=== PATIENT | female | born 1950 | race Caucasian/White ===

== ENCOUNTER 2019-07-13 01:35 | Day surgery (SDC) | payer MEDICARE, SELFPAY ==
[2019-07-09 15:36] VITALS: BMI 27.3
--- NOTE | ~2019-07-13 | XR_ITS ---
EXAMINATION: XR retrograde pyelo w/stent LT DATE: 07/13/2019 12:57 INDICATION: Renal stone TECHNIQUE: Fluoroscopic images from a left ureteral stent placement are submitted for review. 40 seco nds of fluoroscopy time. 4 fluoroscopic images. FINDINGS: There is a left double-J internal ureteral stent projecting in expected position, with proximal Marcy loop at the level of the renal pelvis and distal loop in the pelvis within the bladder lumen. IMPRESSION: 1. Left centimeter internal ureteral stent placement. Please refer to real-time procedural findings for details. Reviewed, dictated and finalized at location A. 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 Left centimeter internal ureteral stent placement. Please refer to real-ti me procedural findings for details.
[2019-07-13 10:10] VITALS: BP 155/99; PULSE 96; RESP 18; TEMP 36.6; O2SAT 99
[2019-07-13] MEDS: LACTATED RINGERS 1,000 ML 30 ML IV CONT (10:45)
[2019-07-13 11:07] LABS: Partial Thromboplastin Time 25.8 SECONDS (22.3-36.8)
--- NOTE | 2019-07-13 11:16 | WPDANESEPPF ---
Anes - Initial Pre Proc Eval Procedure: Operation Date: 07/13/19 12:00 Proposed Procedures p Cystoscopy, Left Ureteroscopy, Left Retrograde Pyelogram, Left Stone Extraction, Possible Left Stent Exchange - David Boone MD s Possible Holmium Laser Procedure - David Boone MD Date/Time: 07/13/19 11:16 Surgeon: David Boone MD Pre Op Diagnosis: Left Renal Stone Patient Data Age: 68 Gender: F Height: 5 ft 10 in Weight: 85.8 kg Last Vital Signs Temp 97.9 F 07/13/19 10:10 Pulse 96 07/13/19 10:10 Resp 18 07/13/19 10:10 BP 155/99 H 07/13/19 10:10 Pulse Ox 99 07/13/19 10:10 Allergies Allergy/AdvReac Type Severity Reaction Status Date / Time adhesive tape Allergy Intermediate Blister Verified 07/13/19 11:08 Home Medications Medication Instructions Recorded Confirmed Type warfarin 2.5 mg tablet See Rx Instructions .ROUTE .COMPLEX 06/14/19 07/09/19 History cholecalciferol (vitamin D3) 400 400 unit PO DAILY 06/15/19 07/09/19 History unit chewable tablet exemestane 25 mg tablet 25 mg PO DAILY 06/15/19 07/13/19 History gemfibrozil 600 mg tablet 600 mg PO BID 06/15/19 07/13/19 History irbesartan 150 mg tablet 150 mg PO DAILY 06/15/19 07/13/19 History metoprolol succinate 25 mg 50 mg PO HS 06/15/19 07/13/19 History tablet,extended release 24 hr atorvastatin 20 mg PO DAILY 06/26/19 07/13/19 History acetaminophen [Tylenol Extra 500 mg PO Q6H PRN 07/09/19 07/09/19 History Strength] famotidine 20 mg PO DAILY 07/09/19 07/13/19 History Laboratory Tests 07/13/19 10:41 PT 13.0 Seconds Seconds (11.1-14.7) INR 1.0 APTT 25.8 SECONDS SECONDS (22.3-36.8) Patient hx anesthesia problems: none Family hx anesthesia problems: none PMFSH Past Medical History Medical History (Updated 07/08/19 @ 07:48 by Lindy Mccarthy PA-C) Arthritis Breast cancer ER/[place] positive ductal carcinoma status post left partial mastectomy and radiation. She is on anti hormonal therapy. Chronic back pain Current use of care home anticoagulation Depression GERD (gastroesophageal reflux disease) Hay fever Herniated disc Hyperlipidemia Hypertension Paroxysmal atrial fibrillation On long-term warfarin. Social History Social History Social History: The patient lives in [place] with her boyfriend. She designates her boyfriend, Christian Mirza, as her surrogate decision maker and she wishes to be a full code. She denies alcohol, tobacco, drug use. Gender identity (if verbalized by the patient): Female Anes - Eval Final PreProcedure Day of Procedure 07/13/19 11:16 Patient weight: overweight Heart: irregular rhythm Lungs: clear to auscultation Airway: Mallampati scale class II Neurological: alert and oriented Last oral intake: >/= 8 hours ASA classification: IV Emergent: no Anesthetic plan: proceed Anesthesia type and monitoring: general LMA and standard monitoring Informed Consent: The patient's anesthetic plan and its attendant risks and benefits were discussed with the patient/family/POA. Questions were solicited and answers provided to the satisfaction of the patient/family/POA.
--- NOTE | 2019-07-13 11:29 | WPDHPUPDATE1 ---
History and Physical Update Update Date/Time: 07/13/19 11:29 History and Physical has been reviewed, including an updated exam of the patient. There are NO changes in the patient's condition. Risks, benefits, and alternatives have been discussed and questions answered. Patient agrees to proceed with procedure. Have added retrograde pyelogram to the consent form.
[2019-07-13] MEDS: ceFAZolin 2 GM/D5W 50 ML 2 GM/50 ML BAG IVPB (12:11)
[2019-07-13] MEDS: LIDOCAINE HCL 2% GEL UROJET 10 ML PKG MUCOUS MEM (12:37)
--- NOTE | 2019-07-13 12:48 | PM.PROC ---
Procedure Note - Detailed Date of procedure: 07/13/19 Pre-op diagnosis: Left Renal Stone Post-op diagnosis: same Procedure performed: Cystoscopy, left retrograde pyelogram, left ureteroscopy with stone extraction x2, each 4 mm, left ureteral stent exchange 4.8 Jordanian contour Description of procedure: Patient was taken to the operative suite and correctly identified. Once general anesthesia was obtained she was placed in the dorsal lithotomy position prepped and draped in usual sterile fashion. Twenty Jordanian scope inserted into the bladder. The left ureteral stent was grasped and brought out the meatus. A guidewire was inserted through the stent. A mini flexible ureteroscope was then placed all way up to the renal pelvis. We noted 2 stones present. One was in the lower pole and 1 was in the middle pole calyx. Each measured approximately 4 mm. We went ahead and used an escape basket retrieve both stones in 1 piece. There were no other stones noted. We then did a pyelogram to confirm placement of the stent. A 4.8 Jordanian contour stent was then placed with the proximal end coiled in the renal pelvis and the distal bladder. Bladder is drained. 2% viscous lidocaine was inserted into the urethra and she was taken to recovery room in stable condition. She will follow up in a week's time for stent room Anesthesia: GLMA Surgeon: David Boone MD Drains: Yes Packing: No Pathology: yes Complications: No immediate complications Condition: stable Disposition: PACU
[2019-07-13 12:53] VITALS: BP 111/73; PULSE 115; RESP 16; TEMP 37.4; O2SAT 98
[2019-07-13 13:10] VITALS: BP 115/91; PULSE 108; RESP 12; O2SAT 100
[2019-07-13 13:25] VITALS: BP 111/80; PULSE 105; RESP 12; O2SAT 99
[2019-07-13 13:35] VITALS: BP 124/61; PULSE 96; RESP 16
[2019-07-13 14:05] VITALS: BP 130/47; PULSE 73; RESP 16
== END 2019-07-13 14:10 | disposition home or self-care (01) ==
PROVIDERS: Anesthesiology; PCP Family Medicine; Visit Provider Urology
PROC: (CPT 52352; principal; 2019-07-13 12:00)
DX: N20.0 Calculus of kidney (principal); I10 Essential (primary) hypertension; I48.0 Paroxysmal atrial fibrillation; E78.5 Hyperlipidemia, unspecified; K21.9 Gastro-esophageal reflux disease without esophagitis; F32.9 Major depressive disorder, single episode, unspecified; Z79.01 Long term (current) use of anticoagulants; Z85.3 Personal history of malignant neoplasm of breast; Z79.811 Long term (current) use of aromatase inhibitors; Z92.3 Personal history of irradiation
CPT/HCPCS: 52332; 52352; 36415; 74420; 82365; 85610; 85730; 88300; A9270; C1769; C1887; C2617; J0690; J1100; J2250; J2405; J2704; J3010; J7120; Q9966

== ENCOUNTER 2020-02-29 00:13 | Outpatient (CLI) | payer MEDICARE, SELFPAY ==
[2020-02-29 17:26] LABS: SARS-CoV-2 RNA PCR Negative
== END 2020-02-29 00:14 | disposition home or self-care (01) ==
LOC: ANHCOVIDDT 00:14
PROVIDERS: PCP Family Medicine; Visit Provider Internal Medicine Gastroenterology
DX: Z01.812 Encounter for preprocedural laboratory examination (principal); Z20.828 Contact with and (suspected) exposure to other viral communicable diseases
CPT/HCPCS: 87635; C9803; U0003

== ENCOUNTER 2020-03-02 02:14 | Day surgery (SDC) | payer MEDICARE, SELFPAY ==
[2020-02-24 15:30] VITALS: BMI 27.3
--- NOTE | 2020-03-01 13:11 | WPDANESEPPF ---
Anes - Initial Pre Proc Eval Procedure: Operation Date: 03/02/20 09:00 Proposed Procedures p Screening Colonoscopy - Fish Sanchez MD Date/Time: 03/01/20 13:11 Surgeon: Fish Sanchez MD Pre Op Diagnosis: hx of colon polyps Patient Data Age: 69 Gender: F Height: 1.78 m Weight: 86.36 kg Allergies Allergy/AdvReac Type Severity Reaction Status Date / Time adhesive tape Allergy Intermediate Blister Verified 03/02/20 08:16 Home Medications Medication Instructions Recorded Confirmed Type warfarin 2.5 mg tablet See Rx Instructions .ROUTE .COMPLEX 06/14/19 03/02/20 History cholecalciferol (vitamin D3) 10 400 unit PO BID 06/15/19 02/24/20 History mcg (400 unit) chewable tablet exemestane 25 mg tablet 25 mg PO DAILY 06/15/19 02/24/20 History metoprolol succinate 25 mg 50 mg PO HS 06/15/19 03/02/20 History tablet,extended release 24 hr atorvastatin 20 mg PO DAILY 06/26/19 02/24/20 History acetaminophen [Tylenol Extra 500 mg PO Q6H PRN 07/09/19 02/24/20 History Strength] famotidine 10 mg PO DAILY 07/09/19 02/24/20 History gemfibrozil 600 mg tablet 600 mg PO BID #180 tablet 10/04/19 02/24/20 Rx es-ht-SB-vit [id number] 1 cap PO DAILY 12/10/19 02/24/20 History [Daily Multivitamin] irbesartan 150 mg tablet 150 mg PO DAILY #90 tablet 01/28/20 02/24/20 Rx zoledronic acid 4 mg/5 mL 1 mg IVPB [id number] ml 02/14/20 02/24/20 History intravenous solution Patient hx anesthesia problems: none Family hx anesthesia problems: none PMFSH Past Medical History Medical History (Updated 02/14/20 @ 13:07 by Ramiro Fraag PA-C) Arthritis BMI 27.0-27.9,adult Breast cancer ER/[place] positive ductal carcinoma status post left partial mastectomy and radiation. She is on anti hormonal therapy. 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 Primary hypertension Surgical History Surgical History History of dilation and curettage History of partial mastectomy of left breast History of right nephrectomy With benign histology. Status post left rotator cuff repair Status post lumbar discectomy Status post partial hysterectomy Status post tonsillectomy Social History Social History Social History: The patient lives in [place] with her boyfriend. She designates her boyfriend, Christian Mirza, as her surrogate decision maker and she wishes to be a full code. She denies alcohol, tobacco, drug use. Smoking status: Never smoker Alcohol intake: never Substance use: never Substance use type: does not use Living arrangements: with friend(s) Gender identity (if verbalized by the patient): Female Spiritual care concerns: No Anes - Eval Final PreProcedure Day of Procedure 03/01/20 13:11 Patient weight: overweight Heart: regular rate and rhythm Lungs: clear to auscultation and normal air movement Airway: Mallampati scale class II Neurological: alert and oriented Last oral intake: >/= 8 hours ASA classification: III Emergent: no Anesthetic plan: proceed Anesthesia type and monitoring: general GIVS and standard monitoring Informed Consent: The patient's anesthetic plan and its attendant risks and benefits were discussed with the patient/family/POA. Questions were solicited and answers provided to the satisfaction of the patient/family/POA.
[2020-03-02 08:17] VITALS: BP 141/92; PULSE 99; RESP 18; TEMP 37.3; O2SAT 99; BMI 27.1
[2020-03-02] MEDS: LACTATED RINGERS 1,000 ML 150 ML IV CONT (08:53)
[2020-03-02 09:07] LABS: INR 1.1; Prothrombin Time 14.1 Seconds (11.1-14.7)
[2020-03-02 09:46] VITALS: BP 95/41; PULSE 89; RESP 21; O2SAT 98
--- NOTE | 2020-03-02 09:50 | WPDGICN ---
Assessment and Plan Assessment and plan (1) History of colon polyps: Code(s): Z86.010 - Personal history of colonic polyps Status: Acute Assessment and Plan: Because of prior history of colon polyps colonoscopy will be performed now advised to 5 year intervals in the future. Coumadin will be held during this interval. (2) Rectal spasm: Code(s): K59.4 - Anal spasm Status: Acute Assessment and Plan: Because of rectal spasms will give patient a trial of Levsin 0.125 mg p.o. t.i.d. p.r.n.. (3) Paroxysmal atrial fibrillation: Code(s): I48.0 - Paroxysmal atrial fibrillation Status: Acute Assessment and Plan: Warfarin will be held briefly for colonoscopy. GI Consult Note Consult date/time: 03/02/20 09:50 HPI: Mayte Hawley is a 69 year old female Seen in evaluation at the request of Dr. Shabana Saleem. Patient presents for screening colonoscopy. Patient has a history of colon polyps in the past. She presents today for follow-up examination. Her current weight appetite bowel movements are normal. She denies any bleeding. Should her bowel habits have remained normal. She does notice intermittent rectal spasms. These typically will wake her up at night last for 1hour. No specific aggravating or relieving factors are noted. Patient does to is followed by n is been treated for the Coumadin. Because of atrial fibrillation. This will be held for endoscopy. Review of Systems Review of Systems: All systems reviewed & are unremarkable except as noted in HPI and below PMFSH Past Medical History Medical History (Updated 03/02/20 @ 09:53 by Fish Sanchez MD) Arthritis BMI 27.0-27.9,adult Breast cancer ER/[place] positive ductal carcinoma status post left partial mastectomy and radiation. She is on anti hormonal therapy. Chronic back pain Chronic back pain greater than 3 months duration Colon cancer screening Current use of counselor aid anticoagulation Depression GERD (gastroesophageal reflux disease) Hard of hearing Hay fever Herniated disc History of breast cancer History of kidney stones Hyperlipidemia Hypertension Mixed hyperlipidemia ELISHA on CPAP Osteoporosis screening Paroxysmal atrial fibrillation On long-term warfarin. Primary hypertension Surgical History Surgical History History of dilation and curettage History of partial mastectomy of left breast History of right nephrectomy With benign histology. Status post left rotator cuff repair Status post lumbar discectomy Status post partial hysterectomy Status post tonsillectomy Social History Social History Social History: The patient lives in [place] with her boyfriend. She designates her boyfriend, Christian Mirza, as her surrogate decision maker and she wishes to be a full code. She denies alcohol, tobacco, drug use. Smoking status: Never smoker Alcohol intake: never Substance use: never Substance use type: does not use Living arrangements: with friend(s) Gender identity (if verbalized by the patient): Female Spiritual care concerns: No Meds Home Medications and Allergies Home Medications Medication Instructions Recorded Confirmed Type warfarin 2.5 mg tablet See Rx Instructions .ROUTE .COMPLEX 06/14/19 03/02/20 History cholecalciferol (vitamin D3) 10 400 unit PO BID 06/15/19 02/24/20 History mcg (400 unit) chewable tablet exemestane 25 mg tablet 25 mg PO DAILY 06/15/19 02/24/20 History metoprolol succinate 25 mg 50 mg PO HS 06/15/19 03/02/20 History tablet,extended release 24 hr atorvastatin 20 mg PO DAILY 06/26/19 02/24/20 History acetaminophen [Tylenol Extra 500 mg PO Q6H PRN 07/09/19 02/24/20 History Strength] famotidine 10 mg PO DAILY 07/09/19 02/24/20 History gemfibrozil 600 mg tablet 600 mg PO BID #180 tablet 10/04/19 02/24/20 Rx
[2020-03-02 09:56] VITALS: BP 109/60; PULSE 90; RESP 19; O2SAT 99
[2020-03-02 10:06] VITALS: BP 114/60; PULSE 94; RESP 26; O2SAT 99
== END 2020-03-02 10:35 | disposition home or self-care (01) ==
PROVIDERS: PCP Family Medicine; Visit Provider Internal Medicine Gastroenterology
PROC: 0DJD8ZZ Inspection of Lower Intestinal Tract, Via Natural or Artificial Opening Endoscopic (ICD-10-PCS; CPT 45378; principal; 2020-03-02 09:00)
DX: Z12.11 Encounter for screening for malignant neoplasm of colon (principal); D12.2 Benign neoplasm of ascending colon; D12.5 Benign neoplasm of sigmoid colon; K57.30 Diverticulosis of large intestine without perforation or abscess without bleeding; K64.8 Other hemorrhoids; K59.4 Anal spasm; I48.0 Paroxysmal atrial fibrillation; Z79.01 Long term (current) use of anticoagulants; K21.9 Gastro-esophageal reflux disease without esophagitis; I10 Essential (primary) hypertension; E78.2 Mixed hyperlipidemia; G47.33 Obstructive sleep apnea (adult) (pediatric); F32.9 Major depressive disorder, single episode, unspecified; G89.29 Other chronic pain; M54.9 Dorsalgia, unspecified; M19.90 Unspecified osteoarthritis, unspecified site; Z85.3 Personal history of malignant neoplasm of breast; Z87.442 Personal history of urinary calculi
CPT/HCPCS: 45385; 45382; 36415; 85610; 88305; J2704; J7120

== ENCOUNTER 2020-03-07 13:51 | Outpatient (CLI) | payer MEDICARE, SELFPAY ==
--- NOTE | ~2020-03-07 | DEXA_ITS ---
Bone Density Report Name: Mayte Hawley Age: 69 Sex: Female Ethnicity: White Date of : 1950 Indication: postmenopausal; height loss; cancer; hysterectomy; Referring Provider: Ramiro Fraga Study: Bone densitometry was performed. Exam Date: March 07, 2020 Accession number: [id number] Bone Density: Region BMD T-score Z-score Classification AP Spine (L1-L4) 1.134 0.8 2.9 Normal Femoral Neck (Left) 0.759 -0.8 1.0 Normal Total Hip (Left) 0.869 -0.6 0.9 Normal Total Hip Bilateral Avg 0.869 -0.6 0.9 Normal Femoral Neck (Right) 0.735 -1.0 0.7 Normal Total Hip (Right) 0.867 -0.6 0.9 Normal World Health Organization criteria for BMD impression classify patients as: Normal (T-score at or above -1.0), Osteopenia (T-score between -1.0 and -2.5), or Osteoporosis (T-score at or below -2.5). 10-year Fracture Risk: FRAX not reported because: All T-scores for Spine Total, Hip Total, Femoral Neck at or above -1.0 Previous Exams: Region Exam Age BMD T-score BMD Change BMD Change Date g/cm2 vs Baseline vs Previous AP Spine(L1-L4) 03/07/2020 69 1.134 0.8 0.153(15.6%)# 0.034(3.1%)* 01/02/2018 67 1.101 0.5 0.119(12.1%)# 0.051(4.9%)* 08/22/2015 64 1.049 0.0 0.068(6.9%)# 0.046(4.6%)# 06/06/2010 59 1.003 -0.4 0.021(2.2%) 0.008(0.8%) 05/20/2008 57 0.995 -0.5 0.014(1.4%) 0.014(1.4%) 01/07/2005 54 0.982 -0.6 Total Hip(Left) 03/07/2020 69 0.869 -0.6 0.007(0.9%)# 0.017(2.0%) 01/02/2018 67 0.852 -0.7 -0.010(-1.2%)# -0.001(-0.2%) 08/22/2015 64 0.853 -0.7 -0.009(-1.0%)# -0.025(-2.8%)# 06/06/2010 59 0.878 -0.5 0.016(1.9%) -0.013(-1.5%) 05/20/2008 57 0.891 -0.4 0.029(3.4%)* 0.029(3.4%)* 01/07/2005 54 0.862 -0.7 Total Hip(Right) 03/07/2020 69 0.867 -0.6 -0.005(-0.6%)# 0.011(1.3%) 01/02/2018 67 0.856 -0.7 -0.016(-1.8%)# -0.017(-1.9%) 08/22/2015 64 0.873 -0.6 0.001(0.1%)# 0.000(0.0%)# 06/06/2010 59 0.873 -0.6 0.001(0.1%) -0.008(-0.9%) 05/20/2008 57 0.881 -0.5 0.009(1.0%) 0.009(1.0%) 01/07/2005 54 0.872 -0.6 *Denotes significance at 95% confidence level, LSC for AP Spine = 0.022 g/cm2, LSC for Total Hip = 0.027 g/cm2 Clinical Information Provided by Patient: Has used the following medications: Reclast (i.e. zoledronate), Vitamin D Has the following medical conditions: Cancer, Hysterectomy Patient maximum height was 72 Menopause Age: 45 No regular weight bearing
== END 2020-03-07 13:52 | disposition home or self-care (01) ==
PROVIDERS: PCP Family Medicine; Visit Provider Physician Assistant
DX: M81.0 Age-related osteoporosis without current pathological fracture (principal); Z85.3 Personal history of malignant neoplasm of breast
CPT/HCPCS: 77080

== ENCOUNTER 2021-02-15 06:47 | Outpatient (CLI) | payer MEDICARE, SELFPAY ==
--- NOTE | ~2021-02-15 | XR_ITS ---
EXAMINATION: XR abdomen/kub 1V INDICATION: Calculus of the kidney, history of stones TECHNIQUE: Supine views of the abdomen were obtained on 2 radiographs. COMPARISON: 07/01/2019 FINDINGS: There are changes of right nephrectomy. No urolithiasis is identified. There are multiple p hleboliths of the pelvis. A surgical anastomosis is noted in the rectum. There is moderate hip osteoa rthritis. The visualized lung bases are clear. A moderate volume of colonic stool is present. IMPRESSION: 1. No urolithiasis identified. Reviewed, dictated and finalized at location A.
== END 2021-02-15 06:48 | disposition home or self-care (01) ==
LOC: ANHIMG 06:52
PROVIDERS: PCP Family Medicine; Visit Provider Urology
DX: N20.0 Calculus of kidney (principal)
CPT/HCPCS: 74018

== ENCOUNTER 2021-04-09 08:45 | Outpatient (CLI) | payer MEDICARE, SELFPAY ==
--- NOTE | ~2021-04-09 | MR_ITS ---
EXAMINATION: MR lumbar spine wo con EXAM DATE: 04/09/2021 09:51 INDICATION: Low back pain. TECHNIQUE: Multi-sequential, multiplanar MR images of the lumbar spine were obtained without contrast . Sagittal T1, T2, T2 fat saturation images. Axial T2 weighted images. There is no prior study for comparison. FINDINGS: There is mild thoracolumbar dextroscoliosis. Mild to moderate disc disease from T12 through L4 and L5-S1. There our 2 nonspecific low T1 and T2 signal intensities measuring about 1.3 cm, one i n L3 vertebral body and one in L5 vertebral body. There is no correlate to these on the CT scan abdom en pelvis dated 06/26/2019. Differential diagnosis includes atypical hemangioma, metastatic disease or multiple myeloma. There are several signal abnormalities consistent with typical hemangiomas. There is 2 mm anterolisthesis L3 on L4, 3 mm retrolisthesis L5 on S1. The conus medullaris terminates at the L1/2 level and has normal signal intensity and morphology. Paraspinal soft tissue is unremar kable. Level by level evaluation: T12-L1: There is a mild to moderate diffuse disc bulge. Facet arthropathy: Mild. Neural foraminal stenosis: Mild right. Central canal stenosis: Mild. L1-L2: There is a mild diffuse disc bulge. Facet arthropathy: Mild to moderate. Neural foraminal stenosis: Mild to moderate left. Central canal stenosis: Mild. L2-L3: There is a mild to moderate diffuse disc bulge. Facet arthropathy: Moderate . Ligamentum flavum enlargement. Neural foraminal stenosis: Mild to moderate left. Central canal stenosis: Mild. L3-L4: There is a mild diffuse disc bulge. Facet arthropathy: Moderate . Ligamentum flavum enlargement. Neural foraminal stenosis: No stenosis. Central canal stenosis: Mild to moderate. L4-L5: There is a mild diffuse disc bulge. Facet arthropathy: Mild to moderate. Neural foraminal stenosis: Mild right. Central canal stenosis: Mild. L5-S1: There is a mild diffuse disc bulge. Facet arthropathy: Mild. Neural foraminal stenosis: Moderate right, mild to moderate left. Central canal stenosis: Mild. IMPRESSION: 1. L5-S1 moderate right neural foraminal stenosis. 2. Mild thoracolumbar dextroscoliosis. 3. Hemangiomata. L3 and L5 focal signal abnormalities, differential diagnosis including atypical hem angiomas, metastatic disease or multiple myeloma. Clinical correlation. Consider bone scan, or noncon trast lumbar CT to assess for development of osteoblastic disease compared to prior study. 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 IMPRESSION: 1. L5-S1 moderate right neural foraminal stenosis. 2. Mild thoracolumbar dextroscoliosis. 3. Hemangiomata. L3 and L5 focal signal abnormalities, differential diagnosis including atypical hemangiomas, metastatic disease or multiple myeloma. Clinica l correlation. Consider bone scan, or noncontrast lumbar CT to assess for devel opment of osteoblastic disease compared to prior study.
== END 2021-04-09 08:46 | disposition home or self-care (01) ==
PROVIDERS: PCP Family Medicine; Visit Provider Nurse Practitioner Family
DX: M54.50 Low back pain, unspecified (principal)
CPT/HCPCS: 72148

== ENCOUNTER 2021-04-24 11:10 | Outpatient (CLI) | payer MEDICARE, SELFPAY ==
--- NOTE | ~2021-04-24 | NM_ITS ---
EXAMINATION: NM bone scan whole body EXAM DATE: 04/24/2021 14:10 INDICATION: Abnormal MRI. TECHNIQUE: Bone scan was performed after injection of 26.4 mCi technetium 99 HDP and planar whole bod y images were obtained. COMPARISON: Compared to prior bone scan 01/30/2016, correlation to abnormal MRI 04/09/2021, correlati on to CT abdomen pelvis 06/26/2019. FINDINGS: There is mild to moderate upper lumbar dextroscoliosis. Scattered polyarticular mild osteo arthritis. There are no focal suspicious regions of increased or decreased osseous activity. Physiolo gic excretion from the left kidney, absent right renal activity. 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 Consider follow-up noncontrast CT or MRI lumbar spine examination in 3 months to compared to prior examinations. IMPRESSION: No correlate for the MRI abnormality; consider 3 month follow-up CT or MR lumbar spine w ithout contrast. Reviewed, dictated and finalized at location A. EL CLIPPER IMPRESSION: No correlate for the MRI abnormality; consider 3 month follow-up C T or MR lumbar spine without contrast.
== END 2021-04-24 11:11 | disposition home or self-care (01) ==
LOC: ANHIMG 11:14
PROVIDERS: PCP Family Medicine; Visit Provider Nurse Practitioner Family
DX: R93.7 Abnormal findings on diagnostic imaging of other parts of musculoskeletal system (principal)
CPT/HCPCS: 78306; A9561

== ENCOUNTER → 2021-11-08 08:11 | Outpatient (CLI) | payer MEDICARE, SELFPAY ==
--- NOTE | ~2021-11-08 | US_ITS ---
EXAMINATION: US aorta [facility] DATE: 11/08/2021 08:31 INDICATION: Abdominal aortic aneurysm screening. TECHNIQUE: Grayscale, color Doppler, and pulsed Doppler images of the aorta and common iliac arteries were obtained. COMPARISON: Lumbar spine MRI 04/09/2021 FINDINGS: The aorta is normal in caliber. The right common iliac artery is normal in caliber. The left common i liac artery is normal in caliber. IMPRESSION: 1. No abdominal aortic aneurysm. Reviewed, dictated and finalized at location A.
== END ==
PROVIDERS: PCP Family Medicine; Visit Provider Nurse Practitioner Family
DX: Z13.6 Encounter for screening for cardiovascular disorders (principal); Z82.49 Family history of ischemic heart disease and other diseases of the circulatory system
CPT/HCPCS: 76706

== ENCOUNTER → 2022-01-30 10:33 | Outpatient (CLI) | payer MEDICARE, SELFPAY ==
--- NOTE | ~2022-01-30 | XR_ITS ---
EXAMINATION: XR abdomen/kub 1V INDICATION: Calculus of the kidney TECHNIQUE: Supine views of the abdomen were obtained on 2 radiographs. COMPARISON: 02/15/2021 FINDINGS: There are changes of right nephrectomy. No urolithiasis is identified. There is moderate os teoarthritis of the hips. Phleboliths are noted in the pelvis. A surgical anastomosis is noted in the rectum. The bowel gas pattern is normal. There is lumbar levoscoliosis. The visualized lung bases ar e clear. IMPRESSION: 1. No urolithiasis identified. Reviewed, dictated and finalized at location A.
== END ==
PROVIDERS: PCP Family Medicine; Visit Provider Urology
DX: N20.0 Calculus of kidney (principal); M41.9 Scoliosis, unspecified; M16.0 Bilateral primary osteoarthritis of hip; Z98.0 Intestinal bypass and anastomosis status
CPT/HCPCS: 74018

== ENCOUNTER → 2022-04-29 09:46 | Outpatient (CLI) | payer MEDICARE, SELFPAY ==
--- NOTE | ~2022-04-29 | XR_ITS ---
XR thoracic spine 3V DATE: 04/29/2022 10:39 INDICATION: Chronic back pain. No known injury. TECHNIQUE: AP, lateral, swimmer views COMPARISON: None FINDINGS: Moderately severe degenerative disc disease at C6-7. There is osteopenia. There is mild to moderate degenerative spurring of the thoracic spine, primarily in the lower thoracic region. The thoracic pedicles are intact. No fracture or bone destruction or paraspinal soft tissue thickenin g is noted. IMPRESSION: Osteopenia Mild to moderate degenerative spurring of the thoracic spine Severe degenerative disc disease at C6-7 Reviewed, dictated and finalized at location A. IPAN MOLDER
== END ==
PROVIDERS: PCP Nurse Practitioner Family; Visit Provider Nurse Practitioner Family
DX: M47.814 Spondylosis without myelopathy or radiculopathy, thoracic region (principal); M85.88 Other specified disorders of bone density and structure, other site; M50.323 Other cervical disc degeneration at C6-C7 level
CPT/HCPCS: 72072

== ENCOUNTER 2022-05-07 15:10 | Outpatient (CLI) | payer MEDICARE, SELFPAY ==
--- NOTE | ~2022-05-07 | DEXA_ITS ---
Bone Density Report Name: LEATHA AKINS Age: 71 Sex: Female Ethnicity: White Date of : 1950 Indication: postmenopausal; screening for osteoporosis; height loss; cancer; hysterectomy; Referring Provider: UNKNOWN, UNKNOWN Study: Bone densitometry was performed. Exam Date: May 07, 2022 Accession number: [id number] Bone Density: Region BMD T-score Z-score Classification AP Spine(L1-L4) 1.096 0.4 2.6 Normal Femoral Neck (Left) 0.706 -1.3 0.6 Osteopenia Total Hip (Left) 0.874 -0.6 1.0 Normal Femoral Neck (Right) 0.761 -0.8 1.1 Normal Total Hip (Right) 0.898 -0.4 1.2 Normal Total Hip Mean 0.886 -0.5 1.1 Normal World Health Organization criteria for BMD impression classify patients as: Normal (T-score at or above -1.0), Osteopenia (T-score between -1.0 and -2.5), or Osteoporosis (T-score at or below -2.5). 10-year Fracture Risk(1): Major Osteoporotic Fracture 9.8% Hip Fracture 1.4% Reported Risk Factors: [place] (), Neck BMD=0.706, BMI=27.4 (1) FRAX(R) Version 3.08. Fracture probability calculated for an untreated patient. Fracture probability may be lower if the patient has received treatment. Clinical Information Provided by Patient: Has the following medical conditions: Cancer, Hysterectomy Patient maximum height was 72 Menopause Age: 45 Does not regularly consume dairy products Onset of menses at age 13 Number of children 2 Impression: The patient has low bone mass, based on the Left Femoral Neck T-score. The patient has an estimated ten-year risk of hip fracture of 1.4% and an estimated ten-year risk of major fracture of 9.8%, based on the WHO FRAX algorithm. Discussion: BONE DENSITY IS LOW AT ONE OR MORE SKELETAL SITES. This patient's lowest T-score is low at one or more skeletal sites. It meets the World Health Organization's (WHO) criteria for ?low bone mass? (T-score between -1.0 and -2.5). The patient's 10-year risk of fracture as calculated by FRAX is less than the threshold where pharmacological therapy is recommended by the National Osteoporosis Foundation (NOF). However, all treatment decisions require clinical judgment and consideration of individual patient factors, including patient preferences, comorbidities, previous drug use, risk factors not captured in the FRAX model (e.g., frailty, falls, vitamin D deficiency, increased bone turnover, interval significant decline in bone density) and possible under or overestimation of fracture risk by FRAX. The patient should follow a healthful lifestyle (good nutrition with adequate calcium and vitamin D, and appropriate weight-bearing exercise). Follow-Up: Consider repeating this study in 2 to 3 years to reassess this patient's status, or sooner if there is some new clinical indication. Repor
== END 2022-05-07 15:11 | disposition home or self-care (01) ==
LOC: ANHIMG 15:12
PROVIDERS: PCP Family Medicine
DX: M85.852 Other specified disorders of bone density and structure, left thigh (principal); Z79.811 Long term (current) use of aromatase inhibitors; Z78.0 Asymptomatic menopausal state
CPT/HCPCS: 77080

== ENCOUNTER 2023-01-27 08:34 | Outpatient (CLI) | payer MEDICARE, SELFPAY ==
[2023-01-27 13:10] LABS: Basophils Percent Auto 0.8 % (0.2-1.2); Eosinophils Absolute Auto 0.3 K/mm3 (0-0.3); Hematocrit 45.1 % (37.0-47.0); Hemoglobin 14.8 g/dL (12.0-15.0); Immature Granulocyte Absolute 0.01 K/mm3 (0.00-0.031); Immature Granulocyte Percent A 0.2 % (0-0.5); Lymphocytes Absolute Auto 0.86 K/mm3 (0.9-3.2); Lymphocytes Percent Auto 17.8 % (18.3-44.2); Mean Corpuscular HGB Conc 32.8 g/dl (32-36); Mean Corpuscular Hemoglobin 30.3 pg (26-34); Mean Corpuscular Volume 92.2 fl (80-100); Mean Platelet Volume 8.8 fl (7.4-10.4); Monocytes Absolute Auto 0.4 K/mm3 (0.1-0.6); Monocytes Percent Auto 7.7 % (2.6-8.5); Neutrophils Absolute Auto 3.3 K/mm3 (1.3-6.7); Neutrophils Percent Auto 67.5 % (45.5-73.1); Platelet Count Result 206 k/mm3 (150-375); Red Blood Count 4.89 M/mm3 (4.2-5.4); Red Cell Distribution Width 13.7 % (11.5-14.5); White Blood Count 4.8 K/mm3 (4.5-10.0)
[2023-01-27 13:12] LABS: Alanine Aminotransferase 26 U/L (6-35); Alkaline Phosphatase 87 U/L (38-126); Anion Gap 5 mmol/L (8-16); Aspartate Amino Transferase 32 U/L (14-36); Bilirubin,Total 0.6 mg/dL (0.2-1.3); Blood Urea Nitrogen 22 mg/dL (7-17); Calcium 9.2 mg/dL (8.4-10.2); Carbon Dioxide 25 mmol/L (22-30); Chloride 106 mmol/L (98-107); Cholesterol 149 mg/dL (0-200); Estimated Glomerular Filt Rate > 60; Glucose 93 mg/dL (65-110); HDL Direct 31 mg/dL; Potassium 4.6 mmol/L (3.4-5.0); Sodium 136 mmol/L (137-145); Triglycerides 163 mg/dL (<150)
[2023-01-27 13:22] LABS: LDL Cholesterol Direct 86 mg/dL
== END 2023-01-27 08:35 | disposition home or self-care (01) ==
PROVIDERS: PCP Family Medicine; Visit Provider Nurse Practitioner Family
DX: E78.5 Hyperlipidemia, unspecified (principal); I10 Essential (primary) hypertension
CPT/HCPCS: 36415; 80053; 80061; 85025

== ENCOUNTER 2023-05-20 13:01 | Outpatient (CLI) | payer MEDICARE, SELFPAY ==
--- NOTE | 2023-05-20 14:45 | NEURO_ITS ---
Impression: # Complains of numbness in feet. History of back surgery. 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 # Needle/EMG not requested. # Clinical correlation recommended. Nerve Conduction Studies Anti Sensory Summary Table Stim Site NR Peak (ms) P-T Amp (?V) Site1 Site2 Delta-P (ms) Dist (cm) Micheal (m/s) Left Saphenous Anti Sensory (Ant Med Mall) NO RESPONSE 14cm NR 14cm Ant Med Mall 0.0 Right Saphenous Anti Sensory (Ant Med Mall) NO RESPONSE 14cm NR 14cm Ant Med Mall 0.0 Left Sup Fibular Anti Sensory (Ant Lat Mall) NO RESPONSE 14 cm NR 14 cm Ant Lat Mall 16.0 Right Sup Fibular Anti Sensory (Ant Lat Mall) NO RESPONSE 14 cm NR 14 cm Ant Lat Mall 16.0 Left Sural Anti Sensory (Lat Mall) NO RESPONSE Calf NR Calf Lat Mall 16.0 Right Sural Anti Sensory (Lat Mall) NO RESPONSE Calf NR Calf Lat Mall 16.0 Motor Summary Table Stim Site NR Onset (ms) O-P Amp (mV) Site1 Site2 Delta-0 (ms) Dist (cm) Micheal (m/s) Left Peroneal Motor (Vastus Med) Ankle 4.9 0.8 Popit Ankle 9.6 43.0 45 Popit 14.5 0.9 Right Peroneal Motor (Vastus Med) Ankle 4.7 1.4 Popit Ankle 9.3 43.0 46 Popit 14.0 0.8 Left Tibial Motor (Abd Wilson Brev) Ankle 4.8 0.6 Knee Ankle 11.7 44.0 38 Knee 16.5 0.2 Right Tibial Motor (Abd Wilson Brev) Ankle 4.5 1.4 Knee Ankle 12.1 43.0 36 Knee 16.6 0.8 F Wave Studies NR F-Lat (ms) L-R F-Lat (ms) Left Peroneal (Mrkrs) (EDB) 65.63 5.97 Right Peroneal (Mrkrs) (EDB) 59.66 5.97 Left Tibial (Mrkrs) (Abd Hallucis) 60.82 2.34 Right Tibial (Mrkrs) (Abd Hallucis) 58.48 2.34 MTDD
== END 2023-05-20 13:02 | disposition home or self-care (01) ==
PROVIDERS: PCP Family Medicine
DX: G60.3 Idiopathic progressive neuropathy (principal)
CPT/HCPCS: 95911

== ENCOUNTER 2023-07-04 10:43 | Outpatient (CLI) | payer MEDICARE, SELFPAY ==
[2023-07-04 12:10] LABS: Basophils Percent Auto 0.8 % (0.2-1.2); Eosinophils Absolute Auto 0.2 K/mm3 (0-0.3); Eosinophils Percent Auto 3.6 % (0-4.4); Hematocrit 46.4 % (37.0-47.0); Hemoglobin 15.6 g/dL (12.0-15.0); Immature Granulocyte Absolute 0.01 K/mm3 (0.00-0.031); Immature Granulocyte Percent A 0.2 % (0-0.5); Lymphocytes Absolute Auto 0.96 K/mm3 (0.9-3.2); Lymphocytes Percent Auto 18.2 % (18.3-44.2); Mean Corpuscular HGB Conc 33.6 g/dl (32-36); Mean Corpuscular Hemoglobin 30.4 pg (26-34); Mean Corpuscular Volume 90.3 fl (80-100); Monocytes Absolute Auto 0.4 K/mm3 (0.1-0.6); Neutrophils Absolute Auto 3.7 K/mm3 (1.3-6.7); Neutrophils Percent Auto 69.2 % (45.5-73.1); Platelet Count Result 199 k/mm3 (150-375); Red Blood Count 5.14 M/mm3 (4.2-5.4); Red Cell Distribution Width 12.9 % (11.5-14.5); White Blood Count 5.3 K/mm3 (4.5-10.0)
[2023-07-04 12:26] LABS: Alanine Aminotransferase 21 U/L (6-35); Albumin Level 4.1 g/dL (3.5-5.1); Alkaline Phosphatase 90 U/L (38-126); Anion Gap 7 mmol/L (8-16); Aspartate Amino Transferase 37 U/L (14-36); Bilirubin,Total 0.8 mg/dL (0.2-1.3); Blood Urea Nitrogen 22 mg/dL (7-17); Calcium 9.5 mg/dL (8.4-10.2); Carbon Dioxide 26 mmol/L (22-30); Chloride 109 mmol/L (98-107); Estimated Glomerular Filt Rate > 60; Glucose 77 mg/dL (65-110); Potassium 4.4 mmol/L (3.4-5.0); Sodium 142 mmol/L (137-145)
[2023-07-04 12:41] LABS: Hemoglobin A1C 5.5 % (<5.7)
[2023-07-04 12:43] LABS: Vitamin D 25 Hydroxy 52.7 ng/mL
== END 2023-07-04 10:44 | disposition home or self-care (01) ==
LOC: ANHGOSHLAB 10:45
PROVIDERS: PCP Family Medicine; Visit Provider Family Medicine
DX: Z01.818 Encounter for other preprocedural examination (principal); I10 Essential (primary) hypertension; I48.0 Paroxysmal atrial fibrillation; E55.9 Vitamin D deficiency, unspecified; E11.9 Type 2 diabetes mellitus without complications
CPT/HCPCS: 36415; 80053; 82306; 83036; 84443; 85025

== ENCOUNTER → 2023-09-15 14:18 | Outpatient (REF) | payer MEDICARE, SELFPAY | LOC: ANHLAB 14:18 | PROVIDERS: PCP Family Medicine; Visit Provider Physician Assistant Surgical | DX: L72.11 Pilar cyst (principal) | CPT/HCPCS: 88305 ==

== ENCOUNTER 2023-09-23 14:24 | Outpatient (CLI) | payer MEDICARE, SELFPAY ==
--- NOTE | ~2023-09-23 | CT_ITS ---
EXAMINATION: CT LE LT wo con DATE: 09/23/2023 15:17 INDICATION: Left knee unilateral primary osteoarthritis. TECHNIQUE: Computed tomography (CT) of the left lower limb was performed without intravenous contrast . Automated exposure control and iterative reconstruction technique were employed. The dose-length pr oduct was 2163.15 mGy-cm. COMPARISON: Left knee radiographs 09/10/2023 FINDINGS: Bone alignment is normal. No fracture. There is moderate left hip osteoarthritis. Left knee demonstrates moderate osteoarthritis of the medial compartment and mild osteoarthritis of the latera l and patellofemoral compartments. There is an ossicle in the posterior horn of medial meniscus. Ther e is a small knee joint effusion. 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 IMPRESSION: 1. Moderate left knee osteoarthritis. 2. Small left knee joint effusion. 3. Moderate left hip osteoarthritis. Reviewed, dictated and finalized at location A.
--- NOTE | 2023-09-23 15:24 | ECG_ITS ---
Measurements Intervals [place] Rate: 103 P: * MT: * QRS: 22 QRSD: 99 T: 29 QT: 349 QTc: 409 Interpretive Statements ATRIAL FIBRILLATION WITH RAPID VENTRICULAR RESPONSE MINIMAL ST DEPRESSION [0.025+ mV ST DEPRESSION] ABNORMAL RHYTHM ECG SEE SCANNED COPY FOR SIGNATURE MTDD
[2023-09-23 15:46] LABS: Hemoglobin 15.6 g/dL (12.0-15.0)
[2023-09-23 15:56] LABS: Albumin Level 4.4 g/dL (3.5-5.1); Estimated Glomerular Filt Rate > 60; Glucose 126 mg/dL (65-110)
== END 2023-09-23 14:25 | disposition home or self-care (01) ==
PROVIDERS: PCP Family Medicine; Visit Provider Orthopaedic Surgery
DX: M17.12 Unilateral primary osteoarthritis, left knee (principal); E78.2 Mixed hyperlipidemia; I10 Essential (primary) hypertension; M25.462 Effusion, left knee; M16.12 Unilateral primary osteoarthritis, left hip
CPT/HCPCS: 36415; 73700; 82040; 82565; 82947; 85014; 85018; 93005

== ENCOUNTER 2024-05-04 08:39 | Inpatient (IN) | payer MEDICARE, SELFPAY ==
[2024-05-04] VITALS (10 sets, daily range): BP systolic 116–159; BP diastolic 72–113; PULSE 87–136; RESP 11–22; TEMP 36–36.6; O2SAT 98–100; BMI 26.7
--- NOTE | ~2024-05-04 | MR_ITS ---
EXAMINATION: MR brain/brain stem wo/w con DATE: 05/05/2024 10:31 INDICATION: Unrelenting dizziness TECHNIQUE: Magnetic resonance imaging (MRI) of the brain and brainstem was performed without and with 20 mL Multihance intravenous contrast. Sequences included sagittal and axial T1-weighted SE, axial d iffusion-weighted FS SE, axial 3D SWAN, axial T2-weighted FLAIR, and axial T2-weighted FSE. Postcontr ast axial and coronal T1-weighted SE was obtained. Apparent diffusion coefficient (ADC) maps were cre ated. COMPARISON: Head CT dated 05/04/2024 FINDINGS: There are no areas of restricted diffusion to suggest acute infarction. No intracranial hemorrhage or abnormal intracranial mass lesion. Single nonspecific focus of increased T2-weighted signal intensit y in the periventricular right frontoparietal white matter which is well within normal limits for age and likely sequela of chronic small vessel ischemic disease. There are no intraparenchymal signal ab normalities seen on the other pulse sequences. The ventricles are symmetric and normal in size. There are no abnormal extra-axial fluid collections. Flow voids are seen in the cerebral arteries on the T 2-weighted sequences consistent with their expected patency. Changes of bilateral intraocular lens re placement. Mild mucoperiosteal thickening the bilateral ethmoid sinuses. Visualized orbits and soft t issues are unremarkable. There are no areas of abnormal enhancement on the post contrast images. IMPRESSION: 1. Normal for age brain. No acute intracranial process or abnormally enhancing brain lesions. 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 DR[employer]
--- NOTE | ~2024-05-04 | MR_ITS ---
EXAMINATION: MRA brain wo con DATE: 05/05/2024 10:36 INDICATION: Unrelenting dizziness TECHNIQUE: Magnetic resonance angiography (MRA) of the brain was performed without intravenous contrast by the 3 D [id number] technique. COMPARISON: None. FINDINGS: There is normal flow related signal seen within the vertebral, basilar and internal carotid arteries. There is no proximal stenosis. There are no aneurysms identified. Both A1 and P1 segments are pat ent. Tiny patent right posterior communicating artery. Flow in the cerebral arteries is symmetric. IMPRESSION: 1. Normal brain MR angiogram. 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 CUTTER
--- NOTE | ~2024-05-04 | MR_ITS ---
EXAMINATION: MRA neck wo con DATE: 05/05/2024 10:37 INDICATION: Unrelenting dizziness TECHNIQUE: Magnetic resonance angiography (MRA) of the neck was performed without intravenous contras t. Sequences included axial 3D-time of flight T1-weighted FSPGR and Inhance 3D velocity. COMPARISON: None. FINDINGS: There is significant decreased flow related signal at the bilateral carotid bulbs. This results in 60 % stenosis of the right carotid bulb relative to normal distal artery lumen diameter (NASCET criteria ). There is 30% stenosis of the left carotid bulb relative to normal distal artery lumen diameter. B ilateral vertebral arteries are codominant without evident hemodynamically significant stenosis. Mode rate lower cervical and upper thoracic spondylosis. IMPRESSION: 1. 60% stenosis of the right carotid bulb relative to normal distal artery lumen diameter (NASCET cri teria). 2. 30% stenosis of the left carotid bulb relative to normal distal artery lumen diameter. 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 60% stenosis of the right carotid bulb relative to normal distal artery lume n diameter (NASCET criteria). 2. 30% stenosis of the left carotid bulb relative to normal distal artery lumen diameter.
--- NOTE | ~2024-05-04 | CT_ITS ---
EXAMINATION: CT brain wo con DATE: 05/04/2024 09:18 INDICATION: Dizziness TECHNIQUE: Computed tomography (CT) of the head was performed without intravenous contrast. Sagittal and coronal reconstructions were performed. The mA was adjusted according to patient size. Iterative reconstruction technique was employed. The dose-length product was 681.00 mGy-cm. COMPARISON: None FINDINGS: Small old lacunar infarct at the left insula. No acute intracranial hemorrhage, acute infarction or a bnormal extra axial fluid collection. Symmetric prominence of the sulci and subarachnoid spaces overl nikolai the convexities consistent with mild age-appropriate diffuse cerebral volume loss. Ventricles a re normal and symmetric. No mass/mass effect. Mild mucosal thickening in the right maxillary and bila teral ethmoid sinuses with small mucous retention cyst in the right maxillary sinus. Changes of bilat eral intraocular lens replacement. The orbits and mastoid air cells are normal. IMPRESSION: 1. Small old lacunar infarct at the left insula. No acute intracranial process. 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 [employer]
[2024-05-04] MEDS: ONDANSETRON INJ 4 MG/2 ML VIAL IV PUSH (08:55)
[2024-05-04] MEDS: MECLIZINE HCL 25 MG TABLET PO (08:57)
[2024-05-04] MEDS: diazePAM INJ (*CRX) 10 MG/2 ML SYRINGE 5 MG IV PUSH (08:57)
[2024-05-04 09:04] LABS: Basophils Percent Auto 0.5 % (0.2-1.2); Eosinophils Absolute Auto 0.2 K/mm3 (0-0.3); Eosinophils Percent Auto 2.8 % (0-4.4); Hematocrit 48.1 % (37.0-47.0); Hemoglobin 16.9 g/dL (12.0-15.0); Immature Granulocyte Absolute 0.03 K/mm3 (0.00-0.031); Immature Granulocyte Percent A 0.4 % (0-0.5); Lymphocytes Absolute Auto 1.69 K/mm3 (0.9-3.2); Lymphocytes Percent Auto 21.2 % (18.3-44.2); Mean Corpuscular HGB Conc 35.1 g/dl (32-36); Mean Corpuscular Volume 88.3 fl (80-100); Mean Platelet Volume 8.8 fl (7.4-10.4); Monocytes Absolute Auto 0.5 K/mm3 (0.1-0.6); Monocytes Percent Auto 6.1 % (2.6-8.5); Neutrophils Absolute Auto 5.5 K/mm3 (1.3-6.7); Platelet Count Result 229 k/mm3 (150-375); Red Blood Count 5.45 M/mm3 (4.2-5.4); Red Cell Distribution Width 13.2 % (11.5-14.5)
--- NOTE | 2024-05-04 09:15 | ECG_ITS ---
Test Date: 2024-05-04 09:46:05 Measurements Intervals [place] Rate: 92 P: 0 DE: 0 QRS: 10 QRSD: 101 T: 29 QT: 380 QTc: 470 Interpretive Statements ATRIAL FIBRILLATION INCOMPLETE RIGHT BUNDLE BRANCH BLOCK ABNORMAL ECG No previous ECG available for comparison Electronically Signed On 05-04-2024 10:04:54 WEB APPLICATIONS PROGRAMMER by Anant Stanley D.O.
[2024-05-04 09:19] LABS: Alanine Aminotransferase 22 U/L (6-35); Albumin Level 4.7 g/dL (3.5-5.1); Alkaline Phosphatase 100 U/L (38-126); Anion Gap 14 mmol/L (4-12); Aspartate Amino Transferase 27 U/L (14-36); Blood Urea Nitrogen 24 mg/dL (7-17); Calcium 9.9 mg/dL (8.4-10.2); Carbon Dioxide 17 mmol/L (22-30); Chloride 107 mmol/L (98-107); Estimated Glomerular Filt Rate > 60; Glucose 153 mg/dL (65-110); INR 2.3; Potassium 4.1 mmol/L (3.4-5.0); Prothrombin Time 26.1 Seconds (11.1-14.7); Sodium 138 mmol/L (137-145)
[2024-05-04 09:20] LABS: Partial Thromboplastin Time 36.2 Seconds (22.3-36.8)
--- NOTE | 2024-05-04 09:30 | ED.GENADULT ---
HPI - General Adult General Chief complaint: Dizziness Stated complaint: nausea, dizziness Time Seen by Provider: 05/04/24 08:46 History of Present Illness HPI narrative: 73-year-old female presents to the emergency department for evaluation of acute onset of nausea and vomiting with dizziness. Patient states that she has no prior history of vertigo. Patient denies any recent coughs colds or fevers. Patient states that last night when she went to bed at approximately min p.m. she had no onset of vertigo, patient did not get up to use the restroom during the night. Patient states that she got up at 6:00 a.m. this morning she had dizziness that provide her from walking stable a. Patient denies any associated numbness weakness. Patient denies any recent falls or injuries. Upon arrival emergency department patient did have significant emesis. Related Data Home Medications Medication Instructions Recorded Confirmed cholecalciferol (vitamin D3) 10 400 unit PO BID 06/15/19 05/04/24 mcg (400 unit) chewable tablet acetaminophen 500 mg tablet 500 mg PO Q6H PRN Pain 07/09/19 05/04/24 (Tylenol Extra Strength) [id number] 200 mcg-vit K 100 1 cap PO DAILY 12/10/19 05/04/24 mcg-lycop 500 [id number] capsule (Daily Multivitamin) warfarin 2.5 mg tablet 2.5 mg PO DAILY 10/22/21 05/04/24 metoprolol succinate 50 mg 50 mg PO DAILY 12/30/22 05/04/24 tablet,extended release 24 hr pyridoxine (vitamin B6) 100 mg 50 mg PO DAILY 04/30/23 05/04/24 tablet atorvastatin 20 mg tablet 20 mg PO QHS 06/25/23 05/04/24 gabapentin 300 mg capsule 300 mg PO TID 09/10/23 05/04/24 metoprolol succinate 100 mg 100 mg PO DAILY 05/04/24 05/04/24 tablet,extended release 24 hr solifenacin 5 mg tablet 10 mg PO DAILY 05/04/24 05/04/24 Allergies Allergy/AdvReac Type Severity Reaction Status Date / Time adhesive tape Allergy Intermediate Blister Verified 05/04/24 08:56 Review of Systems Review of Systems: All systems reviewed & are unremarkable except as noted in HPI and below PMFSH Past Medical History Medical History Amputation of toe Arthritis BMI 27.0-27.9,adult Chronic back pain COVID 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 on exemestane for 5 years Hx of renal calculi (~2019) Mixed hyperlipidemia OAB (overactive bladder) Follows with Dr Boone Paroxysmal atrial fibrillation On long-term warfarin. Primary hypertension Surgical History Surgical History History of amputation of lesser toe of right foot (~2018) Rt 2nd toe History of dilation and curettage History of partial mastectomy of left breast (~2017) History of right nephrectomy With benign histology. --renal stone obstruction. Hx of cataract extraction (~2020) Status post left rotator cuff repair Status post lumbar discectomy Status post partial hysterectomy Status post tonsillectomy Family History Family History Father Family history of cardiovascular disease Hypertension Grandparent Family history of cardiovascular disease Cerebrovascular accident Family history of lung cancer Family history of malignant neoplasm of uterus Sibling Family history of malignant neoplasm Mother Family history of lung cancer Depression Other Family history of malignant neoplasm of breast in first degree relative Social History Social History Social History: The patient lives in [place] with her boyfriend. She designates her boyfriend, Christian Mirza, as her surrogate decision maker and she wishes to be a full code. She denies alcohol, tobacco, drug use. Smoking status: Never smoker Second hand tobacco smoke exposure: Yes Alcohol intake: never Substance use: never Substance use type: does not use Do You Feel Safe in your Home?: Yes Lack of Transportation: No Lack of Food: Never True Current Housing: I Have Housing Concerned About Future Housing: No Difficulty Paying Gas/Electric Bills: No Difficulty Paying for Meds: No Currently Unemployed: No Education: Associate Degree Difficulty w/ Childcare or Family Care: No Living arrangements: with friend(s) Occupation/Education: retired Gender identity (if verbalized by the patient): Female Spiritual care concerns: No Agree to blood products: Yes Exam Narrative: APPEARANCE: Uncomfortable appearing secondary to nausea and vomiting HEAD: normocephalic, atraumatic. EYES: PERRLA/EOMI, conjunctivae clear. NOSE: Normal no drainage EARS:TMS clear with good light reflex. THROAT: Pharynx clear, no exudate. NECK: Supple. No adenopathy, no masses. RESPIRATORY: Airway patent, respirations nonlabored. Clear to auscultation bilaterally, no rales, rhonchi, wheezing. CARDIOVASCULAR: Regular rate and rhythm without murmurs rubs or gallops. ABDOMINAL: Soft, nontender, nondistended, normal bowel sounds MUSCULOSKELETAL: Moves all extremities. Strength/ROM intact, No edema, No calf tenderness. NEURO: Alert and appropriate with no focal numbness or weakness with normal neuro exam SKIN: Warm, dry. Normal Color Course Vital Signs Vital signs: Vital Signs Temperature 97.8 F 05/04/24 08:45 Pulse Rate 113 H 05/04/24 08:45 Respiratory Rate 20 05/04/24 08:45 Blood Pressure 159/113 H 05/04/24 08:45 Pulse Oximetry 99 05/04/24 08:45 Oxygen Delivery Room Air 05/04/24 08:45 Temperature 96.8 F L 05/04/24 14:25 Pulse Rate 103 H 05/04/24 16:00 Respiratory Rate 14 05/04/24 14:25 Blood Pressure 128/82 05/04/24 14:25 Pulse Oximetry 98 05/04/24 14:25 Oxygen Delivery Room Air 05/04/24 08:45 Medical Decision Making [facility] Narrative Medical decision making narrative: 73-year-old female presented to the emergency department for evaluation for vertigo symptoms. Patient was treated with Zofran, meclizine Valium and patient was still very symptomatic. Patient did feel that her symptoms were improved with treatment but patient states that she is still having persistent dizziness and nausea and does not feel she is able to be discharged to home. CT was ordered and showed no acute intracranial abnormality. Patient has a normal neuro exam with no focal numbness or weakness. Patient is afebrile with no leukocytosis and hemoglobin of 16.9, no significant abnormalities on the CMP. UA was concerning for UTI and with patient's symptoms she was started on antibiotics. Case was discussed with hospitalist patient was accepted for admission. All questions concerns were addressed with the patient and she was comfortable the plan for admission. Differential Diagnosis Differential Diagnosis: CVA, TIA, vertigo, central vertigo, UTI, dehydration Vital Signs Vital Signs: Vital Signs Temperature 97.8 F 05/04/24 08:45 Pulse Rate 113 H 05/04/24 08:45 Respiratory Rate 20 05/04/24 08:45 Blood Pressure 159/113 H 05/04/24 08:45 Pulse Oximetry 99 05/04/24 08:45 Oxygen Delivery Room Air 05/04/24 08:45 Temperature 96.8 F L 05/04/24 14:25 Pulse Rate 103 H 05/04/24 16:00 Respiratory Rate 14 05/04/24 14:25 Blood Pressure 128/82 05/04/24 14:25 Pulse Oximetry 98 05/04/24 14:25 Oxygen Delivery Room Air 05/04/24 08:45 Lab Data Lab results reviewed: Yes I reviewed the patient's lab results. 05/04/24 08:54 05/04/24 08:54 Labs: Lab Results 05/04/24 05/04/24 Range/Units 08:54 10:43 WBC 8.0 (4.5-10.0) K/mm3 RBC 5.45 H (4.2-5.4) M/mm3 Hgb 16.9 H (12.0-15.0) g/dL Hct 48.1 H (37.0-47.0) % MCV 88.3 (80-100) fl MCH 31.0 (26-34) pg MCHC 35.1 (32-36) g/dl RDW 13.2 (11.5-14.5) % Plt Count 229 (150-375) k/mm3 MPV 8.8 (7.4-10.4) fl Immature Gran % (Auto) 0.4 (0-0.5) % Neut % (Auto) 69.0 (45.5-73.1) % Lymph % (Auto) 21.2 (18.3-44.2) % [place] % (Auto) 6.1 (2.6-8.5) % Eos % (Auto) 2.8 (0-4.4) % Baso % (Auto) 0.5 (0.2-1.2) % Lymph # (Auto) 1.69 (0.9-3.2) K/mm3 [place] # (Auto) 0.5 (0.1-0.6) K/mm3 Eos # (Auto) 0.2 (0-0.3) K/mm3 Baso # (Auto) 0.0 (0.0-0.1) K/mm3 Abs Immat Gran (auto) 0.03 (0.00-0.031) K/mm3 Absolute Neuts (auto) 5.5 (1.3-6.7) K/mm3 Absolute Nucleated RBC 0.000 (0.0-0.012) K/mm3 Nucleated RBC % 0.0 (0.0-0.2) % PT 26.1 H (11.1-14.7) Seconds INR 2.3 APTT 36.2 (22.3-36.8) Seconds Sodium 138 (137-145) mmol/L Potassium 4.1 (3.4-5.0) mmol/L Chloride 107 (98-107) mmol/L Carbon Dioxide 17 L (22-30) mmol/L Anion Gap 14 H (4-12) mmol/L BUN 24 H (7-17) mg/dL Creatinine 0.90 (0.7-1.0) mg/dL Estim Creat Clear Calc Not Reportable Estimated GFR > 60 (59 - ) Glucose 153 H (65-110) mg/dL Calcium 9.9 (8.4-10.2) mg/dL Total Bilirubin 1.0 (0.2-1.3) mg/dL AST 27 (14-36) U/L ALT 22 (6-35) U/L Alkaline Phosphatase 100 (38-126) U/L Troponin I < 0.012 (0.000-0.034) ng/mL Total Protein 8.0 (6.3-8.2) g/dL Albumin 4.7 (3.5-5.1) g/dL Urine Color Yellow (Yellow) Urine Appearance Turbid H (Clear) Urine pH 7.5 (5.0-9.0) Ur Specific [place] 1.019 (1.001-1.035) Urine Protein Trace (Negative) mg/dL Urine Glucose (UA) Negative (Negative) mg/dL Urine Ketones Negative (Negative) mg/dL Ur Blood (Man) Negative (Negative) Urine Nitrate Positive H (Negative) Urine Bilirubin Negative (Negative) Urine Urobilinogen 0.2 (<2.0) mg/dL Add Ur Microanalysis Reviewed Leukocyte Esterase Rfl 1+ H (Negative) WENDIE/UL Urine RBC 0-2 (0-2) /hpf Urine WBC 11-20 H (0-3) /hpf Ur Squamous Epith Cells None seen (Few) /hpf Amorphous Sediment Few H (None) Urine Bacteria 4+ H /hpf Urine Casts 0-2 Imaging Data Radiologist's impression: Impressions Head CT 05/04/24 09:19 IMPRESSION: 1. Small old lacunar infarct at the left insula. No acute intracranial process. Discharge Plan Discharge Clinical Impression: Dizziness Patient Disposition: Still a Patient Condition: Serious
[2024-05-04 09:39] LABS: Troponin I < 0.012 ng/mL (0.000-0.034)
[2024-05-04 11:01] LABS: Add Urine Microscopic? YES; Appearance Urine Turbid (Clear); Bacteria Urine 4+ /hpf; Bilirubin Urine Negative (Negative); Blood Urine Negative (Negative); Color Urine Yellow (Yellow); Glucose Urine UA Negative (Negative); Ketones Urine Negative (Negative); Leukocyte Esterase Ur 1+ LEU/UL (Negative); Need Manual Microscopic Reviewed; Nitrate Urine Positive (Negative); Non Pathogenic Casts 0-2; Protein Urine Trace mg/dL (Negative); RBC Urine 0-2 /hpf (0-2); Specific Grav Ur 1.019 (1.001-1.035); Squamous Epithelial Cell Urine None Seen /hpf (Few); Urobilinogen Urine 0.2 mg/dL (<2.0); pH Urine 7.5 (5.0-9.0)
[2024-05-04 11:07] LABS: Amorphous Sediment Urine Few
[2024-05-04] MEDS: METOCLOPRAMIDE HCL INJ 10 MG/2 ML VIAL IV PUSH (11:41)
--- NOTE | 2024-05-04 12:48 | PM.IMHP ---
H&P: HPI History of Present Illness Date/Time: 05/04/24 12:48 Chief Complaint: Dizziness, N/V Narrative: This is a 73-year-old female patient with a past medical history of atrial fibrillation, elevated cholesterol, hypertension, GERD, breast cancer and osteoarthritis who is admitted to the hospital due to persistent dizziness, nausea and vomiting. Patient reports that she was feeling well yesterday but when she woke up at 6:00 a.m. this morning she had significant dizziness especially with turning her head towards the left. She denied any weakness or other neuro deficits. Patient denies history of vertigo. She reports that she had significant nausea and several episodes of emesis. She received meclizine Valium and Zofran in the emergency department but her symptoms still persisted. Urinalysis was found to be suggestive of UTI with positive nitrates, leukocyte esterase, white blood cells and urine bacteria present with no squamous cells. Initial CBC normal white blood cell count but apparent hemoconcentration with elevated hemoglobin and hematocrit. Initial chemistry panel showed decreased carbon dioxide and elevated anion gap. Carbon dioxide was 17 and anion gap of 14. Patient was started on IV Rocephin in the emergency department which will be continued pending urine culture. To whom lactic acid normal at 1.4. Blood cultures in process. Procalcitonin 0.1. patient was in AFib RVR on bedside telemetry monitoring on examination. Patient denied chest pain or shortness of breath. Suspect that RVR status is likely a combination of urine infection presents and dehydration. Patient received 2 L of IV fluids which did bring the heart rate down around 100. Patient states that she takes metoprolol for rate control and is on warfarin for her AFib. INR is within expected range so we will continue home dosing of warfarin. 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 on exemestane for 5 years Hx of renal calculi (~2019) Mixed hyperlipidemia OAB (overactive bladder) Follows with Dr Boone Paroxysmal atrial fibrillation On long-term warfarin. Primary hypertension Surgical History Surgical History History of amputation of lesser toe of right foot (~2018) Rt 2nd toe History of dilation and curettage History of partial mastectomy of left breast (~2017) History of right nephrectomy With benign histology. --renal stone obstruction. Hx of cataract extraction (~2020) Status post left rotator cuff repair Status post lumbar discectomy Status post partial hysterectomy Status post tonsillectomy Family History Family History Father Family history of cardiovascular disease Hypertension Grandparent Family history of cardiovascular disease Cerebrovascular accident Family history of lung cancer Family history of malignant neoplasm of uterus Sibling Family history of malignant neoplasm Mother Family history of lung cancer Depression Other Family history of malignant neoplasm of breast in first degree relative Social History Social History Social History: The patient lives in [place] with her boyfriend. She designates her boyfriend, Christian Mirza, as her surrogate decision maker and she wishes to be a full code. She denies alcohol, tobacco, drug use. Smoking status: Never smoker Second hand tobacco smoke exposure: Yes Alcohol intake: never Substance use: never Substance use type: does not use Do You Feel Safe in your Home?: Yes Lack of Transportation: No Lack of Food: Never True Current Housing: I Have Housing Concerned About Future Housing: No Difficulty Paying Gas/Electric Bills: No Difficulty Paying for Meds: No Currently Unemployed: No Education: Associate Degree Difficulty w/ Childcare or Family Care: No Living arrangements: with friend(s) Occupation/Education: retired Gender identity (if verbalized by the patient): Female Spiritual care concerns: No Agree to blood products: Yes Meds Home Medications and Allergies Home Medications Medication Instructions Recorded Confirmed Type cholecalciferol (vitamin D3) 10 400 unit PO BID 06/15/19 05/04/24 History mcg (400 unit) chewable tablet acetaminophen 500 mg tablet 500 mg PO Q6H PRN Pain 07/09/19 05/04/24 History (Tylenol Extra Strength) [id number] 200 mcg-vit K 100 1 cap PO DAILY 12/10/19 05/04/24 History mcg-lycop 500 [id number] capsule (Daily Multivitamin) warfarin 2.5 mg tablet 2.5 mg PO DAILY 10/22/21 05/04/24 History metoprolol succinate 50 mg 50 mg PO DAILY 12/30/22 05/04/24 History tablet,extended release 24 hr pyridoxine (vitamin B6) 100 mg 50 mg PO DAILY 04/30/23 05/04/24 History tablet atorvastatin 20 mg tablet 20 mg PO QHS 06/25/23 05/04/24 History gabapentin 300 mg capsule 300 mg PO TID 09/10/23 05/04/24 History irbesartan 150 mg tablet 150 mg PO DAILY #90 tabs 01/08/24 05/04/24 Rx omeprazole 40 mg capsule,delayed 40 mg PO DAILY #90 caps 01/14/24 05/04/24 Rx release gemfibrozil 600 mg tablet 600 mg PO BID #180 tabs 01/29/24 05/04/24 Rx metoprolol succinate 100 mg 100 mg PO DAILY 05/04/24 05/04/24 History tablet,extended release 24 hr solifenacin 5 mg tablet 10 mg PO DAILY 05/04/24 05/04/24 History Allergies Allergy/AdvReac Type Severity Reaction Status Date / Time adhesive tape Allergy Intermediate Blister Verified 05/04/24 08:56 Vital Signs Vital Signs - 24 hr 05/04/24 08:45 05/04/24 08:52 05/04/24 09:02 Temperature 36.6 C Pulse Rate 113 H 108 H 108 H Respiratory Rate 20 22 H Blood Pressure 159/113 H 128/82 Pulse Oximetry 99 98 Oxygen Delivery Room Air 05/04/24 10:29 05/04/24 11:41 05/04/24 11:01 Temperature Pulse Rate 90 100 87 Respiratory Rate 11 L 13 14 Blood Pressure 120/72 125/77 116/93 H Pulse Oximetry 100 100 100 Oxygen Delivery Exam Narrative: APPEARANCE: Uncomfortable appearing but no acute distress HEAD: normocephalic, atraumatic. EYES: PERRLA/EOMI, conjunctivae clear. NECK: Supple. No adenopathy, no masses. RESPIRATORY: Airway patent, respirations nonlabored. Clear to auscultation bilaterally, no rales, rhonchi, wheezing. CARDIOVASCULAR: tachycardic rate with irregularly irregular rhythm without murmurs rubs or gallops. atrial fibrillation rate of 110s to 130s on telemetry monitoring per my independent interpretation ABDOMINAL: Soft, nontender, nondistended, normal bowel sounds MUSCULOSKELETAL: Moves all extremities. Strength/ROM intact, No edema, No calf tenderness. NEURO: Awake alert oriented, dizziness when turning her head to the left, no focal weakness or other abnormalities noted SKIN: Warm, dry. Normal Color H&P: Results Labs Labs: Short CBC 05/04/24 Range/Units 08:54 WBC 8.0 (4.5-10.0) K/mm3 Hgb 16.9 H (12.0-15.0) g/dL Hct 48.1 H (37.0-47.0) % Plt Count 229 (150-375) k/mm3 BMP 05/04/24 08:54 Sodium 138 Potassium 4.1 Chloride 107 Carbon Dioxide 17 L BUN 24 H Creatinine 0.90 Glucose 153 H Calcium 9.9 Cardiac Enzymes 05/04/24 Range/Units 08:54 Troponin I < 0.012 (0.000-0.034) ng/mL Liver Function 05/04/24 Range/Units 08:54 Total Bilirubin 1.0 (0.2-1.3) mg/dL AST 27 (14-36) U/L ALT 22 (6-35) U/L Alkaline Phosphatase 100 (38-126) U/L Albumin 4.7 (3.5-5.1) g/dL Urine 05/04/24 Range/Units 10:43 Urine Color Yellow (Yellow) Urine Appearance Turbid H (Clear) Urine pH 7.5 (5.0-9.0) Ur Specific [place] 1.019 (1.001-1.035) Urine Protein Trace (Negative) mg/dL Urine Glucose (UA) Negative (Negative) mg/dL Pulse Oximetry SpO2 results: 98-100% on room air Attestation: I personally reviewed and interpreted this pulse oximetry as follows: Interpretation: no need for supplemental oxygenation at this time ECG Attestation: I personally reviewed and interpreted this ECG as follows: ECG completion date: 05/04/24 ECG completion time: 09:46 Prior ECG tracings: not available for review Interpretation: atrial fibrillation rate of 92 QRS duration 101 QTC 470 QRS axis 10? no STEMI or acute ischemic changes Imaging CT scan - head: Radiologist's impression: EXAMINATION: CT brain wo con DATE: 05/04/2024 09:18 INDICATION: Dizziness TECHNIQUE: Computed tomography (CT) of the head was performed without intravenous contrast. Sagittal and coronal reconstructions were performed. The mA was adjusted according to patient size. Iterative reconstruction technique was employed. The dose-length product was 681.00 mGy-cm. COMPARISON: None FINDINGS: Small old lacunar infarct at the left insula. No acute intracranial hemorrhage, acute infarction or abnormal extra axial fluid collection. Symmetric prominence of the sulci and subarachnoid spaces overlying the convexities consistent with mild age-appropriate diffuse cerebral volume loss. Ventricles are normal and symmetric. No mass/mass effect. Mild mucosal thickening in the right maxillary and bilateral ethmoid sinuses with small mucous retention cyst in the right maxillary sinus. Changes of bilateral intraocular lens replacement. The orbits and mastoid air cells are normal. IMPRESSION: 1. Small old lacunar infarct at the left insula. No acute intracranial process. 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 ICAL SCHEDULER Assessment and Plan Assessment and plan (1) Dizziness: Code(s): R42 - Dizziness and giddiness Status: Acute Assessment and Plan: -Persistent dizziness despite meclizine and IV Valium -CT head shows old lacunar infarct -MRI ordered by ER to rule out acute stroke -Dizziness worse with movement of head to left which increases likelihood of BPPV as cause of symptoms -N/V improved after medications given in ER -Patient found to be in afib RVR which may account for dizziness -PT consulted for vestibular maneuvers for suspected BPPV (2) Paroxysmal atrial fibrillation with RVR: Code(s): I48.0 - Paroxysmal atrial fibrillation Status: Acute Assessment and Plan: -Known afib, no palpitations/chest pain/shortness of breath -Warfarin with therapeutic INR, continue home dose and daily INR -On metoprolol for rate control -Treat UTI and dehydration before rate control escalation (3) UTI (urinary tract infection): Code(s): N39.0 - Urinary tract infection, site not specified Status: Acute Assessment and Plan: -UA with positive nitrates, 1+ leukocyte esterase, 4+ urine bacteria, 11-20 WBCs and no squamous cells -IV Rocephin pending cultures -Prior urine culture bright-sensitive E. 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 Status: Acute Assessment and Plan: -Continue warfarin home dose and daily INR (6) Primary hypertension: Code(s): I10 - Essential (primary) hypertension Status: Acute Assessment and Plan: -Blood pressures reviewed on 05/04 and stable, continue home medications Quality VTE Prophylaxis VTE prophylaxis: pharmacologic ordered (chronic warfarin) Hospitalist MIPS Advance Care Plan I have confirmed that the patient's Advanced Care Plan is present, code status is documented, or surrogate decision maker is listed in patient medical record.: Yes Medication Reconciliation I have utilized all available resources to obtain, update and review the patients current medications (includes all prescriptions, OTC, herbals, cannabis, and nutritional supplements).: Yes
--- NOTE | 2024-05-04 14:32 | PC.NURSE ---
This patient, Mayte Hawley, was admitted to Medical Room 349-01. Patient/family oriented to hospital policies and general routines including ID bracelet, bed and alarms, visiting hours, pain management, procedures, bathroom and other care routines, personal items, smoking policy, room service/diet, and visiting hours. Information on how to activate the Rapid Response Team has been discussed. Patient/Family are encouraged to report perceived risks to care and to ask questions if they do not understand what they are told or what they should do.
[2024-05-04 17:16] LABS: Lactic Acid Reflex 1.4 mmol/L (0.7-2.0)
[2024-05-04] MEDS: gemfibroziL 600 MG TABLET PO (17:34)
[2024-05-04] MEDS: WARFARIN (*PBKC) 2.5 MG TABLET PO (17:34)
[2024-05-04] MEDS: LACTATED RINGERS 1,000 ML 999 ML IV CONT (17:34)
[2024-05-04] MEDS: CHOLECALCIFEROL 400 UNITS TABLET (VIT D) PO (17:34)
[2024-05-04] MEDS: GABAPENTIN 300 MG CAPSULE PO (17:38)
[2024-05-04 17:40] LABS: Procalcitonin 0.1 ng/mL
[2024-05-04] MEDS: SODIUM CHLORIDE 0.9% IV 1,000 ML 999 ML IV CONT (18:36)
[2024-05-04] MEDS: ATORVASTATIN 20 MG TABLET PO (20:12)
[2024-05-05] VITALS (16 sets, daily range): BP systolic 120–138; BP diastolic 52–86; PULSE 71–108; RESP 16–20; TEMP 36.8–37.3; O2SAT 96–99
[2024-05-05 05:42] LABS: Basophils Percent Auto 0.3 % (0.2-1.2); Eosinophils Absolute Auto 0.2 K/mm3 (0-0.3); Eosinophils Percent Auto 2.5 % (0-4.4); Hematocrit 43.4 % (37.0-47.0); Hemoglobin 14.9 g/dL (12.0-15.0); Immature Granulocyte Absolute 0.01 K/mm3 (0.00-0.031); Immature Granulocyte Percent A 0.2 % (0-0.5); Lymphocytes Absolute Auto 1.04 K/mm3 (0.9-3.2); Lymphocytes Percent Auto 16.1 % (18.3-44.2); Mean Corpuscular HGB Conc 34.3 g/dl (32-36); Mean Corpuscular Hemoglobin 30.9 pg (26-34); Mean Platelet Volume 8.6 fl (7.4-10.4); Monocytes Absolute Auto 0.5 K/mm3 (0.1-0.6); Monocytes Percent Auto 7.3 % (2.6-8.5); Neutrophils Absolute Auto 4.7 K/mm3 (1.3-6.7); Neutrophils Percent Auto 73.6 % (45.5-73.1); Platelet Count Result 151 k/mm3 (150-375); Red Blood Count 4.82 M/mm3 (4.2-5.4); Red Cell Distribution Width 13.2 % (11.5-14.5); White Blood Count 6.4 K/mm3 (4.5-10.0)
[2024-05-05 05:57] LABS: Alanine Aminotransferase 18 U/L (6-35); Albumin Level 3.7 g/dL (3.5-5.1); Alkaline Phosphatase 74 U/L (38-126); Anion Gap 5 mmol/L (4-12); Aspartate Amino Transferase 20 U/L (14-36); Bilirubin,Total 0.8 mg/dL (0.2-1.3); Blood Urea Nitrogen 19 mg/dL (7-17); Calcium 8.9 mg/dL (8.4-10.2); Carbon Dioxide 23 mmol/L (22-30); Chloride 111 mmol/L (98-107); Estimated CRCL calculation 59 ml/min; Estimated Glomerular Filt Rate > 60; Glucose 96 mg/dL (65-110); INR 2.3; Magnesium 2.1 mg/dL (1.6-2.3); Potassium 4.3 mmol/L (3.4-5.0); Prothrombin Time 25.6 Seconds (11.1-14.7); Sodium 139 mmol/L (137-145)
[2024-05-05] MEDS: SOLIFENACIN 5 MG TABLET 10 MG PO (08:48)
[2024-05-05] MEDS: PANTOPRAZOLE 40 MG TABLET PO (08:48)
[2024-05-05] MEDS: gemfibroziL 600 MG TABLET PO ×2 (08:48→17:26)
[2024-05-05] MEDS: THERAPEUTIC MULTIVITAMINS/MINERALS TAB (*BKC) 1 TABLET PO (08:48)
[2024-05-05] MEDS: CHOLECALCIFEROL 400 UNITS TABLET (VIT D) PO ×2 (08:48→17:26)
[2024-05-05] MEDS: PYRIDOXINE HCL 50 MG TABLET PO (08:48)
[2024-05-05] MEDS: GABAPENTIN 300 MG CAPSULE PO ×3 (08:48→17:26)
[2024-05-05] MEDS: IRBESARTAN 150 MG TABLET PO (08:48)
[2024-05-05] MEDS: METOPROLOL SUCCINATE EXT REL 50 MG TABCR PO (08:49)
[2024-05-05] MEDS: METOPROLOL SUCCINATE EXT REL 100 MG TABCR PO (08:49)
[2024-05-05] MEDS: ACETAMINOPHEN 500 MG TABLET PO ×2 (08:51→21:23)
--- NOTE | 2024-05-05 11:42 | P.PNIM_ITS ---
Progress Note: A&P Assessment and Plan (1) Dizziness: Code(s): R42 - Dizziness and giddiness Status: Acute Assessment and Plan: -Persistent dizziness despite meclizine and IV Valium -CT head shows old lacunar infarct -MRI ordered by ER to rule out acute stroke. Showed Normal for age brain. No acute intracranial process or abnormally enhancing brain lesions. - MRA brain showed normal brain MR angiogram. - Neck MRA sshowed: IMPRESSION: 1. 60% stenosis of the right carotid bulb relative to normal distal artery lumen diameter (NASCET criteria). 2. 30% stenosis of the left carotid bulb relative to normal distal artery lumen diameter. -Dizziness worse with movement of head to left which increases likelihood of BPPV as cause of symptoms -N/V improved after medications given in ER -Patient found to be in afib RVR which may account for dizziness -PT consulted for vestibular maneuvers for suspected BPPV -check orthostatics. (2) Paroxysmal atrial fibrillation with RVR: Code(s): I48.0 - Paroxysmal atrial fibrillation Status: Acute Assessment and Plan: -Known afib, no palpitations/chest pain/shortness of breath -Warfarin with therapeutic INR, continue home dose and daily INR -On metoprolol for rate control -Treat UTI and dehydration before rate control escalation (3) UTI (urinary tract infection): Code(s): N39.0 - Urinary tract infection, site not specified Status: Acute Assessment and Plan: -UA with positive nitrates, 1+ leukocyte esterase, 4+ urine bacteria, 11-20 WBCs and no squamous cells -IV Rocephin pending cultures -Urine culture pending. 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 Patient reports dizziness at times and also when getting up. Review of Systems Review of Systems: All systems reviewed & are unremarkable except as noted in HPI and below Exam Const: General: comfortable and no acute distress Resp: Effort & Inspection: normal respiratory effort Auscultation: clear to auscultation bilaterally Cardio: Rhythm: abnormal rhythm (Telemetry - Afib 92 ) irregularly irregular GI: GI Palp: Yes Soft to palpation Auscultation: normal bowel sounds Skin: General skin exam: no rashes or lesions noted Neuro: Speech: normal speech Psych: Mental Status: mental status grossly normal Affect: normal affect Objective Data Vital Signs Vital Signs: Vital Signs - 24 hr 05/04/24 14:25 05/04/24 16:00 05/04/24 20:00 Temperature 96.8 F L Pulse Rate 136 H 103 H Respiratory Rate 14 Blood Pressure 128/82 Pulse Oximetry 98 Oxygen Delivery Room Air Fraction of Inspired Oxygen 05/04/24 20:00 05/04/24 20:45 05/05/24 00:00 Temperature 97.5 F L Pulse Rate 98 104 H 96 Respiratory Rate 20 Blood Pressure 133/75 Pulse Oximetry 98 Oxygen Delivery Fraction of Inspired Oxygen 05/05/24 04:00 05/05/24 06:00 05/05/24 07:06 Temperature 98.8 F Pulse Rate 87 92 Respiratory Rate 20 Blood Pressure 132/79 Pulse Oximetry 98 98 Oxygen Delivery Autopap Fraction of Inspired Oxygen 21 05/05/24 08:49 05/05/24 08:49 05/05/24 08:00 Temperature Pulse Rate 99 99 99 Respiratory Rate 18 Blood Pressure Pulse Oximetry 98 Oxygen Delivery Room Air Fraction of Inspired Oxygen Intake/Output Intake/Output: Intake & Output 05/02/24 05/03/24 05/04/24 05/05/24 23:59 23:59 23:59 23:59 Intake Total 700 520 Output Total 50 Balance 650 520 Meds/Results Medications: Active Medications Generic Name Dose Route Start Last Admin Trade Name Freq PRN Reason Stop Dose Admin Acetaminophen 500 mg 05/04/24 15:43 05/05/24 08:51 Acetaminophen 500 Mg Tablet PO 500 mg Q6H PRN Administration PAIN RATED 1-3 Atorvastatin Calcium 20 mg 05/04/24 21:00 05/04/24 20:12 Atorvastatin 20 Mg Tablet PO 20 mg QHS [place] Administration Gabapentin 300 mg 05/04/24 17:00 05/05/24 08:48 Gabapentin 300 Mg Capsule PO 300 mg TID [place] Administration Gemfibrozil 600 mg 05/04/24 17:00 05/05/24 08:48 Gemfibrozil 600 Mg Tablet PO 600 mg BID [place] Administration Ceftriaxone Sodium 1 gm in 50 mls @ 100 mls/hr 05/05/24 09:00 05/05/24 08:48 Rocephin 1 Gm/Ns 50 Ml IVPB 100 mls/hr Q24H [place] Administration Irbesartan 150 mg 05/05/24 09:00 05/05/24 08:48 Irbesartan 150 Mg Tablet PO 150 mg DAILY [facility] Administration Meclizine HCl 25 mg 05/04/24 15:45 Meclizine Hcl 25 Mg Tablet PO QID PRN vertigo Metoprolol Succinate 50 mg 05/05/24 09:00 05/05/24 08:49 Metoprolol Succinate Ext Rel 50 Mg Tabcr PO 50 mg DAILY [facility] Administration Metoprolol Succinate 100 mg 05/05/24 09:00 05/05/24 08:49 Metoprolol Succinate Ext Rel 100 Mg Tabcr PO 100 mg DAILY [facility] Administration Multivitamins/Calcium 1 tablet 05/05/24 09:00 05/05/24 08:48 Therapeutic Multivitamins/Minerals Tab (*Bkc) PO 1 tablet DAILY [facility] Administration Ondansetron HCl 4 mg 05/04/24 12:21 Ondansetron Inj 4 Mg/2 Ml Vial IV PUSH Q4H PRN Nausea Pantoprazole Sodium 40 mg 05/05/24 09:00 05/05/24 08:48 Pantoprazole 40 Mg Tablet PO 40 mg QAM [facility] Administration Pyridoxine HCl 50 mg 05/05/24 09:00 05/05/24 08:48 Pyridoxine Hcl 50 Mg Tablet PO 50 mg DAILY [facility] Administration Solifenacin 10 mg 05/05/24 09:00 05/05/24 08:48 Solifenacin 5 Mg Tablet PO 10 mg DAILY [facility] Administration Vitamin D 400 units 05/04/24 17:00 05/05/24 08:48 Cholecalciferol 400 Units Tablet (Vit D) PO 400 units BID [facility] Administration Warfarin Sodium 2.5 mg 05/04/24 17:00 05/04/24 17:34 Warfarin (*Pbkc) 2.5 Mg Tablet PO 2.5 mg DAILY@1700 [place] Administration Radiology Results: ITS Impressions Head CT 05/04/24 09:19 IMPRESSION: 1. Small old lacunar infarct at the left insula. No acute intracranial process. Brain MRI 05/05/24 11:00 IMPRESSION: 1. Normal for age brain. No acute intracranial process or abnormally enhancing brain lesions. Brain MRA 05/05/24 11:05 IMPRESSION: 1. Normal brain MR angiogram. Neck MRA 05/05/24 11:09 IMPRESSION: 1. 60% stenosis of the right carotid bulb relative to normal distal artery lumen diameter (NASCET criteria). 2. 30% stenosis of the left carotid bulb relative to normal distal artery lumen diameter. Labs Labs: Laboratory Results - last 24 hr 05/04/24 05/05/24 16:30 05:35 WBC 6.4 RBC 4.82 Hgb 14.9 Hct 43.4 MCV 90.0 MCH 30.9 MCHC 34.3 RDW 13.2 Plt Count 151 MPV 8.6 Immature Gran % (Auto) 0.2 Neut % (Auto) 73.6 H Lymph % (Auto) 16.1 L [place] % (Auto) 7.3 Eos % (Auto) 2.5 Baso % (Auto) 0.3 Lymph # (Auto) 1.04 [place] # (Auto) 0.5 Eos # (Auto) 0.2 Baso # (Auto) 0.0 Abs Immat Gran (auto) 0.01 Absolute Neuts (auto) 4.7 Absolute Nucleated RBC 0.000 Nucleated RBC % 0.0 PT 25.6 H INR 2.3 Sodium 139 Potassium 4.3 Chloride 111 H Carbon Dioxide 23 Anion Gap 5 BUN 19 H Creatinine 0.80 Estim Creat Clear Calc 59 Estimated GFR > 60 Glucose 96 Lactic Acid 1.4 Calcium 8.9 Magnesium 2.1 Total Bilirubin 0.8 AST 20 ALT 18 Alkaline Phosphatase 74 Total Protein 6.0 L Albumin 3.7 Procalcitonin 0.1 Quality VTE Prophylaxis VTE prophylaxis: pharmacologic ordered (chronic warfarin)
[2024-05-05] MEDS: WARFARIN (*PBKC) 2.5 MG TABLET PO (17:26)
[2024-05-05] MEDS: ATORVASTATIN 20 MG TABLET PO (21:23)
[2024-05-06] VITALS (10 sets, daily range): BP systolic 119–149; BP diastolic 71–86; PULSE 69–95; RESP 16–18; TEMP 36.3–37; O2SAT 97
[2024-05-06] MEDS: ACETAMINOPHEN 500 MG TABLET PO ×2 (06:32→22:20)
[2024-05-06 06:58] LABS: Basophils Absolute Auto 0.1 K/mm3 (0.0-0.1); Basophils Percent Auto 0.8 % (0.2-1.2); Eosinophils Absolute Auto 0.3 K/mm3 (0-0.3); Eosinophils Percent Auto 4.3 % (0-4.4); Hematocrit 43.8 % (37.0-47.0); Hemoglobin 15.2 g/dL (12.0-15.0); Immature Granulocyte Absolute 0.02 K/mm3 (0.00-0.031); Immature Granulocyte Percent A 0.3 % (0-0.5); Lymphocytes Absolute Auto 1.05 K/mm3 (0.9-3.2); Lymphocytes Percent Auto 16.7 % (18.3-44.2); Mean Corpuscular HGB Conc 34.7 g/dl (32-36); Mean Corpuscular Hemoglobin 31.2 pg (26-34); Mean Corpuscular Volume 89.9 fl (80-100); Mean Platelet Volume 8.7 fl (7.4-10.4); Monocytes Absolute Auto 0.5 K/mm3 (0.1-0.6); Monocytes Percent Auto 7.5 % (2.6-8.5); Neutrophils Absolute Auto 4.4 K/mm3 (1.3-6.7); Neutrophils Percent Auto 70.4 % (45.5-73.1); Platelet Count Result 151 k/mm3 (150-375); Red Blood Count 4.87 M/mm3 (4.2-5.4); Red Cell Distribution Width 13.2 % (11.5-14.5); White Blood Count 6.3 K/mm3 (4.5-10.0)
[2024-05-06 07:10] LABS: Alanine Aminotransferase 18 U/L (6-35); Albumin Level 3.8 g/dL (3.5-5.1); Alkaline Phosphatase 83 U/L (38-126); Anion Gap 5 mmol/L (4-12); Aspartate Amino Transferase 26 U/L (14-36); Bilirubin,Total 0.7 mg/dL (0.2-1.3); Blood Urea Nitrogen 20 mg/dL (7-17); Calcium 9.1 mg/dL (8.4-10.2); Carbon Dioxide 23 mmol/L (22-30); Chloride 111 mmol/L (98-107); Estimated CRCL calculation 53 ml/min; Estimated Glomerular Filt Rate > 60; Glucose 94 mg/dL (65-110); Magnesium 2.1 mg/dL (1.6-2.3); Potassium 4.4 mmol/L (3.4-5.0); Sodium 139 mmol/L (137-145)
[2024-05-06 07:21] LABS: INR 2.3; Prothrombin Time 26.1 Seconds (11.1-14.7)
[2024-05-06] MEDS: gemfibroziL 600 MG TABLET PO ×2 (08:23→17:38)
[2024-05-06] MEDS: PYRIDOXINE HCL 50 MG TABLET PO (08:23)
[2024-05-06] MEDS: CHOLECALCIFEROL 400 UNITS TABLET (VIT D) PO ×2 (08:23→17:38)
[2024-05-06] MEDS: THERAPEUTIC MULTIVITAMINS/MINERALS TAB (*BKC) 1 TABLET PO (08:23)
[2024-05-06] MEDS: GABAPENTIN 300 MG CAPSULE PO ×3 (08:23→17:38)
[2024-05-06] MEDS: SOLIFENACIN 5 MG TABLET 10 MG PO (08:23)
[2024-05-06] MEDS: IRBESARTAN 150 MG TABLET PO (08:23)
[2024-05-06] MEDS: PANTOPRAZOLE 40 MG TABLET PO (08:23)
[2024-05-06] MEDS: METOPROLOL SUCCINATE EXT REL 50 MG TABCR PO (08:24)
[2024-05-06] MEDS: METOPROLOL SUCCINATE EXT REL 100 MG TABCR PO (08:24)
[2024-05-06] MEDS: ONDANSETRON INJ 4 MG/2 ML VIAL IV PUSH (09:56)
[2024-05-06] MEDS: MECLIZINE HCL 25 MG TABLET PO (09:56)
--- NOTE | 2024-05-06 11:34 | PM.IMPN ---
Progress Note: A&P Assessment and Plan (1) Dizziness: Code(s): R42 - Dizziness and giddiness Status: Acute Assessment and Plan: -Persistent dizziness despite meclizine and IV Valium -CT head shows old lacunar infarct -MRI ordered by ER to rule out acute stroke. Showed Normal for age brain. No acute intracranial process or abnormally enhancing brain lesions. - MRA brain showed normal brain MR angiogram. - Neck MRA sshowed: IMPRESSION: 1. 60% stenosis of the right carotid bulb relative to normal distal artery lumen diameter (NASCET criteria). 2. 30% stenosis of the left carotid bulb relative to normal distal artery lumen diameter. -Dizziness worse with movement of head to left which increases likelihood of BPPV as cause of symptoms -N/V improved after medications given in ER -Patient found to be in afib RVR which may account for dizziness -PT consulted for vestibular maneuvers for suspected BPPV -Orthostatics normal -NS @ 100 ml/hr x 500 ml. (2) Paroxysmal atrial fibrillation with RVR: Code(s): I48.0 - Paroxysmal atrial fibrillation Status: Acute Assessment and Plan: -Known afib, no palpitations/chest pain/shortness of breath -Warfarin with therapeutic INR, continue home dose and daily INR -On metoprolol for rate control -Treat UTI and dehydration before rate control escalation (3) UTI (urinary tract infection): Code(s): N39.0 - Urinary tract infection, site not specified Status: Acute Assessment and Plan: -UA with positive nitrates, 1+ leukocyte esterase, 4+ urine bacteria, 11-20 WBCs and no squamous cells -IV Rocephin pending cultures -Urine culture positive for E coli, sensitivities are not back. 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 Patient reports 1 large diarrhea and 1 small diarrhea. Patient denies chest pain, palpitations, headache, or vomiting. Review of Systems Review of Systems: All systems reviewed & are unremarkable except as noted in HPI and below Exam Const: General: no acute distress Resp: Effort & Inspection: normal respiratory effort Auscultation: clear to auscultation bilaterally Cardio: Rhythm: abnormal rhythm (Afib 105) irregularly irregular GI: GI Palp: Yes Soft to palpation Auscultation: normal bowel sounds Skin: General skin exam: no rashes or lesions noted Neuro: Speech: normal speech Extrem: General: normal to inspection Psych: Mental Status: mental status grossly normal Affect: normal affect Objective Data Vital Signs Vital Signs: Vital Signs - 24 hr 05/05/24 14:00 05/05/24 15:27 05/05/24 11:42 Temperature 98.3 F 98.4 F Pulse Rate 71 101 H Respiratory Rate 19 16 Blood Pressure 138/80 125/83 Pulse Oximetry 99 96 Oxygen Delivery Room Air 05/05/24 17:27 05/05/24 17:27 05/05/24 12:00 Temperature 98.4 F 98.4 F Pulse Rate 87 93 100 Respiratory Rate 16 16 Blood Pressure 121/86 120/76 Pulse Oximetry 98 97 Oxygen Delivery 05/05/24 16:00 05/05/24 21:28 05/05/24 21:28 Temperature Pulse Rate 95 78 Respiratory Rate Blood Pressure Pulse Oximetry Oxygen Delivery Room Air 05/05/24 22:15 05/05/24 22:16 05/05/24 22:17 Temperature 99.0 F 99.1 F 99.0 F Pulse Rate 102 H 105 H 100 Respiratory Rate 18 18 18 Blood Pressure 121/52 L 127/85 128/78 Pulse Oximetry 96 96 96 Oxygen Delivery 05/05/24 22:18 05/06/24 00:00 05/06/24 04:00 Temperature 99.0 F Pulse Rate 106 H 82 81 Respiratory Rate 18 Blood Pressure 121/52 L Pulse Oximetry 96 Oxygen Delivery 05/06/24 06:00 05/06/24 08:24 05/06/24 08:24 Temperature 97.4 F L Pulse Rate 77 95 95 Respiratory Rate 18 Blood Pressure 149/86 H Pulse Oximetry 97 Oxygen Delivery 05/06/24 08:00 Temperature Pulse Rate Respiratory Rate Blood Pressure Pulse Oximetry Oxygen Delivery Room Air Intake/Output Intake/Output: Intake & Output 05/03/24 05/04/24 05/05/24 05/06/24 23:59 23:59 23:59 23:59 Intake Total 700 1696 640 Output Total 50 Balance 650 1696 640 Meds/Results Medications: Active Medications Generic Name Dose Route Start Last Admin Trade Name Freq PRN Reason Stop Dose Admin Acetaminophen 500 mg 05/04/24 15:43 05/06/24 06:32 Acetaminophen 500 Mg Tablet PO 500 mg Q6H PRN Administration PAIN RATED 1-3 Atorvastatin Calcium 20 mg 05/04/24 21:00 05/05/24 21:23 Atorvastatin 20 Mg Tablet PO 20 mg QHS [place] Administration Gabapentin 300 mg 05/04/24 17:00 05/06/24 08:23 Gabapentin 300 Mg Capsule PO 300 mg TID [place] Administration Gemfibrozil 600 mg 05/04/24 17:00 05/06/24 08:23 Gemfibrozil 600 Mg Tablet PO 600 mg BID [place] Administration Ceftriaxone Sodium 1 gm in 50 mls @ 100 mls/hr 05/05/24 09:00 05/06/24 08:22 Rocephin 1 Gm/Ns 50 Ml IVPB 100 mls/hr Q24H [place] Administration Sodium Chloride 500 mls @ 100 mls/hr 05/06/24 11:09 Normal Saline Iv IV CONT 05/06/24 16:08 .Q5H ONE Irbesartan 150 mg 05/05/24 09:00 05/06/24 08:23 Irbesartan 150 Mg Tablet PO 150 mg DAILY [place] Administration Meclizine HCl 25 mg 05/04/24 15:45 05/06/24 09:56 Meclizine Hcl 25 Mg Tablet PO 25 mg QID PRN Administration vertigo Metoprolol Succinate 50 mg 05/05/24 09:00 05/06/24 08:24 Metoprolol Succinate Ext Rel 50 Mg Tabcr PO 50 mg DAILY [place] Administration Metoprolol Succinate 100 mg 05/05/24 09:00 11/21/24 08:24 Metoprolol Succinate Ext Rel 100 Mg Tabcr PO 100 mg DAILY [place] Administration Multivitamins/Calcium 1 tablet 05/05/24 09:00 05/06/24 08:23 Therapeutic Multivitamins/Minerals Tab (*Bkc) PO 1 tablet DAILY [place] Administration Ondansetron HCl 4 mg 05/04/24 12:21 05/06/24 09:56 Ondansetron Inj 4 Mg/2 Ml Vial IV PUSH 4 mg Q4H PRN Administration Nausea Pantoprazole Sodium 40 mg 05/05/24 09:00 05/06/24 08:23 Pantoprazole 40 Mg Tablet PO 40 mg QAM [place] Administration Pyridoxine HCl 50 mg 05/05/24 09:00 05/06/24 08:23 Pyridoxine Hcl 50 Mg Tablet PO 50 mg DAILY [place] Administration Saccharomyces Boulardii 250 mg 05/06/24 17:00 Saccharomyces Boulardii 250 Mg Capsule PO BID [place] Solifenacin 10 mg 05/05/24 09:00 05/06/24 08:23 Solifenacin 5 Mg Tablet PO 10 mg DAILY [place] Administration Vitamin D 400 units 05/04/24 17:00 05/06/24 08:23 Cholecalciferol 400 Units Tablet (Vit D) PO 400 units BID [place] Administration Warfarin Sodium 2.5 mg 05/04/24 17:00 05/05/24 17:26 Warfarin (*Pbkc) 2.5 Mg Tablet PO 2.5 mg DAILY@1700 [place] Administration Radiology Results: ITS Impressions Head CT 05/04/24 09:19 IMPRESSION: 1. Small old lacunar infarct at the left insula. No acute intracranial process. Brain MRI 05/05/24 11:00 IMPRESSION: 1. Normal for age brain. No acute intracranial process or abnormally enhancing brain lesions. Brain MRA 05/05/24 11:05 IMPRESSION: 1. Normal brain MR angiogram. Neck MRA 05/05/24 11:09 IMPRESSION: 1. 60% stenosis of the right carotid bulb relative to normal distal artery lumen diameter (NASCET criteria). 2. 30% stenosis of the left carotid bulb relative to normal distal artery lumen diameter. Labs Labs: Laboratory Results - last 24 hr 05/06/24 06:43 WBC 6.3 RBC 4.87 Hgb 15.2 H Hct 43.8 MCV 89.9 MCH 31.2 MCHC 34.7 RDW 13.2 Plt Count 151 MPV 8.7 Immature Gran % (Auto) 0.3 Neut % (Auto) 70.4 Lymph % (Auto) 16.7 L [place] % (Auto) 7.5 Eos % (Auto) 4.3 Baso % (Auto) 0.8 Lymph # (Auto) 1.05 [place] # (Auto) 0.5 Eos # (Auto) 0.3 Baso # (Auto) 0.1 Abs Immat Gran (auto) 0.02 Absolute Neuts (auto) 4.4 Absolute Nucleated RBC 0.000 Nucleated RBC % 0.0 PT 26.1 H INR 2.3 Sodium 139 Potassium 4.4 Chloride 111 H Carbon Dioxide 23 Anion Gap 5 BUN 20 H Creatinine 0.90 Estim Creat Clear Calc 53 Estimated GFR > 60 Glucose 94 Calcium 9.1 Magnesium 2.1 Total Bilirubin 0.7 AST 26 ALT 18 Alkaline Phosphatase 83 Total Protein 7.0 Albumin 3.8 Quality VTE Prophylaxis VTE prophylaxis: pharmacologic ordered (chronic warfarin)
[2024-05-06] MEDS: SODIUM CHLORIDE 0.9% IV 500 ML 100 ML IV CONT (12:24)
[2024-05-06] MEDS: WARFARIN (*PBKC) 2.5 MG TABLET PO (17:38)
[2024-05-06] MEDS: SACCHAROMYCES BOULARDII 250 MG CAPSULE PO (17:38)
[2024-05-06] MEDS: ATORVASTATIN 20 MG TABLET PO (22:21)
[2024-05-07] VITALS: PULSE 87
[2024-05-07 04:00] VITALS: PULSE 73
[2024-05-07 06:00] VITALS: BP 114/73; PULSE 71; RESP 18; TEMP 36.4; O2SAT 96
[2024-05-07 06:07] LABS: Basophils Percent Auto 0.7 % (0.2-1.2); Eosinophils Absolute Auto 0.3 K/mm3 (0-0.3); Eosinophils Percent Auto 5.7 % (0-4.4); Hematocrit 42.6 % (37.0-47.0); Hemoglobin 14.8 g/dL (12.0-15.0); Immature Granulocyte Absolute 0.01 K/mm3 (0.00-0.031); Immature Granulocyte Percent A 0.2 % (0-0.5); Lymphocytes Absolute Auto 1.15 K/mm3 (0.9-3.2); Lymphocytes Percent Auto 21.2 % (18.3-44.2); Mean Corpuscular HGB Conc 34.7 g/dl (32-36); Mean Corpuscular Volume 89.3 fl (80-100); Mean Platelet Volume 8.6 fl (7.4-10.4); Monocytes Absolute Auto 0.3 K/mm3 (0.1-0.6); Monocytes Percent Auto 6.3 % (2.6-8.5); Neutrophils Absolute Auto 3.6 K/mm3 (1.3-6.7); Neutrophils Percent Auto 65.9 % (45.5-73.1); Platelet Count Result 152 k/mm3 (150-375); Red Blood Count 4.77 M/mm3 (4.2-5.4); White Blood Count 5.4 K/mm3 (4.5-10.0)
[2024-05-07 06:18] LABS: INR 2.3; Prothrombin Time 25.6 Seconds (11.1-14.7)
[2024-05-07 06:21] LABS: Alanine Aminotransferase 17 U/L (6-35); Albumin Level 3.7 g/dL (3.5-5.1); Alkaline Phosphatase 82 U/L (38-126); Anion Gap 3 mmol/L (4-12); Aspartate Amino Transferase 22 U/L (14-36); Bilirubin,Total 0.7 mg/dL (0.2-1.3); Blood Urea Nitrogen 18 mg/dL (7-17); Calcium 9.1 mg/dL (8.4-10.2); Carbon Dioxide 25 mmol/L (22-30); Chloride 109 mmol/L (98-107); Estimated CRCL calculation 59 ml/min; Estimated Glomerular Filt Rate > 60; Glucose 94 mg/dL (65-110); Magnesium 2.1 mg/dL (1.6-2.3); Potassium 4.3 mmol/L (3.4-5.0); Sodium 137 mmol/L (137-145)
[2024-05-07 08:00] VITALS: PULSE 81
[2024-05-07] MEDS: CHOLECALCIFEROL 400 UNITS TABLET (VIT D) PO (08:35)
[2024-05-07] MEDS: PYRIDOXINE HCL 50 MG TABLET PO (08:35)
[2024-05-07] MEDS: IRBESARTAN 150 MG TABLET PO (08:35)
[2024-05-07] MEDS: THERAPEUTIC MULTIVITAMINS/MINERALS TAB (*BKC) 1 TABLET PO (08:35)
[2024-05-07] MEDS: PANTOPRAZOLE 40 MG TABLET PO (08:35)
[2024-05-07] MEDS: gemfibroziL 600 MG TABLET PO (08:35)
[2024-05-07] MEDS: SACCHAROMYCES BOULARDII 250 MG CAPSULE PO (08:35)
[2024-05-07] MEDS: GABAPENTIN 300 MG CAPSULE PO ×2 (08:35→13:08)
[2024-05-07] MEDS: SOLIFENACIN 5 MG TABLET 10 MG PO (08:35)
[2024-05-07 08:36] VITALS: PULSE 94
[2024-05-07] MEDS: METOPROLOL SUCCINATE EXT REL 50 MG TABCR PO (08:36)
[2024-05-07] MEDS: METOPROLOL SUCCINATE EXT REL 100 MG TABCR PO (08:36)
--- NOTE | 2024-05-07 10:33 | PM.DS ---
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 No acute intracranial process. -MRI ordered by ER to rule out acute stroke. Showed Normal for age brain. No acute intracranial process or abnormally enhancing brain lesions. - MRA brain showed normal brain MR angiogram. - Neck MRA sshowed: IMPRESSION: 1. 60% stenosis of the right carotid bulb relative to normal distal artery lumen diameter (NASCET criteria). 2. 30% stenosis of the left carotid bulb relative to normal distal artery lumen diameter. Dizziness improved with fluids and UTI treatment. PT seen patient. Urine culture positive for E.coli, patient treated with antibiotics and received fluid. Patient improved. Patient will be discharge on oral antibiotics. Status at Discharge Functional status at discharge: independent ambulation Overall status at discharge: patient is progressing back to baseline Time Spent with Patient Time attestation: Total time spent providing and/or coordinating discharge services: Time spent: Greater than 30 minutes Exam Const: General: comfortable and no acute distress Resp: Effort & Inspection: normal respiratory effort Auscultation: clear to auscultation bilaterally Cardio: Rhythm: abnormal rhythm (Afib 72. ) irregularly irregular GI: GI Palp: Yes Soft to palpation Auscultation: normal bowel sounds Skin: General skin exam: no rashes or lesions noted Extrem: General: normal to inspection Psych: Mental Status: mental status grossly normal Affect: normal affect DS: Data Data Completed and Pending Labs on day of discharge: Labs from last 24 hours 05/07/24 05:56 WBC 5.4 RBC 4.77 Hgb 14.8 Hct 42.6 MCV 89.3 MCH 31.0 MCHC 34.7 RDW 13.0 Plt Count 152 MPV 8.6 Immature Gran % (Auto) 0.2 Neut % (Auto) 65.9 Lymph % (Auto) 21.2 [place] % (Auto) 6.3 Eos % (Auto) 5.7 H Baso % (Auto) 0.7 Lymph # (Auto) 1.15 [place] # (Auto) 0.3 Eos # (Auto) 0.3 Baso # (Auto) 0.0 Abs Immat Gran (auto) 0.01 Absolute Neuts (auto) 3.6 Absolute Nucleated RBC 0.000 Nucleated RBC % 0.0 PT 25.6 H INR 2.3 Sodium 137 Potassium 4.3 Chloride 109 H Carbon Dioxide 25 Anion Gap 3 L BUN 18 H Creatinine 0.80 Estim Creat Clear Calc 59 Estimated GFR > 60 Glucose 94 Calcium 9.1 Magnesium 2.1 Total Bilirubin 0.7 AST 22 ALT 17 Alkaline Phosphatase 82 Total Protein 7.0 Albumin 3.7 Preliminary micro results at discharge 05/04/24 16:30 Blood Culture - Preliminary Blood 05/04/24 16:39 Blood Culture - Preliminary Blood Discharge Plan Discharge Attending physician on discharge: Leeanna Cervantes Discharging Clinician: Dariana Winkler Anticipated Discharge Date/Time: 05/07/24 13:00 Patient Disposition: Home, Self-Care Activity: october shower Diet: heart healthy Discharge Instructions: change positions slowly drink water for hydration. Follow up with primary regarding 60% stenosis right carotid Patient Instructions: Antibiotic Form, Heart Healthy Diet (DC), Dizziness (GEN), Urinary Tract Infection in Older Adults (DC) Stand Alone Forms: General Discharge Information Follow-up/Referrals: Antonia Hickey MD [Primary Care Provider] - 1 Week Discharge Medications: New meclizine 25 mg Tablet 25 mg PO QID PRN (Reason: vertigo) Qty: 20 0RF Saccharomyces boulardii [Florastor] 250 mg Capsule 250 mg PO BID Qty: 14 0RF cephalexin 500 mg Capsule 500 mg PO Q12HR Qty: 6 0RF Continued Daily Multivitamin 200-100-500 mcg Capsule 1 cap PO DAILY metoprolol succinate 50 mg tablet extended release 24 hr 50 mg PO DAILY gabapentin 300 mg capsule 300 mg PO TID pyridoxine (vitamin B6) 100 mg tablet 50 mg PO DAILY atorvastatin 20 mg tablet 20 mg PO QHS acetaminophen [Tylenol Extra Strength] 500 mg Tablet 500 mg PO Q6H PRN (Reason: Pain) metoprolol succinate 100 mg tablet extended release 24 hr 100 mg PO DAILY solifenacin 5 mg tablet 10 mg PO DAILY cholecalciferol (vitamin D3) 400 unit tablet,chewable 400 unit PO BID warfarin 2.5 mg tablet 2.5 mg PO DAILY Rx Instructions: TAKE 2.5 MG DAILY irbesartan 150 mg tablet 150 mg PO DAILY Qty: 90 1RF omeprazole 40 mg capsule,delayed release(DR/EC) 40 mg PO DAILY Qty: 90 1RF gemfibrozil 600 mg tablet 600 mg PO BID Qty: 180 1RF Date of admission: 05/05/24 10:45 Primary Care Provider: Antonia Hickey Admitting Provider: Leeanna Cervantes Attending physician on admission: Leeanna Cervantes Condition: Stable Hospitalist MIPS Heart Failure (Exclusion) Patient has history of Heart Transplant or Left Ventricular Assistive Device?: No IF YES, STOP HERE Heart Failure (Qualifier) Patient has current or prior documentation of LVEF less than or equal to 40%, or mod/servere depressed LVSF?: No IF NO, STOP HERE
[2024-05-07 12:00] VITALS: PULSE 67
== END 2024-05-07 14:44 | disposition home or self-care (01) | DRG 690 ==
LOC: ANHED 09:28 → ANH3MED 13:57
PROVIDERS: Nurse Practitioner; Admitting Provider Family Medicine; Emergency Provider Emergency Medicine; PCP Family Medicine; Visit Provider Nurse Practitioner Family
DX: N39.0 Urinary tract infection, site not specified (principal); E87.20 Acidosis, unspecified; B96.20 Unspecified Escherichia coli [E. coli] as the cause of diseases classified elsewhere; E78.2 Mixed hyperlipidemia; E86.0 Dehydration; G89.29 Other chronic pain; H91.90 Unspecified hearing loss, unspecified ear; I10 Essential (primary) hypertension; I48.0 Paroxysmal atrial fibrillation; K21.9 Gastro-esophageal reflux disease without esophagitis; M54.9 Dorsalgia, unspecified; M19.90 Unspecified osteoarthritis, unspecified site; R19.7 Diarrhea, unspecified; Z79.01 Long term (current) use of anticoagulants; Z89.421 Acquired absence of other right toe(s); Z90.12 Acquired absence of left breast and nipple; Z90.5 Acquired absence of kidney; Z86.16 Personal history of COVID-19; Z85.3 Personal history of malignant neoplasm of breast; Z28.21 Immunization not carried out because of patient refusal; Z86.73 Personal history of transient ischemic attack (TIA), and cerebral infarction without residual deficits
CPT/HCPCS: 36415; 70450; 70544; 70547; 70553; 80053; 81001; 83605; 83735; 84145; 84484; 85025; 85610; 85730; 87040; 87086; 87186; 93005; 96365; 96375; 96376; 97116; 97161; 97530; 99285; A9270; A9577; G0378; J0696; J2405; J2765; J3360; J7030; J7040; J7120

== ENCOUNTER 2024-05-21 09:12 | Outpatient (CLI) | payer MEDICARE, SELFPAY ==
[2024-05-21 14:46] LABS: Cholesterol 168 mg/dL (0-200); HDL Direct 36 mg/dL; Triglycerides 247 mg/dL (<150)
[2024-05-21 14:59] LABS: LDL Cholesterol Direct 82 mg/dL
[2024-05-21 15:12] LABS: Vitamin D 25 Hydroxy 38.2 ng/mL
[2024-05-21 16:03] LABS: Hemoglobin A1C 5.4 % (<5.7)
== END 2024-05-21 09:13 | disposition home or self-care (01) ==
LOC: ANHGOSHLAB 09:13
PROVIDERS: PCP Family Medicine; Visit Provider Family Medicine
DX: R73.9 Hyperglycemia, unspecified (principal); E53.8 Deficiency of other specified B group vitamins; E78.2 Mixed hyperlipidemia; G25.0 Essential tremor; I10 Essential (primary) hypertension; K59.01 Slow transit constipation; E55.9 Vitamin D deficiency, unspecified
CPT/HCPCS: 36415; 80061; 82306; 82607; 83036; 84443

== ENCOUNTER 2024-11-29 10:04 | Outpatient (CLI) | payer MEDICARE, SELFPAY ==
--- OUTSIDE RECORDS SUMMARY | 2024-11-29 10:51 | XMS_ITS | Continuity of Care Document ---
Author Organization [facility] Address [address] [place] [address] Phone Care Team Providers Care Aviation Consultant Name Role Phone Hendricks OD, Fish Unavailable Unavailable Advance Directives Directive Yes / No Effective Date File Name No Information Encounters Encounter Description Practice Location Reason(s) For Visit Diagnoses Date Provider Providers Copied on Encounter [facility], [address], [place], [place], [id number], [place] tel:[phone] [facility] No Information 6-200 1 Hendricks OD Fish. [address] , [address], [place], [address], [place]. tel:[phone] Family History Family Member Type Diagnosis Age At Onset No Information Payers Payer name Insurance type Covered alliance party ID Authoriza tion(s) No Information Social History Type Description Quantity Date Captured Comments Sex Female Smoking Status No Information Chief Complaint And Reason For Visit No Information Reason For Referral Reason For Referral No Information History Of Present Illness Encounter Date Complaint History Of Prese nt Illness No Information Functional Status Date Functional Assessmen t No Information Instructions Date Instruction Additional Infor mation No Information Assessments Type Assessment Date No Information Patient Care Teams Name Effective Dates (start - stop) Status Members No Information
--- OUTSIDE RECORDS SUMMARY | 2024-11-29 10:51 | XMS_ITS | Encounter Summary ---
Author Organization [facility] Address [address] [place] [address] Phone Care Team Providers Care Dance Costume Designer Name Role Phone Hitesh Kwan MD Primary Care Provider [phone] Reason for Visit * Reason Comments Medication Refill Encounter Details Date Type Department Care Team (Late st Contact Info) Description 11/26/2020 Refill [facility] - Neurology [facility] [address] [place] [id number] Brian Valles MD [address] [place] [phone] Medication Refill Social History Tobacco Use Types Packs/Day Years Used Date Smoking Tobacco: Never Smokeless Tobacco: Never Alcohol Use Standard Drinks/Week Comments Never 0 (1 standard drink = 0.6 oz pur e alcohol) AUDIT-C Answer Date Recorded Q1: How often do you have a drink containing alc ohol? Never 05/17/2020 Average Number of Drinks Not on file 020 Frequency of Binge Drinking Not on file 07/2019 Comments Unknown Sex and Gender Information Value Date Recorded Sex Assigned at Not on file Legal Sex Female 11:05 PM CDT Gender Identity Not on file Sexual Orientation Not on file documented as of this encounter Plan of Treatment Not on file documented as of this encounter Visit Diagnoses Diagnosis Essential tremor Essential and other specified forms of tremor documented in this encounter Care Teams Dance Costume Designer Relationship Specialty Start Date End Date Hitesh Kwan MD [address] [place] [address] PCP - General Ophthalmology 05/23/20 documented as of this encounter
--- OUTSIDE RECORDS SUMMARY | 2024-11-29 10:51 | XMS_ITS | Encounter Summary ---
Author Organization [facility] Address [facility] [place] [address] Care Team Providers Care Automatic Blocker Name Role Phone Maureen Saleem MD Primary Care Provider [phone] Cathie Hickey MD Primary Care Provider Encounter Details Date Type Department Care Team (Late st Contact Info) Description 07/29/2016 Abstract [facility] CONVERSION [address] [place] [address] , Generic ConversionMD Social History Tobacco Use Types Packs/Day Years Used Date Smoking Tobacco: Never Assessed Comments Unknown Sex and Gender Information Value Date Recorded Sex Assigned at Female 07/09/2018 3:10 PM CARDIOPULMONARY TECHNOLOGIST Legal Sex Female 7:36 PM CDT Gender Identity Female 07/09/2018 3:10 PM CARDIOPULMONARY TECHNOLOGIST Sexual Orientation Straight 08/24/2018 8: 56 AM CDT documented as of this encounter Plan of Treatment Not on file documented as of this encounter Visit Diagnoses Not on filedocumented in this encounter Care Teams Automatic Blocker Relationship Specialty Start Date End Date Maureen Saleem MD PCP - General FAMILY PRACTICE 07/01/18 04/30/22 Cathie Hickey MD [address] [facility] [address] [place] [address] PCP - General FAMILY PRACTICE 05/01/22 documented as of this encounter
--- OUTSIDE RECORDS SUMMARY | 2024-11-29 10:51 | XMS_ITS | Clinical Summary ---
Author Organization [facility] [place] [address] Address [address] [place] [address] Care Team Providers Care Director Biomedical Engineering Name Role Phone Aden Rae MD Unavailable [phone] Yunior León MD Unavailable [phone] Dariana Marlow MD Unavailable [phone] Rubina Daugherty MD Unavailable [phone] Hector Lao MD Unavailable [phone] David Boone MD Unavailable [phone] Cathie Hickey MD Primary Care Provider Stacie Lopez NP Unavailable [phone] Allergies Active Allergy Reactions Criticality Noted Date Comments Adhesive Tape-Silicones Blisters High 12/09/2017 Medications irbesartan (AVAPRO) 150 mg tablet take 1 tablet by oral route every day 0 0 01/29/20 14 Active CHOLECALCIFEROL, VITAMIN D3, (VITAMIN D3 ORAL)Indications:s upplement Take 400 Units by mouth 2 (two) times a day. Active acetaminophen (TYLENOL) 500 mg tablet Take 1 tablet (500 mg total) by mouth every 6 (six) hours as needed for pain Active phdsnzpi-uxdoiwo-t patricio-lutein tablet Take by mouth Active solifenacin (VESIcare) 5 mg tablet Take 1 tablet (5 mg total) by mouth daily 04/16/20 20 Active omeprazole (PriLOSEC) 40 mg capsule 04/23/20 21 Active meclizine (ANTIVERT) 25 mg tablet TAKE 1 TABLET BY MOUTH 4 TIMES A DAY NEEDED FOR VERTIGO 05/20/20 24 Active fenofibrate (TRIGLIDE) 160 mg tablet 06/16/19 25 Active loratadine (CLARITIN) 10 mg tablet Take 1 tablet (10 mg total) by mouth daily Active gabapentin (NEURONTIN) 300 mg capsuleIndications :Neuropathic Pain Take 1 capsule (300 mg total) by mouth 3 (three) times a day 270 capsule 3 06/29/19 25 026 Active pyridoxine (VITAMIN B-6) 100 mg tablet daily Active metoprolol XL (TOPROL-XL) 100 mg 24 hr tabletIndications: Atypical atrial flutter (HCC),Paroxysmal atrial fibrillation (HCC),Essential hypertension TAKE 1 TABLET BY MOUTH EVERY DAY 90 tablet 3 07/21/19 25 Active metoprolol XL (TOPROL-XL) 50 mg extended release tablet Take 1 tablet (50 mg total) by mouth daily 90 tablet 3 08/25/19 25 026 Active warfarin (COUMADIN) 2.5 mg 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 90 tablet 10/19/19 25 Active atorvastatin (LIPITOR) 20 mg tabletIndications: Mixed hyperlipidemia TAKE 1 TABLET BY MOUTH EVERY DAY 90 tablet 3 11/23/19 25 Active atorvastatin (LIPITOR) 20 mg tabletIndications: Mixed hyperlipidemia Take 1 tablet (20 mg total) by mouth daily 90 tablet 1 03/01/20 24 025 Discontinued Active Problems Problem Noted Date Diagnosed Date Breast asymmetry in female 09/07/2024 Heterogeneously dense tissue of both breasts on mammography 09/03/2023 Screening mammogram for breast cancer 08/28/2022 Vitamin D deficiency 03/13/2022 Osteopenia 08/29/2021 Bone disorder 10/23/2018 History of breast cancer 06/26/2018 Tachy-paola syndrome 06/23/2018 Post-menopausal 01/02/2018 Malignant neoplasm of lower- inner quadrant of left breast in female, estrogen receptor positive 12/30/2017 Cancer Staging:Pathologic stage from 11/24/2017:Stage IA(pT1c, pN0, cM0, G1, ER+, MN+, HER2-, Oncotype DX score: 7) - Signed by Aden Rae MD on 10/19/2018 Clinical: cT1c, cN0, cM0 - Unsigned ELISHA (obstructive sleep apnea) 11/27/2017 Atypical atrial flutter 11/27/2016 Absence of kidney 11/20/2015 Overview (08/04/2019): H/O unilateral nephrectomy Overview: Overview: H/O unilateral nephrectomy Chronic anticoagulation 11/20/2015 Overview (09/19/2016): Chronic anticoagulation Essential hypertension 11/20/2015 Overview (08/04/2019): Essential hypertension Overview: Overview: Essential hypertension Osteoarthritis of ankle or foot 06/06/2015 Hypertriglyceridemia 10/04/2014 Overview (09/19/2016): Hypertriglyceridemia Paroxysmal atrial fibrillation 03/08/2014 Overview (09/19/2016): PAF (paroxysmal atrial fibrillation) Hypercholesterolemia 02/07/2010 Resolved Problems Problem Noted Date Diagnosed Date Resolved Date Preoperative cardiovascular examination 07/14/2023 09/07/2024 Encounter for monitoring michael matase inhibitor therapy 08/29/2021 09/03/2023 Gross hematuria 07/06/2019 09/07/2024 Malignant neoplasm of left 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, estrogen receptor positive 10/20/2018 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 10/20/2018 09/03/2023 Menopausal symptom 01/02/2018 8 Positive CHANDRA (antinuclear antibody) 12/26/2017 09/07/2024 TILLMAN (dyspnea on exertion) 11/25/2017 Malignant neoplasm of left 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, estrogen receptor positive 11/24/2017 12/30/2017 Bradycardia 11/20/2015 09/07/2024 Overview (09/19/2016): Bradycardia Lumbago 02/14/2010 09/07/2024 Essential hypertension 02/07/201006/23 Encounters Date Type Department Care Team Description 11/22/2024 Anticoagulation Visit [facility] Cardiology [address] [place] [address] [place] [address] [phone] Racquel Eason RN Chronic anticoagulation (Primary Dx); Atypical atrial flutter (HCC) 11/22/2024 Telephone [facility] Cardiology [address] [place] [address] [place] [address] [phone] Eddie Brumfield MD 11/02/2024 Anticoagulation Visit [place] [address] [place] [phone] Barrera Esposito RN Chronic anticoagulation (Primary Dx); Atypical atrial flutter (HCC) 10/19/2024 Anticoagulation Visit [place] [address] [place] [phone] Sandee Jiménez RN Chronic anticoagulation (Primary Dx); Atypical atrial flutter (HCC) 10/19/2024 Telephone [place] [address] [place] [phone] Eddie Brumfield MD 10/13/2024 Telephone [place] [address] [place] [phone] Eddie Brumfield MD 10/12/2024 Anticoagulation Visit [place] [address] [place] [address] [phone] Sandee Jiménez RN Chronic anticoagulation (Primary Dx); Atypical atrial flutter (HCC) 09/28/2024 Anticoagulation Visit [facility] Cardiology [address] [place] [address] [place] [address] [phone] Montserrat Snyder RN Chronic anticoagulation (Primary Dx); Atypical atrial flutter (HCC) 09/15/2024 Anticoagulation Visit [place] [address] [place] [phone] Montserrat Snyder RN Chronic anticoagulation (Primary Dx); Atypical atrial flutter (HCC) 09/08/2024 Results Follow-Up [facility] [address] [facility] [address] [place] [phone] Abbi Patel MD Screening Mammogram Bilateral [facility] [place] 09/07/2024 11:30 AM CDT Office Visit [facility] [address] [place] [phone] Stacie Lopez NP Bone disorder (Primary Dx); History of breast cancer; Heterogeneously dense tissue of both breasts on mammography; Malignant neoplasm of lower-inner quadrant of left breast in female, estrogen receptor positive (HCC); Osteopenia, unspecified location; Vitamin D deficiency; Breast asymmetry in female; Screening mammogram for breast cancer 09/07/2024 10:45 AM CDT - 09/07/2024 11:59 PM CDT Hospital Encounter [facility] Medical Office Bldg 1 [facility] [address] [place] [address] Encounter for screening mammogram for breast cancer; Breast cancer screening by mammogram Discharge Disposition: Discharge to home or self care 2024 Anticoagulation Visit [facility] [address] [facility] [address] [place] [phone] Racquel Eason RN Chronic anticoagulation (Primary Dx); Atypical atrial flutter (HCC) from Last 3 Months Immunizations Immunization Administration Dates Next Due Influenza, Trivalent, High D ose, Split, Preservative Free, Intramuscular 03/16/2021 Pfizer SARS-CoV-2 Monovalent Vaccination (12+ Yrs) PURPLE 03/16/2021,09/06/2020,08/09/2020 Pneumococcal Conjugate PCV 13 01/12/2019 Pneumococcal Polysaccharide PPV23 08/28/2016 Tdap 11/26/2018 Surgical History Surgery Date Site/Laterality Comments LUMBAR DISCECTOMY SHOULDER SURGERY HYSTERECTOMY BREAST SURGERY 11/24/2017 CATARACT EXTRACTION 06/16/2019 - 06/15/2020 LASIK over 10 years SPINE SURGERY over 10 years NEPHRECTOMY Right for complicated stone URETERAL STENT PLACEMENT 06/16/2010 - 06/15/2011 Left Kidney Stone Treatment LITHOTRIPSY 06/16/2011 - 06/15/2012 Left x2 BREAST LUMPECTOMY Medical History Medical History Date Comments Breast cancer (HCC) GERD (gastroesophageal reflux disease) Hypertension History of radiation therapy Bradycardia 11/20/2015 Bradycardia TILLMAN (dyspnea on exertion) 11/25/2017 Gross hematuria 07/06/2019 Lumbago 02/14/2010 Positive CHANDRA (antinuclear antibody) 12/26/2017 Preoperative cardiovascular examination 07/14/19 24 Family History Medical History Relation Name Comments Hearing loss Brother 1 Dene Leukemia Brother 1 Dene Multiple myeloma Brother 2 Bryan guillain-barre Daughter 1 Inna Johansen's palsy Daughter 2 Pipo Coronary artery disease Father Kian Heart disease Father Kian Breast cancer Father's Sister Depression Mother Tamika Lung cancer Mother Tamika smoker Autoimmune disease Sister Relation Name Status Comments Brother 1 Dene Brother 2 Bryan Daughter 1 Inna Alive Daughter 2 Pipo Alive Father Kian (Age 74) Father's Sister Mother Tamika (Age 72) Sister Alive Social History Tobacco Use Types Packs/Day Years Used Date Smoking Tobacco: Never Smokeless Tobacco: Never Alcohol Use Standard Drinks/Week Comments No 0 (1 standard drink = 0.6 oz pur e alcohol) AUDIT-C Answer Date Recorded Q1: How often do you have a drink containing alcohol? Never 09/07/2024 Q2: How many drinks containi ng alcohol do you have on a typical day when you are drinking? Patient does not drink Q3: How often do you have si x or more drinks on one occasion? 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 Gender Identity Not on file Sexual Orientation Not on file Obstetrics History Para Term AB IAB SAB Ectopic Multiple Livin g Live Births 4 2 2 Date Outcome GA Total Labor Labor/2nd/3rd Weight Sex Type Anes PTL Felipa A1 A5 Name Clin Term Term Last Filed Vital Signs Vital Sign Reading Time Taken Comments Blood Pressure 141/85 09/07/2024 11:27 AM CDT Pulse 70 09/07/2024 11:27 AM CDT Temperature 36.7 C (98 F) 09/07/2024 11:27 AM CDT Respiratory Rate 16 09/07/2024 11:27 AM CDT Oxygen Saturation 98% 09/07/2024 11:27 AM CDT Inhaled Oxygen Concentration - - Weight 89.8 kg (198 lb) 09/07/2024 11:27 AM CDT Height 172.7 cm (5' 8) 09/07/2024 11:27 AM CDT Body Mass Index 30.11 09/07/2024 11:27 AM CDT Plan of Treatment Health Maintenance Due Date Last Done Comments Colon Cancer Screening-Colonoscopy 1950 Depression Screening 1950 Fall Risk Assessment 1950 Hepatitis C Screening 1950 Osteoporosis Screening-Bone Density Scan 1950 Hepatitis B Screening 1968 Well Visit 65+ 09/01/2015 Covid-19 Vaccine (4 - 2023-2 5 season) 2024 03/16/2021, 09/06/2020, 08/09/2020 Zoster Vaccine (2 of 2) 04/06/2024 02/10/2024 Breast Cancer Screening-Mammogram 09/07/2025 09/07/2024, 09/03/2023, 08/28/2022, Additional history exists DTaP/Tdap/Td Vaccine (2 - Td or Tdap) 11/26/2028 11/26/2018 Pneumococcal vaccine 65+ Completed 01/12/2019, 08/14 Influenza Vaccine Completed 02/10/2024, 03/16/2021 Procedures Procedure Name Priority Date/Time Associated Diagnosis Comments PROTIME-INR Routine 11/22/2024 PROTIME-INR Routine 11/02/2024 PROTIME-INR Routine 10/19/2024 PROTIME-INR Routine 10/12/2024 PROTIME-INR Routine 09/28/2024 PROTIME-INR Routine 09/14/2024 SCREENING MAMMOGRAM BILATERAL W [place] Schedule Routine, Read Routine (OP Routine) 09/07/2024 10:57 AM CDT Encounter for screening mammogram for breast cancer Breast cancer screening by mammogram PROTIME-INR Routine 2024 from Last 3 Months Results * (ABNORMAL) Protime-INR (11/22/2024) INR 4.30(A) 0.90 - 1.10 EXTERNAL LAB Blood Result [facility] Provider MD LAB BLOOD ORDERABLES Nhung l Result EXTERNAL LAB * (ABNORMAL) Protime-INR (11/02/2024) INR 2.40(A) 0.90 - 1.10 EXTERNAL LAB Blood 11/02/2024 Result [facility] Provider MD LAB BLOOD ORDERABLES Nhung l Result EXTERNAL LAB * (ABNORMAL) Protime-INR (10/19/2024) INR 1.70(A) 0.90 - 1.10 EXTERNAL LAB Blood Result [facility] Provider MD LAB BLOOD ORDERABLES Nhung l Result EXTERNAL LAB * (ABNORMAL) Protime-INR (10/12/2024) INR 1.50(A) 0.90 - 1.10 EXTERNAL LAB Blood Result [facility] Provider MD LAB BLOOD ORDERABLES Nhung l Result EXTERNAL LAB * (ABNORMAL) Protime-INR (09/28/2024) INR 2.20(A) 0.90 - 1.10 EXTERNAL LAB Blood Historical Provider MD LAB BLOOD ORDERABLES Nhung l Result EXTERNAL LAB * (ABNORMAL) Protime-INR (09/14/2024) INR 2.80(A) 0.90 - 1.10 EXTERNAL LAB Blood Historical Provider MD LAB BLOOD ORDERABLES Nhung l Result EXTERNAL LAB * Screening Mammogram Bilateral W Hosea (09/07/2024 10:57 AM CDT) Anatomical Region Laterality Modality Breast Bilateral Mammography Impressions 09/07/2024 11:11 AM CDT BI-RADS ATLAS category (overall): 2 - Benign There is no mammographic evidence of malignancy. A 1 year screening mammogram is recommended. The patient has been or will be contacted. We recommend annual screening mammography for women at average risk of breast cancer beginning at age 40, based on guidelines of the [employer] (ACR Practice Parameter for the Performance of Screening and Diagnostic Mammography) and [employer]. For women with and elevated risk of breast cancer, please refer to the ACR Practice Parameter for specific screening recommendations. The patient will be entered into a reminder system with a target due date of 1 year for her next screening exam. Narrative 09/07/2024 11:11 AM CDT Screening Mammogram Bilateral W Hosea: 09/07/24 The study was acquired using full field digital technology and interpreted from soft copy. 2D digital mammographic views, as well as 3D digital tomosynthesis were performed in the CC and MLO projections. CLINICAL: Encounter for screening mammogram for breast cancer Breast cancer screening by mammogram. Medical history includes breast cancer and radiation therapy. History of breast cancer in Father's Sister. COMPARISONS: 09/03/2023 Screening Mammogram Bilateral W Hosea 08/28/2022 Screening Mammogram Bilateral W H[place]a 08/22/2021 Screening Mammogram Bilateral W H[place]a 08/15/2020 Diagnostic Mammogram Bilateral W H[place]a 08/04/2019 Diagnostic Mammogram Bilateral W [place] BREAST TISSUE: The breasts are heterogeneously dense, which may obscure small masses. FINDINGS: There are changes of breast conservation therapy in the left breast. There is also an unchanged biopsy clip in the left breast. There is no new suspicious finding in either breast on mammogram. Abbi Patel MD IMG MAMMO PROCEDURES Final Result * (ABNORMAL) Protime-INR (2024) INR 2.60(A) 0.90 - 1.10 EXTERNAL LAB Blood Historical Provider LAB BLOOD ORDERABLES Nhung blevins Result EXTERNAL LAB from Last 3 Months Insurance MEDICARE [facility] MEDICARE SUPPLEMENT MEDICARE [facility] MEDICARE SUPPLEMENT Care Teams Director Biomedical Engineering Relationship Specialty Start Date End Date Cathie Hickey MD [facility] [address] [place] [address] PCP - General Family Practice 08/29/22 Aden Rae MD [address] [place] [address] Medical Oncologist/Tile Mechanic Medical Oncology 12/26/17 Yunior León MD [address] [id number] Referring Physician Radiation Oncology 12/26/17 Dariana Marlow MD [address] [place] [address] Surgeon Surgical Oncology 12/26/17 Rubina Daugherty MD [address] [place] [address] Consulting Physician Cardiology 12/26/17 Hector Lao MD [address] [place] [id number] Referring Physician Family Medicine 12/26/17 David Boone MD [address] [facility] [address] [place] [phone] Consulting Physician Urology 12/26/17 Stacie Lopez NP [address] [place], [place] [id number] Nurse Practitioner Medical Oncology 09/07/24 ZITA MONROE [address] [place] [phone] Referring Physician Family Practice 10/23/18
--- OUTSIDE RECORDS SUMMARY | 2024-11-29 10:51 | XMS_ITS ---
Author Organization [facility] [place] [address] Address [address] [place] [address] Care Team Providers Care Precinct Commanding Officer Name Role Phone Aden Rae MD Unavailable [phone] Yunior León MD Unavailable [phone] Dariana Marlow MD Unavailable [phone] Rubina Daugherty MD Unavailable [phone] Hector Lao MD Unavailable [phone] David Boone MD Unavailable [phone] Cathie Hickey MD Primary Care Provider Stacie Lopez NP Unavailable [phone] Active Problems Problem Noted Date Diagnosed Date [...] (09/19/2016): PAF (paroxysmal atrial fibrillation) Hypercholesterolemia 02/07/2010 Current Treatment and Therapy Plans No current plan information found. Past Treatment and Therapy Plans Line Care Plan Name Start Date Discontinue Date Treatment Medications Discontinue Reason Plan Provider IV MAINTENANCE THERAPY PLAN 01/12/2019 02/15/2021 No medications scheduled. Therapy Complete Aden Rae MD Specialty Infusion Treatment Plan Name Start Date Discontinue Date Treatment Medications Discontinue Reason Plan Provider 15 MONTHS - POST-SCT VACCINATIONS 01/12/2019 01/26/2020 No medications scheduled. 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
--- OUTSIDE RECORDS SUMMARY | 2024-11-29 10:51 | XMS_ITS | Clinical Summary ---
Author Organization [facility] Address [address] [place] [address] Care Team Providers Care Blacksmith Helper Name Role Phone Cathie Hickey MD Primary Care Provider Allergies Active Allergy Reactions Criticality Noted Date Comments Tape Contact Dermatitis High 12/09/2017 Medications gemfibrozil 600 MG tablet 07/19/2013 Active irbesartan 150 MG tablet 07/27/2013 Active traMADol 50 MG tablet 02/27/2015 Active acetaminophen 500 MG tablet Take 500 mg by mouth. Active ranitidine 150 MG tablet Take 150 mg by mouth. Active VESICARE 5 MG tablet 07/08/2018 Active warfarin 2.5 MG tablet Take 2.5 mg by mouth. 03/10/2017 Active TOVIAZ 4 MG 24 hr tablet Take 4 mg by mouth daily. 2 07/17/2018 Active metoprolol succinate 25 MG 24 hr tablet Take 3 tablets (75mg) by oral route every day. 07/20/2018 Active exemestane 25 MG tablet Take 25 mg by mouth daily. Active calcium carbonate-vitam in D 600-400 MG-UNIT Tab Take 1 tablet by mouth daily. 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, estrogen receptor positive ([facility]) 12/30/2017 Positive CHANDRA (antinuclear antibody) 12/26/2017 ELISHA (obstructive sleep apnea) 11/27/2017 TILLMAN (dyspnea on exertion) 11/25/2017 Atypical atrial flutter ([facility]) 2016 Absence of kidney 11/20/2015 Overview (07/09/2018): Overview: H/O unilateral nephrectomy Bradycardia 11/20/2015 Overview (07/09/2018): Overview: Bradycardia Essential hypertension 11/20/2015 Overview (07/09/2018): Overview: Essential hypertension 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 0 11/20/2015 Overview (07/09/2018): Overview: Chronic anticoagulation Neuritis 08/23/2015 Capsulitis of right foot 08/15/2015 Osteoarthritis of right ankle or foot 06/06/2015 Complication of internal fixation device 015 Soft tissue mass 01/03/2015 Hypertriglyceridemia 10/04/2014 Overview (07/09/2018): Overview: Hypertriglyceridemia Ingrowing nail 09/12/2014 Paroxysmal atrial fibrillation ([facility]) 03/08/2014 Overview (07/09/2018): Overview: PAF (paroxysmal atrial fibrillation) 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 Plantar fasciitis 01/25/2014 Pes equinus, acquired 01/25/2014 Foot pain 01/18/2014 Capsulitis 10/26/2013 Localized, primary osteoarthritis of ankle or fo ot 10/26/2013 Hammer toe 10/25/2013 Disorder of soft tissue 01/28/2012 Hypertrophy of bone 01/28/2012 Lumbago 02/14/2010 Hypercholesterolemia 02/07/2010 Resolved Problems Problem Noted Date Diagnosed Date Resolved Date Postoperative examination 07/06/2014 Encounter for preventive health examination 01/28/2012 02/25/2020 Encounters Date Type Department Care Team Description 09/02/2024 Patient Self-Triage [facility] Provider from Last 3 Months Social History Tobacco Use Types Packs/Day Years Used Date Smoking Tobacco: Never Smokeless Tobacco: Never Alcohol Use Standard Drinks/Week Comments No 0 (1 standard drink = 0.6 oz pur e alcohol) AUDIT-C Answer Date Recorded Frequency of Alcohol Consumption Never 07/09/2018 Average Number of Drinks Not on file 019 Frequency of Binge Drinking Not on file 06/17 Comments Unknown Sex and Gender Information Value Date Recorded Sex Assigned at Female 07/09/2018 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 Legal Sex Female 7:36 PM CDT Gender Identity Female 07/09/2018 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 TECH Sexual Orientation Straight 08/24/2018 8: 56 AM CDT Last Filed Vital Signs Vital Sign Reading Time Taken Comments Blood Pressure 128/88 02/04/2019 7:02 PM CDT Pulse 87 02/04/2019 7:02 PM CDT Temperature 37.7 C (99.8 F) 02/04/2019 7:02 PM CDT Respiratory Rate 16 02/04/2019 7:02 PM CDT Oxygen Saturation 96% 02/04/2019 7:02 PM CDT Inhaled Oxygen Concentration - - Weight 87.1 kg (192 lb) 10/28/2018 2:16 PM CDT Height 177.8 cm (5' 10) 10/28/2018 2:16 PM CDT Body Mass Index 27.55 10/28/2018 2:16 PM CDT Plan of Treatment Health Maintenance Due Date Last Done Comments Colorectal Cancer Screening Colonoscopy (10 Years) 1950 Hepatitis C 1968 RSV Immunization or 60+ Years (1 - Risk 60-74 years 1-dose series) 2010 Zoster Vaccines (2 of 3) 06/07/2014 04/12/2014 Annual Medicare Wellness Visit 09/01/2015 Dexa Scan (General) 09/01/2015 COVID-19 Vaccine ( season) 2024 03/16/2021, 09/06/2020, 08/09/2020 Mammogram Screening 09/07/2026 09/07/2024, 09/03/2023, 08/28/2022, Additional history exists DTaP, Tdap and Td Vaccines (2 - Td or Tdap) 11/26/2028 11/26/2018, 10/26/2008 Pneumococcal Vaccine: 50+ Years Completed 01/12/2019, 08/28/2016, 08/27/2016, Additional history exists Meningococcal B Vaccine Aged Out No l onger eligible based on patient's age to complete this topic Meningococcal Vaccine Aged Out No alphonso fely eligible based on patient's age to complete this topic RSV Immunizations Under 20 Months Aged Out No longer eligible based on patient's age to complete this topic Procedures Procedure Name Priority Date/Time Associated Diagnosis Comments HEALTH FAIR WITH LIPID Routine 10/12/2024 12:01 AM CDT from Last 3 Months Results * (ABNORMAL) HEALTH FAIR WITH LIPID (10/12/2024 12:01 AM CDT) WBC 5.32 4.4 - 11.0 x10'3/uL 10/12/2024 7:57 AM CDT [facility] RBC 5.12(H) 4.50 - 5.10 x10'6/uL 10/12/2024 7:57 AM CDT [facility] HGB 15.4(H) 12.3 - 15.3 G/DL 10/12/2024 7:57 AM CDT [facility] HCT 44.9(H) 35.9 - 44.6 % 10/12/2024 7:57 AM CDT [facility] MCV 87.7 80.0 - 96.0 FL 10/12/2024 7:57 AM CDT [facility] MCH 30.1 25.3 - 30.9 PG 10/12/2024 7:57 AM CDT [facility] MCHC 34.3(H) 31.0 - 34.1 G/DL 10/12/2024 7:57 AM CDT [facility] RDW 13.2 12.4 - 15.1 % 10/12/2024 7:57 AM CDT [facility] PLT 169 151 - 353 x10'3/uL 10/12/2024 7:57 AM CDT [facility] MPV 8.6(L) 9.6 - 12.0 FL 10/12/2024 7:57 AM CDT [facility] RBC MORPHOLOGY NORMAL 10/12/2024 7:57 AM CDT [facility] PLT MORPH. NORMAL 10/12/2024 7:57 AM T [facility] WBC MORPHOLOGY NORMAL 10/12/2024 7:57 AM T [facility] LYMPHOCYTES % 19.5 15.8 - 45.0 % 10/12/2024 7:57 AM CDT [facility] NEUTROPHILS % 68.7 42.1 - 71.9 % 10/12/2024 7:57 AM CDT [facility] MONOCYTES % 7.0 5.7 - 12.5 % 10/12/2024 7:57 AM CDT [facility] EOSINOPHILS 3.8 0.0 - 5.6 % 10/12/2024 7:57 AM T [facility] BASOPHILS 0.6 0.0 - 1.3 % 10/12/2024 7:57 AM T [facility] ABS. NEUTROPHILS 3.66 1.40 - 6.00 x10'3/uL 10/12/2024 7:57 AM T [facility] IMMATURE GRANS % 0.4 0.0 - 0.5 % 10/12/2024 7:57 AM T [facility] ABS. LYMPHOCYTES 1.04 0.80 - 4.70 x10'3/uL 10/12/2024 7:57 AM T [facility] GLUCOSE 94 70 - 99 MG/DL 10/12/2024 3:09 PM T [facility] BUN 22(H) 7 - 18 MG/DL 10/12/2024 3:09 PM T [facility] CREATININE S/P/B 1.02 0.55 - 1.02 MG/DL 10/12/2024 3:09 PM [facility] SODIUM S/P/B 142 136 - 145 MMOL/L 10/12/2024 3:09 PM [facility] POTASSIUM S/P/B 4.6 3.5 - 5.1 MMOL/L 10/12/2024 3:09 PM [facility] CHLORIDE S/P/B 107 100 - 108 MMOL/L 10/12/2024 3:09 PM [facility] CO2 30.1 21 - 32 MMOL/L 10/12/2024 3:09 PM [facility] CALCIUM S/P/B 9.5 8.5 - 10.1 MG/DL 10/12/2024 3:09 PM [facility] BILIRUBIN TOTAL S/P/B 0.7 0.2 - 1.2 MG/DL 10/12/2024 3:09 PM [facility] TOTAL PROTEIN S/P/B 6.3(L) 6.4 - 8.2 G/DL 10/12/2024 3:09 PM [facility] ALBUMIN S/P/B 4.0 3.4 - 5.0 G/DL 10/12/2024 3:09 PM [facility] AST 15 15 - 37 U/L 10/12/2024 3:09 PM [facility] ALT 26 14 - 55 U/L 10/12/2024 3:09 PM [facility] ALKALINE PHOSPHATASE S/P/B 58 50 - 136 U/L 10/12/2024 3:09 PM [facility] ANION GAP 4.9(L) 5 - 15 MMOL/L 10/12/2024 3:09 PM [facility] BUN CREATININE RATIO 21.6 6 - 26 10/12/2024 3:09 PM [facility] A/G RATIO 1.7 1.0 - 2.0 RATIO 10/12/2024 3:09 PM [facility] GFR ESTIMATE 58(L) >90 ML/MIN/1. 73 M2 10/12/2024 3:09 PM [facility] Comment: NOTE: eGFR is not calculated for patients <18 years of age. This is an estimated GFR calculation using the new CKD EPI creatinine equation without race and so does not require a correction factor for race. This estimated GFR should not be used for calculating drug doses. TSH 2.632 0.358 - 3.74 uIU/ML 10/12/2024 3:09 PM [facility] Comment: HIGH DOSES OF BIOTIN MAY INTERFERE WITH THIS TEST RESULT. CORRELATION TO CLINICAL HISTORY AND PRESENTATION RECOMMENDED. CHOLESTEROL 156 <200.0 MG/DL 10/12/2024 3:09 PM [facility] TRIGLYCERIDES 149 <150 MG/DL 10/12/2024 3:09 PM [facility] HDL 42 >40.0 MG/DL 10/12/2024 3:09 PM [facility] LDL (CALCULATED) 84 <100 MG/DL 10/12/2024 3:09 PM [facility] NON HDL CHOLESTEROL 114 <130 MG/DL 10/12/2024 3:09 PM [facility] CHOL/HDL RATIO 3.7 0.0 - 4.5 10/12/2024 3:09 PM [facility] VLDL CALCULATION 30 5 - 55 MG/DL 10/12/2024 3:09 PM [facility] LIPID INTERPRETATION 10/12/2024 3:09 PM [facility] Comment: [facility] REPORT RECOMMENDATIONS: ADULT CHILD LOW RISK: CHOLESTEROL <200 <170 TRIGLYCERIDE <150 --- HDL >=60 --- LDL <100 <110 BORDERLINE: CHOLESTEROL 200-239 170-199 TRIGLYCERIDE 150-199 --- HDL 40-59 --- LDL 100-159 110-129 HIGH RISK: CHOLESTEROL >=240 >=200 TRIGLYCERIDE >=200 --- HDL <40 --- LDL >=160 >=130 10/12/2024 12:0 1 AM CDT Misael Belcher MD LABORATORY Final Result [facility] [address] [place] [address], [place] [phone] from Last 3 Months Insurance MEDICARE AET Care Teams Blacksmith Helper Relationship Specialty Start Date End Date Cathie Hickey MD [address] [place], [place] [id number] PCP - General FAMILY PRACTICE 11/16/22
--- OUTSIDE RECORDS SUMMARY | 2024-11-29 10:51 | XMS_ITS | Clinical Summary ---
Author Organization [facility] Address [address] [facility] [place] [address] Phone Care Team Providers Care Patient Support Tech Name Role Phone Hitesh Kwan MD Primary Care Provider [phone] Allergies Active Allergy Reactions Criticality Noted Date Comments Wound Dressing Adhesive Rash 05/17/2020 blisters Medications WARFARIN SODIUM PO Take by mouth. Active VITAMIN D PO Take by mouth. Active exemestane (AROMASIN) 25 MG Tablet Take 25 mg by mouth daily Active metoprolol tartrate (LOPRESSOR) 25 MG Tablet Take 25 mg by mouth 2 times daily. Active atorvastatin (LIPITOR) 20 MG Tablet Take 20 mg by mouth daily. Active famotidine (PEPCID) 10 MG Tablet Take 10 mg by mouth 2 times daily. Active Coenzyme Q10 (CO Q 10 PO) Take by mouth. Active irbesartan (AVAPRO) 150 MG Tablet Take 150 mg by mouth nightly. Active gemfibrozil (LOPID) 600 MG Tablet Take 600 mg by mouth 2 times daily. Active solifenacin (VESICARE) 5 MG Tablet Take 5 mg by mouth daily. Active Multiple Vitamin (MULTIVITAMINS PO) Take by mouth. Active Immunizations Immunization Administration Dates Next Due Influenza, High-dose, Quadrivalent 03/16/2021 Family History Medical History Relation Name Comments Leukemia/Lymphoma Brother Heart Disease Father Hypertension Father Lung Cancer Mother Parkinsonism Mother Relation Name Status Comments Brother Father Mother Social History Tobacco Use Types Packs/Day Years [...] on file Sexual Orientation Not on file Last Filed Vital Signs Vital Sign Reading Time Taken Comments Blood Pressure 110/70 01/12/2021 9:01 AM CDT Pulse 101 01/12/2021 9:01 AM CDT Temperature 36.5 C (97.7 F) 01/12/2021 9:01 AM CDT Respiratory Rate 17 01/12/2021 9:01 AM CDT Oxygen Saturation 97% 01/12/2021 9:01 AM CDT Inhaled Oxygen Concentration - - Weight 87 kg (191 lb 12.8 oz) 01/12/2021 9:01 AM CDT Height 177.8 cm (5' 10) 01/12/2021 9:01 AM CDT Body Mass Index 27.52 01/12/2021 9:01 AM CDT Plan of Treatment Health Maintenance Due Date Last Done Comments Hepatitis C Virus (HCV) Screening 1950 Cologuard 09/01/1995 Colonoscopy 09/01/1995 Colorectal Cancer Screening 09/01/1995 Immunochemical Fecal Occult Blood 09/01/1995 Respiratory Syncytial Virus (RSV) Immunization (Adult) (1 - Risk 60-74 years 1-dose series) 2010 Zoster Immunization (1 of 2) 06/07/2014 04/12/2014 Pneumococcal Immunization (5 0+ years) (3 of 3 - PCV20 or PCV21) 08/27/2021 08/27/2016, 08/21/2015 SARS-COV-2 Immunization (4 - season) 2024 03/16/2021, 09/06/2020, 08/09/2020 Influenza Immunization (Seas on Ended) 2025 03/16/2021, 03/05/2020, 03/16/2017 Pneumococcal Immunization Combined Discontinued 08/27/2016, 08/21/2015 DTaP/Tdap/Td Immunization Discontinued 2018, 10/26/2008 TdaP Immunization Completed 11/26/2018 Hepatitis B Immunization Aged Out No longer eligible based on patient's age to complete this topic Human Papillomavirus (HPV) Immunization Aged Out No longer eligible based on patient's age to complete this topic Meningococcal Immunization (ACWY) Aged Out No longer eligible based on patient's age to complete this topic Rotavirus Immunization Aged Out No lo nger eligible based on patient's age to complete this topic Insurance MEDICARE [facility] Care Teams Patient Support Tech Relationship Specialty Start Date End Date Hitesh Kwan MD [address] [place] [address] PCP - General Ophthalmology 05/23/20
--- OUTSIDE RECORDS SUMMARY | 2024-11-29 10:51 | XMS_ITS | Clinical Summary ---
Author Organization [facility] Address [address] [place] [address] Care Team Providers Care Lace Tearing Supervisor Name Role Phone Hector Lao MD Primary Care Provider Source Comments [facility],non-owned Affiliates and Associated Physician Practices is amultiple site organization consisting of ambulatory clinics and hospital sitesin [place], [place], [place] and [place]. This disclosure is being madepursuant to the Care Everywhere program and may not contain all information available regarding this patient. 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 Gender Identity Not on file Sexual Orientation Not on file Plan of Treatment Health Maintenance Due Date Last Done Comments BONE DENSITY TESTING 1950 COLOGUARD (AGES 45-75) - COL ON CA SCREENING 1950 COLON MONITORING 1950 COLONOSCOPY - COLON CA SCREENING 1950 CT COLONOGRAPHY - COLON CA SCREENING 1950 Colorectal Cancer Screening 1950 FIT - COLON CA SCREENING 1950 FLEX SIG - COLON CA SCREENING 1950 LIPID TESTING 1950 MAMMOGRAM 1950 MEDICARE AWV 12 MONTHS 1950 HEPATITIS C SCREENING 08/26/1968 DTAP/TDAP/TD VACCINES (1 - Tdap) 1969 PNEUMOCOCCAL VACCINE 50+ (1 of 1 - PCV) 2000 ZOSTER VACCINE (1 of 2) 2000 COVID-19 VACCINE ( - 2023-2 5 season) 2024 DEPRESSION SCREENING 06/16/2024 INFLUENZA VACCINE (Season Ended) 2025 Respiratory Syncytial Virus (RSV) Vaccine Pt: or over 60 yrs (1 - 1-dose 75+ series) 2025 HEPATITIS B VACCINE Aged Out No longe r eligible based on patient's age to complete this topic HIB VACCINE Aged Out No longer eligi ble based on patient's age to complete this topic HPV VACCINE Aged Out No longer eligi ble based on patient's age to complete this topic MENINGOCOCCAL (Group B) VACC INE SHARED DECISION-MAKING Aged Out No longer eligibl e based on patient's age to complete this topic MENINGOCOCCAL GROUPS A/C/Y/W VACCINE Aged Out No longer eligible b ased on patient's age to complete this topic Insurance MEDICARE AET MEDICARE ANTHEM MEDICARE ANTHEM MEDICARE ANTHEM Care Teams Lace Tearing Supervisor Relationship Specialty Start Date End Date Hector Lao MD [address] [place] [address] PCP - General 09/25/17
--- OUTSIDE RECORDS SUMMARY | 2024-11-29 10:51 | XMS_ITS | Referral Summary ---
Author Organization [address] Address [address] [place] [address] Care Team Providers Care Computer Forwarding System Markup Clerk Name Role Phone Aden Rae MD Unavailable [phone] Yunior León MD Unavailable [phone] Dariana Marlow MD Unavailable [phone] Rubina Daugherty MD Unavailable [phone] Hector Lao MD Unavailable [phone] David Boone MD Unavailable [phone] Cathie Hickey MD Primary Care Provider Stacie Lopez NP Unavailable [phone] Encounters Date Type Department Care Team Description 11/22/2024 Anticoagulation Visit [facility] Medical [facility] Cardiology [address] [facility] [address] [place] [address] Racquel Eason RN Chronic anticoagulation (Primary Dx); Atypical atrial flutter (HCC) 11/22/2024 Telephone [facility] Cardiology [address] [place] [address] Eddie Brumfield MD 11/02/2024 Anticoagulation Visit [facility] Cardiology [address] [place] [address] [address] [place] [address] Barrera Esposito RN Chronic anticoagulation (Primary Dx); Atypical atrial flutter (HCC) 10/19/2024 Anticoagulation Visit [facility] Cardiology [address] [place] [address] [address] [place] [phone] Sandee Jiménez RN Chronic anticoagulation (Primary Dx); Atypical atrial flutter (HCC) 10/19/2024 Telephone [facility] Cardiology [address] [place] [address] [address] [place] [phone] Eddie Brumfield MD 10/13/2024 Telephone [place] [address] [place] [phone] Eddie Brumfiedl MD 10/12/2024 Anticoagulation Visit [place] [address] [place] [phone] Sandee Jiménez RN Chronic anticoagulation (Primary Dx); Atypical atrial flutter (HCC) 09/28/2024 Anticoagulation Visit [place] [address] [place] [phone] Montserrat Snyder RN Chronic anticoagulation (Primary Dx); Atypical atrial flutter (HCC) 09/15/2024 Anticoagulation Visit [address] [place] [phone] Montserrat Snyder RN Chronic anticoagulation (Primary Dx); Atypical atrial flutter (HCC) 09/08/2024 Results Follow-Up [facility] Oncology [address] [facility] [address] [place] [address] Abbi Patel MD Screening Mammogram Bilateral [place] 09/07/2024 10:45 AM CDT - 09/07/2024 11:59 PM CDT Hospital Encounter [facility] Medical Office [address] 1 [facility] [address] [place] [address] Encounter for screening mammogram for breast cancer; Breast cancer screening by mammogram Discharge Disposition: Discharge to home or self care 09/07/2024 11:30 AM CDT Office Visit [facility] Physicians [facility] Oncology [address] [facility] [address] [place] [address] Stacie Lopez NP Bone disorder (Primary Dx); History of breast cancer; Heterogeneously dense tissue of both breasts on mammography; Malignant neoplasm of lower-inner quadrant of left breast in female, estrogen receptor positive (HCC); Osteopenia, unspecified location; Vitamin D deficiency; Breast asymmetry in female; Screening mammogram for breast cancer 2024 Anticoagulation Visit [facility] Group Cardiology [address] [facility] [address] [place] [address] Racquel Eason RN Chronic anticoagulation (Primary Dx); Atypical atrial flutter (HCC) from Last 3 Months Allergies Active Allergy Reactions Criticality Noted Date [...] (six) hours as needed for pain Active glscitbh-omigdhr-b patricio-lutein tablet Take by mouth Active solifenacin [...] 026 Active warfarin (COUMADIN) 2.5 mg tabletIndications: terminal block assembler current use of anticoagulant therapy TAKE 1 [...] from 11/24/2017:Stage IA(pT1c, pN0, cM0, G1, ER+, AL+, HER2-, Oncotype DX score: 7) - Signed [...] in female, estrogen receptor positive 10/20/2018 01/26/2020 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) use of a romatase inhibitors 10/20/2018 09/03/2023 Menopausal symptom 01/02/2018 8 Positive CHANDRA (antinuclear antibody) 12/26/2017 09/07/2024 TILLMAN (dyspnea on exertion) 11/25/2017 Malignant neoplasm of left 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, estrogen receptor positive 11/24/2017 12/30/2017 Bradycardia 11/20/2015 09/07/2024 Overview (09/19/2016): Bradycardia Lumbago 02/14/2010 09/07/2024 Essential hypertension 02/07/201006/23 Immunizations Immunization Administration Dates Next Due Influenza, Trivalent, High D ose, Split, Preservative Free, Intramuscular 03/16/2021 Pfizer SARS-CoV-2 Monovalent Vaccination (12+ Yrs) PURPLE 03/16/2021,09/06/2020,08/09/2020 Pneumococcal Conjugate PCV 13 01/12/2019 Pneumococcal Polysaccharide PPV23 08/28/2016 Tdap 11/26/2018 Social History Tobacco Use Types Packs/Day Years [...] on file 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 Gender Identity Not on file Sexual Orientation [...] 09/07/2024 11:27 AM CDT Plan of Treatment Not on file Procedures Procedure Name Priority Date/Time Associated Diagnosis [...] 0.90 - 1.10 EXTERNAL LAB Blood Result [facility] Provider MD LAB BLOOD ORDERABLES Nhung l Result EXTERNAL LAB * (ABNORMAL) Protime-INR (11/02/2024) INR 2.40(A) 0.90 - 1.10 EXTERNAL LAB Blood 11/02/2024 Result [facility] Provider MD LAB BLOOD ORDERABLES Nhung l Result Performing Organization Address [facility]/ZIP Co de Phone Number EXTERNAL LAB * (ABNORMAL) Protime-INR (10/19/2024) INR 1.70(A) 0.90 - 1.10 EXTERNAL LAB Blood Result [facility] Provider MD LAB BLOOD ORDERABLES Nhung l Result Performing Organization Address [facility]/ZIP Co de Phone Number EXTERNAL LAB * (ABNORMAL) Protime-INR (10/12/2024) INR 1.50(A) 0.90 - 1.10 EXTERNAL LAB Blood Result [facility] Provider MD LAB BLOOD ORDERABLES Nhung l Result EXTERNAL LAB * (ABNORMAL) Protime-INR (09/28/2024) INR 2.20(A) 0.90 - 1.10 EXTERNAL LAB Blood Result [facility] Provider MD LAB BLOOD ORDERABLES Nhung l Result EXTERNAL LAB * (ABNORMAL) Protime-INR (09/14/2024) INR 2.80(A) 0.90 - 1.10 EXTERNAL LAB Blood us Historical Provider MD LAB BLOOD ORDERABLES Nhung blevins Result EXTERNAL LAB * Screening Mammogram Bilateral [...] age 40, based on guidelines of the [employer] (ACR Practice Parameter for the Performance of Screening and Diagnostic Mammography) and [employer]. For women [...] Blood Historical Provider LAB BLOOD ORDERABLES Nhung l Result EXTERNAL LAB from Last 3 Months Insurance MEDICARE [facility] MEDICARE SUPPLEMENT MEDICARE [facility] MEDICARE SUPPLEMENT Care Teams Computer Forwarding System Markup Clerk Relationship Specialty Start Date End Date Cathie Hickey MD [employer] [facility] 2 [place] [address] PCP - General Family Practice 08/29/22 Aden Rae MD [address] [place] [address] Medical Oncologist/Quantitative Associate Medical Oncology 12/26/17 Yunior León MD [address] [place] [id number] Referring Physician Radiation Oncology 12/26/17 Dariana Marlow MD [facility] [address] [place] [address] Surgeon Surgical Oncology 12/26/17 Rubina Daugherty MD [address] [place] [address] Consulting Physician Cardiology 12/26/17 Hector Lao MD [address] [place] [address] Referring Physician Family Medicine 12/26/17 David Boone MD [address] [address] Consulting Physician Urology 12/26/17 Stacie Lopez NP [address] [place] [address] Nurse Practitioner Medical Oncology 09/07/24 ZITA MONROE [address] [address] Referring Physician Family Practice 10/23/18
--- OUTSIDE RECORDS SUMMARY | 2024-11-29 10:51 | XMS_ITS | Encounter Summary ---
Author Organization [facility] Healthcare Address [address] [place] [address] Care Team Providers Care Pipe Smoker Machine Operator Name Role Phone Aden Rae MD Unavailable [phone] Yunior León MD Unavailable [phone] Dariana Marlow MD Unavailable [phone] Rubina Daugherty MD Unavailable [phone] Hector Lao MD Unavailable [phone] David Boone MD Unavailable [phone] Cathie Hickey MD Primary Care Provider Stacie Lopez NP Unavailable [phone] Encounter Details Date Type Department Care Team (Late st Contact Info) Description 11/22/2024 Telephone [facility] Medical Group Cardiology [address] [place] [address] Eddie Brumfield MD [address] [address] Social History Tobacco Use Types Packs/Day Years [...] on file 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 * Telephone Encounter - Glory Correa - 11/22/2024 8:24 AM CDT Pt called to report her INR is 4.3. states she did just get back from vacation. Contact: documented in this encounter Plan of Treatment Not on file documented as of this encounter Visit Diagnoses Not on filedocumented in this encounter Care Teams Pipe Smoker Machine Operator Relationship Specialty Start Date End Date Cathie Hickey MD [address] [facility] [address] [place], [place] [id number] PCP - General Family Practice 08/29/22 Aden Rae MD [address] [place] [address] Medical Oncologist/Offal Separator Medical Oncology 12/26/17 Yunior León MD [address] [place] [address] Referring Physician Radiation Oncology 12/26/17 Dariana Marlow MD [address] [place] [address] Surgeon Surgical Oncology 12/26/17 Rubina Daugherty MD [address] [place] [address] Consulting Physician Cardiology 12/26/17 Hector Lao MD [address] [place] [address] Referring Physician Family Medicine 12/26/17 David Boone MD [address] [place] [address] Consulting Physician Urology 12/26/17 Stacie Lopez NP [address] [place] [address] Nurse Practitioner Medical Oncology 09/07/24 ZITA MONROE [address] [place] [address] Referring Physician Family Practice 10/23/18 documented as of this encounter
--- OUTSIDE RECORDS SUMMARY | 2024-11-29 10:51 | XMS_ITS | Encounter Summary ---
Author Organization [facility] Address [address] [facility] [address] [place] [address] Phone Care Team Providers Care Hand Pattern Marker Name Role Phone Hector Lao MD Primary Care Provider + [phone] Zita Myles MD Primary Care Provider + [phone] Aden Rae MD Unavailable [phone] Yunior León MD Unavailable [phone] Dariana Marlow MD Unavailable [phone] Rubina Daugherty MD Unavailable [phone] Hector Lao MD Unavailable + [phone] David Boone MD Unavailable [phone] Hector Lao MD Primary Care Provider [phone] Zita Myles MD Primary Care Provider [phone] Cathie Hickey MD Primary Care Provider Cathie Hickey MD Primary Care Provider Stacie Lopez NP Unavailable [phone] Encounter Details Date Type Department Care Team (Latest Contact Info) Description 10/06/2017 Orders Only [facility] Scanning, Provider Social History Tobacco Use Types Packs/Day Years Used Date Smoking Tobacco: Never Smokeless Tobacco: Never Alcohol Use Standard Drinks/Week Comments No 0 (1 standard drink = 0.6 oz pur e alcohol) Comments Unknown Sex and Gender Information Value Date Recorded Sex Assigned at Not on file 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 Gender Identity Not on file Sexual Orientation Not on file documented as of this encounter Plan of Treatment Not on file documented as of this encounter Procedures Procedure Name Priority Date/Time Associated Diagnosis Comments PROCEDURE - RESULT 10/06/2017 documented in this encounter Results * PROCEDURE - RESULT (10/06/2017) us Provider Scanning Final Result documented in this encounter Visit Diagnoses Not on filedocumented in this encounter Care Teams Hand Pattern Marker Relationship Specialty Start Date End Date Hector Lao MD [address] [place] [address] PCP - General 09/13/16 12/18/17 Zita Myles MD [address] [place] [address] PCP - General Family Practice 12/19/17 12/30/17 Hector Lao MD [address] [place] [address] PCP - General 12/31/17 01/14/18 Zita Myles MD [address] [place] [address] PCP - General Family Practice 01/15/18 02/14/21 Cathie Hickey MD [address] [place] [address] PCP - General Family Practice 02/15/21 08/28/22 Cathie Hickey MD [address] [facility] [address] [place] [address] PCP - General Family Practice 08/29/22 Aden Rae MD [address] [place], [place] [address] Medical Oncologist/Dry Talc Racker Medical Oncology 12/26/17 Yunior León MD [address] [place] [address] Referring Physician Radiation Oncology 12/26/17 Dariana Marlow MD [address] [place] [address] Surgeon Surgical Oncology 12/26/17 Rubina Daugherty MD [address] [place] [address] Consulting Physician Cardiology 12/26/17 Hector Lao MD [address] [place] [address] Referring Physician Family Medicine 12/26/17 David Boone MD [address] [place] [address] Consulting Physician Urology 12/26/17 Stacie Lopez NP [address] [facility] [place] [address] Nurse Practitioner Medical Oncology 09/07/24 ZITA MONROE [address] [place] [address] Referring Physician Family Practice 10/23/18 documented as of this encounter
[2024-11-29 22:07] LABS: Alanine Aminotransferase 21 U/L (6-35); Albumin Level 4.2 g/dL (3.5-5.1); Alkaline Phosphatase 43 U/L (38-126); Anion Gap 6 mmol/L (4-12); Aspartate Amino Transferase 36 U/L (14-36); Bilirubin,Total 0.5 mg/dL (0.2-1.3); Blood Urea Nitrogen 20 mg/dL (7-17); Calcium 9.6 mg/dL (8.4-10.2); Carbon Dioxide 27 mmol/L (22-30); Chloride 106 mmol/L (98-107); Estimated Glomerular Filt Rate 59; Glucose 79 mg/dL (65-110); Potassium 4.9 mmol/L (3.4-5.0); Sodium 139 mmol/L (137-145); Total Protein 6.7 g/dL (6.3-8.2)
== END 2024-11-29 10:05 | disposition home or self-care (01) ==
LOC: ANHGOSHLAB 10:05
PROVIDERS: PCP Family Medicine; Visit Provider Family Medicine
DX: I10 Essential (primary) hypertension (principal); Z79.899 Other long term (current) drug therapy
CPT/HCPCS: 36415; 80053

== ENCOUNTER 2025-01-18 08:42 | Outpatient (NON) | payer MEDICARE, SELFPAY ==
--- OUTSIDE RECORDS SUMMARY | 2025-01-18 08:45 | XMS_ITS | Clinical Summary ---
Author Organization [facility] Address [address] [facility] [place] [address] Phone Care Team Providers Care Dust Brush Assembler Name Role Phone Hitesh Kwan MD Primary Care Provider [phone] Allergies Active Allergy Reactions Criticality Noted Date [...] season) 2024 03/16/2021, 09/06/2020, 08/09/2020 Influenza Immunization (#1) 02/14/202506/2020, 03/05/2020, 03/16/2017 Pneumococcal Immunization Combined Discontinued 08/27/2016, [...] age to complete this topic Insurance MEDICARE [facility] Care Teams Dust Brush Assembler Relationship Specialty Start Date End Date Hitesh Kwan MD [address] [place] [address] PCP - General Ophthalmology 05/23/20
--- OUTSIDE RECORDS SUMMARY | 2025-01-18 08:45 | XMS_ITS | Encounter Summary ---
Author Organization [facility] Healthcare Address [address] [place] [address] Care Team Providers Care Sidewalk Inspector Name Role Phone Aden Rae MD Unavailable [phone] Yunior León MD Unavailable [phone] Dariana Marlow MD Unavailable [phone] Rubina Daugherty MD Unavailable [phone] Hector Lao MD Unavailable [phone] David Boone MD Unavailable [phone] Cathie Hickey MD Primary Care Provider tSacie Lopez NP Unavailable [phone] Encounter Details Date Type Department Care Team (Late st Contact Info) Description 03/23/2024 Orders Only [facility] Health Information Management [address] [place] [address] Scanning, Provider Social History Tobacco Use Types Packs/Day Years Used Date Smoking Tobacco: Never Cigarettes Smokeless Tobacco: Never Alcohol Use Standard Drinks/Week Comments No 0 (1 standard drink = 0.6 oz pur e alcohol) AUDIT-C Answer Date Recorded Frequency of Alcohol Consumption Not on file 09/03/2023 Q2: How many drinks containi ng alcohol do you have on a typical day when you are drinking? 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 Gender Identity Not on file Sexual Orientation Not on file documented as of this encounter Plan of Treatment Not on file documented as of this encounter Procedures Procedure Name Priority Date/Time Associated Diagnosis Comments SCAN - LABS 03/23/2024 documented in this encounter Results * SCAN - LABS (03/23/2024) us Provider Scanning Final Result documented in this encounter Visit Diagnoses Not on filedocumented in this encounter Care Teams Sidewalk Inspector Relationship Specialty Start Date End Date Cathie Hickey MD [address] [facility] [address] [place], [place] [id number] PCP - General Family Practice 08/29/22 Aden Rae MD [address] [place] [address] Medical Oncologist/Salesforce Business Analyst Medical Oncology 12/26/17 Yunior León MD [address] [place] [address] Referring Physician Radiation Oncology 12/26/17 Dariana Marlow MD [address] [place] [address] Surgeon Surgical Oncology 12/26/17 Rubina Daugherty MD [address] [place] [address] Consulting Physician Cardiology 12/26/17 Hector Lao MD [address] [place] [address] Referring Physician Family Medicine 12/26/17 David Boone MD [address] [place] [address] Consulting Physician Urology 12/26/17 Stcaie Lopez NP [address] [place] [address] Nurse Practitioner Medical Oncology 09/07/24 ZITA MONROE [address] [place] [address] Referring Physician Family Practice 10/23/18 documented as of this encounter
--- OUTSIDE RECORDS SUMMARY | 2025-01-18 08:45 | XMS_ITS | Encounter Summary ---
Author Organization [facility] Healthcare Address [address] [place] [address] Care Team Providers Care Water Purifier Name Role Phone Aden Rae MD Unavailable [phone] Yunior León MD Unavailable [phone] Dariana Marlow MD Unavailable [phone] Rubina Daugherty MD Unavailable [phone] Hector Lao MD Unavailable [phone] David Boone MD Unavailable [phone] Cathie Hickey MD Primary Care Provider Stacie Lopez NP Unavailable [phone] Encounter Details Date Type Department Care Team (Late st Contact Info) Description 09/28/2024 Orders Only [facility] Health Information Management [address] [place] [address] Scanning, Provider Social History Tobacco Use [...] on file 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 Gender Identity Not on file Sexual Orientation Not on file documented as of this encounter Plan of Treatment Not on file documented as of this encounter Procedures Procedure Name Priority Date/Time Associated Diagnosis Comments SCAN - LABS 09/28/2024 documented in this encounter Results * SCAN - LABS (09/28/2024) us Provider Scanning Final Result documented in this encounter Visit Diagnoses Not on filedocumented in this encounter Care Teams Water Purifier Relationship Specialty Start Date End Date Cathie Hickey MD [address] [facility] [address] [place] [address] PCP - General Family Practice 08/29/22 Aden Rae MD [address] [place] [address] Medical Oncologist/Dairy Husbandry Worker Medical Oncology 12/26/17 Yunior León MD [address] [place] [address] Referring Physician Radiation Oncology 12/26/17 Dariana Marlow MD [address] [place] [address] Surgeon Surgical Oncology 12/26/17 Rubina Daugherty MD [address] [place] [address] Consulting Physician Cardiology 12/26/17 Hector Lao MD [address] [place] [address] Referring Physician Family Medicine 12/26/17 David Boone MD [address] [place] [address] Consulting Physician Urology 12/26/17 Stacie Lopez NP [address] [place] [address] Nurse Practitioner Medical Oncology 09/07/24 ZITA MONROE [address] [place] [address] Referring Physician Family Practice 10/23/18 documented as of this encounter
--- OUTSIDE RECORDS SUMMARY | 2025-01-18 08:45 | XMS_ITS | Encounter Summary ---
Author Organization [facility] Healthcare Address [address] [place] [address] Care Team Providers Care Line Rider Name Role Phone Aden Rae MD Unavailable [phone] Yunior León MD Unavailable [phone] Dariana Marlow MD Unavailable [phone] Rubina Daugherty MD Unavailable [phone] Hector Lao MD Unavailable [phone] David Boone MD Unavailable [phone] Cathie Hickey MD Primary Care Provider Stacie Lopez NP Unavailable [phone] Encounter Details Date Type Department Care Team (Late st Contact Info) Description 02/24/2024 Orders Only [facility] Health Information Management [address] [place] [address] Scanning, Provider Social History Tobacco Use [...] on file 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 Gender Identity Not on file Sexual Orientation Not on file documented as of this encounter Plan of Treatment Not on file documented as of this encounter Procedures Procedure Name Priority Date/Time Associated Diagnosis Comments SCAN - LABS 02/24/2024 documented in this encounter Results * SCAN - LABS (02/24/2024) us Provider Scanning Final Result documented in this encounter Visit Diagnoses Not on filedocumented in this encounter Care Teams Line Rider Relationship Specialty Start Date End Date Cathie Hickey MD [address] [facility] [address] [place], [place] [phone] PCP - General Family Practice 08/29/22 Aden Rae MD [address] [place] [address] Medical Oncologist/Tile Classifier Medical Oncology 12/26/17 Yunior León MD [address] [place] [address] Referring Physician Radiation Oncology 12/26/17 Dariana Marlow MD [address] [place] [address] Surgeon Surgical Oncology 12/26/17 Rubina Daugherty MD [address] [place] [address] Consulting Physician Cardiology 12/26/17 Hector Lao MD [address] [place] [address] Referring Physician Family Medicine 12/26/17 David Boone MD [address] [place] [address] Consulting Physician Urology 12/26/17 Stacie Lopez NP [address] [place] [address] Nurse Practitioner Medical Oncology 09/07/24 [address] [place] [address] Referring Physician Family Practice 10/23/18 documented as of this encounter
--- OUTSIDE RECORDS SUMMARY | 2025-01-18 08:45 | XMS_ITS | Encounter Summary ---
Author Organization [facility] Healthcare Address [address] [place] [address] Care Team Providers Care Church Secretary Name Role Phone Aden Rae MD Unavailable +[phone] Yunior Lóen MD Unavailable +[phone] Dariana Marlow MD Unavailable +[phone] Rubina Daugherty MD Unavailable +[phone] Hector Lao MD Unavailable +[phone] David Boone MD Unavailable +[phone] Cathie Hickey MD Primary Care Provider Stacie Lopez NP Unavailable +[phone] Encounter Details Date Type Department Care Team (Late st Contact Info) Description 02/10/2024 Orders Only [facility] Health Information Management [address] [place] [address] Scanning, Provider Social History Tobacco Use [...] on file 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 Gender Identity Not on file Sexual Orientation Not on file documented as of this encounter Plan of Treatment Not on file documented as of this encounter Procedures Procedure Name Priority Date/Time Associated Diagnosis Comments SCAN - LABS 02/10/2024 documented in this encounter Results * SCAN - LABS (02/10/2024) us Provider Scanning Final Result documented in this encounter Visit Diagnoses Not on filedocumented in this encounter Care Teams Church Secretary Relationship Specialty Start Date End Date Cathie Hickey MD [address] [facility] [address] [place], [place] [id number] PCP - General Family Practice 08/29/22 Aden Rae MD [address] [place] [address] Medical Oncologist/Vice President Of Consulting Services Medical Oncology 12/26/17 Yunior León MD [address] [place] [address] Referring Physician Radiation Oncology 12/26/17 Dariana Marlow MD [address] [place] [address] Surgeon Surgical Oncology 12/26/17 Rubina Daugherty MD [address] [place] [address] Consulting Physician Cardiology 12/26/17 Hector Lao [place] [address] Referring Physician Family Medicine 12/26/17 David Boone MD [address] [place] [address] Consulting Physician Urology 12/26/17 Stacie Lopez NP [address] [place] [address] Nurse Practitioner Medical Oncology 09/07/24 ZITA MONROE [address] [place] [address] Referring Physician Family Practice 10/23/18 documented as of this encounter
--- OUTSIDE RECORDS SUMMARY | 2025-01-18 08:45 | XMS_ITS | Encounter Summary ---
Author Organization [facility] Address [address] [place] [address] Phone Care Team Providers Care Deputy Manager Name Role Phone Hitesh Kwan MD Primary Care Provider [phone] Reason for Visit * Reason Comments Medication Refill Encounter Details Date Type Department Care Team (Late st Contact Info) Description 11/26/2020 Refill [facility] - Neurology [facility] [address] [place] [id number] Brian Valles MD [address] [place] [phone] Medication Refill Social History Tobacco Use Types [...] tremor documented in this encounter Care Teams Deputy Manager Relationship Specialty Start Date End Date Hitesh Kwan MD [address] [place] [address] PCP - General Ophthalmology 05/23/20 documented as of this encounter
--- OUTSIDE RECORDS SUMMARY | 2025-01-18 08:45 | XMS_ITS | Encounter Summary ---
Author Organization [facility] Healthcare Address [address] [place] [address] Care Team Providers Care Selvage Machine Operator Name Role Phone Aden Rae MD Unavailable +[phone] Yunior León MD Unavailable +[phone] Dariana Marlow MD Unavailable +[phone] Rubina Daugherty MD Unavailable +[phone] Hector Lao MD Unavailable +[phone] David Boone MD Unavailable +[phone] Cathie Hickey MD Primary Care Provider Stacie Lopez NP Unavailable +[phone] Encounter Details Date Type Department Care Team (Late st Contact Info) Description 10/12/2024 Orders Only [facility] Health Information Management [address] [place] [address] Scanning, Provider Social History Tobacco Use [...] on file 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 Gender Identity Not on file Sexual Orientation Not on file documented as of this encounter Plan of Treatment Not on file documented as of this encounter Procedures Procedure Name Priority Date/Time Associated Diagnosis Comments SCAN - LABS 10/12/2024 documented in this encounter Results * SCAN - LABS (10/12/2024) us Provider Scanning Final Result documented in this encounter Visit Diagnoses Not on filedocumented in this encounter Care Teams Selvage Machine Operator Relationship Specialty Start Date End Date Cathie Hickey MD [address] [facility] 2 [place] [address] PCP - General Family Practice 08/29/22 Aden Rae MD [address] [place] [address] Medical Oncologist/Phytopathologist Medical Oncology 12/26/17 Yunior León MD [address] [place] [address] Referring Physician Radiation Oncology 12/26/17 Dariana Marlow MD [address] [place] [address] Surgeon Surgical Oncology 12/26/17 Rubina Daugherty MD [address] [place] [address] Consulting Physician Cardiology 12/26/17 Hectro Lao MD [address] [place] [address] Referring Physician Family Medicine 12/26/17 David Boone MD [address] [place] [address] Consulting Physician Urology 12/26/17 Stacie Lopez NP [address] [place] [address] Nurse Practitioner Medical Oncology 09/07/24 ZITA MONROE [address] [place] [address] Referring Physician Family Practice 10/23/18 documented as of this encounter
--- OUTSIDE RECORDS SUMMARY | 2025-01-18 08:45 | XMS_ITS | Clinical Summary ---
Author Organization [facility] [employer] Address [address] [facility] [place] [address] Care Team Providers Care Architectural Renderer Name Role Phone Hector Lao MD Primary Care Provider [phone] Source Comments [facility] [employer],non-owned Affiliates and Associated Physician Practices is amultiple site organization consisting of ambulatory clinics and hospital sitesin [place], [place], [place] and [place]. This disclosure is being madepursuant to the Care Everywhere program and may not contain all information available regarding this patient. 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
--- OUTSIDE RECORDS SUMMARY | 2025-01-18 08:45 | XMS_ITS | Encounter Summary ---
Author Organization [facility] Address [facility] [place] [address] Care Team Providers Care Machine I Trimmer Name Role Phone Maureen Saleem MD Primary Care Provider [phone] Cathie Hickey MD Primary Care Provider Encounter Details Date Type Department Care Team (Late st Contact Info) Description 07/29/2016 Abstract 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
--- OUTSIDE RECORDS SUMMARY | 2025-01-18 08:46 | XMS_ITS | Encounter Summary ---
Author Organization [facility] Healthcare Address [address] [place] [address] Care Team Providers Care Assembler Clip On Sunglasses Name Role Phone Aden Rae MD Unavailable +[phone] Yunior León MD Unavailable [phone] Dariana Marlow MD Unavailable +[phone] Rubina Daugherty MD Unavailable [phone] Hector Lao MD Unavailable [phone] David Boone MD Unavailable +[phone] Cathie Hickey MD Primary Care Provider Stacie Lopez NP Unavailable [phone] Encounter Details Date Type Department Care Team (Late st Contact Info) Description 06/07/2024 Orders Only [facility] Health Information Management [address] [place] [address] Scanning, Provider Social History Tobacco Use [...] on file 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 Gender Identity Not on file Sexual Orientation Not on file documented as of this encounter Plan of Treatment Not on file documented as of this encounter Procedures Procedure Name Priority Date/Time Associated Diagnosis Comments SCAN - LABS 06/07/2024 documented in this encounter Results * SCAN - LABS (06/07/2024) us Provider Scanning Final Result documented in this encounter Visit Diagnoses Not on filedocumented in this encounter Care Teams Assembler Clip On Sunglasses Relationship Specialty Start Date End Date Cathie Hickey MD [address] [facility] [place] [address] [place], [place] [id number] PCP - General Family Practice 08/29/22 Aden Rae MD [address] [place] [address] Medical Oncologist/Station Usher Medical Oncology 12/26/17 Yunior León MD [address] [place] [address] Referring Physician Radiation Oncology 12/26/17 Dariana Marlow MD [address] [place] [address] Surgeon Surgical Oncology 12/26/17 Rubina Daugherty MD [address] [place] [address] Consulting Physician Cardiology 12/26/17 Hector Lao [place] [address] Referring Physician Family Medicine 12/26/17 David Boone MD [address] [place] [address] Consulting Physician Urology 12/26/17 Stacie Lopez NP [address] [place] [address] Nurse Practitioner Medical Oncology 09/07/24 ZITA MONROE [address] [place] [address] Referring Physician Family Practice 10/23/18 documented as of this encounter
--- OUTSIDE RECORDS SUMMARY | 2025-01-18 08:46 | XMS_ITS | Encounter Summary ---
Author Organization [facility] Address [address] [facility] [address] [place] [address] Phone Care Team Providers Care Group Work Program Aide Name Role Phone Hector Lao MD Primary Care Provider + [phone] Zita Myles MD Primary Care Provider + [phone] Aden Rae MD Unavailable [phone] Yunior León MD Unavailable + [phone] Dariana Marlow MD Unavailable [phone] Rubina Daugherty MD Unavailable [phone] Hector Lao MD Unavailable + [phone] David Boone MD Unavailable [phone] Hector Lao MD Primary Care Provider [phone] Zita Myles MD Primary Care Provider [phone] Cathie Hickey MD Primary Care Provider Cathie Hickey MD Primary Care Provider Stacie Lopez NP Unavailable [phone] Encounter Details Date Type Department Care Team [...] on file 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 Gender Identity Not on file Sexual Orientation [...] on filedocumented in this encounter Care Teams Group Work Program Aide Relationship Specialty Start Date End Date Hector Lao MD [address] [place] [address] PCP - General 09/13/16 12/18/17 Zita Myles MD [address] [place] [address] PCP - General Family Practice 12/19/17 12/30/17 Hector Lao MD [address] [place] [address] PCP - General 12/31/17 01/14/18 Zita Myles MD [address] [place] [address] PCP - General Family Practice 01/15/18 02/14/21 Cathie Hickey MD [address] [place] [address] PCP - General Family Practice 02/15/21 08/28/22 Cathie Hickey MD [address] [facility] [address] [place] [address] PCP - General Family Practice 08/29/22 Aden Rae MD [address] [place], [place] [address] Medical Oncologist/Sales Supervisor Medical Oncology 12/26/17 Yunior León MD [address] [place] [address] Referring Physician Radiation Oncology 12/26/17 Dariana Marlow MD [address] [place] [address] Surgeon Surgical Oncology 12/26/17 Rubina Daugherty MD [address] [place] [address] Consulting Physician Cardiology 12/26/17 Hector Lao MD [address] [place] [address] Referring Physician Family Medicine 12/26/17 David Boone MD [address] [place] [address] Consulting Physician Urology 12/26/17 Stacie Lopez NP [address] [facility] [place] [address] Nurse Practitioner Medical Oncology 09/07/24 ZITA MONROE [address] [place] [address] Referring Physician Family Practice 10/23/18 documented as of this encounter
--- OUTSIDE RECORDS SUMMARY | 2025-01-18 08:46 | XMS_ITS | Encounter Summary ---
Author Organization [facility] Healthcare Address [address] [place] [address] Care Team Providers Care Surgical Assist Name Role Phone Aden Rae MD Unavailable +[phone] Yunior León MD Unavailable [phone] Dariana Marlow MD Unavailable +[phone] Rubina Daugherty MD Unavailable +[phone] Hector Lao MD Unavailable +[phone] David Boone MD Unavailable [phone] Cathie Hickey MD Primary Care Provider Stacie Lopez NP Unavailable [phone] Encounter Details Date Type Department Care Team (Late st Contact Info) Description 10/19/2024 Orders Only [facility] Health Information Management [address] [place] [address] Scanning, Provider Social History Tobacco Use [...] on file 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 Gender Identity Not on file Sexual Orientation Not on file documented as of this encounter Plan of Treatment Not on file documented as of this encounter Procedures Procedure Name Priority Date/Time Associated Diagnosis Comments SCAN - LABS 10/19/2024 documented in this encounter Results * SCAN - LABS (10/19/2024) us Provider Scanning Final Result documented in this encounter Visit Diagnoses Not on filedocumented in this encounter Care Teams Surgical Assist Relationship Specialty Start Date End Date Cathie Hickey MD [address] [facility] 2 [place] [address] PCP - General Family Practice 08/29/22 dAen Rae MD [address] [place] [address] Medical Oncologist/Record Clerk Salesperson Medical Oncology 12/26/17 Yunior León MD [address] [place] [address] Referring Physician Radiation Oncology 12/26/17 Dariana Marlow MD [address] [place] [address] Surgeon Surgical Oncology 12/26/17 Rubina Daugherty MD [address] [place] [address] Consulting Physician Cardiology 12/26/17 Hector Lao MD [address] [place] [address] Referring Physician Family Medicine 12/26/17 David Boone MD [address] [place] [address] Consulting Physician Urology 12/26/17 Stacie Lopez NP [address] [place] [address] Nurse Practitioner Medical Oncology 09/07/24 ZITA MONROE [address] [place] [address] Referring Physician Family Practice 10/23/18 documented as of this encounter
--- OUTSIDE RECORDS SUMMARY | 2025-01-18 08:46 | XMS_ITS | Encounter Summary ---
Author Organization [facility] Healthcare Address [address] [place] [address] Care Team Providers Care Fulling Machine Operator Name Role Phone Aden Rae MD Unavailable [phone] Yunior León MD Unavailable [phone] Dariana Marlow MD Unavailable +[phone] Rubina Daugherty MD Unavailable [phone] Hector Lao MD Unavailable [phone] David Boone MD Unavailable [phone] Cathie Hickey MD Primary Care Provider Stacie Lopez NP Unavailable [phone] Encounter Details Date Type Department Care Team (Late st Contact Info) Description 11/22/2024 Orders Only [facility] Health Information Management [address] [place] [address] Scanning, Provider Social History Tobacco Use [...] on file 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 Gender Identity Not on file Sexual Orientation Not on file documented as of this encounter Plan of Treatment Not on file documented as of this encounter Procedures Procedure Name Priority Date/Time Associated Diagnosis Comments SCAN - LABS 11/22/2024 documented in this encounter Results * SCAN - LABS (11/22/2024) us Provider Scanning Final Result documented in this encounter Visit Diagnoses Not on filedocumented in this encounter Care Teams Fulling Machine Operator Relationship Specialty Start Date End Date Cathie Hickey MD [address] [facility] 2 [place] [address] PCP - General Family Practice 08/29/22 Aden Rae MD [address] [place] [address] Medical Oncologist/Structural Test Engineer Medical Oncology 12/26/17 Yunior León MD [address] [place] [address] Referring Physician Radiation Oncology 12/26/17 Dariana Marlow MD [address] [place] [address] Surgeon Surgical Oncology 12/26/17 Rubina Daugherty MD [address] [place] [address] Consulting Physician Cardiology 12/26/17 Hector Lao MD [address] [place] [address] Referring Physician Family Medicine 12/26/17 David Boone MD [address] [place] [address] Consulting Physician Urology 12/26/17 Stacie Lopez NP [address] [place] [address] Nurse Practitioner Medical Oncology 09/07/24 ZITA MONROE [address] [place] [address] Referring Physician Family Practice 10/23/18 documented as of this encounter
--- OUTSIDE RECORDS SUMMARY | 2025-01-18 08:46 | XMS_ITS | Clinical Summary ---
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[facility]) 9 Post-menopausal 01/02/2018 Malignant neoplasm of lower- inner quadrant of left breast in female, estrogen receptor positive ([facility]) 12/30/2017 Positive CHANDRA (antinuclear antibody) 12/26/2017 ELISHA (obstructive sleep apnea) 11/27/2017 TILLMAN (dyspnea on exertion) 11/25/2017 Atypical atrial flutter ([facility]) 2016 Absence of kidney 11/20/2015 Overview (07/09/2018): Overview: H/O unilateral nephrectomy Bradycardia 11/20/2015 Overview (07/09/2018): Overview: Bradycardia Essential hypertension 11/20/2015 Overview (07/09/2018): Overview: 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 0 11/20/2015 Overview (07/09/2018): Overview: Chronic anticoagulation Neuritis 08/23/2015 Capsulitis of right foot 08/15/2015 Osteoarthritis of right ankle or foot 06/06/2015 Complication of internal fixation device 015 Soft tissue mass 01/03/2015 Hypertriglyceridemia 10/04/2014 Overview (07/09/2018): Overview: Hypertriglyceridemia Ingrowing nail 09/12/2014 Paroxysmal atrial fibrillation ([facility]) 03/08/2014 Overview (07/09/2018): Overview: PAF (paroxysmal atrial [...] Encounter for preventive health examination 01/28/2012 02/25/2020 Social History Tobacco Use Types Packs/Day Years [...] Sex Assigned at Female 07/09/2018 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
--- OUTSIDE RECORDS SUMMARY | 2025-01-18 08:46 | XMS_ITS | Encounter Summary ---
Author Organization [facility] Healthcare Address [address] [place] [address] Care Team Providers Care Director Of Retention Name Role Phone Aden Rae MD Unavailable [phone] Yunior León MD Unavailable [phone] Dariana Marlow MD Unavailable [phone] Rubina Daugherty MD Unavailable [phone] Hector Lao MD Unavailable +[phone] David Boone MD Unavailable [phone] Cathie Hickey MD Primary Care Provider Stacie Lopez NP Unavailable [phone] Encounter Details Date Type Department Care Team (Late st Contact Info) Description 04/07/2023 Orders Only [facility] Health Information Management [address] [place] [address] Scanning, Provider Social History Tobacco Use Types Packs/Day Years Used Date Smoking Tobacco: Never Smokeless Tobacco: Never Alcohol Use Standard Drinks/Week Comments No 0 (1 standard drink = 0.6 oz pur e alcohol) Comments No Sex and Gender Information Value Date Recorded Sex Assigned at Not on file 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 Gender Identity Not on file Sexual Orientation Not on file documented as of this encounter Plan of Treatment Not on file documented as of this encounter Procedures Procedure Name Priority Date/Time Associated Diagnosis Comments SCAN - LABS 04/07/2023 documented in this encounter Results * SCAN - LABS (04/07/2023) us Provider Scanning Final Result documented in this encounter Visit Diagnoses Not on filedocumented in this encounter Care Teams Director Of Retention Relationship Specialty Start Date End Date Cathie Hickey MD [address] [facility] 2 [place] [address] PCP - General Family Practice 08/29/22 Aden Rae MD [address] [place] [address] Medical Oncologist/Cook Tortilla Medical Oncology 12/26/17 Yunior León MD [address] [place] [address] Referring Physician Radiation Oncology 12/26/17 Dariana Marlow MD [address] [place] [address] Surgeon Surgical Oncology 12/26/17 Rubina Daugherty MD [address] [place] [address] Consulting Physician Cardiology 12/26/17 Hector Lao [place] [address] Referring Physician Family Medicine 12/26/17 David Boone MD [address] [address] Consulting Physician Urology 12/26/17 Stacie Lopez NP [address] [place] [address] Nurse Practitioner Medical Oncology 09/07/24 [address]ITA [address]ROE [address] [place] [address] Referring Physician Family Practice 10/23/18 documented as of this encounter
--- OUTSIDE RECORDS SUMMARY | 2025-01-18 08:46 | XMS_ITS | Encounter Summary ---
Author Organization [facility] Healthcare Address [address] [place] [address] Care Team Providers Care Application Programmer Analyst Name Role Phone Aden Rae MD Unavailable [phone] Yunior León MD Unavailable [phone] Dariana Marlow MD Unavailable [phone] Rubina Daugherty MD Unavailable [phone] Hector Lao MD Unavailable [phone] David Boone MD Unavailable [phone] Cathie Hickey MD Primary Care Provider Stacie Lopez NP Unavailable [phone] Encounter Details Date Type Department Care Team (Late st Contact Info) Description 05/11/2024 Orders Only [facility] [place] Information Management [address] [place] [address] Scanning, Provider Social History Tobacco Use [...] on file 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 Gender Identity Not on file Sexual Orientation Not on file documented as of this encounter Plan of Treatment Not on file documented as of this encounter Procedures Procedure Name Priority Date/Time Associated Diagnosis Comments SCAN - LABS 05/11/2024 documented in this encounter Results * SCAN - LABS (05/11/2024) us Provider Scanning Final Result documented in this encounter Visit Diagnoses Not on filedocumented in this encounter Care Teams Application Programmer Analyst Relationship Specialty Start Date End Date Cathie Hickey MD [address] [facility] [address] [place], [place] [id number] PCP - General Family Practice 08/29/22 Aden Rae MD [address] [place] [address] Medical Oncologist/Picking Belt Operator Medical Oncology 12/26/17 Yunior León MD [address] [place] [address] Referring Physician Radiation Oncology 12/26/17 Dariana Marlow MD [address] [place] [address] Surgeon Surgical Oncology 12/26/17 Rubina Daugherty MD [address] [place] [address] Consulting Physician Cardiology 12/26/17 [place] [address] Referring Physician Family Medicine 12/26/17 David Boone MD [address] [place] [address] Consulting Physician Urology 12/26/17 Stacie Lopez NP [address] [place] [address] Nurse Practitioner Medical Oncology 09/07/24 ZITA MONROE [address] [place] [address] Referring Physician Family Practice 10/23/18 documented as of this encounter
--- OUTSIDE RECORDS SUMMARY | 2025-01-18 08:46 | XMS_ITS | Encounter Summary ---
Author Organization [facility] Healthcare Address [address] [place] [address] Care Team Providers Care Tank Truck Loader Name Role Phone Aden Rae MD Unavailable [phone] Yunior León MD Unavailable [phone] Dariana Marlow MD Unavailable [phone] Rubina Daugherty MD Unavailable [phone] Hector Lao MD Unavailable [phone] David Boone MD Unavailable [phone] Cathie Hickey MD Primary Care Provider Stacie Lopez NP Unavailable [phone] Encounter Details Date Type Department Care Team (Late st Contact Info) Description 04/06/2024 Orders Only [facility] Health Information Management [address] [place] [address] Scanning, Provider Social History Tobacco Use [...] on file 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 Gender Identity Not on file Sexual Orientation Not on file documented as of this encounter Plan of Treatment Not on file documented as of this encounter Procedures Procedure Name Priority Date/Time Associated Diagnosis Comments SCAN - LABS 04/06/2024 documented in this encounter Results * SCAN - LABS (04/06/2024) us Provider Scanning Final Result documented in this encounter Visit Diagnoses Not on filedocumented in this encounter Care Teams Tank Truck Loader Relationship Specialty Start Date End Date Cathie Hickey MD [address] [facility] [address] [place], [place] [id number] PCP - General Family Practice 08/29/22 Aden Rae MD [address] [place] [address] Medical Oncologist/Copywriter Medical Oncology 12/26/17 Yunior León MD [address] [place] [address] Referring Physician Radiation Oncology 12/26/17 Dariana Marlow MD [address] [place] [address] Surgeon Surgical Oncology 12/26/17 Rubina Daugherty MD [address] [place] [address] Consulting Physician Cardiology 12/26/17 Hector Lao MD [address] [place] [address] Referring Physician Family Medicine 12/26/17 David Boone MD [address] [place] [address] Consulting Physician Urology 12/26/17 Stacie Lopez NP [address] [place] [address] Nurse Practitioner Medical Oncology 09/07/24 ZITA MONROE [address] [place] [address] Referring Physician Family Practice 10/23/18 documented as of this encounter
--- OUTSIDE RECORDS SUMMARY | 2025-01-18 08:46 | XMS_ITS | Referral Summary ---
Author Organization [address] Address [address] [place] [address] Care Team Providers Care Radiology Asst Name Role Phone Aden Rae MD Unavailable [phone] Yunior León MD Unavailable [phone] Dariana Marlow MD Unavailable [phone] Rubina Daugherty MD Unavailable [phone] Hector Lao MD Unavailable [phone] David Boone MD Unavailable [phone] Cathie Hickey MD Primary Care Provider Stacie Lopez NP Unavailable [phone] Encounters Date Type Department Care Team Description 01/10/2025 Orders Only [facility] Health Information Management [address] [place] [address] Scanning, Provider 01/10/[address] [facility] Medical [facility] Cardiology [address] [facility] [address] [place] [address] Sandee Jiménez, manager department anticoagulation (Primary Dx); Atypical atrial flutter (HCC) 12/27/2024 Anticoagulation Visit [facility] Cardiology [address] [place] [phone] Sandee Jiménez RN Chronic anticoagulation (Primary Dx); Atypical atrial flutter (HCC) 12/13/2024 Anticoagulation Visit [facility] Cardiology [address] [place] [address] [place] [phone] Sandee Jiménez RN Chronic anticoagulation (Primary Dx); Atypical atrial flutter (HCC) 11/30/2024 Anticoagulation Visit [facility] Cardiology [address] [place] [address] [place] [phone] Sandee Jiménez RN Chronic anticoagulation (Primary Dx); Atypical atrial flutter (HCC) 11/22/2024 Orders Only [facility] Health Information Management [address] [place] [address] Scanning, Provider 11/22/2024 Anticoagulation Visit [place] [address] [place] [phone] Racquel Eason RN Chronic anticoagulation (Primary Dx); Atypical atrial flutter (HCC) 11/22/[address] [phone] Eddie Brumfield MD 11/02/2024 Orders Only [facility] Health Information Management [address] [place] [address] Scanning, Provider 11/02/2024 Anticoagulation Visit [facility] Cardiology [address] [place] [phone] Barrera Esposito RN Chronic anticoagulation (Primary Dx); Atypical atrial flutter (HCC) 10/19/2024 Orders Only [facility] Health Information Management [address] [place] [address] Scanning, Provider 10/19/2024 Anticoagulation Visit [facility] Cardiology [address] [place] [address] [place] [phone] Sandee Jiménez RN Chronic anticoagulation (Primary Dx); Atypical atrial flutter (HCC) 10/19/[address] [facility] Cardiology [address] [place] [address] Eddie Brumfield MD from Last 3 Months Allergies Active Allergy Reactions Criticality Noted Date Comments Adhesive Tape-Silicones Blisters High 12/09/2017 Medications irbesartan (AVAPRO) 150 mg tablet take 1 tablet by oral route every day 0 0 4 Active CHOLECALCIFEROL, VITAMIN D3, (VITAMIN D3 ORAL)Indications:ramires pplement Take 400 Units by mouth 2 (two) times a day. Active acetaminophen (TYLENOL) 500 mg tablet Take 1 tablet (500 mg total) by mouth every 6 (six) hours as needed for pain Active gpkegwwn-umqbzaw-hl on-lutein tablet Take by mouth Active solifenacin (VESIcare) 5 mg tablet Take 1 tablet (5 mg total) by mouth daily 0 Active omeprazole (PriLOSEC) 40 mg capsule 1 Active meclizine (ANTIVERT) 25 mg tablet TAKE 1 TABLET BY MOUTH 4 TIMES A DAY NEEDED FOR VERTIGO 4 Active fenofibrate (TRIGLIDE) 160 mg tablet 5 Active loratadine (CLARITIN) 10 mg tablet Take 1 tablet (10 mg total) by mouth daily Active gabapentin (NEURONTIN) 300 mg capsuleIndications: Neuropathic Pain Take 1 capsule (300 mg total) by mouth 3 (three) times a day 270 capsule 3 5 06/29/19 26 Active pyridoxine (VITAMIN B-6) 100 mg tablet daily A ctive metoprolol XL (TOPROL-XL) 100 mg 24 hr tabletIndications:A typical atrial flutter (HCC),Paroxysmal atrial fibrillation (HCC),Essential hypertension TAKE 1 TABLET BY MOUTH EVERY DAY 90 tablet 3 5 Active metoprolol XL (TOPROL-XL) 50 mg extended release tablet Take 1 tablet (50 mg total) by mouth daily 90 tablet 3 5 08/25/19 26 Active warfarin (COUMADIN) 2.5 mg tabletIndications:L anne term current use of anticoagulant therapy TAKE 1 TABLET BY MOUTH DAILY OR DIRECTED BY PHYSICIAN. 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 Gender Identity Not on file Sexual Orientation [...] Date/Time Associated Diagnosis Comments SCAN - LABS 01/10/2025 PROTIME-INR Routine 01/10/2025 PROTIME-INR Routine 12/27/2024 PROTIME-INR Routine 12/13/2024 PROTIME-INR Routine 12/02/2024 9:28 PM CDT SCAN - LABS 11/22/2024 PROTIME-INR Routine 11/22/2024 SCAN - LABS 11/02/2024 PROTIME-INR Routine 11/02/2024 SCAN - LABS 10/19/2024 PROTIME-INR Routine 10/19/2024 SCREENING MAMMOGRAM BILATERAL W [place] Schedule Routine, Read Routine (OP Routine) 09/07/2024 10:57 AM CDT Encounter for screening mammogram for breast cancer Breast cancer screening by mammogram from Last 3 Months or Most Recently Relevant to Health Maintenance Results * SCAN - LABS (01/10/2025) us Provider Scanning Final Result * (ABNORMAL) Protime-INR (01/10/2025) INR 2.20(A) 0.90 - 1.10 EXTERNAL LAB Blood Historical Provider LAB BLOOD ORDERABLES Nhung l Result EXTERNAL LAB * (ABNORMAL) Protime-INR (12/27/2024) INR 2.90(A) 0.90 - 1.10 EXTERNAL LAB Blood Result [facility] Provider MD LAB BLOOD ORDERABLES Edit ed Result - Final Performing Organization Address [facility] de Phone Number EXTERNAL LAB * (ABNORMAL) Protime-INR (12/13/2024) INR 2.90(A) 0.90 - 1.10 EXTERNAL LAB Blood Result [facility] Provider MD LAB BLOOD ORDERABLES Edit ed Result - Final Performing Organization Address [facility] de Phone Number EXTERNAL LAB * (ABNORMAL) Protime-INR (12/02/2024 9:28 PM CDT) INR 2.90(A) 0.90 - 1.10 EXTERNAL LAB Blood Result [facility] Provider MD LAB BLOOD ORDERABLES Edit ed Result - Final Performing Organization Address [facility] de Phone Number EXTERNAL LAB * SCAN - LABS (11/22/2024) Result [facility] Provider Scanning Final Result * (ABNORMAL) Protime-INR (11/22/2024) INR 4.30(A) 0.90 - 1.10 EXTERNAL LAB Blood Result [facility] Provider MD LAB BLOOD ORDERABLES Nhung l Result Performing Organization Address [facility] de Phone Number EXTERNAL LAB * SCAN - LABS (11/02/2024) Provider Scanning Final Result * (ABNORMAL) Protime-INR (11/02/2024) INR 2.40(A) 0.90 - 1.10 EXTERNAL LAB Blood 11/02/2024 [facility] Provider MD LAB BLOOD ORDERABLES Nhung l Result Performing Organization Address City/[facility]/ZIP Co de Phone Number EXTERNAL LAB * SCAN - LABS (10/19/2024) Provider Scanning Final Result * (ABNORMAL) Protime-INR (10/19/2024) INR 1.70(A) 0.90 - 1.10 EXTERNAL LAB Blood Result [facility] Provider MD LAB BLOOD ORDERABLES Nhung l Result Performing Organization Address [facility] Co de Phone Number EXTERNAL LAB * Screening Mammogram Bilateral W [...] age 40, based on guidelines of the [employer] (ACR Practice Parameter for the Performance of Screening and Diagnostic Mammography) and [employer]. For women [...] Patel MD IMG MAMMO PROCEDURES Final Result from Last 3 Months or Most Recently Relevant to Health Maintenance Insurance [facility]ARE [facility] MEDICARE SUPPLEMENT [facility]ICARE [facility] MEDICARE SUPPLEMENT Care Teams Radiology Asst Relationship Specialty Start Date End Date Cathie Hickey MD [address] [facility] [address] [place] [address] PCP - General Family Practice 08/29/22 Aden Rae MD [address] [place] [address] Medical Oncologist/Veneer Puller Medical Oncology 12/26/17 Yunior León MD [address] [place] [id number] Referring Physician Radiation Oncology 12/26/17 Dariana Marlow MD [address] [place] [address] Surgeon Surgical Oncology 12/26/17 Rubina Daugherty MD [address] [place] [address] Consulting Physician Cardiology 12/26/17 Hector Lao MD [address] [place] [address] Referring Physician Family Medicine 12/26/17 David Boone MD [address] [place] [address] Consulting Physician Urology 12/26/17 Stacie Lopez NP [address] [place] [address] Nurse Practitioner Medical Oncology 09/07/24 ZITA MONROE [address] [place] [address] Referring Physician Family Practice 10/23/18
--- OUTSIDE RECORDS SUMMARY | 2025-01-18 08:46 | XMS_ITS ---
Author Organization [facility] [address] Address [address] [place] [address] Care Team Providers Care Belling Machine Operator Name Role Phone Aden Rae MD Unavailable [phone] Yunior León MD Unavailable [phone] Dariana Marlow MD Unavailable [phone] Rubina Daugherty MD Unavailable [phone] Hector Lao MD Unavailable [phone] David Boone MD Unavailable [phone] Cathie Hickey MD Primary Care Provider Stacei Lopez NP Unavailable [phone] Active Problems Problem Noted Date Diagnosed Date [...] from 11/24/2017:Stage IA(pT1c, pN0, cM0, G1, ER+, HI+, HER2-, Oncotype DX score: 7) - Signed by Aedn Rae MD on 10/19/2018 Clinical: cT1c, cN0, [...] in female, estrogen receptor positive 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
--- OUTSIDE RECORDS SUMMARY | 2025-01-18 08:46 | XMS_ITS | Clinical Summary ---
Author Organization [facility] [address] Address [address] [place] [address] Care Team Providers Care Flight Attendant/Inflight Supervisor Name Role Phone Aden Rae MD Unavailable [phone] Yunior León MD Unavailable [phone] Dariana Marlow MD Unavailable [phone] Rubina Daugherty MD Unavailable [phone] Hector Lao MD Unavailable [phone] David Boone MD Unavailable [phone] Cathie Hickey MD Primary Care Provider Stacie Lopez NP Unavailable [phone] Allergies Active Allergy Reactions Criticality Noted Date [...] (six) hours as needed for pain Active qwznezgs-jcfunsi-ta on-lutein tablet Take by mouth Active solifenacin [...] from 11/24/2017:Stage IA(pT1c, pN0, cM0, G1, ER+, CA+, HER2-, Oncotype DX score: 7) - Signed [...] in female, estrogen receptor positive 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 10/20/2018 09/03/2023 Menopausal symptom 01/02/2018 8 Positive CHANDRA (antinuclear antibody) 12/26/2017 09/07/2024 TILLMNA (dyspnea on exertion) 11/25/2017 Malignant neoplasm of left 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, estrogen receptor positive 11/24/2017 12/30/2017 Bradycardia 11/20/2015 09/07/2024 Overview (09/19/2016): Bradycardia Lumbago 02/14/2010 09/07/2024 Essential hypertension 02/07/201006/23 Encounters Date Type Department Care Team Description 01/10/2025 Orders Only [facility] Health Information Management [address] [place] [address] Scanning, Provider 01/10/2025 Anticoagulation Visit [facility] Cardiology [address] [place] [address] [address] [place] [phone] Sandee Jiménez RN Chronic anticoagulation (Primary Dx); Atypical atrial flutter (HCC) 12/27/2024 Anticoagulation Visit [facility] Cardiology [address] [place] [address] [address] [place] [phone] Snadee Jiménez RN Chronic anticoagulation (Primary Dx); Atypical atrial flutter (HCC) 12/13/2024 Anticoagulation Visit [place] [address] [place] [phone] Sandee Jiménez RN Chronic anticoagulation (Primary Dx); Atypical atrial flutter (HCC) 11/30/2024 Anticoagulation Visit [place] [address] [place] [phone] Sandee Jiménez RN Chronic anticoagulation (Primary Dx); Atypical atrial flutter (HCC) 11/22/2024 Orders Only [facility] Health Information Management [address] [place] [address] Scanning, Provider 11/22/2024 Anticoagulation Visit [place] [address] [place] [address] [phone] Racquel Eason RN Chronic anticoagulation (Primary Dx); Atypical atrial flutter (HCC) 11/22/2024 Telephone [place] [address] [place] [phone] Eddie Brumfield MD 11/02/2024 Orders Only [facility] Health Information Management [address] [place] [address] Scanning, Provider 11/02/2024 Anticoagulation Visit [address] [place] [phone] Barrera Esposito RN Chronic anticoagulation (Primary Dx); Atypical atrial flutter (HCC) 10/19/2024 Orders Only [facility] Health Information Management [address] [place] [address] Scanning, Provider 10/19/2024 Anticoagulation Visit [facility] Cardiology [address] [place] [address] Sandee Jiménez RN Chronic anticoagulation (Primary Dx); Atypical atrial flutter (HCC) 10/19/2024 Telephone [facility] Cardiology [address] [place] [address] Eddie Brumfield MD from Last 3 Months Immunizations Immunization Administration [...] on file 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 Gender Identity Not on file Sexual Orientation [...] Visit 65+ 09/01/2015 Covid-19 Vaccine (4 - 2024-2 5 season) 2024 03/16/2021, 09/06/2020, 08/09/2020 Zoster Vaccine (2 of 2) 04/06/2024 02/10/2024 Influenza Vaccine (#1) 2025 02/10/2024, 2020 Breast Cancer Screening-Mammogram 09/07/2025 09/07/2024, 09/03/2023, 08/28/2022, Additional history exists DTaP/Tdap/Td Vaccine (2 - Td or Tdap) 11/26/2028 11/26/2018 Pneumococcal vaccine 65+ Completed 01/12/2019, 08/14 Procedures Procedure Name Priority Date/Time Associated Diagnosis [...] 0.90 - 1.10 EXTERNAL LAB Blood Result [facility] Provider MD LAB BLOOD ORDERABLES Nhung l Result Performing Organization Address [facility] Co de Phone Number EXTERNAL LAB * (ABNORMAL) Protime-INR (12/27/2024) INR 2.90(A) 0.90 - 1.10 EXTERNAL LAB Blood Result [facility] Provider MD LAB BLOOD ORDERABLES Edit ed Result - Final Performing Organization Address [facility] de Phone Number EXTERNAL LAB * (ABNORMAL) Protime-INR (12/13/2024) INR 2.90(A) 0.90 - 1.10 EXTERNAL LAB Blood Result [facility] Provider MD LAB BLOOD ORDERABLES Edit ed Result - Final Performing Organization Address [facility] Co de Phone Number EXTERNAL LAB * (ABNORMAL) Protime-INR (12/02/2024 9:28 PM CDT) INR 2.90(A) 0.90 - 1.10 EXTERNAL LAB Blood Result [facility] Provider MD LAB BLOOD ORDERABLES Edit ed Result - Final Performing Organization Address [facility] Co de Phone Number EXTERNAL LAB * SCAN - LABS (11/22/2024) Result [facility] Provider Scanning Final Result * (ABNORMAL) Protime-INR (11/22/2024) INR 4.30(A) 0.90 - 1.10 EXTERNAL LAB Blood us Historical Provider MD LAB BLOOD ORDERABLES Nhung l Result Performing Organization Address City/[facility]/ZIP Co de Phone Number EXTERNAL LAB * SCAN - LABS (11/02/2024) us Provider Scanning Final Result * (ABNORMAL) Protime-INR (11/02/2024) INR 2.40(A) 0.90 - 1.10 EXTERNAL LAB Blood 11/02/2024 [facility] Provider MD LAB BLOOD ORDERABLES Nhung l Result Performing Organization Address [facility] Co de Phone Number EXTERNAL LAB * SCAN - LABS (10/19/2024) us Provider Scanning Final Result * (ABNORMAL) Protime-INR (10/19/2024) INR 1.70(A) 0.90 - 1.10 EXTERNAL LAB Blood Result [facility] Provider MD LAB BLOOD ORDERABLES Nhung l Result Performing Organization Address [facility] Co de Phone Number EXTERNAL LAB [...] age 40, based on guidelines of the [employer] (ACR Practice Parameter for the Performance of Screening and Diagnostic Mammography) and [employer]. For women [...] Recently Relevant to Health Maintenance Insurance MEDICARE [facility] MEDICARE SUPPLEMENT MEDICARE [facility] MEDICARE SUPPLEMENT Care Teams Flight Attendant/Inflight Supervisor Relationship Specialty Start Date End Date Cathie Hickey MD [facility] [address] [place], [place] [phone] PCP - General Family Practice 08/29/22 Aden Rae MD [address] [place] [address] Medical Oncologist/Paperhanger Assistant Medical Oncology 12/26/17 Yunior León MD [address] [place] [address] Referring Physician Radiation Oncology 12/26/17 Dariana Marlow MD [address] [place] [address] Surgeon Surgical Oncology 12/26/17 Rubina Daugherty MD [address] [place] [address] Consulting Physician Cardiology 12/26/17 Hector Lao MD [address] [place] [address] Referring Physician Family Medicine 12/26/17 David Boone MD [address] [place] [address] Consulting Physician Urology 12/26/17 Stacie Lopez NP [address] [place] [address] Nurse Practitioner Medical Oncology 09/07/24 ZITA MONROE [address] [address] Referring Physician Family Practice 10/23/18
--- OUTSIDE RECORDS SUMMARY | 2025-01-18 08:46 | XMS_ITS | Encounter Summary ---
Author Organization [facility] Healthcare Address [address] [place] [address] Care Team Providers Care Customer Supply Coordinator Name Role Phone Aden Rae MD Unavailable +[phone] Yunior León MD Unavailable +[phone] Dariana Marlow MD Unavailable +[phone] Rubina Daugherty MD Unavailable +[phone] Hector Lao MD Unavailable +[phone] David Boone MD Unavailable +[phone] Cathie Hickey MD Primary Care Provider Stacie Lopez NP Unavailable +[phone] Encounter Details Date Type Department Care Team (Late st Contact Info) Description 11/02/2024 Orders Only [facility] Health Information Management [address] [place] [address] Scanning, Provider Social History Tobacco Use [...] on file 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 Gender Identity Not on file Sexual Orientation Not on file documented as of this encounter Plan of Treatment Not on file documented as of this encounter Procedures Procedure Name Priority Date/Time Associated Diagnosis Comments SCAN - LABS 11/02/2024 documented in this encounter Results * SCAN - LABS (11/02/2024) us Provider Scanning Final Result documented in this encounter Visit Diagnoses Not on filedocumented in this encounter Care Teams Customer Supply Coordinator Relationship Specialty Start Date End Date Cathie Hickey MD [address] [facility] 2 [place] [address] PCP - General Family Practice 08/29/22 Aden Rae MD [address] [place] [address] Medical Oncologist/Try Out Person Medical Oncology 12/26/17 Yunior León MD [address] [place] [address] Referring Physician Radiation Oncology 12/26/17 Dariana Marlow MD [address] [place] [address] Surgeon Surgical Oncology 12/26/17 Rubina Daugherty MD [address] [place] [address] Consulting Physician Cardiology 12/26/17 Hector Lao MD [address] [place] [address] Referring Physician Family Medicine 12/26/17 David Boone MD [address] [place] [address] Consulting Physician Urology 12/26/17 Stacie Lopez NP [address] [place] [address] Nurse Practitioner Medical Oncology 09/07/24 Z[address] [place] [address] Referring Physician Family Practice 10/23/18 documented as of this encounter
--- OUTSIDE RECORDS SUMMARY | 2025-01-18 08:46 | XMS_ITS | Encounter Summary ---
Author Organization [facility] Healthcare Address [address] [place] [address] Care Team Providers Care Hog Grader Name Role Phone Aden Rae MD Unavailable +[phone] Yunior León MD Unavailable +[phone] Dariana Marlow MD Unavailable +[phone] Rubina Daugherty MD Unavailable +[phone] Hector Lao MD Unavailable +[phone] David Boone MD Unavailable +[phone] Cathie Hickey MD Primary Care Provider Stacie Lopez NP Unavailable [phone] Encounter Details Date Type Department Care Team (Late st Contact Info) Description 04/27/2024 Orders Only [facility] Health Information Management [address] [place] [address] Scanning, Provider Social History Tobacco Use [...] on file 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 Gender Identity Not on file Sexual Orientation Not on file documented as of this encounter Plan of Treatment Not on file documented as of this encounter Procedures Procedure Name Priority Date/Time Associated Diagnosis Comments SCAN - LABS 04/27/2024 documented in this encounter Results * SCAN - LABS (04/27/2024) us Provider Scanning Final Result documented in this encounter Visit Diagnoses Not on filedocumented in this encounter Care Teams Hog Grader Relationship Specialty Start Date End Date Cathie Hickey MD [address] [facility] [place] 2 [place], [place] [id number] PCP - General Family Practice 08/29/22 Aden Rae MD [address] [place] [address] Medical Oncologist/Hourly Shift Manager Medical Oncology 12/26/17 Yunior León MD [address] [place] [address] Referring Physician Radiation Oncology 12/26/17 Dariana Marlow MD [address] [place] [address] Surgeon Surgical Oncology 12/26/17 Rubina Daugherty MD [address] [place] [address] Consulting Physician Cardiology 12/26/17 Hector Lao MD [place] [address] Referring Physician Family Medicine 12/26/17 David Boone MD [address] [place] [address] Consulting Physician Urology 12/26/17 Stacie Lopez NP [address] [place] [address] Nurse Practitioner Medical Oncology 09/07/24 [address] [place] [address] Referring Physician Family Practice 10/23/18 documented as of this encounter
--- OUTSIDE RECORDS SUMMARY | 2025-01-18 08:46 | XMS_ITS | Encounter Summary ---
Author Organization [facility] Healthcare Address [address] [place] [address] Care Team Providers Care Customer Advisor Name Role Phone Aden Rae MD Unavailable +[phone] Yunior León MD Unavailable [phone] Dariana Marlow MD Unavailable +[phone] Rubina Daugherty MD Unavailable +[phone] Hector Lao MD Unavailable +[phone] David Boone MD Unavailable [phone] Cathie Hickey MD Primary Care Provider Satcie Lopez NP Unavailable [phone] Encounter Details Date Type Department Care Team (Late st Contact Info) Description 04/13/2024 Orders Only [facility] Health Information Management [address] [place] [address] Scanning, Provider Social History Tobacco Use [...] on file Legal Sex Female 2:30 AM DOULA Gender Identity Not on file Sexual Orientation Not on file documented as of this encounter Plan of Treatment Not on file documented as of this encounter Procedures Procedure Name Priority Date/Time Associated Diagnosis Comments SCAN - LABS 04/13/2024 documented in this encounter Results * SCAN - LABS (04/13/2024) us Provider Scanning Final Result documented in this encounter Visit Diagnoses Not on filedocumented in this encounter Care Teams Customer Advisor Relationship Specialty Start Date End Date Cathie Hickey MD [address] [facility] [place] 2 [place], [place] [id number] PCP - General Family Practice 08/29/22 Aden Rae MD [address] [place] [address] Medical Oncologist/Relay Operator Medical Oncology 12/26/17 Yunior León MD [address] [place] [address] Referring Physician Radiation Oncology 12/26/17 Dariana Marlow MD [address] [place] [address] Surgeon Surgical Oncology 12/26/17 Rubina Daugherty MD [address] [place] [address] Consulting Physician Cardiology 12/26/17 Hector Lao MD [address] [place] [address] Referring Physician Family Medicine 12/26/17 David Boone MD [address] [place] [address] Consulting Physician Urology 12/26/17 Stacie Lopez NP [address] [place] [address] Nurse Practitioner Medical Oncology 09/07/24 [address] [place] [address] Referring Physician Family Practice 10/23/18 documented as of this encounter
[2025-01-18 20:14] LABS: Add Urine Microscopic? YES; Appearance Urine Cloudy (Clear); Glucose Urine UA Negative (Negative); Leukocyte Esterase Ur 3+ LEU/UL (Negative); Need Manual Microscopic Reviewed; Nitrate Urine Positive (Negative); Specific Grav Ur 1.015 (1.001-1.035)
== END 2025-01-18 08:43 | disposition home or self-care (01) ==
PROVIDERS: PCP Family Medicine; Visit Provider Nurse Practitioner Family
DX: R30.0 Dysuria (principal); R39.15 Urgency of urination
CPT/HCPCS: 81001

== ENCOUNTER 2025-03-30 00:28 | Day surgery (SDC) | payer MEDICARE, SELFPAY ==
[2025-03-22 14:47] VITALS: BMI 27.3
--- NOTE | 2025-03-22 15:21 | PC.NURSE ---
Spoke with patient regarding medication Warfarin. Patient verbalizes understanding that the last dose is to be taken on 03/25/2025 and the Endoscopist will instruct them when to restart after the procedure.
--- OUTSIDE RECORDS SUMMARY | 2025-03-30 00:37 | XMS_ITS | Encounter Summary ---
Author Organization [facility] Address [address] [place] [address] Phone Care Team Providers Care Family Living Educator Name Role Phone Hitesh Kwan MD Primary Care Provider [phone] Reason for Visit * Reason Comments Medication Refill Encounter Details Date Type Department Care Team (Late st Contact Info) Description 11/26/2020 Refill [facility] - Neurology [facility] [address] [place] [phone] Brian Valles MD [address] [place] [phone] Medication Refill Social History Tobacco Use Types [...] tremor documented in this encounter Care Teams Family Living Educator Relationship Specialty Start Date End Date Hitesh Kwan MD [address] [place] [address] PCP - General Ophthalmology 05/23/20 documented as of this encounter
--- OUTSIDE RECORDS SUMMARY | 2025-03-30 00:37 | XMS_ITS | Encounter Summary ---
Author Organization [facility] Healthcare Address [address] [place] [address] Care Team Providers Care Ldr Nurse Name Role Phone Aden Rae MD Unavailable [phone] Yunior León MD Unavailable [phone] Dariana Marlow MD Unavailable [phone] Rubina Daugherty MD Unavailable +[phone] Hector Lao MD Unavailable +[phone] David Boone MD Unavailable [phone] Cathie Hickey MD Primary Care Provider Stacie Lopez NP Unavailable [phone] Encounter Details Date Type Department Care Team (Late st Contact Info) Description 06/22/2024 Orders Only [facility] Health Information Management [address] [place] [address] Scanning, Provider Social History Tobacco Use [...] on file 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 Gender Identity Not on file Sexual Orientation Not on file documented as of this encounter Plan of Treatment Not on file documented as of this encounter Procedures Procedure Name Priority Date/Time Associated Diagnosis Comments SCAN - LABS 06/22/2024 documented in this encounter Results * SCAN - LABS (06/22/2024) us Provider Scanning Final Result documented in this encounter Visit Diagnoses Not on filedocumented in this encounter Care Teams Ldr Nurse Relationship Specialty Start Date End Date Cathie Hickey MD [address] [facility] [place] 2 [place], [place] [phone] PCP - General Family Practice 08/29/22 Aden Rae MD [address] [place] [address] Medical Oncologist/Dairy Consultant Medical Oncology 12/26/17 Yunior León MD [address] [place] [address] Referring Physician Radiation Oncology 12/26/17 Dariana Marlow MD [address] [place] [address] Surgeon Surgical Oncology 12/26/17 Rubina Daugherty MD [address] [place] [address] Consulting Physician Cardiology 12/26/17 Hector Lao [place] [address] Referring Physician Family Medicine 12/26/17 David Boone MD [address] [place] [address] Consulting Physician Urology 12/26/17 Stacie Lopez NP [address] [place] [address] Nurse Practitioner Medical Oncology 09/07/24 ZITA MONROE [address] [place] [address] Referring Physician Family Practice 10/23/18 documented as of this encounter
--- OUTSIDE RECORDS SUMMARY | 2025-03-30 00:37 | XMS_ITS | Encounter Summary ---
Author Organization [facility] Healthcare Address [address] [place] [address] Care Team Providers Care Linux Systems Analyst Name Role Phone Aden Rae MD Unavailable [phone] Yunior León MD Unavailable [phone] Dariana Marlow MD Unavailable [phone] Rubina Daugherty MD Unavailable [phone] Hector Lao MD Unavailable [phone] David Boone MD Unavailable [phone] Cathie Hickey MD Primary Care Provider Stacie Lopez NP Unavailable [phone] Encounter Details Date Type Department Care Team (Late st Contact Info) Description 08/03/2024 Orders Only [facility] Health Information Management [address] [place] [address] Scanning, Provider Social History Tobacco Use [...] on file 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 [address] 2 [place] [address] PCP - General Family Practice 08/29/22 Aden Rae MD [address] [place] [address] Medical Oncologist/Auto Body Repairer Medical Oncology 12/26/17 Yunior León MD [address] [place] [address] Referring Physician Radiation Oncology 12/26/17 Dariana Marlow MD [address] [place] [address] Surgeon Surgical Oncology 12/26/17 Rubina Daugherty MD [address] [place] [address] Consulting Physician Cardiology 12/26/17 Hector Lao [place] [address] Referring Physician Family Medicine 12/26/17 David Boone MD [address] [place] [address] Consulting Physician Urology 12/26/17 Stacie Lopez NP [address] [place] [address] Nurse Practitioner Medical Oncology 09/07/24 [address] [place] [address] Referring Physician Family Practice 10/23/18 documented as of this encounter
--- OUTSIDE RECORDS SUMMARY | 2025-03-30 00:37 | XMS_ITS | Encounter Summary ---
Author Organization [facility] Healthcare Address [address] [place] [address] Care Team Providers Care Accounts Receivable Administrator Name Role Phone Aden Rae MD Unavailable [phone] Yunior León MD Unavailable +[phone] Dariana Marlow MD Unavailable [phone] Rubina Daugherty MD Unavailable [phone] Hector Lao MD Unavailable [phone] David Boone MD Unavailable [phone] Cathie Hickey MD Primary Care Provider Stacie Lopez NP Unavailable [phone] Encounter Details Date Type Department Care Team (Late st Contact Info) Description 2024 Orders Only [facility] Health Information Management [address] [place] [address] Scanning, Provider Social History Tobacco Use [...] on file 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 Gender Identity Not on file Sexual Orientation Not on file documented as of this encounter Plan of Treatment Not on file documented as of this encounter Procedures Procedure Name Priority Date/Time Associated Diagnosis Comments SCAN - LABS 2024 documented in this encounter Results * SCAN - LABS (2024) us Provider Scanning Final Result documented in this encounter Visit Diagnoses Not on filedocumented in this encounter Care Teams Accounts Receivable Administrator Relationship Specialty Start Date End Date Cathie Hickey MD 34[address] [facility] [place] 2 [place] [address] PCP - General Family Practice 08/29/22 Aden Rae MD [address] [place] [address] Medical Oncologist/Customer Engagement Manager Medical Oncology 12/26/17 Yunior León MD [address] [place] [address] Referring Physician Radiation Oncology 12/26/17 Dariana Marlow MD [address] [place] [address] Surgeon Surgical Oncology 12/26/17 Rubina Daugherty MD [address] [place] [address] Consulting Physician Cardiology 12/26/17 Hector Lao [place] [address] Referring Physician Family Medicine 12/26/17 David Boone MD [address] [place] [address] Consulting Physician Urology 12/26/17 Stacie Lopez NP [address] [place] [address] Nurse Practitioner Medical Oncology 09/07/24 [address] [place] [address] Referring Physician Family Practice 10/23/18 documented as of this encounter
--- OUTSIDE RECORDS SUMMARY | 2025-03-30 00:37 | XMS_ITS | Encounter Summary ---
Author Organization [facility] Healthcare Address [address] [place] [address] Care Team Providers Care Assembler Erector Name Role Phone Aden Rae MD Unavailable [phone] Yunior León MD Unavailable [phone] Dariana Marlow MD Unavailable [phone] Rubina Daugherty MD Unavailable +[phone] Hector Lao MD Unavailable [phone] David Boone MD Unavailable [phone] Cathie Hickey MD Primary Care Provider Stacie Lopez NP Unavailable [phone] Encounter Details Date Type Department Care Team (Late st Contact Info) Description 07/06/2024 Orders Only [facility] Health Information Management [address] [place] [address] Scanning, Provider Social History Tobacco Use [...] on file 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 Gender Identity Not on file Sexual Orientation Not on file documented as of this encounter Plan of Treatment Not on file documented as of this encounter Procedures Procedure Name Priority Date/Time Associated Diagnosis Comments SCAN - LABS 07/06/2024 documented in this encounter Results * SCAN - LABS (07/06/2024) us Provider Scanning Final Result documented in this encounter Visit Diagnoses Not on filedocumented in this encounter Care Teams Assembler Erector Relationship Specialty Start Date End Date Cathie Hickey MD [address] [facility] [place] 2 [place], [place] [id number] PCP - General Family Practice 08/29/22 Aden Rae MD [address] [place] [address] Medical Oncologist/Foundry Helper Medical Oncology 12/26/17 Yunior León MD [address] [place] [address] Referring Physician Radiation Oncology 12/26/17 Dariana Marlow MD [address] [place] [address] Surgeon Surgical Oncology 12/26/17 Rubina Daugherty MD [address] [place] [address] Consulting Physician Cardiology 12/26/17 Hector [place] [address] Referring Physician Family Medicine 12/26/17 David Boone MD [address] [place] [address] Consulting Physician Urology 12/26/17 Stacie Lopez NP [address] [place] [address] Nurse Practitioner Medical Oncology 09/07/24 [address] [place] [address] Referring Physician Family Practice 10/23/18 documented as of this encounter
--- OUTSIDE RECORDS SUMMARY | 2025-03-30 00:37 | XMS_ITS | Encounter Summary ---
Author Organization [facility] Healthcare Address [address] [place] [address] Care Team Providers Care Blast Furnace Keeper Helper Name Role Phone Aden Rae MD Unavailable [phone] Yunior León MD Unavailable +[phone] Dariana Marlow MD Unavailable +[phone] Rubina Daugherty MD Unavailable +[phone] Hector Lao MD Unavailable [phone] David Boone MD Unavailable [phone] Cathie Hickey MD Primary Care Provider Stacie Lopez NP Unavailable [phone] Encounter Details Date Type Department Care Team (Late st Contact Info) Description 08/24/2024 Orders Only [facility] Health Information Management [address] [place] [address] Scanning, Provider Social History Tobacco Use [...] on file 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 Gender Identity Not on file Sexual Orientation Not on file documented as of this encounter Plan of Treatment Not on file documented as of this encounter Procedures Procedure Name Priority Date/Time Associated Diagnosis Comments SCAN - LABS 08/24/2024 documented in this encounter Results * SCAN - LABS (08/24/2024) us Provider Scanning Final Result documented in this encounter Visit Diagnoses Not on filedocumented in this encounter Care Teams Blast Furnace Keeper Helper Relationship Specialty Start Date End Date Cathie Hickey MD [address] [facility] [place] 2 [place] [address] PCP - General Family Practice 08/29/22 Aden Rae MD [address] [place] [address] Medical Oncologist/Manager Search Medical Oncology 12/26/17 Yunior León MD [address] [place] [address] Referring Physician Radiation Oncology 12/26/17 Dariana Marlow MD [address] [place] [address] Surgeon Surgical Oncology 12/26/17 Rubina Daugherty MD [address] [place] [address] Consulting Physician Cardiology 12/26/17 Hector Lao [place] [address] Referring Physician Family Medicine 12/26/17 David Boone MD [address] [place] [address] Consulting Physician Urology 12/26/17 Stacie Lopez NP [address] [place] [address] Nurse Practitioner Medical Oncology 09/07/24 [address] [place] [address] Referring Physician Family Practice 10/23/18 documented as of this encounter
--- OUTSIDE RECORDS SUMMARY | 2025-03-30 00:37 | XMS_ITS | Encounter Summary ---
Author Organization [facility] Healthcare Address [address] [place] [address] Care Team Providers Care Processing Rep Name Role Phone Aden Rae MD Unavailable +[phone] Yunior León MD Unavailable [phone] Dariana Marlow MD Unavailable [phone] Rubina Daugherty MD Unavailable +[phone] Hector Lao MD Unavailable [phone] David Boone MD Unavailable [phone] Cathie Hickey MD Primary Care Provider Stacie Lopez NP Unavailable [phone] Encounter Details Date Type Department Care Team (Late st Contact Info) Description 08/17/2024 Orders Only [facility] [place] Health Information Management [address] [place] [address] Scanning, Provider Social History Tobacco Use [...] on file 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 [place] 2 [place] [address] PCP - General Family Practice 08/29/22 Aden Rae MD [address] [place] [address] Medical Oncologist/Storage Administrator Medical Oncology 12/26/17 Yunior León MD [address] [place] [address] Referring Physician Radiation Oncology 12/26/17 Dariana Marlow MD [address] [place] [address] Surgeon Surgical Oncology 12/26/17 Rubina Daugherty MD [address] [place] [address] Consulting Physician Cardiology 12/26/17 Hector [place]Lo [place] [address] Referring Physician Family Medicine 12/26/17 David Boone MD [address] [place] [address] Consulting Physician Urology 12/26/17 Stacie Lopez NP [address] [place] [address] Nurse Practitioner Medical Oncology 09/07/24 [address] [place] [address] Referring Physician Family Practice 10/23/18 documented as of this encounter
--- OUTSIDE RECORDS SUMMARY | 2025-03-30 00:37 | XMS_ITS | Clinical Summary ---
Author Organization [facility] Address [address] [facility] [place] [address] Phone Care Team Providers Care Bus Steward Name Role Phone Hitesh Kwan MD Primary Care Provider [phone] Allergies Active Allergy Reactions Criticality Noted Date [...] Zoster Immunization (1 of 2) 06/07/2014 04/12/2014 Medicare Initial AWV G0438 08/14/2016 Pneumococcal Immunization (5 0+ years) (3 of 3 - PCV20 or PCV21) 08/27/2021 08/27/2016, 08/21/2015 Influenza Immunization (#1) 2025 10/0 06/2020, 03/05/2020, 03/16/2017 SARS-COV-2 Immunization (4 - season) 2025 03/16/2021, 09/06/2020, 08/09/2020 Pneumococcal Immunization Combined Discontinued 08/27/2016, 08/21/2015 DTaP/Tdap/Td [...] age to complete this topic Insurance MEDIC[facility] Care Teams Bus Steward Relationship Specialty Start Date End Date Hitesh Kwan MD [address] [place] [address] PCP - General Ophthalmology 05/23/20
--- OUTSIDE RECORDS SUMMARY | 2025-03-30 00:37 | XMS_ITS | Encounter Summary ---
Author Organization [facility] Healthcare Address [address] [place] [address] Care Team Providers Care Welt Maker Name Role Phone Aden Rae MD Unavailable [phone] Yunior León MD Unavailable [phone] Dariana Marlow MD Unavailable [phone] Rubina Daugherty MD Unavailable [phone] Hector Lao MD Unavailable [phone] David Boone MD Unavailable [phone] Cathie Hickey MD Primary Care Provider Stacie Lopez NP Unavailable [phone] Encounter Details Date Type Department Care Team (Late st Contact Info) Description 09/14/2024 Orders Only [facility] Health Information Management [address] [place] [address] Scanning, Provider Social History Tobacco Use [...] on file 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 2 [place] [address] PCP - General Family Practice 08/29/22 Aden Rae MD [address] [place] [address] Medical Oncologist/Boat Operator Medical Oncology 12/26/17 Yunior León MD [address] [place] [address] Referring Physician Radiation Oncology 12/26/17 Dariana Marlow MD [address] [place] [address] Surgeon Surgical Oncology 12/26/17 Rubina Daugherty MD [address] [place] [address] Consulting Physician Cardiology 12/26/17 Hector Lao MD [address] [place] [address] Referring Physician Family Medicine 12/26/17 David Boone MD [address] [place] [address] Consulting Physician Urology 12/26/17 Stacie Lopez NP [address] [place] [address] Nurse Practitioner Medical Oncology 09/07/24 ZITA MONROE [address] [place] [address] Referring Physician Family Practice 10/23/18 documented as of this encounter
--- OUTSIDE RECORDS SUMMARY | 2025-03-30 00:38 | XMS_ITS | Clinical Summary ---
Author Organization [facility] Address [address] [facility] [place] [address] Care Team Providers Care Journalism Instructor Name Role Phone Hector Lao MD Primary Care Provider [phone] Source Comments [facility],non-owned Affiliates and Associated Physician Practices is amultiple site organization consisting of ambulatory clinics and hospital sitesin [place], [place], [place] and [place]. This disclosure is being madepursuant to the Care Everywhere program and may not contain all information available regarding this patient. Last updated 18.[facility] Social History Tobacco Use Types Packs/Day Years Used Date Smoking Tobacco: Never Assessed Comments Unknown Sex and Gender Information Value Date Recorded Sex Assigned at Not on file Legal Sex Female 6:18 AM TRAY PACKER Gender Identity Not on file Sexual Orientation [...] 2000 ZOSTER VACCINE (1 of 2) 2000 DEPRESSION SCREENING 06/16/2024 COVID-19 VACCINE ( - 2023-2 5 season) 2025 INFLUENZA VACCINE (#1) 2025 Respiratory Syncytial Virus [...] age to complete this topic [place] [address] AET MEDICARE ANTHEM MEDICARE ANTHEM MEDICARE ANTHEM Care Teams Journalism Instructor Relationship Specialty Start Date End Date Hector Lao MD [address] [place] [address] PCP - General 09/25/17
--- OUTSIDE RECORDS SUMMARY | 2025-03-30 00:38 | XMS_ITS | Encounter Summary ---
Author Organization [facility] Healthcare Address [address] [place] [address] Care Team Providers Care Double End Production Grinder Name Role Phone Aden Rae MD Unavailable [phone] Yunior León MD Unavailable [phone] Dariana Marlow MD Unavailable [phone] Rubina Daugherty MD Unavailable [phone] Hector Lao MD Unavailable [phone] David Boone MD Unavailable [phone] Cathie Hickey MD Primary Care Provider Stacie Lopez NP Unavailable [phone] Encounter Details Date Type Department Care Team (Late st Contact Info) Description 05/25/[address] 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 [place] [address] [address] [place], [place] [address] PCP - General Family Practice 08/29/22 Aden Rae MD [address] [place] [address] Medical Oncologist/Track Grinder Operator Medical Oncology 12/26/17 Yunior León MD [address] [place] [address] Referring Physician Radiation Oncology 12/26/17 Dariana Marlow MD [address] [place] [address] Surgeon Surgical Oncology 12/26/17 Rubina Daugherty MD [address] [place] [address] Consulting Physician Cardiology 12/26/17 Hector Lao MD [address] [place] [address] Referring Physician Family Medicine 12/26/17 David Boone MD [address] [place] [address] Consulting Physician Urology 12/26/17 Stacie Lopez NP [address] [place] [address] Nurse Practitioner Medical Oncology 09/07/24 ZITA MONROE [address] [place] [address] Referring Physician Family Practice 10/23/18 documented as of this encounter
--- OUTSIDE RECORDS SUMMARY | 2025-03-30 00:38 | XMS_ITS | Patient Health Record ---
Author Organization 1 OF [facility] Address [address] [facility] [address] [place] [address] Care Team Providers Care Granular Operator Name Role Phone MillymercedezCathie Primary Care Provider Un available Jaclyn Alcantara Unavailable [phone] ElizabethTrevor butcher Unavailable [phone] Allergies Allergen (clinical drug ingredient) Drug/Non Drug Allergy documented on EMR Reaction Allergy Type Onset Date Status Anti-Inflammatory Enzyme Unknown Drug Allergy Active Adhesive Unknown Allergy Active Reason For Referral No Information Medications Medication SIG (Take, Route, Frequency, Duration) Notes Start Date End Date Status oxyBUTYnin Chloride ER Active Metoprolol Succinate Active Atorvastatin Calcium 20 MG Tablet 1 tablet Orally Once a day Active Gemfibrozil Active Gabapentin 100 MG Capsule 1 capsule Orally BID Active Vitamin B6 100 MG Tablet 1 tablet Orally Once a day Active Centrum Silver 50+Women - Tablet as directed Orally Active Warfarin Sodium 2.5 MG Tablet 1 tablet Orally Once a day Active Irbesartan 150 MG Tablet 1 tablet Orally Once a day Active Vitamin D3 10 MCG (400 UNIT) Capsule 2 capsules Orally Once a day Active Omeprazole 40 MG Capsule Delayed Release 1 capsule 30 minutes before morning meal Orally Once a day Active Social History Tobacco Use: Social History Observation Description Date Details (start date - stop date) Never Smoker NA - NA Social History Tobacco Use: Social Info Question Answer Notes Tobacco Control (Standard) Tobacco use: Nonsmoker Additional Details Category Social Info Options Details Miscellaneous: Exercise: Sedentary Occupation: Works part-time, Retired Living with: Partner Drugs/Alcohol: Do you smoke marijuana? 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 (G60.9) Active confirmed Vital Signs Height 70 in 03/23/2025 Weight 190 lbs 03/23/2025 BMI 27.26 kg/m2 03/23/2025 Encounters Encounter Location Date Provider Diagnosis 1 OF [facility] [place] [address] [place] [address] 04/21/2024 Trevor Elizabeth Callus of foot L84 ; Idiopathic progressive neuropathy G60.3 ; Onychogryphosis L60.2 ; Nail dystrophy L60.3 and Tinea pedis of both feet B35.3 1 OF Na[facility] [place] [address] [place] [address] 06/30/2024 Trevor Elizabeth Callus of foot L84 ; Idiopathic progressive neuropathy G60.3 ; Onychogryphosis L60.2 ; Nail dystrophy L60.3 and Tinea pedis of both feet B35.3 1 OF Na[place] [address] [place] [address] 09/01/2024 Trevor Elizabeth Callus of foot L84 ; Idiopathic progressive neuropathy G60.3 ; Onychogryphosis L60.2 ; Nail dystrophy L60.3 and Tinea pedis of both feet B35.3 [address] [place] [address] [place] [address] 11/03/2024 Trevor Elizabeth Callus of foot L84 ; Idiopathic progressive neuropathy G60.3 ; Onychogryphosis L60.2 ; Nail dystrophy L60.3 and Tinea pedis of both feet B35.3 [address] [place] [address] [place] [address] 01/12/2025 Jaclyn Alcantara Callus of foot L84 ; Idiopathic progressive neuropathy G60.3 ; Onychogryphosis L60.2 ; Nail dystrophy L60.3 and Nerve pain M79.2 1 OF [place] [address] [place] [address] 03/23/2025 Jaclyn Alcantara Callus of foot L84 ; Idiopathic progressive neuropathy G60.3 ; Onychogryphosis L60.2 ; Nail dystrophy L60.3 and Nerve pain M79.2 1 OF Naresh Nino DPM [facility] [address] [facility] [address] [address] 09/01/2024 Trevor Johnson Assessments Encounter Date Diagnosis (ICD Code) Assessment Notes Treatment Notes Treatment Clinical Notes Section Notes 04/21/2024 Callus of foot (ICD-10 - L84) 06/30/2024 Callus of foot (ICD-10 - L84) 09/01/2024 Callus of foot (ICD-10 - L84) 11/03/2024 Callus of foot (ICD-10 - L84) 01/12/2025 Callus of foot (ICD-10 - L84) 03/23/2025 Callus of foot (ICD-10 - L84) 03/23/2025 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 01/12/2025 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 01/12/2025 Onychogryphosis (ICD-10 - L60.2) 11/03/2024 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 09/01/2024 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 06/30/2024 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 04/21/2024 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 04/21/2024 Onychogryphosis (ICD-10 - L60.2) 06/30/2024 Onychogryphosis (ICD-10 - L60.2) 09/01/2024 Onychogryphosis (ICD-10 - L60.2) 11/03/2024 Onychogryphosis (ICD-10 - L60.2) 01/12/2025 Nail dystrophy (ICD-10 - L60.3) 03/23/2025 Onychogryphosis (ICD-10 - L60.2) 03/23/2025 Nail dystrophy (ICD-10 - L60.3) 01/12/2025 Nerve pain (ICD-10 - M79.2) Evaluation today included a review of medical history, review of systems, discussion of exam findings, and review of diagnoses and treatment options. Discussed signs and symptoms of peripheral neuropathy. She is already on gabapentin. I discussed the option of trying a topical pain cream. She was agreeable to trying this. This will be ordered from care direct. 11/03/2024 Nail dystrophy (ICD-10 - L60.3) 09/01/2024 Nail dystrophy (ICD-10 - L60.3) 06/30/2024 Nail dystrophy (ICD-10 - L60.3) 04/21/2024 Nail dystrophy (ICD-10 - L60.3) 04/21/2024 Tinea pedis of both feet (ICD-10 - B35.3) 06/30/2024 Tinea pedis of both feet (ICD-10 - B35.3) 09/01/2024 Tinea pedis of both feet (ICD-10 - B35.3) 11/03/2024 Tinea pedis of both feet (ICD-10 - B35.3) 03/23/2025 Nerve pain (ICD-10 - M79.2) Evaluation today included a review of medical history, review of systems, discussion of exam findings, and review of diagnoses and treatment options. She was advised that she can try purchasing [id number] lidocaine ointment for her nerve pain. Plan Of Treatment Next Appt Details Provider Name:Jaclyn Jollya, 06/01/2025 11:40:00 AM, [address] [place], [address], Insurance Providers Payer Name Payer Address Payer Phone Subscriber Number Group Number Insured Name Patient Relationship to Insured Coverage Start Date Coverage End Date Medicare [address] [place] [id number] Mayte Hawley Self - patient is the insured [facility] and [facility] [address] [place] [address] [id number] Mayte Hawley Self - patient is the insured Medical (General) History Medical History History ICD Code Unspecified atrial fibrillation I48.91 Breast Cancer High Cholesterol High Blood Pressure kidney stones GERD/Reflux Peripheral neuropathy Surgical History Surgery Date(Month/Year) pin implant for hammer toe subsequent toe amputation 2018
--- OUTSIDE RECORDS SUMMARY | 2025-03-30 00:38 | XMS_ITS | Encounter Summary ---
Author Organization [facility] Healthcare Address [address] [place] [address] Care Team Providers Care Account Development Executive Name Role Phone Aden Rae MD Unavailable [phone] Yunior León MD Unavailable [phone] Dariana Marlow MD Unavailable [phone] Rubina Daugherty MD Unavailable [phone] Hector Lao MD Unavailable [phone] David Boone MD Unavailable [phone] Cathie Hickey MD Primary Care Provider Stacie Lopez NP Unavailable [phone] Encounter Details Date Type Department Care Team (Late st Contact Info) Description 07/20/2024 Orders Only [facility] [place] Health Information Management [address] [place] [address] Scanning, Provider Social History Tobacco Use [...] on file 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 Gender Identity Not on file Sexual Orientation Not on file documented as of this encounter Plan of Treatment Not on file documented as of this encounter Procedures Procedure Name Priority Date/Time Associated Diagnosis Comments SCAN - LABS 07/20/2024 documented in this encounter Results * SCAN - LABS (07/20/2024) us Provider Scanning Final Result documented in this encounter Visit Diagnoses Not on filedocumented in this encounter Care Teams Account Development Executive Relationship Specialty Start Date End Date Cathie Hickey MD [address] [facility] [address] [place] [address] PCP - General Family Practice 08/29/22 Aden Rae MD [address] [place] [address] Medical Oncologist/Queen Producer Medical Oncology 12/26/17 Yunior León MD [address] [place] [address] Referring Physician Radiation Oncology 12/26/17 Dariana Marlow MD [address] [place] [address] Surgeon Surgical Oncology 12/26/17 Rubina Daugherty MD [address] [place] [address] Consulting Physician Cardiology 12/26/17 Hector Lao [place] [address] Referring Physician Family Medicine 12/26/17 David Boone MD [address] [place] [address] Consulting Physician Urology 12/26/17 Stacie Lopez NP [address] [place] [address] Nurse Practitioner Medical Oncology 09/07/24 ZITA MONROE [address] [place] [address] Referring Physician Family Practice 10/23/18 documented as of this encounter
--- OUTSIDE RECORDS SUMMARY | 2025-03-30 00:38 | XMS_ITS | Encounter Summary ---
Author Organization [facility] Healthcare Address [address] [place] [address] Care Team Providers Care Line Patroller Name Role Phone Aden Rae MD Unavailable [phone] Yunior León MD Unavailable [phone] Dariana Marlow MD Unavailable [phone] Rubina Daugherty MD Unavailable [phone] Hector Lao MD Unavailable [phone] David Boone MD Unavailable [phone] Cathie Hickey MD Primary Care Provider Stacie Lopez NP Unavailable [phone] Encounter Details Date Type Department Care Team (Late st Contact Info) Description 03/23/2025 Telephone [facility] Medical Group Cardiology [address] [place] [address] Amanda Perkins NP [address] [place] [address] Social History Tobacco Use Types Packs/Day Years [...] on file 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 Pt verbalizes understanding. * Telephone Encounter - Diana Galindo - 03/23/2025 8:36 AM CDT Patient called in and states that she has a colonoscopy scheduled for 03/30. She is supposed to stop taking Warfarin on 03/25. She states that she is supposed to skip taking it for 5 days, so she is needing to know when to retest her INR. She states that she is going to be in and out all day, so ifyou call back and she doesn't answer, to just leave her a voicemail with the date of when to retest. Please advise. Thank you. Contact : [phone] documented in this encounter Plan of Treatment Not on file documented as of this encounter Visit Diagnoses Not on filedocumented in this encounter Care Teams Line Patroller Relationship Specialty Start Date End Date Cathie Hickey MD [address] [facility] [address] [place] [address] PCP - General Family Practice 08/29/22 Aden Rae MD [address] [place] [address] Medical Oncologist/Worship Pastor Medical Oncology 12/26/17 Yunior León MD [address] [place] [address] Referring Physician Radiation Oncology 12/26/17 Dariana Marlow MD [address] [place] [address] Surgeon Surgical Oncology 12/26/17 Rubina Daugherty MD [address] [place] [address] Consulting Physician Cardiology 12/26/17 Hector Lao MD [address] [place] [address] Referring Physician Family Medicine 12/26/17 David Boone MD [address] [place] [address] Consulting Physician Urology 12/26/17 Stacie Lopez NP [address] [place] [address] Nurse Practitioner Medical Oncology 09/07/24 ZITA MONROE [address] [address] Referring Physician Family Practice 10/23/18 documented as of this encounter
--- OUTSIDE RECORDS SUMMARY | 2025-03-30 00:38 | XMS_ITS | Encounter Summary ---
Author Organization [facility] Healthcare Address [address] [place] [address] Care Team Providers Care Custom Decorating Consultant Name Role Phone Aden Rae MD Unavailable [phone] Yunior León MD Unavailable [phone] Dariana Marlow MD Unavailable [phone] Rubina Daugherty MD Unavailable [phone] Hector Lao MD Unavailable [phone] David Boone MD Unavailable [phone] Zita Myles MD Primary Care Provider [phone] Cathie Hickey MD Primary Care Provider Cathie Hickey MD Primary Care Provider Stacie Lopez NP Unavailable [phone] Encounter Details Date Type Department Care Team (Late st Contact Info) Description 04/30/2018 Orders Only [facility] Health Information Management [address] [place] [address] Scanning, Provider Social History Tobacco Use Types Packs/Day Years Used Date Smoking Tobacco: Never Smokeless Tobacco: Never Alcohol Use Standard Drinks/Week Comments No 0 (1 standard drink = 0.6 oz pur e alcohol) Comments No Sex and Gender Information Value Date Recorded Sex Assigned at Not on file 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 Gender Identity Not on file Sexual Orientation Not on file documented as of this encounter Plan of Treatment Not on file documented as of this encounter Procedures Procedure Name Priority Date/Time Associated Diagnosis Comments SCAN - LABS 04/30/2018 documented in this encounter Results * SCAN - LABS (04/30/2018) us Provider Scanning Final Result documented in this encounter Visit Diagnoses Not on filedocumented in this encounter Care Teams Custom Decorating Consultant Relationship Specialty Start Date End Date Zita Myles MD [address] [address] PCP - General Family Practice 01/15/18 02/14/21 Cathie Hickey MD [address] [address] PCP - General Family Practice 02/15/21 08/28/22 Cathie Hickey MD [address] [facility] 2 [place] [address] PCP - General Family Practice 08/29/22 Aden Rae MD [address] [place] [address] Medical Oncologist/Blintze Roller Medical Oncology 12/26/17 Yunior León MD [address] [place] [address] Referring Physician Radiation Oncology 12/26/17 Dariana Marlow MD [address] [place] [address] Surgeon Surgical Oncology 12/26/17 Rubina Daugherty MD [address] [place] [address] Consulting Physician Cardiology 12/26/17 [place] [address] Referring Physician Family Medicine 12/26/17 David Boone MD [address] [place] [address] Consulting Physician Urology 12/26/17 Stacie Lopez NP [address] [place] [address] Nurse Practitioner Medical Oncology 09/07/24 ZITA MONROE [address] [id number] Referring Physician Family Practice 10/23/18 documented as of this encounter
--- OUTSIDE RECORDS SUMMARY | 2025-03-30 00:39 | XMS_ITS | Encounter Summary ---
Author Organization [facility] Healthcare Address [address] [place] [address] Care Team Providers Care Health Insurance Sales Agent Name Role Phone Aden Rae MD Unavailable +[phone] Yunior León MD Unavailable +[phone] Dariana Marlow MD Unavailable +[phone] Rubina Daugherty MD Unavailable +[phone] Hector Lao MD Unavailable +[phone] David Boone MD Unavailable +[phone] Cathie Hickey MD Primary Care Provider Stacie Lopez NP Unavailable +[phone] Encounter Details Date Type Department Care Team (Late st Contact Info) Description 04/27/2024 [place] [facility] [place] Management [address] [place] [address] Scanning, Provider Social History Tobacco Use [...] on file 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 Gender Identity Not on file Sexual Orientation [...] on filedocumented in this encounter Care Teams Health Insurance Sales Agent Relationship Specialty Start Date End Date Cathie Hickey MD [address] [facility] 2 [place], [place] [id number] PCP - General Family Practice 08/29/22 Aden Rae MD [address] [place] [address] Medical Oncologist/Scrap Metal Burner Medical Oncology 12/26/17 Yunior León MD [address] [place] [address] Referring Physician Radiation Oncology 12/26/17 Dariana Marlow MD [address] [place] [address] Surgeon Surgical Oncology 12/26/17 Rubina Daugherty MD [address] [place] [address] Consulting Physician Cardiology 12/26/17 Hector Lao [place] [address] Referring Physician Family Medicine 12/26/17 David Boone MD [address] [place] [address] Consulting Physician Urology 12/26/17 Stacie Lopez NP [address] [place] [address] Nurse Practitioner Medical Oncology 09/07/24 ZITA MONROE [address] [place] [address] Referring Physician Family Practice 10/23/18 documented as of this encounter
--- OUTSIDE RECORDS SUMMARY | 2025-03-30 00:39 | XMS_ITS | Encounter Summary ---
Author Organization [facility] Healthcare Address [address] [place] [address] Care Team Providers Care Creative Consultant Name Role Phone Aden Rae MD Unavailable +[phone] Yunior León MD Unavailable +[phone] Dariana Marlow MD Unavailable +[phone] Rubina Daugherty MD Unavailable +[phone] Hector Lao MD Unavailable +[phone] David Boone MD Unavailable +[phone] Cathie Hickey MD Primary Care Provider Stacie Lopez NP Unavailable +[phone] Encounter Details Date Type Department Care Team (Late st Contact Info) Description 10/19/2024 [place] Only [facility] [place] Health Information Management [address] [place] [address] Scanning, Provider Social History Tobacco Use [...] on file 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 Gender Identity Not on file Sexual [...] on filedocumented in this encounter Care Teams Creative Consultant Relationship Specialty Start Date End Date Cathie Hickey MD [address] [facility] 2 [place] [address] PCP - General Family Practice 08/29/22 Aden Rae MD [address] [place] [address] Medical Oncologist/Turkey Boner Medical Oncology 12/26/17 Yunior León MD [address] [place] [address] Referring Physician Radiation Oncology 12/26/17 Dariana Marlow MD [address] [place] [address] Surgeon Surgical Oncology 12/26/17 Rubina Daugherty MD [address] [place] [address] Consulting Physician Cardiology 12/26/17 Hector Lao MD [address] [place] [address] Referring Physician Family Medicine 12/26/17 David Boone MD [address] [place] [address] Consulting Physician Urology 12/26/17 Stacie Lopez NP [address] [place] [address] Nurse Practitioner Medical Oncology 09/07/24 ZITA MONROE [address] [place] [address] Referring Physician Family Practice 10/23/18 documented as of this encounter
--- OUTSIDE RECORDS SUMMARY | 2025-03-30 00:39 | XMS_ITS | Encounter Summary ---
Author Organization [facility] Healthcare Address [address] [place] [address] Care Team Providers Care Benzene Operator Name Role Phone Aden Rae MD Unavailable +[phone] Yunior León MD Unavailable +[phone] Dariana Marlow MD Unavailable +[phone] Rubina Daugherty MD Unavailable +[phone] Hector Lao MD Unavailable +[phone] David Boone MD Unavailable +[phone] Cathie Hickey MD Primary Care Provider Stacie Lopez NP Unavailable +[phone] Encounter Details Date Type Department Care Team (Late st Contact Info) Description 05/11/2024 Orders Only [facility] [place] Health Information Management [address] [place] [address] Scanning, Provider Social History Tobacco Use [...] on file 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 2 [place], [place] [address] PCP - General Family Practice 08/29/22 Aden aRe MD [address] [place] [address] Medical Oncologist/Application Packaging Consultant Medical Oncology 12/26/17 Yunior León MD [address] [place] [address] Referring Physician Radiation Oncology 12/26/17 Dariana Marlow MD [address] [place] [address] Surgeon Surgical Oncology 12/26/17 Rubina Daugherty MD [address] [place] [address] Consulting Physician Cardiology 12/26/17 H[place] [address] Referring Physician Family Medicine 12/26/17 David Boone MD [address] [place] [address] Consulting Physician Urology 12/26/17 Stacie Lopez NP [address] [place] [address] Nurse Practitioner Medical Oncology 09/07/24 ZITA MONROE [address] [place] [address] Referring Physician Family Practice 10/23/18 documented as of this encounter
--- OUTSIDE RECORDS SUMMARY | 2025-03-30 00:39 | XMS_ITS | Encounter Summary ---
Author Organization [facility] Healthcare Address [address] [place] [address] Care Team Providers Care Physician Practice Market Manager Name Role Phone Aden Rae MD Unavailable +[phone] Yunior León MD Unavailable +[phone] Dariana Marlow MD Unavailable +[phone] Rubina Daugherty MD Unavailable +[phone] Hector Lao MD Unavailable +[phone] David Boone MD Unavailable +[phone] Cathie Hickey MD Primary Care Provider Stacie Lopez NP Unavailable +[phone] Encounter Details Date Type Department Care Team (Late st Contact Info) Description 03/23/2024 Orders Only [facility] [place] Management [address] [place] [address] Scanning, Provider Social History Tobacco Use [...] on file 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 Gender Identity Not on file Sexual Orientation [...] on filedocumented in this encounter Care Teams Physician Practice Market Manager Relationship Specialty Start Date End Date Cathie Hickey MD [address] [facility] 2 [place], [place] [id number] PCP - General Family Practice 08/29/22 Aden Rae MD [address] [place] [address] Medical Oncologist/Clinical Nursing Professor Medical Oncology 12/26/17 Yunior León MD [address] [place] [address] Referring Physician Radiation Oncology 12/26/17 Dariana Marlow MD [address] [place] [address] Surgeon Surgical Oncology 12/26/17 Rubina Daugherty MD [address] [place] [address] Consulting Physician Cardiology 12/26/17 Hector Lao MD [address] [place] [address] Referring Physician Family Medicine 12/26/17 David Boone MD [address] [place] [address] Consulting Physician Urology 12/26/17 Stacie Lopez NP [address] [place] [address] Nurse Practitioner Medical Oncology 09/07/24 ZITA MONROE [address] [place] [address] Referring Physician Family Practice 10/23/18 documented as of this encounter
--- OUTSIDE RECORDS SUMMARY | 2025-03-30 00:39 | XMS_ITS | Encounter Summary ---
Author Organization [facility] Healthcare Address [address] [place] [address] Care Team Providers Care Microbiology Lab Technician Name Role Phone Aden Rae MD Unavailable +[phone] Yunior León MD Unavailable +[phone] Dariana Marlow MD Unavailable +[phone] Rubina Daugherty MD Unavailable +[phone] Hector Lao MD Unavailable +[phone] David Boone MD Unavailable +[phone] Cathie Hickey MD Primary Care Provider Stacie Lopez NP Unavailable [phone] Encounter Details Date Type Department Care Team (Late st Contact Info) Description 09/28/2024 Orders Only [facility] [place] Health Information Management [address] [place] [address] Scanning, Provider Social History Tobacco Use [...] on file 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 2 [place] [address] PCP - General Family Practice 08/29/22 Aden Rae MD [address] [place] [address] Medical Oncologist/Adjunct Instructor Medical Oncology 12/26/17 Yunior León MD [address] [place] [address] Referring Physician Radiation Oncology 12/26/17 Dariana Marlow MD [address] [place] [address] Surgeon Surgical Oncology 12/26/17 Rubina Daugherty MD [address] [place] [address] Consulting Physician Cardiology 12/26/17 Hector Lao MD [address] [place] [address] Referring Physician Family Medicine 12/26/17 David Boone MD [address] [place] [address] Consulting Physician Urology 12/26/17 Stacie Lopez NP [address] [place] [address] Nurse Practitioner Medical Oncology 09/07/24 ZITA MONROE [address] [place] [address] Referring Physician Family Practice 10/23/18 documented as of this encounter
--- OUTSIDE RECORDS SUMMARY | 2025-03-30 00:39 | XMS_ITS | Encounter Summary ---
Author Organization [facility] Healthcare Address [address] [place] [address] Care Team Providers Care Combined Rail Operator Name Role Phone Aden Rae MD Unavailable +[phone] Yunior León MD Unavailable +[phone] Dariana Marlow MD Unavailable +[phone] Rubina Daugherty MD Unavailable +[phone] Hector Lao MD Unavailable +[phone] David Boone MD Unavailable +[phone] Cathie Hickey MD Primary Care Provider Stacie Lopez NP Unavailable [phone] Encounter Details Date Type Department Care Team (Late st Contact Info) Description 04/13/2024 Orders Only [facility] [place] Management [address] [place] [address] Scanning, Provider Social History Tobacco Use [...] on file 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 Gender Identity Not on file Sexual Orientation [...] on filedocumented in this encounter Care Teams Combined Rail Operator Relationship Specialty Start Date End Date Cathie Hickey MD [address] [facility] 2 [place], [place] [id number] PCP - General Family Practice 08/29/22 Aden Rae MD [address] [place] [address] Medical Oncologist/Studio Receptionist Medical Oncology 12/26/17 Yunior León MD [address] [place] [address] Referring Physician Radiation Oncology 12/26/17 Dariana Marlow MD [address] [place] [address] Surgeon Surgical Oncology 12/26/17 Rubina Daugherty MD [address] [place] [address] Consulting Physician Cardiology 12/26/17 Hector Lao MD [address] [place] [address] Referring Physician Family Medicine 12/26/17 David Boone MD [address] [place] [address] Consulting Physician Urology 12/26/17 Stacie Lopez NP [address] [place] [address] Nurse Practitioner Medical Oncology 09/07/24 ZITA MONROE [address] [place] [address] Referring Physician Family Practice 10/23/18 documented as of this encounter
--- OUTSIDE RECORDS SUMMARY | 2025-03-30 00:39 | XMS_ITS | Encounter Summary ---
Author Organization [facility] Healthcare Address [address] [place] [address] Care Team Providers Care Manufacturing Operator Name Role Phone Aden Rae MD Unavailable +[phone] Yunior León MD Unavailable +[phone] Dariana Marlow MD Unavailable +[phone] Rubina Daugherty MD Unavailable +[phone] Hector Lao MD Unavailable +[phone] David Boone MD Unavailable +[phone] Cathie Hickey MD Primary Care Provider Stacie Lopez NP Unavailable [phone] Encounter Details Date Type Department Care Team (Late st Contact Info) Description 04/06/2024 Orders Only [facility] [place] Health Information Management [address] [place] [address] Scanning, Provider Social History Tobacco Use [...] on file 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 Gender Identity Not on file Sexual Orientation [...] on filedocumented in this encounter Care Teams Manufacturing Operator Relationship Specialty Start Date End Date Cathie Hickey MD 34[address] [facility] 2 [place], [place] [address] PCP - General Family Practice 08/29/22 Aden Rae MD [address] [place] [address] Medical Oncologist/Roundsman Medical Oncology 12/26/17 Yunior León MD [address] [place] [address] Referring Physician Radiation Oncology 12/26/17 Dariana Marlow MD [address] [place] [address] Surgeon Surgical Oncology 12/26/17 Rubina Daugherty MD [address] [place] [address] Consulting Physician Cardiology 12/26/17 Hector Lao MD [address] [place] [address] Referring Physician Family Medicine 12/26/17 David Boone MD [address] [place] [address] Consulting Physician Urology 12/26/17 Stacie Lopez NP [address] [place] [address] Nurse Practitioner Medical Oncology 09/07/24 [address]ITA [address]E [address] [place] [address] Referring Physician Family Practice 10/23/18 documented as of this encounter
--- OUTSIDE RECORDS SUMMARY | 2025-03-30 00:39 | XMS_ITS | Encounter Summary ---
Author Organization [facility] Healthcare Address [address] [place] [address] Care Team Providers Care Incubator Machine Operator Name Role Phone Aden Rae MD Unavailable +[phone] Yunior León MD Unavailable +[phone] Dariana Marlow MD Unavailable +[phone] Rubina Daugherty MD Unavailable +[phone] Hector Lao MD Unavailable +[phone] David Boone MD Unavailable +[phone] Cathie Hickey MD Primary Care Provider Stacie Lopez NP Unavailable [phone] Encounter Details Date Type Department Care Team (Late st Contact Info) Description 06/07/2024 Orders Only [facility] [place] Health Information Management [address] [place] [address] Scanning, Provider Social History Tobacco Use [...] on file 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 2 [place], [place] [phone] PCP - General Family Practice 08/29/22 Aden Rae MD [address] [place] [address] Medical Oncologist/Director Of Cardiology Medical Oncology 12/26/17 Yunior León MD [address] [place] [address] Referring Physician Radiation Oncology 12/26/17 Dariana Marlow MD [address] [place] [address] Surgeon Surgical Oncology 12/26/17 Rubina Daugherty MD [address] [place] [address] Consulting Physician Cardiology 12/26/17 Hector [place] [address] Referring Physician Family Medicine 12/26/17 David Boone MD [address] [place] [address] Consulting Physician Urology 12/26/17 Stacie Lopez NP [address] [place] [address] Nurse Practitioner Medical Oncology 09/07/24 ZITA [address]E [address] [place] [address] Referring Physician Family Practice 10/23/18 documented as of this encounter
--- OUTSIDE RECORDS SUMMARY | 2025-03-30 00:39 | XMS_ITS | Encounter Summary ---
Author Organization [facility] Healthcare Address [address] [place] [address] Care Team Providers Care Salvage Engineer Name Role Phone Aden Rae MD Unavailable +[phone] Yunior León MD Unavailable +[phone] Dariana Marlow MD Unavailable +[phone] Rubina Daugherty MD Unavailable +[phone] Hector Lao MD Unavailable +[phone] David Boone MD Unavailable +[phone] Cathie Hickey MD Primary Care Provider Stacie Lopez NP Unavailable [phone] Encounter Details Date Type Department Care Team (Late st Contact Info) Description 11/22/2024 Orders Only [facility] [place] Health Information Management [address] [place] [address] Scanning, Provider Social History Tobacco Use [...] on file 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 Gender Identity Not on file Sexual [...] on filedocumented in this encounter Care Teams Salvage Engineer Relationship Specialty Start Date End Date Cathie Hickey MD 3417 [facility] 2 [place] [address] PCP - General Family Practice 08/29/22 Aden Rae MD [address] [place] [address] Medical Oncologist/Fly Maker Medical Oncology 12/26/17 Yunior León MD [address] [place] [address] Referring Physician Radiation Oncology 12/26/17 Dariana Marlow MD [address] [place] [address] Surgeon Surgical Oncology 12/26/17 Rubina Daugherty MD [address] [place] [address] Consulting Physician Cardiology 12/26/17 Hector Lao MD [address] [place] [address] Referring Physician Family Medicine 12/26/17 David Boone MD [address] [place] [address] Consulting Physician Urology 12/26/17 Stacie Lopez NP [address] [place] [address] Nurse Practitioner Medical Oncology 09/07/24 [address]ITA [address]E [address] [place] [address] Referring Physician Family Practice 10/23/18 documented as of this encounter
--- OUTSIDE RECORDS SUMMARY | 2025-03-30 00:39 | XMS_ITS | Encounter Summary ---
Author Organization [facility] Healthcare Address [address] [place] [address] Care Team Providers Care Clothes Drier Repairer Name Role Phone Aden Rae MD Unavailable +[phone] Yunior León MD Unavailable +[phone] Dariana Marlow MD Unavailable +[phone] Rubina Daugherty MD Unavailable +[phone] Hector Lao MD Unavailable +[phone] David Boone MD Unavailable [phone] Cathie Hickey MD Primary Care Provider Stacie Lopez NP Unavailable [phone] Encounter Details Date Type Department Care Team (Late st Contact Info) Description 10/12/2024 Orders Only [facility] [place] Health Information Management [address] [place] [address] Scanning, Provider Social History Tobacco Use [...] on file 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 Gender Identity Not on file Sexual Orientation [...] on filedocumented in this encounter Care Teams Clothes Drier Repairer Relationship Specialty Start Date End Date Cathie Hickey MD [address]17 [facility] 2 [place] [address] PCP - General Family Practice 08/29/22 Aden Rae MD [address] [place] [address] Medical Oncologist/Enterprise Systems Manager Medical Oncology 12/26/17 Yunior León MD [address] [place] [address] Referring Physician Radiation Oncology 12/26/17 Dariana Marlow MD [address] [place] [address] Surgeon Surgical Oncology 12/26/17 Rubina Daugherty MD [address] [place] [address] Consulting Physician Cardiology 12/26/17 Hector Lao MD [address] [place] [address] Referring Physician Family Medicine 12/26/17 David Boone MD [address] [place] [address] Consulting Physician Urology 12/26/17 Stacie Lopez NP [address] [place] [address] Nurse Practitioner Medical Oncology 09/07/24 [address] [place] [address] Referring Physician Family Practice 10/23/18 documented as of this encounter
--- OUTSIDE RECORDS SUMMARY | 2025-03-30 00:39 | XMS_ITS | Encounter Summary ---
Author Organization [facility] Healthcare Address [address] [place] [address] Care Team Providers Care Switch Tender Name Role Phone Aden Rae MD Unavailable +[phone] Yunior León MD Unavailable +[phone] Dariana Marlow MD Unavailable +[phone] Rubina Daugherty MD Unavailable +[phone] Hector Lao MD Unavailable +[phone] David Boone MD Unavailable +[phone] Cathie Hickey MD Primary Care Provider Stacie Lopez NP Unavailable [phone] Encounter Details Date Type Department Care Team (Late st Contact Info) Description 11/02/2024 Orders Only [facility] [place] Health Information Management [address] [place] [address] Scanning, Provider Social History Tobacco Use [...] on file 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 Gender Identity Not on file Sexual Orientation [...] on filedocumented in this encounter Care Teams Switch Tender Relationship Specialty Start Date End Date Cathie Hickey MD 3417 [facility] 2 [place] [address] PCP - General Family Practice 08/29/22 Aden Rae MD [address] [place] [address] Medical Oncologist/Fish Boning Machine Feeder Medical Oncology 12/26/17 Yunior León MD [address] [place] [address] Referring Physician Radiation Oncology 12/26/17 Dariana Marlow MD [address] [place] [address] Surgeon Surgical Oncology 12/26/17 Rubina Daugherty MD [address] [place] [address] Consulting Physician Cardiology 12/26/17 Hector Lao MD [address] [place] [address] Referring Physician Family Medicine 12/26/17 David Boone MD [address] [place] [address] Consulting Physician Urology 12/26/17 Stacie Lopez NP [address] [place] [address] Nurse Practitioner Medical Oncology 09/07/24 [address] [place] [address] Referring Physician Family Practice 10/23/18 documented as of this encounter
--- OUTSIDE RECORDS SUMMARY | 2025-03-30 00:41 | XMS_ITS | Encounter Summary ---
Author Organization [facility] Address [address] [facility] [address] [place] [address] Phone Care Team Providers Care Operator Ground Based [employer] Name Role Phone Hector Lao MD Primary Care Provider + [phone] Zita Myles MD Primary Care Provider + [phone] Aden Rae MD Unavailable [phone] Yunior León MD Unavailable [phone] Dariana Marlow MD Unavailable [phone] Rubina Daugherty MD Unavailable [phone] Hector Lao MD Unavailable [phone] David Boone MD Unavailable [phone] Hector Lao MD Primary Care Provider [phone] Zita Myles MD Primary Care Provider [phone] Cathie Hickey MD Primary Care Provider Cathie Hickey MD Primary Care Provider Stacie Lopez NP Unavailable [phone] Encounter Details Date Type Department Care Team [...] on file 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 Gender Identity Not on file Sexual Orientation [...] on filedocumented in this encounter Care Teams Operator Ground Based [employer] Relationship Specialty Start Date End Date Hectro Lao MD [address] [place] [address] PCP - General 09/13/16 12/18/17 Zita Myles MD [address] [place] [address] PCP - General Family Practice 12/19/17 12/30/17 Hector Lao MD [address] [place] [address] PCP - General 12/31/17 01/14/18 Zita Myles MD [address] [place] [address] PCP - General Family Practice 01/15/18 02/14/21 Cathie Hickey MD [address] [place] [address] PCP - General Family Practice 02/15/21 08/28/22 Cathie Hickey MD [address] [facility] [address] [place] [address] PCP - General Family Practice 08/29/22 Aden Rae MD [address] [place], [place] [id number] Medical Oncologist/Substance Abuse Counselor Medical Oncology 12/26/17 Yunior León MD [address] [place] [address] Referring Physician Radiation Oncology 12/26/17 Dariana Marlow MD [address] [place] [address] Surgeon Surgical Oncology 12/26/17 Rubina Daugherty MD [address] [place] [address] Consulting Physician Cardiology 12/26/17 Hector Lao MD [address] [place] [address] Referring Physician Family Medicine 12/26/17 David Boone MD [address] [place] [address] Consulting Physician Urology 12/26/17 Stacie Lopez NP [address] [facility] [place] [address] Nurse Practitioner Medical Oncology 09/07/24 ZITA MONROE [address] [place] [address] Referring Physician Family Practice 10/23/18 documented as of this encounter
--- OUTSIDE RECORDS SUMMARY | 2025-03-30 00:41 | XMS_ITS | Clinical Summary ---
Author Organization [facility] [address] Address [address] [place] [address] Care Team Providers Care Host And Hostess Name Role Phone Aden Rae MD Unavailable [phone] Yunior León MD Unavailable [phone] Dariana Marlow MD Unavailable [phone] Rubina Daugherty MD Unavailable [phone] Hector Lao MD Unavailable [phone] David Boone MD Unavailable [phone] Cathie Hickey MD Primary Care Provider Stacie Lopez NP Unavailable [phone] Allergies Active Allergy Reactions Criticality Noted Date [...] (six) hours as needed for pain Active decvhjrg-zjdwiep-yo on-lutein tablet Take by mouth Active solifenacin [...] 90 tablet 3 5 08/25/19 26 Active atorvastatin (LIPITOR) 20 mg tabletIndications:M ixed hyperlipidemia TAKE 1 TABLET BY MOUTH EVERY DAY 90 tablet 3 5 Active warfarin (COUMADIN) 2.5 mg tabletIndications:L anne term current use of anticoagulant therapy TAKE 1 TABLET BY MOUTH DAILY OR DIRECTED BY PHYSICIAN. 90 tablet 5 Active Active Problems Problem Noted Date [...] from 11/24/2017:Stage IA(pT1c, pN0, cM0, G1, ER+, DC+, HER2-, Oncotype DX score: 7) - Signed [...] in female, estrogen receptor positive 10/20/2018 01/26/2020 [facility] (current) use of a romatase inhibitors 10/20/2018 09/03/2023 Menopausal symptom 01/02/2018 8 Positive CHANDRA (antinuclear antibody) 12/26/2017 09/07/2024 TILLMAN (dyspnea on exertion) 11/25/2017 Malignant neoplasm of left 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, estrogen receptor positive 11/24/2017 12/30/2017 Bradycardia 11/20/2015 09/07/2024 Overview (09/19/2016): Bradycardia Lumbago 02/14/2010 09/07/2024 Essential hypertension 02/07/201006/23 Encounters Date Type Department Care Team Description 03/23/2025 Telephone [facility] [address] [place] [address] [place] [phone] Amanda Perkins NP 03/22/2025 Anticoagulation Visit [place] [address] [place] [phone] Racquel Eason RN Chronic anticoagulation (Primary Dx); Atypical atrial flutter (HCC) 03/07/2025 Anticoagulation Visit [facility] [address] [place] [address] [place] [phone] Racquel Eason RN Chronic anticoagulation (Primary Dx); Atypical atrial flutter (HCC) 02/21/2025 Orders Only [facility] Health Information Management [address] [place] [address] Scanning, Provider 02/21/2025 Anticoagulation Visit [place] [address] [place] [phone] Racquel Eason RN Chronic anticoagulation (Primary Dx); Atypical atrial flutter (HCC) 02/08/2025 Anticoagulation Visit [place] [address] [place] [phone] Sandee Jiménez RN Chronic anticoagulation (Primary Dx); Atypical atrial flutter (HCC) 02/07/2025 [facility] [address] [place] [address] Scanning, Provider 01/25/2025 Anticoagulation Visit [address] [place] [phone] Sandee Jiménez RN Chronic anticoagulation (Primary Dx); Atypical atrial flutter (HCC) 01/24/2025 Orders [facility] [address] [place] [address] Scanning, Provider 01/10/2025 Orders Only [facility] Health Information Management [address] [place] [address] Scanning, Provider 01/10/2025 Anticoagulation Visit [facility] [address] [place] [address] Sandee Jiménez RN Chronic anticoagulation [...] on file 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 Gender Identity Not on file Sexual Orientation Not on file Obstetrics History Para Term AB IAB SAB Ectopic Multiple Livin g Live Births 4 2 2 Date Outcome GA Total Labor Labor//3rd Weight Sex Type Anes PTL Felipa A1 [...] B Screening 1968 Well Visit 65+ 09/01/2015 Zoster Vaccine (2 of 2) 04/06/2024 02/10/2024 Covid-19 Vaccine (2024-2 6 season) 2025 03/16/2021, 09/06/2020, 08/09/2020 Influenza Vaccine (#1) 2025 02/10/2024, 2020 Breast Cancer Screening-Mammogram 09/07/2025 09/07/2024, 09/03/2023, 08/28/2022, Additional history exists DTaP/Tdap/Td Vaccine (2 - Td or Tdap) 11/26/2028 11/26/2018 Pneumococcal vaccine 65+ Completed 01/12/2019, 08/14 Procedures Procedure Name Priority Date/Time Associated Diagnosis Comments PROTIME-INR Routine 03/21/2025 PROTIME-INR Routine 03/07/2025 SCAN - LABS 02/21/2025 PROTIME-INR Routine 02/21/2025 SCAN - LABS 02/07/2025 PROTIME-INR Routine 02/07/2025 SCAN - LABS 01/24/2025 PROTIME-INR Routine 01/24/2025 SCAN - LABS 01/10/2025 PROTIME-INR Routine 01/10/2025 SCREENING MAMMOGRAM BILATERAL W HO[place] Schedule Routine, Read Routine (OP Routine) 09/07/2024 10:57 AM CDT Encounter for screening mammogram for breast cancer Breast cancer screening by mammogram from Last 3 Months or Most Recently Relevant to Health Maintenance Results * (ABNORMAL) Protime-INR (03/21/2025) INR 1.90(A) 0.90 - 1.10 EXTERNAL LAB Blood Historical Provider MD LAB BLOOD ORDERABLES Nhung l Result EXTERNAL LAB * (ABNORMAL) Protime-INR (03/07/2025) INR 2.00(A) 0.90 - 1.10 EXTERNAL LAB Blood Historical Provider MD LAB BLOOD ORDERABLES Nhung l Result EXTERNAL LAB * SCAN - LABS (02/21/2025) us Provider Scanning Final Result * (ABNORMAL) Protime-INR (02/21/2025) INR 1.80(A) 0.90 - 1.10 EXTERNAL LAB Blood Result [facility] Provider MD LAB BLOOD ORDERABLES Nhung l Result Performing Organization Address [facility] de Phone Number EXTERNAL LAB * SCAN - LABS (02/07/2025) Provider Scanning Final Result * (ABNORMAL) Protime-INR (02/07/2025) INR 1.80(A) 0.90 - 1.10 EXTERNAL LAB Blood Result [facility] Provider MD LAB BLOOD ORDERABLES Nhung l Result Performing Organization Address [facility] de Phone Number EXTERNAL LAB * SCAN - LABS (01/24/2025) Result [facility] Provider Scanning Final Result * (ABNORMAL) Protime-INR (01/24/2025) INR 2.20(A) 0.90 - 1.10 EXTERNAL LAB Blood Result [facility] Provider MD LAB BLOOD ORDERABLES Nhung l Result Performing Organization Address [facility] Co de Phone Number EXTERNAL LAB * SCAN - LABS (01/10/2025) Provider Scanning Final Result * (ABNORMAL) Protime-INR (01/10/2025) INR 2.20(A) 0.90 - 1.10 EXTERNAL LAB Blood Result [facility] Provider MD LAB BLOOD ORDERABLES Nhung l [...] age 40, based on guidelines of the [employer] [place] [employer] (ACR Practice Parameter for the Performance of Screening and Diagnostic Mammography) and [employer] [place] [employer]. For women [...] Recently Relevant to Health Maintenance Insurance MEDICARE [facility] MEDICARE SUPPLEMENT MEDICARE [facility] MEDICARE SUPPLEMENT Care Teams Host And Hostess Relationship Specialty Start Date End Date Cathie Hickey MD [address] [facility] [address] [place] [address] PCP - General Family Practice 08/29/22 Aden Rea MD [address] [place] [address] Medical Oncologist/Lead Furnace Operator Medical Oncology 12/26/17 Yunior León MD [address] [place] [address] Referring Physician Radiation Oncology 12/26/17 Dariana Marlow MD [address] [place] [address] Surgeon Surgical Oncology 12/26/17 Rubina Daugherty MD [address] [place] [address] Consulting Physician Cardiology 12/26/17 Hector Lao MD [address] [place] [address] Referring Physician Family Medicine 12/26/17 David Boone MD [address] [place] [address] Consulting Physician Urology 12/26/17 Stacie Lopez NP [address] [place] [address] Nurse Practitioner Medical Oncology 09/07/24 ZITA MONROE [address] [place] [address] Referring Physician Family Practice 10/23/18
--- OUTSIDE RECORDS SUMMARY | 2025-03-30 00:41 | XMS_ITS ---
Author Organization [facility] [address] Address [address] [place] [address] Care Team Providers Care Church Official Name Role Phone Aden Rae MD Unavailable [phone] Yunior León MD Unavailable [phone] Dariana Marlow MD Unavailable [phone] Rubina Daugherty MD Unavailable [phone] Hector Lao MD Unavailable [phone] David Boone MD Unavailable [phone] Cathie Hickey MD Primary Care Provider Stacie Lopez NP Unavailable [phone] Active Problems Problem Noted Date Diagnosed Date [...] from 11/24/2017:Stage IA(pT1c, pN0, cM0, G1, ER+, [place]+, HER2-, Oncotype DX score: 7) - Signed [...] in female, estrogen receptor positive 10/20/2018 01/26/2020 [employer] (current) use of a romatase inhibitors 10/20/2018 09/03/2023 Menopausal symptom 01/02/2018 8 Positive CHANDRA (antinuclear antibody) 12/26/2017 09/07/2024 TILLMAN (dyspnea on exertion) 11/25/2017 Malignant neoplasm of left 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, estrogen receptor positive 11/24/2017 12/30/2017 Bradycardia 11/20/2015 09/07/2024 Overview (09/19/2016): Bradycardia Lumbago 02/14/2010 09/07/2024 Essential hypertension 02/07/201006/23
--- NOTE | 2025-03-30 07:06 | WPDANESEPPF ---
Anes - Initial Pre Proc Eval Procedure: Operation Date: 03/30/25 08:00 Proposed Procedures p Screening Colonoscopy - Kane Turner MD Date/Time: 03/30/25 07:06 Surgeon: Kane Turner MD Pre Op Diagnosis: Personal history of colon polyps, unspecified Patient Data Age: 74 Gender: F Height: 1.78 m Weight: 86.3 kg Allergies Allergy/AdvReac Type Severity Reaction Status Date / Time adhesive tape Allergy Intermediate Blister Verified 04/11/25 14:29 fenofibrate AdvReac Mild constipatio Verified 04/11/25 14:29 n Home Medications ?Medication ?Instructions ?Recorded ?Confirmed ?Type warfarin 2.5 mg tablet 2.5 mg PO DAILY 10/22/21 04/11/25 History metoprolol succinate 50 mg 50 mg PO DAILY 12/30/22 04/11/25 History tablet,extended release 24 hr pyridoxine (vitamin B6) 100 mg 50 mg PO DAILY 04/30/23 04/11/25 History tablet gabapentin 300 mg capsule 300 mg PO TID 09/10/23 04/11/25 History metoprolol succinate 100 mg 100 mg PO DAILY 05/04/24 04/11/25 History tablet,extended release 24 hr meclizine 25 mg tablet 25 mg PO QID PRN vertigo #60 tabs 05/20/24 04/11/25 Rx acetaminophen 500 mg tablet 500 mg PO BID PRN Pain 05/31/24 04/11/25 History (Tylenol Extra Strength) atorvastatin 40 mg tablet (Lipitor) 40 mg PO QHS #90 tabs 11/29/24 04/11/25 Rx docusate sodium 100 mg capsule 100 mg PO BID constipation 11/29/24 04/11/25 History (Stool Softener) gemfibrozil 600 mg tablet 600 mg PO BID #180 tabs 11/29/24 04/11/25 Rx irbesartan 150 mg tablet 150 mg PO DAILY #90 tabs 12/16/24 04/11/25 Rx omeprazole 40 mg capsule,delayed 40 mg PO DAILY #90 caps 12/20/24 04/11/25 Rx release terbinafine HCl 1 % topical cream 1 applic topical BID #30 grams 01/18/25 04/11/25 Rx (Antifungal (terbinafine)) oxybutynin chloride 10 mg 10 mg PO DAILY #90 tabs 01/19/25 04/11/25 Rx tablet,extended release 24 hr cholecalciferol (vitamin D3) 25 25 mcg PO DAILY 03/22/25 04/11/25 History mcg (1,000 unit) capsule (Vitamin D3) aqphnzeq-ppgj-xfzl 8 mg-folic 400 1 tablet PO DAILY 03/22/25 04/11/25 History mcg-K 50 mcg-lutein 300 mcg tablet (Centrum Silver Women) solifenacin 5 mg tablet 10 mg PO DAILY 03/22/25 04/11/25 History Patient hx anesthesia problems: none Family hx anesthesia problems: none Results Review: All pre-operative results and documents have been reviewed as part of the pre-operative evaluation. [facility] Past Medical History Medical History History of colon polyps Essential tremor Peripheral neuropathy Carotid artery stenosis Vertigo (~04/2024) History of left breast cancer (~2017) [place] positive ductal carcinoma status post left partial mastectomy and radiation. on exemestane for 5 years Family history of abdominal aortic aneurysm (AAA) COVID OAB (overactive bladder) Follows with Dr Boone GERD without esophagitis Hx of renal calculi (~2019) Amputation of toe BMI 27.0-27.9,adult Hard of hearing Mixed hyperlipidemia Primary hypertension Current use of jail anticoagulation Paroxysmal atrial fibrillation On long-term warfarin. Hay fever Chronic back pain Depression Herniated disc Arthritis GERD (gastroesophageal reflux disease) Surgical History Surgical History History of amputation of lesser toe of right foot (~2018) Rt 2nd toe hammer toe correction Hx of cataract extraction (~2020) History of partial mastectomy of left breast (~2017) History of dilation and curettage History of right nephrectomy With benign histology. --renal stone obstruction. Status post lumbar discectomy Status post left rotator cuff repair Status post partial hysterectomy Status post tonsillectomy Family History Family History Father Family history of cardiovascular disease Hypertension Grandparent Family history of cardiovascular disease Cerebrovascular accident Family history of lung cancer Family history of malignant neoplasm of uterus Sibling Family history of malignant neoplasm Mother Family history of lung cancer Depression Other Family history of malignant neoplasm of breast in first degree relative Social History Social History Social History: The patient lives in [place] with her boyfriend. She designates her boyfriend, Christian Mirza, as her surrogate decision maker and she wishes to be a full code. She denies alcohol, tobacco, drug use. Smoking status: Never smoker Second hand tobacco smoke exposure: Yes Alcohol intake: never Substance use: never Substance use type: does not use Do You Feel Safe in your Home?: Yes Lack of Transportation: No Lack of Food: Never True Current Housing: I Have Housing Concerned About Future Housing: No Difficulty Paying Gas/Electric Bills: No Difficulty Paying for Meds: No Currently Unemployed: No Education: Associate Degree Difficulty w/ Childcare or Family Care: No Living arrangements: with friend(s) Occupation/Education: retired Gender identity (if verbalized by the patient): Female Spiritual care concerns: No Agree to blood products: Yes Anes - Eval Final PreProcedure Day of Procedure 03/30/25 07:06 Patient weight: overweight Heart: regular rate and rhythm Lungs: clear to auscultation Airway: Mallampati scale class II Neurological: alert and oriented Last oral intake: >/= 8 hours ASA classification: III Emergent: no Anesthetic plan: proceed Anesthesia type and monitoring: general GIVS and standard monitoring Results Review: All pre-operative results and documents have been reviewed as part of the pre-operative evaluation. Informed Consent: The patient's anesthetic plan and its attendant risks and benefits were discussed with the patient/family/POA. Questions were solicited and answers provided to the satisfaction of the patient/family/POA.
[2025-03-30 07:12] VITALS: BP 151/91; PULSE 60; RESP 16; TEMP 36.1; O2SAT 99
[2025-03-30] MEDS: LACTATED RINGERS 1,000 ML 150 ML IV CONT (07:25)
--- NOTE | 2025-03-30 08:04 | PM.HPGS ---
History of Present Illness History of Present Illness Consent: Risks, benefits, and alternatives have been discussed and questions answered. Patient agrees to proceed with procedure. Chief complaint: Personal history of colon polyps, unspecified Narrative: Mayte Hawley is a 74 year old female here for screening colonoscopy, last one about 8 years ago Review of Systems Review of Systems: All systems reviewed & are unremarkable except as noted in HPI and below PMFSH Past Medical History Medical History History of colon polyps Essential tremor Peripheral neuropathy Carotid artery stenosis Vertigo (~04/2024) History of left breast cancer (~2017) ER/[place] positive ductal carcinoma status post left partial mastectomy and radiation. on exemestane for 5 years Family history of abdominal aortic aneurysm (AAA) COVID OAB (overactive bladder) Follows with Dr Boone GERD without esophagitis Hx of renal calculi (~2019) Amputation of toe BMI 27.0-27.9,adult Hard of hearing Mixed hyperlipidemia Primary hypertension Current use of risk compliance analyst anticoagulation Paroxysmal atrial fibrillation On long-term warfarin. Hay fever Chronic back pain Depression Herniated disc Arthritis GERD (gastroesophageal reflux disease) Surgical History Surgical History History of amputation of lesser toe of right foot (~2018) Rt 2nd toe hammer toe correction Hx of cataract extraction (~2020) History of partial mastectomy of left breast (~2017) History of dilation and curettage History of right nephrectomy With benign histology. --renal stone obstruction. Status post lumbar discectomy Status post left rotator cuff repair Status post partial hysterectomy Status post tonsillectomy Family History Family History Father Family history of cardiovascular disease Hypertension Grandparent Family history of cardiovascular disease Cerebrovascular accident Family history of lung cancer Family history of malignant neoplasm of uterus Sibling Family history of malignant neoplasm Mother Family history of lung cancer Depression Other Family history of malignant neoplasm of breast in first degree relative Social History Social History Social History: The patient lives in [place] with her boyfriend. She designates her boyfriend, Christian Mirza, as her surrogate decision maker and she wishes to be a full code. She denies alcohol, tobacco, drug use. Smoking status: Never smoker Second hand tobacco smoke exposure: Yes Alcohol intake: never Substance use: never Substance use type: does not use Do You Feel Safe in your Home?: Yes Lack of Transportation: No Lack of Food: Never True Current Housing: I Have Housing Concerned About Future Housing: No Difficulty Paying Gas/Electric Bills: No Difficulty Paying for Meds: No Currently Unemployed: No Education: Associate Degree Difficulty w/ Childcare or Family Care: No Living arrangements: with friend(s) Occupation/Education: retired Gender identity (if verbalized by the patient): Female Spiritual care concerns: No Agree to blood products: Yes Meds Home Medications and Allergies Home Medications ?Medication ?Instructions ?Recorded ?Confirmed ?Type eiqavlbb-qfd-NM 200 mcg-vit K 100 1 cap PO DAILY 12/10/19 03/22/25 History mcg-lycop 500 [id number]-Z48 capsule (Daily Multivitamin) warfarin 2.5 mg tablet 2.5 mg PO DAILY 10/22/21 03/30/25 History metoprolol succinate 50 mg 50 mg PO DAILY 12/30/22 03/30/25 History tablet,extended release 24 hr pyridoxine (vitamin B6) 100 mg 50 mg PO DAILY 04/30/23 03/30/25 History tablet gabapentin 300 mg capsule 300 mg PO TID 09/10/23 03/30/25 History metoprolol succinate 100 mg 100 mg PO DAILY 05/04/24 03/30/25 History tablet,extended release 24 hr meclizine 25 mg tablet 25 mg PO QID PRN vertigo #60 tabs 05/20/24 03/22/25 Rx acetaminophen 500 mg tablet 500 mg PO BID PRN Pain 05/31/24 03/22/25 History (Tylenol Extra Strength) atorvastatin 40 mg tablet (Lipitor) 40 mg PO QHS #90 tabs 11/29/24 03/30/25 Rx docusate sodium 100 mg capsule 100 mg PO BID constipation 11/29/24 03/30/25 History (Stool Softener) gemfibrozil 600 mg tablet 600 mg PO BID #180 tabs 11/29/24 03/30/25 Rx irbesartan 150 mg tablet 150 mg PO DAILY #90 tabs 12/16/24 03/30/25 Rx omeprazole 40 mg capsule,delayed 40 mg PO DAILY #90 caps 12/20/24 03/30/25 Rx release terbinafine HCl 1 % topical cream 1 applic topical BID #30 grams 01/18/25 03/22/25 Rx (Antifungal (terbinafine)) oxybutynin chloride 10 mg 10 mg PO DAILY #90 tabs 01/19/25 03/30/25 Rx tablet,extended release 24 hr cholecalciferol (vitamin D3) 25 25 mcg PO DAILY 03/22/25 03/30/25 History mcg (1,000 unit) capsule (Vitamin D3) ndvfcivb-bxra-ysfa 8 mg-folic 400 1 tablet PO DAILY 03/22/25 03/30/25 History mcg-K 50 mcg-lutein 300 mcg tablet (Centrum Silver Women) solifenacin 5 mg tablet 10 mg PO DAILY 03/22/25 03/30/25 History Allergies Allergy/AdvReac Type Severity Reaction Status Date / Time adhesive tape Allergy Intermediate Blister Verified 03/30/25 07:09 fenofibrate AdvReac Mild constipatio Verified 03/30/25 07:09 n Vital Signs Vital Signs - 24 hr 03/30/25 07:12 Temperature 97.0 F L Pulse Rate 60 Respiratory Rate 16 Blood Pressure 151/91 H Pulse Oximetry 99 Oxygen Delivery Room Air Exam Const: General: comfortable and no acute distress HENMT: Face/Nose/Sinus: Normal nares present Eyes: General: appearance normal, both eyes and all related structures Neck: Neck: no JVD Resp: Auscultation: clear to auscultation bilaterally Cardio: Rate: regular rate Rhythm: regular rhythm GI: Inspection: non-distended GI Palp: Yes Soft to palpation Skin: General skin exam: normal color Extrem: General: normal to inspection Psych: Mental Status: mental status grossly normal Assessment and Plan Assessment and plan (1) History of colon polyps: Code(s): Z86.010 - Personal history of colon polyps Status: Acute Assessment and Plan: colonoscopy
--- NOTE | 2025-03-30 08:15 | S_PTH ---
PATIENT: Mayte Hawley LOC: [facility] Ward#:[id number] AGE/SX: 74/F ROOM: RE03/30/[address]: Kane Turner MD : 1950 BED: DIS: 03/30/2025 SPEC #: [id number] RECD: 03/30/25 10:55 STATUS: ELOY REPerla #: [id number] TOMAS: 03/30/25 08:[address]: Kane Turner DEPT: [facility] Surgical RECD BY: Addis Crowe ENTERED: 03/30/25 10:56 SP TYPE: Surgical OTHR DR: Cathie Hickey MD Tissues: A - Colon Polypectomy Procedures: Hematoxylin and Eosin Stain Gross and Microscopic Level 4
[2025-03-30 08:17] VITALS: BP 94/56; PULSE 90; RESP 16; O2SAT 98
[2025-03-30 08:27] VITALS: BP 106/71; PULSE 83; RESP 20; O2SAT 98
[2025-03-30 08:37] VITALS: BP 110/74; PULSE 78; RESP 18; O2SAT 99
== END 2025-03-30 08:51 | disposition home or self-care (01) ==
PROVIDERS: PCP Family Medicine; Referring Provider Family Medicine; Visit Provider Internal Medicine Gastroenterology
PROC: 0DJD8ZZ Inspection of Lower Intestinal Tract, Via Natural or Artificial Opening Endoscopic (ICD-10-PCS; CPT 45378; principal; 2025-03-30 08:00)
DX: Z12.11 Encounter for screening for malignant neoplasm of colon (principal); D12.2 Benign neoplasm of ascending colon; K64.8 Other hemorrhoids; K57.30 Diverticulosis of large intestine without perforation or abscess without bleeding; I10 Essential (primary) hypertension; K21.9 Gastro-esophageal reflux disease without esophagitis; E78.2 Mixed hyperlipidemia; I48.0 Paroxysmal atrial fibrillation; N32.81 Overactive bladder; F32.A Depression, unspecified; G25.0 Essential tremor; G62.9 Polyneuropathy, unspecified; G89.29 Other chronic pain; M54.9 Dorsalgia, unspecified; M19.90 Unspecified osteoarthritis, unspecified site; Z79.01 Long term (current) use of anticoagulants; Z98.890 Other specified postprocedural states; Z98.1 Arthrodesis status; Z90.12 Acquired absence of left breast and nipple; Z86.79 Personal history of other diseases of the circulatory system; Z85.3 Personal history of malignant neoplasm of breast; Z92.3 Personal history of irradiation; Z87.442 Personal history of urinary calculi; Z80.1 Family history of malignant neoplasm of trachea, bronchus and lung; Z80.49 Family history of malignant neoplasm of other genital organs; Z80.3 Family history of malignant neoplasm of breast; Z82.49 Family history of ischemic heart disease and other diseases of the circulatory system
CPT/HCPCS: 45380; 88305; J2704; J7120

== ENCOUNTER 2025-05-16 15:07 | Outpatient (CLI) | payer MEDICARE, SELFPAY ==
--- NOTE | ~2025-05-16 | XR_ITS ---
XR abdomen/kub 1V 05/16/2025 15:26 Indication: Renal stone Procedure: KUB Comparison: 01/30/2022 Findings: There are surgical clips in the right and abdomen. Nonobstructive bowel gas pattern. There are calcifications overlying the right kidney, suspicious for renal stones. Correlation with CT recommended. Lung bases normal. Cardiomegaly. There are pelvic phleboliths. Impression: 1: Possible right nephrolithiasis. Consider correlation with CT. Reviewed, dictated and finalized at location I. ULAR SAWYER STONE Impression: 1: Possible right nephrolithiasis. Consider correlation with CT.
--- NOTE | ~2025-05-16 | US_ITS ---
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 Findings: KIDNEYS: Mild thinning of the left renal cortex, no hydronephrosis. Right Kidney: Right kidney surgically absent. Left Kidney: Left kidney superior pole renal calculus 1.2 x 1.2 cm, no hydronephrosis. Left kidney superior pole simple cyst 2.5 x 2.7 cm. Left kidney midpole simple cyst 1 x 1 cm. Left kidney measures 13.7 x 7.5 x 6.8 cm. Bladder: The bladder is unremarkable. . Impression: 1. Mild medical renal disease of the left kidney, no hydronephrosis. Renal calculus detailed above with simple appearing renal cysts Reviewed, dictated and finalized at location P. MATION MACHINE BUILDER Impression: 1. Mild medical renal disease of the left kidney, no hydronephrosis. Renal calc ulus detailed above with simple appearing renal cysts
--- OUTSIDE RECORDS SUMMARY | 2025-05-16 15:48 | XMS_ITS | Encounter Summary ---
Author Organization [facility] Address [facility] [place] [address] Care Team Providers Care Forestry Biology Specialist Name Role Phone Maureen Saleem MD Primary Care Provider [phone] Cathie Hickey MD Primary Care Provider Encounter Details Date Type Department Care Team (Late st Contact Info) Description 07/29/2016 Abstract [facility] CONVERSION [address] [place] [address] , Generic ConversionMD Social History Tobacco Use Types Packs/Day Years Used Date Smoking Tobacco: Never Assessed Comments Unknown Sex and Gender Information Value Date Recorded Sex Assigned at Female 07/09/2018 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 Legal Sex Female 7:36 PM CDT Gender Identity Female 07/09/2018 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 Sexual Orientation Straight 08/24/2018 8: 56 AM CDT documented as of this encounter Plan of Treatment Not on file documented as of this encounter Visit Diagnoses Not on filedocumented in this encounter Care Teams Forestry Biology Specialist Relationship Specialty Start Date End Date Maureen Saleem MD PCP - General FAMILY PRACTICE 07/01/18 04/30/22 Cathie Hickey MD [address] [facility] [address] [place] [address] PCP - General FAMILY PRACTICE 05/01/22 documented as of this encounter
--- OUTSIDE RECORDS SUMMARY | 2025-05-16 15:48 | XMS_ITS | Encounter Summary ---
Author Organization [facility] Healthcare Address [address] [place] [address] Care Team Providers Care Spinning Room Worker Name Role Phone Aden Rae MD Unavailable [phone] Yunior León MD Unavailable +[phone] Dariana Marlow MD Unavailable +[phone] Rubina Daugherty MD Unavailable +[phone] Hector Lao MD Unavailable +[phone] David Boone MD Unavailable +[phone] Zita Myles MD Primary Care Provider + [phone] Cathie Hickey MD Primary Care Provider Cathie Hickey MD Primary Care Provider Stacie Lopez NP Unavailable [phone] Encounter Details Date Type Department Care Team (Late st Contact Info) Description 04/30/2018 Orders Only [facility] [place] Health Information Management [address] [place] [address] Scanning, Provider Social History Tobacco Use Types Packs/Day Years Used Date Smoking Tobacco: Never Smokeless Tobacco: Never Alcohol Use Standard Drinks/Week Comments No 0 (1 standard drink = 0.6 oz pur e alcohol) Comments No Sex and Gender Information Value Date Recorded Sex Assigned at Not on file 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 Gender Identity Not on file Sexual [...] on filedocumented in this encounter Care Teams Spinning Room Worker Relationship Specialty Start Date End Date Zita Myles MD [address] [address] PCP - General Family Practice 01/15/18 02/14/21 Cathie Hickey MD [address] [address] PCP - General Family Practice 02/15/21 08/28/22 Cathie Hickey MD 3417 [facility] 2 [place], [place] [address] PCP - General Family Practice 08/29/22 Aden Rae MD [address] [place] [address] Medical Oncologist/Hem Inspector Medical Oncology 12/26/17 Yunior León MD [address] [place] [address] Referring Physician Radiation Oncology 12/26/17 Dariana Marlow MD [address] [place] [address] Surgeon Surgical Oncology 12/26/17 Rubina Daugherty MD [address] [place] [address] Consulting Physician Cardiology 12/26/17 Hector Lao MD [address] [place] [address] Referring Physician Family Medicine 12/26/17 David Boone MD [address] [facility] [address] [place] [address] Consulting Physician Urology 12/26/17 Stacie Lopez NP [address] [place] [address] Nurse Practitioner Medical Oncology 09/07/24 ZITA MONROE [address] [id number] Referring Physician Family Practice 10/23/18 documented as of this encounter
--- OUTSIDE RECORDS SUMMARY | 2025-05-16 15:48 | XMS_ITS | Encounter Summary ---
Author Organization [facility] Healthcare Address [address] [place] [address] Care Team Providers Care Elevator Examiner And Adjuster Name Role Phone Aden Rae MD Unavailable [phone] Yunior León MD Unavailable +[phone] Dariana Marlow MD Unavailable +[phone] Rubina Daugherty MD Unavailable [phone] Hector Lao MD Unavailable [phone] David Boone MD Unavailable [phone] Cathie Hickey MD Primary Care Provider Stacie Lopez NP Unavailable [phone] Encounter Details Date Type Department Care Team (Late st Contact Info) Description 08/03/2024 Orders Only [facility] Health Information Management [address] [place] [address] Scanning, Provider Social History Tobacco Use [...] on file 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 Gender Identity Not on file Sexual Orientation [...] on filedocumented in this encounter Care Teams Elevator Examiner And Adjuster Relationship Specialty Start Date End Date Cathie Hickey MD [address] [facility] [address] [place], [place] [address] PCP - General Family Practice 08/29/22 Aden Rae MD [address] [place] [address] Medical Oncologist/Watch Repair Person Medical Oncology 12/26/17 Yunior León MD [address] [place] [address] Referring Physician Radiation Oncology 12/26/17 Dariana Marlow MD [address] [place] [address] Surgeon Surgical Oncology 12/26/17 Rubina Daugherty MD [address] [place] [address] Consulting Physician Cardiology 12/26/17 Hector Lao [place] [address] Referring Physician Family Medicine 12/26/17 David Boone MD [address] [place] [address] Consulting Physician Urology 12/26/17 Stacie Lopez NP [address] [place] [address] Nurse Practitioner Medical Oncology 09/07/24 ZITA MONROE [address] [place] [address] Referring Physician Family Practice 10/23/18 documented as of this encounter
--- OUTSIDE RECORDS SUMMARY | 2025-05-16 15:48 | XMS_ITS | Encounter Summary ---
Author Organization [facility] Address [address] [place] [address] Phone Care Team Providers Care Trimmer And Borer Machine Operator Name Role Phone Hitesh Kwan MD Primary Care Provider [phone] Reason for Visit * Reason Comments Medication Refill Encounter Details Date Type Department Care Team (Late st Contact Info) Description 11/26/2020 Refill [facility] - Neurology [facility] [address] [place] [phone] Brian Valles MD [address] [place] [phone] Medication Refill Social History Tobacco Use Types [...] tremor documented in this encounter Care Teams Trimmer And Borer Machine Operator Relationship Specialty Start Date End Date Hitesh Kwan MD [address] [place] [address] PCP - General Ophthalmology 05/23/20 documented as of this encounter
--- OUTSIDE RECORDS SUMMARY | 2025-05-16 15:48 | XMS_ITS | Encounter Summary ---
Author Organization [facility] Healthcare Address [address] [place] [address] Care Team Providers Care Clinical Informatics Physician Name Role Phone Aden Rae MD Unavailable [phone] Yunior León MD Unavailable +[phone] Dariana Marlow MD Unavailable [phone] Rubina Daugherty MD Unavailable +[phone] Hector Lao MD Unavailable +[phone] David Boone MD Unavailable [phone] Cathie Hickey MD Primary Care Provider Cathie Hickey MD Primary Care Provider Stacie Lopez NP Unavailable [phone] Encounter Details Date Type Department Care Team (Late st Contact Info) Description 09/18/2021 Orders Only [facility] Health Information Management [address] [place] [address] Scanning, Provider Social History Tobacco Use Types Packs/Day Years Used Date Smoking Tobacco: Never Smokeless Tobacco: Never Alcohol Use Standard Drinks/Week Comments No 0 (1 standard drink = 0.6 oz pur e alcohol) Comments No Sex and Gender Information Value Date Recorded Sex Assigned at Not on file 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 Gender Identity Not on file Sexual Orientation Not on file documented as of this encounter Plan of Treatment Not on file documented as of this encounter Procedures Procedure Name Priority Date/Time Associated Diagnosis Comments SCAN - LABS 09/18/2021 documented in this encounter Results * SCAN - LABS (09/18/2021) us Provider Scanning Final Result documented in this encounter Visit Diagnoses Not on filedocumented in this encounter Care Teams Clinical Informatics Physician Relationship Specialty Start Date End Date Cathie Hickey MD [address] [place], [place] [address] PCP - General Family Practice 02/15/21 08/28/22 Cathie Hickey MD 3417 [facility] 2 [place], [place] [address] PCP - General Family Practice 08/29/22 Aden Rae MD [address] [place] [address] Medical Oncologist/Community Youth Secretary Medical Oncology 12/26/17 Yunior León MD [address] [place] [address] Referring Physician Radiation Oncology 12/26/17 Dariana Marlow MD [address] [place] [address] Surgeon Surgical Oncology 12/26/17 Rubina Daugherty MD [address] [place] [address] Consulting Physician Cardiology 12/26/17 Hector Lao MD [address] [place] [address] Referring Physician Family Medicine 12/26/17 David Boone MD [address] [place] [address] Consulting Physician Urology 12/26/17 Stacie Lopez NP [address] [place] [address] Nurse Practitioner Medical Oncology 09/07/24 ZITA MONROE [address] [place] [address] Referring Physician Family Practice 10/23/18 documented as of this encounter
--- OUTSIDE RECORDS SUMMARY | 2025-05-16 15:48 | XMS_ITS | Encounter Summary ---
Author Organization [facility] Healthcare Address [address] [place] [address] Care Team Providers Care Fried Cake Maker Name Role Phone Aden Rae MD Unavailable [phone] Yunior León MD Unavailable [phone] Dariana Marlow MD Unavailable [phone] Rubina Daugherty MD Unavailable +[phone] Hector Lao MD Unavailable +[phone] David Boone MD Unavailable [phone] Cathie Hickey MD Primary Care Provider Stacie Lopez NP Unavailable [phone] Encounter Details Date Type Department Care Team (Late st Contact Info) Description 10/12/2024 Orders Only [facility] Health Information Management [address] [place] [address] Scanning, Provider Social History Tobacco Use [...] on file 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 2 [place] [address] PCP - General Family Practice 08/29/22 Aden Rae MD [address] [place] [address] Medical Oncologist/Cardiac Tech Medical Oncology 12/26/17 Yunior León MD [address] [place] [address] Referring Physician Radiation Oncology 12/26/17 Dariana Marlow MD [address] [place] [address] Surgeon Surgical Oncology 12/26/17 Rubina Daugherty MD [address] [place] [address] Consulting Physician Cardiology 12/26/17 Hector Lao MD [address] [place] [address] Referring Physician Family Medicine 12/26/17 David Boone MD [address] [place] [address] Consulting Physician Urology 12/26/17 Stacie Lopez NP [address] [place] [address] Nurse Practitioner Medical Oncology 09/07/24 ZITA MONROE [address] [place] [address] Referring Physician Family Practice 10/23/18 documented as of this encounter
--- OUTSIDE RECORDS SUMMARY | 2025-05-16 15:48 | XMS_ITS | Encounter Summary ---
Author Organization [facility] Healthcare Address [address] [place] [address] Care Team Providers Care Industrial Maintenance Millwright Name Role Phone Aden Rae MD Unavailable [phone] Yunior León MD Unavailable [phone] Dariana Marlow MD Unavailable [phone] Rubina Daugherty MD Unavailable +[phone] Hector Lao MD Unavailable [phone] David Boone MD Unavailable [phone] Cathie Hickey MD Primary Care Provider Stacie Lopez NP Unavailable [phone] Encounter Details Date Type Department Care Team (Late st Contact Info) Description 06/22/2024 Orders Only [facility] Health Information Management [address] [place] [address] Scanning, Provider Social History Tobacco Use [...] on file 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 [address] [place], [place] [address] PCP - General Family Practice 08/29/22 Aden Rae MD [address] [place] [address] Medical Oncologist/Vat Washer Medical Oncology 12/26/17 Yunior León MD [address] [place] [address] Referring Physician Radiation Oncology 12/26/17 Dariana Marlow MD [address] [place] [address] Surgeon Surgical Oncology 12/26/17 Rubina Daugherty MD [address] [place] [address] Consulting Physician Cardiology 12/26/17 Hector Lao MD [place] [address] Referring Physician Family Medicine 12/26/17 David Boone MD [address] [place] [address] Consulting Physician Urology 12/26/17 Stacie Lopez NP [address] [place] [address] Nurse Practitioner Medical Oncology 09/07/24 ZITA MONROE [address] [place] [address] Referring Physician Family Practice 10/23/18 documented as of this encounter
--- OUTSIDE RECORDS SUMMARY | 2025-05-16 15:48 | XMS_ITS | Clinical Summary ---
Author Organization [facility] Address [address] [place] [address] Care Team Providers Care Information Technology Internship Name Role Phone Hector Lao MD Primary Care Provider [phone] [facility] [employer],non-owned Affiliates and Associated Physician Practices is amultiple site organization consisting of ambulatory clinics and hospital sitesin [place], [place], [place] and [place]. This disclosure is being madepursuant to the Care Everywhere program and may not contain all information available regarding this patient. Last updated 18.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 Gender Identity Not on file Sexual [...] DEPRESSION SCREENING 06/16/2024 COVID-19 VACCINE ( - 2024-2 6 season) 2025 INFLUENZA VACCINE (#1) 2025 Respiratory [...] age to complete this topic Insurance [facility] SELF PAY NO INSURANCE Member Subscriber Plan / Payer (Ef fective for All Dates) Name:Leatha Hawley Member ID:Not on file Relation to Subscriber:Not on file Name:LEAHTA HAWLEY Subscriber ID:Not on file (Home) Address[address] [address] [address] Payer ID:Not on file Group ID:Not on file Type:Self Pay Address: [place], [place] MEDICARE ANTHE[employer] MEDICARE MEDICARE Care Teams Information Technology Internship Relationship Specialty Start Date End Date Hector Lao MD [address] [place] [address] PCP - General 09/25/17
--- OUTSIDE RECORDS SUMMARY | 2025-05-16 15:48 | XMS_ITS | Encounter Summary ---
Author Organization [facility] Healthcare Address [address] [place] [address] Care Team Providers Care Taxation Consultant Name Role Phone Aden Rae MD Unavailable [phone] Yunior León MD Unavailable [phone] Dariana Marlow MD Unavailable [phone] Rubina Daugherty MD Unavailable [phone] Hector Lao MD Unavailable [phone] David Boone MD Unavailable [phone] Cathie Hickey MD Primary Care Provider Stacie Lopez NP Unavailable [phone] Encounter Details Date Type Department Care Team (Late st Contact Info) Description 05/25/2024 Orders Only [facility] Health Information Management [address] [place] [address] Scanning, Provider Social History Tobacco Use [...] on file 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 [address] [place], [place] [address] PCP - General Family Practice 08/29/22 Aden Rae MD [address] [place] [address] Medical Oncologist/Film Or Videotape Editor Medical Oncology 12/26/17 Yunior León MD [address] [place] [address] Referring Physician Radiation Oncology 12/26/17 Dariana Marlow MD [address] [place] [address] Surgeon Surgical Oncology 12/26/17 Rubina Daugherty MD [address] [place] [address] Consulting Physician Cardiology 12/26/17 Hector Lao MD [address] [place] [address] Referring Physician Family Medicine 12/26/17 David Boone MD [address] [place] [address] Consulting Physician Urology 12/26/17 Stacie Lopez NP [address] [place] [address] Nurse Practitioner Medical Oncology 09/07/24 ZITA MONROE [address] [place] [address] Referring Physician Family Practice 10/23/18 documented as of this encounter
--- OUTSIDE RECORDS SUMMARY | 2025-05-16 15:48 | XMS_ITS | Encounter Summary ---
Author Organization [facility] Healthcare Address [address] [place] [address] Care Team Providers Care Correctional Substance Abuse Counselor Name Role Phone Aden Rae MD Unavailable [phone] Yunior León MD Unavailable [phone] Dariana Marlow MD Unavailable [phone] Rubina Daugherty MD Unavailable +[phone] Hector Lao MD Unavailable [phone] David Boone MD Unavailable [phone] Cathie Hickey MD Primary Care Provider Cathie Hickey MD Primary Care Provider Stacie Lopez NP Unavailable [phone] Encounter Details Date Type Department Care Team (Late st Contact Info) Description 10/16/2021 Orders Only [facility] Health Information Management [address] [place] [address] Scanning, Provider Social History Tobacco Use Types Packs/Day Years Used Date Smoking Tobacco: Never Smokeless Tobacco: Never Alcohol Use Standard Drinks/Week Comments No 0 (1 standard drink = 0.6 oz pur e alcohol) Comments No Sex and Gender Information Value Date Recorded Sex Assigned at Not on file 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 Gender Identity Not on file Sexual Orientation Not on file documented as of this encounter Plan of Treatment Not on file documented as of this encounter Procedures Procedure Name Priority Date/Time Associated Diagnosis Comments SCAN - LABS 10/16/2021 documented in this encounter Results * SCAN - LABS (10/16/2021) us Provider Scanning Final Result documented in this encounter Visit Diagnoses Not on filedocumented in this encounter Care Teams Correctional Substance Abuse Counselor Relationship Specialty Start Date End Date Cathie Hickey MD [address] [place], [place] [address] PCP - General Family Practice 02/15/21 08/28/22 Cathie Hickey MD 3417 [facility] 2 [place], [place] [phone] PCP - General Family Practice 08/29/22 Aden Rae MD [address] [place] [address] Medical Oncologist/Aircraft Instrument Engineer Medical Oncology 12/26/17 Yunior León MD [address] [place] [address] Referring Physician Radiation Oncology 12/26/17 Dariana Marlow MD [address] [place] [address] Surgeon Surgical Oncology 12/26/17 Rubina Daugherty MD [address] [place] [address] Consulting Physician Cardiology 12/26/17 Hector Lao MD [address] [place] [address] Referring Physician Family Medicine 12/26/17 David Boone MD [address] [place] [address] Consulting Physician Urology 12/26/17 Stacie Lopez NP [address] [place] [address] Nurse Practitioner Medical Oncology 09/07/24 ZITA MONROE [address] [place] [address] Referring Physician Family Practice 10/23/18 documented as of this encounter
--- OUTSIDE RECORDS SUMMARY | 2025-05-16 15:48 | XMS_ITS | Encounter Summary ---
Author Organization [facility] Healthcare Address [address] [place] [address] Care Team Providers Care Veterinary Attendant Name Role Phone Aden Rae MD Unavailable [phone] Yunior León MD Unavailable [phone] Dariana Marlow MD Unavailable [phone] Rubina Daugherty MD Unavailable [phone] Hector Lao MD Unavailable +[phone] David Boone MD Unavailable [phone] Cathie Hickey MD Primary Care Provider Stacie Lopez NP Unavailable [phone] Encounter Details Date Type Department Care Team (Late st Contact Info) Description 08/17/2024 Orders Only [facility] Health Information Management [address] [place] [address] Scanning, Provider Social History Tobacco Use [...] on file 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 [address] [place], [place] [address] PCP - General Family Practice 08/29/22 Aden Rae MD [address] [place] [address] Medical Oncologist/Retail Delivery Driver Medical Oncology 12/26/17 Yunior León MD [address] [place] [address] Referring Physician Radiation Oncology 12/26/17 Dariana Marlow MD [address] [place] [address] Surgeon Surgical Oncology 12/26/17 Rubina Daugherty MD [address] [place] [address] Consulting Physician Cardiology 12/26/17 Hector Lao MD [place] [address] Referring Physician Family Medicine 12/26/17 David Boone MD [address] [place] [address] Consulting Physician Urology 12/26/17 Stacie Lopez NP [address] [place] [address] Nurse Practitioner Medical Oncology 09/07/24 ZITA MONROE [address] [place] [address] Referring Physician Family Practice 10/23/18 documented as of this encounter
--- OUTSIDE RECORDS SUMMARY | 2025-05-16 15:48 | XMS_ITS | Encounter Summary ---
Author Organization [facility] Healthcare Address [address] [place] [address] Care Team Providers Care Asset Protection Officer Name Role Phone Aden Rae MD Unavailable +[phone] Yunior León MD Unavailable +[phone] Dariana Marlow MD Unavailable +[phone] Rubina Daugherty MD Unavailable +[phone] Hector Lao MD Unavailable +[phone] David Boone MD Unavailable +[phone] Cathie Hickey MD Primary Care Provider Stacie Lopez NP Unavailable +[phone] Encounter Details Date Type Department Care Team (Late st Contact Info) Description 07/06/2024 Orders Only [facility] Health Information Management [address] [place] [address] Scanning, Provider Social History Tobacco Use [...] on file 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 Gender Identity Not on file Sexual [...] on filedocumented in this encounter Care Teams Asset Protection Officer Relationship Specialty Start Date End Date Cathie Hickey MD [address] [facility] [place] 2 [place], [place] [id number] PCP - General Family Practice 08/29/22 Aden Rae MD [address] [place] [address] Medical Oncologist/Measurer Machine Medical Oncology 12/26/17 Yunior León MD [address] [place] [address] Referring Physician Radiation Oncology 12/26/17 Dariana Marlow MD [address] [place] [address] Surgeon Surgical Oncology 12/26/17 Rubina Daugherty MD [address] [place] [address] Consulting Physician Cardiology 12/26/17 Hector Lao MD [place] [address] Referring Physician Family Medicine 12/26/17 David Boone MD [address] [place] [address] Consulting Physician Urology 12/26/17 Stacie Lopez NP [address] [place] [address] Nurse Practitioner Medical Oncology 09/07/24 [address] [place] [address] Referring Physician Family Practice 10/23/18 documented as of this encounter
--- OUTSIDE RECORDS SUMMARY | 2025-05-16 15:48 | XMS_ITS | Encounter Summary ---
Author Organization [facility] Healthcare Address [address] [place] [address] Care Team Providers Care Turbine Blade Assembler Name Role Phone Aden Rae MD Unavailable +[phone] Yunior León MD Unavailable +[phone] Dariana Marlow MD Unavailable +[phone] Rubina Daugherty MD Unavailable +[phone] Hector Lao MD Unavailable +[phone] David Boone MD Unavailable +[phone] Cathie Hickey MD Primary Care Provider Cathie Hickey MD Primary Care Provider Stacie Lopez NP Unavailable +[phone] Encounter Details Date Type Department Care Team (Late st Contact Info) Description 04/09/2022 Orders Only [facility] Health Information Management [address] [place] [address] Scanning, Provider Social History Tobacco Use Types Packs/Day Years Used Date Smoking Tobacco: Never Smokeless Tobacco: Never Alcohol Use Standard Drinks/Week Comments No 0 (1 standard drink = 0.6 oz pur e alcohol) Comments No Sex and Gender Information Value Date Recorded Sex Assigned at Not on file 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 Gender Identity Not on file Sexual Orientation Not on file documented as of this encounter Plan of Treatment Not on file documented as of this encounter Procedures Procedure Name Priority Date/Time Associated Diagnosis Comments SCAN - LABS 04/09/2022 documented in this encounter Results * SCAN - LABS (04/09/2022) us Provider Scanning Final Result documented in this encounter Visit Diagnoses Not on filedocumented in this encounter Care Teams Turbine Blade Assembler Relationship Specialty Start Date End Date Cathie Hickey MD [address] [place], [place] [id number] PCP - General Family Practice 02/15/21 08/28/22 Cathie Hickey MD [address]17 [facility] 2 [place], [place] [address] PCP - General Family Practice 08/29/22 Aden Rae MD [address] [place] [address] Medical Oncologist/Winch Derrick Operator Medical Oncology 12/26/17 Yunior León MD [address] [place] [address] Referring Physician Radiation Oncology 12/26/17 Dariana Marlow MD [address] [place] [address] Surgeon Surgical Oncology 12/26/17 Rubina Daugherty MD [address] [place] [address] Consulting Physician Cardiology 12/26/17 Hector Lao MD [address] [place] [address] Referring Physician Family Medicine 12/26/17 David Boone MD [address] [place] [address] Consulting Physician Urology 12/26/17 Stacie Lopez NP [address] [place] [address] Nurse Practitioner Medical Oncology 09/07/24 [address] [place] [address] Referring Physician Family Practice 10/23/18 documented as of this encounter
--- OUTSIDE RECORDS SUMMARY | 2025-05-16 15:48 | XMS_ITS | Encounter Summary ---
Author Organization [facility] Healthcare Address [address] [place] [address] Care Team Providers Care Chief Specialist Leed Name Role Phone Aden Rae MD Unavailable +[phone] Yunior León MD Unavailable +[phone] Dariana Marlow MD Unavailable +[phone] Rubina Daugherty MD Unavailable +[phone] Hector Lao MD Unavailable +[phone] David Boone MD Unavailable +[phone] Cathie Hickey MD Primary Care Provider Stacie Lopez NP Unavailable +[phone] Encounter Details Date Type Department Care Team (Late st Contact Info) Description 09/14/2024 Orders Only [facility] Health Information Management [address] [place] [address] Scanning, Provider Social History Tobacco Use [...] on file 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 Gender Identity Not on file Sexual Orientation [...] on filedocumented in this encounter Care Teams Chief Specialist Leed Relationship Specialty Start Date End Date Cathie Hickey MD 3417 [facility] 2 [place] [address] PCP - General Family Practice 08/29/22 Aden Rae MD [address] [place] [address] Medical Oncologist/Rd Mechanical Engineer Medical Oncology 12/26/17 Yunior León MD [address] [place] [address] Referring Physician Radiation Oncology 12/26/17 Dariana Marlow MD [address] [place] [address] Surgeon Surgical Oncology 12/26/17 Rubina Daugherty MD [address] [place] [address] Consulting Physician Cardiology 12/26/17 Hector Lao MD [address] [place] [address] Referring Physician Family Medicine 12/26/17 David Boone MD [address] [place] [address] Consulting Physician Urology 12/26/17 Stacie Lopez NP [address] [place] [address] Nurse Practitioner Medical Oncology 09/07/24 [address] [place] [address] Referring Physician Family Practice 10/23/18 documented as of this encounter
--- OUTSIDE RECORDS SUMMARY | 2025-05-16 15:48 | XMS_ITS | Encounter Summary ---
Author Organization [facility] Healthcare Address [address] [place] [address] Care Team Providers Care Medical Center Representative Name Role Phone Aden Rae MD Unavailable +[phone] Yunior León MD Unavailable +[phone] Dariana Marlow MD Unavailable +[phone] Rubina Daugherty MD Unavailable +[phone] Hector Lao MD Unavailable +[phone] David Boone MD Unavailable +[phone] Cathie Hickey MD Primary Care Provider Stacie Lopez NP Unavailable +[phone] Encounter Details Date Type Department Care Team (Late st Contact Info) Description 2024 Orders Only [facility] Health Information Management [address] [place] [address] Scanning, Provider Social History Tobacco Use [...] on file 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 Gender Identity Not on file Sexual [...] on filedocumented in this encounter Care Teams Medical Center Representative Relationship Specialty Start Date End Date Cathie Hickey MD [address] [facility] 2 [place], [place] [id number] PCP - General Family Practice 08/29/22 Aden Rae MD [address] [place] [address] Medical Oncologist/Pharmacy Clerk Medical Oncology 12/26/17 Yunior León MD [address] [place] [address] Referring Physician Radiation Oncology 12/26/17 Dariana Marlow MD [address] [place] [address] Surgeon Surgical Oncology 12/26/17 Rubina Daugherty MD [address] [place] [address] Consulting Physician Cardiology 12/26/17 Hector Lao [place] [address] Referring Physician Family Medicine 12/26/17 David Boone MD [address] [place] [address] Consulting Physician Urology 12/26/17 Stacie Lopez NP [address] [place] [address] Nurse Practitioner Medical Oncology 09/07/24 [address] [place] [address] Referring Physician Family Practice 10/23/18 documented as of this encounter
--- OUTSIDE RECORDS SUMMARY | 2025-05-16 15:48 | XMS_ITS | Encounter Summary ---
Author Organization [facility] Healthcare Address [address] [place] [address] Care Team Providers Care Work Car Operator Name Role Phone Aden Rae MD Unavailable +[phone] Yunior León MD Unavailable +[phone] Dariana Marlow MD Unavailable +[phone] Rubina Daugherty MD Unavailable +[phone] Hector Lao MD Unavailable +[phone] David Boone MD Unavailable +[phone] Cathie Hickey MD Primary Care Provider Cathie Hickey MD Primary Care Provider Stacie Lopez NP Unavailable [phone] Encounter Details Date Type Department Care Team (Late st Contact Info) Description 07/24/2021 Orders Only [facility] Health Information Management [address] [place] [address] Scanning, Provider Social History Tobacco Use Types Packs/Day Years Used Date Smoking Tobacco: Never Smokeless Tobacco: Never Alcohol Use Standard Drinks/Week Comments No 0 (1 standard drink = 0.6 oz pur e alcohol) Comments No Sex and Gender Information Value Date Recorded Sex Assigned at Not on file 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 Gender Identity Not on file Sexual Orientation Not on file documented as of this encounter Plan of Treatment Not on file documented as of this encounter Procedures Procedure Name Priority Date/Time Associated Diagnosis Comments SCAN - LABS 07/24/2021 documented in this encounter Results * SCAN - LABS (07/24/2021) us Provider Scanning Final Result documented in this encounter Visit Diagnoses Not on filedocumented in this encounter Care Teams Work Car Operator Relationship Specialty Start Date End Date Cathie Hickey MD [address] [place], [place] [address] PCP - General Family Practice 02/15/21 08/28/22 Cathie Hickey MD 3417 [facility] 2 [place], [place] [phone] PCP - General Family Practice 08/29/22 Aden Rae MD [address] [place] [address] Medical Oncologist/Rn Corrections Medical Oncology 12/26/17 Yunior León MD [address] [place] [address] Referring Physician Radiation Oncology 12/26/17 Dariana Marlow MD [address] [place] [address] Surgeon Surgical Oncology 12/26/17 Rubina Daugherty MD [address] [place] [address] Consulting Physician Cardiology 12/26/17 Hector Lao MD [address] [place] [address] Referring Physician Family Medicine 12/26/17 David Boone MD [address] [place] [address] Consulting Physician Urology 12/26/17 Stacie Lopez NP [address] [place] [address] Nurse Practitioner Medical Oncology 09/07/[address] [place] [address] Referring Physician Family Practice 10/23/18 documented as of this encounter
--- OUTSIDE RECORDS SUMMARY | 2025-05-16 15:48 | XMS_ITS | Clinical Summary ---
Author Organization [facility] Address [address] [facility] [place] [address] Phone Care Team Providers Care Battery Starter Name Role Phone Hitesh Kwan MD Primary Care Provider [phone] Allergies Active Allergy Reactions Criticality Noted Date [...] Virus (RSV) Immunization (Adult) (1 - Risk 50-74 years 1-dose series) 2000 Zoster Immunization (1 of 2) 06/07/2014 04/12/2014 [...] age to complete this topic Insurance MEDICARE [facility] Care Teams Battery Starter Relationship Specialty Start Date End Date Hitesh Kwan MD [address] [place] [address] PCP - General Ophthalmology 05/23/20
--- OUTSIDE RECORDS SUMMARY | 2025-05-16 15:48 | XMS_ITS | Encounter Summary ---
Author Organization [facility] Healthcare Address [address] [place] [address] Care Team Providers Care Trim Line Worker Name Role Phone Aden Rae MD Unavailable +[phone] Yunior León MD Unavailable +[phone] Dariana Marlow MD Unavailable +[phone] Rubina Daugherty MD Unavailable +[phone] Hector Lao MD Unavailable +[phone] David Boone MD Unavailable +[phone] Cathie Hickey MD Primary Care Provider Stacie Lopez NP Unavailable [phone] Encounter Details Date Type Department Care Team (Late st Contact Info) Description 08/24/2024 Orders Only [facility] Health Information Management [address] [place] [address] Scanning, Provider Social History Tobacco Use [...] on file 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 Gender Identity Not on file Sexual [...] on filedocumented in this encounter Care Teams Trim Line Worker Relationship Specialty Start Date End Date Cathie Hickey MD 3417 [facility] [place] 2 [place], [place] [address] PCP - General Family Practice 08/29/22 Aden Rae MD [address] [place] [address] Medical Oncologist/Hinging Machine Operator Medical Oncology 12/26/17 Yunior León MD [address] [place] [address] Referring Physician Radiation Oncology 12/26/17 Dariana Marlow MD [address] [place] [address] Surgeon Surgical Oncology 12/26/17 Rubina Daugherty MD [address] [place] [address] Consulting Physician Cardiology 12/26/17 Hector Lao MD [place] [address] Referring Physician Family Medicine 12/26/17 David Boone MD [address] [place] [address] Consulting Physician Urology 12/26/17 Stacie Lopez NP [address] [place] [address] Nurse Practitioner Medical Oncology 09/07/24 [address] [place] [address] Referring Physician Family Practice 10/23/18 documented as of this encounter
--- OUTSIDE RECORDS SUMMARY | 2025-05-16 15:48 | XMS_ITS | Encounter Summary ---
Author Organization [facility] Healthcare Address [address] [place] [address] Care Team Providers Care Interior Design Program Chair Name Role Phone Aden Rae MD Unavailable +[phone] Yunior León MD Unavailable +[phone] Dariana Marlow MD Unavailable +[phone] Rubina Daugherty MD Unavailable +[phone] Hector Lao MD Unavailable +[phone] David Boone MD Unavailable [phone] Cathie Hickey MD Primary Care Provider Cathie Hickey MD Primary Care Provider Stacie Lopze NP Unavailable +[phone] Encounter Details Date Type Department Care Team (Late st Contact Info) Description 10/02/2021 Orders Only [facility] Health Information Management [address] [place] [address] Scanning, Provider Social History Tobacco Use Types Packs/Day Years Used Date Smoking Tobacco: Never Smokeless Tobacco: Never Alcohol Use Standard Drinks/Week Comments No 0 (1 standard drink = 0.6 oz pur e alcohol) Comments No Sex and Gender Information Value Date Recorded Sex Assigned at Not on file 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 Sex Female 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 Gender Identity Not on file Sexual Orientation Not on file documented as of this encounter Plan of Treatment Not on file documented as of this encounter Procedures Procedure Name Priority Date/Time Associated Diagnosis Comments SCAN - LABS 10/02/2021 documented in this encounter Results * SCAN - LABS (10/02/2021) us Provider Scanning Final Result documented in this encounter Visit Diagnoses Not on filedocumented in this encounter Care Teams Interior Design Program Chair Relationship Specialty Start Date End Date Cathie Hickey MD [address] [place], [place] [address] PCP - General Family Practice 02/15/21 08/28/22 Cathie Hickey MD 3417 [facility] 2 [place], [place] [address] PCP - General Family Practice 08/29/22 Aden Rae MD [address] [place] [address] Medical Oncologist/Lap Grinder Medical Oncology 12/26/17 Yunior León MD [address] [place] [address] Referring Physician Radiation Oncology 12/26/17 Dariana Marlow MD [address] [place] [address] Surgeon Surgical Oncology 12/26/17 Rubina Daugherty MD [address] [place] [address] Consulting Physician Cardiology 12/26/17 Hector Lao MD [address] [place] [address] Referring Physician Family Medicine 12/26/17 David Boone MD [address] [place] [address] Consulting Physician Urology 12/26/17 Stacie Lopez NP [address] [place] [address] Nurse Practitioner Medical Oncology 09/07/24 [address] [place] [address] Referring Physician Family Practice 10/23/18 documented as of this encounter
--- OUTSIDE RECORDS SUMMARY | 2025-05-16 15:48 | XMS_ITS | Encounter Summary ---
Author Organization [facility] Healthcare Address [address] [place] [address] Care Team Providers Care Bradder Name Role Phone Aden Rae MD Unavailable +[phone] Yunior León MD Unavailable +[phone] Dariana Marlow MD Unavailable +[phone] Rubina Daugherty MD Unavailable +[phone] Hector Lao MD Unavailable +[phone] Daivd Boone MD Unavailable +[phone] Cathie Hickey MD Primary Care Provider Stacie Lopez NP Unavailable [phone] Encounter Details Date Type Department Care Team (Late st Contact Info) Description 07/20/2024 Orders Only [facility] Health Information Management [address] [place] [address] Scanning, Provider Social History Tobacco Use [...] on file 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 Gender Identity Not on file Sexual Orientation [...] on filedocumented in this encounter Care Teams Bradder Relationship Specialty Start Date End Date Cathie Hickey MD 3417 [facility] [place] 2 [place], [place] [address] PCP - General Family Practice 08/29/22 Aden Rae MD [address] [place] [address] Medical Oncologist/Driver/Merchandiser Medical Oncology 12/26/17 Yunior León MD [address] [place] [address] Referring Physician Radiation Oncology 12/26/17 Dariana Marlow MD [address] [place] [address] Surgeon Surgical Oncology 12/26/17 Rubina Daugherty MD [address] [place] [address] Consulting Physician Cardiology 12/26/17 Hector Lao [place] [address] Referring Physician Family Medicine 12/26/17 David Boone MD [address] [place] [address] Consulting Physician Urology 12/26/17 Stacie Lopez NP [address] [place] [address] Nurse Practitioner Medical Oncology 09/07/24 [address] [place] [address] Referring Physician Family Practice 10/23/18 documented as of this encounter
--- OUTSIDE RECORDS SUMMARY | 2025-05-16 15:48 | XMS_ITS | Encounter Summary ---
Author Organization [facility] Healthcare Address [address] [place] [address] Care Team Providers Care Clinical Account Specialist Name Role Phone Aden Rae MD Unavailable +[phone] Yunior León MD Unavailable +[phone] Dariana Marlow MD Unavailable +[phone] Rubina Daugherty MD Unavailable +[phone] Hector Lao MD Unavailable +[phone] David Boone MD Unavailable +[phone] Cathie Hickey MD Primary Care Provider Stacie Lopez NP Unavailable +[phone] Encounter Details Date Type Department Care Team (Late st Contact Info) Description 09/28/2024 Orders Only [facility] Health Information Management [address] [place] [address] Scanning, Provider Social History Tobacco Use [...] on file 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 AND 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 Gender Identity Not on file Sexual [...] filedocumented in this encounter Care Teams Clinical Account Specialist Relationship Specialty Start Date End Date Cathie Hickey MD 3417 [facility] 2 [place] [address] PCP - General Family Practice 08/29/22 Aden Rae MD [address] [place] [address] Medical Oncologist/Wage Adjuster Medical Oncology 12/26/17 Yunior León MD [address] [place] [address] Referring Physician Radiation Oncology 12/26/17 Dariana Marlow MD [address] [place] [address] Surgeon Surgical Oncology 12/26/17 Rubina Daugherty MD [address] [place] [address] Consulting Physician Cardiology 12/26/17 Hector Lao MD [address] [place] [address] Referring Physician Family Medicine 12/26/17 David Boone MD [address] [place] [address] Consulting Physician Urology 12/26/17 Stacie Lopez NP [address] [place] [address] Nurse Practitioner Medical Oncology 09/07/24 [address] [place] [address] Referring Physician Family Practice 10/23/18 documented as of this encounter
--- OUTSIDE RECORDS SUMMARY | 2025-05-16 15:49 | XMS_ITS | Encounter Summary ---
Author Organization [facility] Address [address] [facility] [address] [place] [address] Phone Care Team Providers Care Senior Drupal Developer Name Role Phone Hector Lao MD Primary Care Provider + [phone] Zita Myles MD Primary Care Provider + [phone] Aden Rae MD Unavailable +[phone] Yunior León MD Unavailable + [phone] Dariana Marlow MD Unavailable +[phone] Rubina Daugherty MD Unavailable +[phone] Hector Lao MD Unavailable + [phone] David Boone MD Unavailable +[phone] Hector Lao MD Primary Care Provider +[phone] Zita Myles MD Primary Care Provider + [phone] Cathie Hickey MD Primary Care Provider Cathie Hickey MD Primary Care Provider Stacie Lopez NP Unavailable +[phone] Encounter Details Date Type Department Care Team [...] on file Legal Sex Female 2:30 AM RELATIONS LIAISON Gender Identity Not on file Sexual Orientation [...] on filedocumented in this encounter Care Teams Senior Drupal Developer Relationship Specialty Start Date End Date Hector Lao MD [address] [place] [address] PCP - General 09/13/16 12/18/17 Zita Myles MD [address] [place] [address] PCP - General Family Practice 12/19/17 12/30/17 Hector Lao MD [address] [place] [address] PCP - General 12/31/17 01/14/18 Zita Myles MD [address] [place] [address] PCP - General Family Practice 01/15/18 02/14/21 Cathie Hickey MD [address] [place] [address] PCP - General Family Practice 02/15/21 08/28/22 Cathie Hickey MD 3417 [facility] [place] 2 [place] [address] PCP - General Family Practice 08/29/22 Aden Rae MD [address] [place], [place] [address] Medical Oncologist/Adding Machine Servicer Medical Oncology 12/26/17 Yunior León MD [address] [place] [address] Referring Physician Radiation Oncology 12/26/17 Dariana Marlow MD [address] [place] [address] Surgeon Surgical Oncology 12/26/17 Rubina Daugherty MD [address] [place] [address] Consulting Physician Cardiology 12/26/17 Hector Lao MD [address] [place] [address] Referring Physician Family Medicine 12/26/17 David Boone MD [address] [place] [address] Consulting Physician Urology 12/26/17 Stacie Lopez NP [address] [place] [address] Nurse Practitioner Medical Oncology 09/07/24 ZITA MONROE [address] [address] Referring Physician Family Practice 10/23/18 documented as of this encounter
--- OUTSIDE RECORDS SUMMARY | 2025-05-16 15:49 | XMS_ITS | Clinical Summary ---
Author Organization [facility] Address [address] [place] [address] Care Team Providers Care Portfolio Lead Name Role Phone Cathie Hickey MD Primary [...] breast in female, estrogen receptor positive 12/30/2017 Positive CHANDRA (antinuclear antibody) 12/26/2017 ELISHA (obstructive sleep apnea) 11/27/2017 TILLMAN (dyspnea on exertion) 11/25/2017 Atypical atrial flutter 11/27/2016 Absence of kidney 11/20/2015 Overview (07/09/2018): Overview: H/O unilateral nephrectomy Bradycardia 11/20/2015 Overview (07/09/2018): Overview: Bradycardia Essential hypertension 11/20/2015 Overview (07/09/2018): Overview: 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 0 11/20/2015 Overview (07/09/2018): Overview: Chronic anticoagulation Neuritis 08/23/2015 Capsulitis of right foot 08/15/2015 Osteoarthritis of right ankle or foot 06/06/2015 Complication of internal fixation device 015 Soft tissue mass 01/03/2015 Hypertriglyceridemia 10/04/2014 Overview (07/09/2018): Overview: Hypertriglyceridemia Ingrowing nail 09/12/2014 Paroxysmal atrial fibrillation 03/08/2014 Overview (07/09/2018): Overview: PAF (paroxysmal atrial [...] Sex Assigned at Female 07/09/2018 3:10 PM CHRO Legal Sex Female 7:36 PM CDT Gender Identity Female 07/09/2018 3:10 PM CHRO Sexual Orientation Straight 08/24/2018 8: 56 AM [...] Dexa Scan (General) 09/01/2015 COVID-19 Vaccine ( - season) 2025 03/16/2021, 09/06/2020, 08/09/2020 Influenza Adult (#1) 2025 03/16/2021 Mammogram Screening 09/07/2026 09/07/2024, 09/03/2023, 08/28/2022, Additional history exists DTaP, Tdap and Td Vaccines (2 - Td or Tdap) 11/26/2028 11/26/2018, 10/26/2008 Pneumococcal Vaccine: 50+ Years Completed 01/12/2019, 08/28/2016, 08/27/2016, Additional history exists Hepatitis A Vaccines Aged Out No long er eligible based on patient's age to complete this topic Meningococcal B Vaccine Aged Out No l onger eligible based on patient's age to complete this topic Meningococcal Vaccine Aged Out No alphonso fely eligible based on patient's age to complete this topic RSV Immunizations Under 20 Months Aged Out No longer eligible based on patient's age to complete this topic Insurance MEDICARE [employer]ET[employer] Care Teams Portfolio Lead Relationship Specialty Start Date End Date Cathie Hickey MD [address] [facility] [address] [place] [address] PCP - General FAMILY PRACTICE 05/01/22
--- OUTSIDE RECORDS SUMMARY | 2025-05-16 15:49 | XMS_ITS ---
Author Organization [facility] [address] Address [address] [place] [address] Care Team Providers Care Stock Clerk Self Service Store Name Role Phone Aden Rae MD Unavailable +[phone] Yunior León MD Unavailable [phone] Dariana Marlow MD Unavailable +[phone] Rubina Daugherty MD Unavailable [phone] Hector Lao MD Unavailable [phone] David Boone MD Unavailable [phone] Cathie Hickey MD Primary Care Provider Stacie Lopez NP Unavailable [phone] Active Problems Problem Noted Date Diagnosed Date [...] from 11/24/2017:Stage IA(pT1c, pN0, cM0, G1, ER+, VT+, HER2-, Oncotype DX score: 7) - Signed [...] in female, estrogen receptor positive 10/20/2018 01/26/2020 [facility] (current) use of a romatase inhibitors 10/20/2018 09/03/2023 Menopausal symptom 01/02/2018 8 Positive CHANDRA (antinuclear antibody) 12/26/2017 09/07/2024 TILLMAN (dyspnea on exertion) 11/25/2017 Malignant neoplasm of left 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, estrogen receptor positive 11/24/2017 12/30/2017 Bradycardia 11/20/2015 09/07/2024 Overview (09/19/2016): Bradycardia Lumbago 02/14/2010 09/07/2024 Essential hypertension 02/07/201006/23
--- OUTSIDE RECORDS SUMMARY | 2025-05-16 15:49 | XMS_ITS | Clinical Summary ---
Author Organization [facility] [place] [address] Address [address] [place] [address] Care Team Providers Care Marketing Communications Coordinator Name Role Phone Aden Rae MD Unavailable [phone] Yunior León MD Unavailable [phone] Dariana Marlow MD Unavailable +[phone] Rubina Daugherty MD Unavailable [phone] Hector Lao MD Unavailable [phone] David Boone MD Unavailable [phone] Cathie Hickey MD Primary Care Provider Stacie Lopez NP Unavailable [phone] Allergies Active Allergy Reactions Criticality Noted Date [...] (six) hours as needed for pain Active sotntgih-ornxbjm-o patricio-lutein tablet Take by mouth Active solifenacin (VESIcare) 5 mg tablet Take 1 tablet (5 mg total) by mouth daily 04/16/20 Active omeprazole (PriLOSEC) 40 mg capsule 04/23/20 [...] 90 tablet 3 08/25/19 25 026 Active atorvastatin (LIPITOR) 20 mg tabletIndications: Mixed hyperlipidemia TAKE 1 TABLET BY MOUTH EVERY DAY 90 tablet 3 11/23/19 25 Active warfarin (COUMADIN) 2.5 mg tabletIndications: 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 90 tablet 04/18/20 25 Active warfarin (COUMADIN) 2.5 mg tabletIndications: correction current use of anticoagulant therapy TAKE 1 TABLET BY MOUTH DAILY OR DIRECTED BY PHYSICIAN. 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 Cardiology [address] [place] [address] [address] [place] [address] Racquel Eason RN Chronic anticoagulation (Primary Dx); Atypical atrial flutter (HCC) 04/22/2025 Anticoagulation Visit [facility] Cardiology [address] [place] [address] [address] [place] [phone] Lily Godoy RN Chronic anticoagulation (Primary Dx); Atypical atrial flutter (HCC) 04/08/2025 Anticoagulation Visit [facility] Cardiology [address] [place] [address] [address] [place] [phone] Lily Godoy RN Chronic anticoagulation (Primary Dx); Atypical atrial flutter (HCC) 03/23/2025 Telephone [facility] Cardiology [address] [place] [address] [address] [place] [phone] Amanda Perkins NP 03/22/2025 Anticoagulation Visit [address] [place] [phone] Racquel Eason RN Chronic anticoagulation (Primary Dx); Atypical atrial flutter (HCC) 03/07/2025 Anticoagulation Visit [address] [place] [phone] Racquel Eason RN Chronic anticoagulation (Primary Dx); Atypical atrial flutter (HCC) 02/21/2025 Orders Only [facility] [place] Health Information Management [address] [place] [address] Scanning, Provider 02/21/2025 Anticoagulation Visit 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 Gender Identity Not on file Sexual Orientation [...] (2 of 2) 04/06/2024 02/10/2024 Covid-19 Vaccine (4 - 2024-2 6 season) 2025 03/16/2021, 09/06/2020, 08/09/2020 Influenza Vaccine (#1) 2025 02/10/2024, 2020 Breast Cancer Screening-Mammogram 09/07/2025 09/07/2024, 09/03/2023, 08/28/2022, Additional history exists DTaP/Tdap/Td Vaccine (2 - Td or Tdap) 11/26/2028 11/26/2018 Pneumococcal vaccine 65+ Completed 01/12/2019, 08/14 Procedures Procedure Name Priority Date/Time Associated Diagnosis Comments PROTIME-INR Routine 05/06/2025 PROTIME-INR Routine 04/22/2025 PROTIME-INR Routine 04/08/2025 PROTIME-INR Routine 03/21/2025 PROTIME-INR Routine 03/07/2025 SCAN - LABS 02/21/2025 PROTIME-INR Routine 02/21/2025 SCREENING MAMMOGRAM BILATERAL W [place] Schedule Routine, Read Routine (OP Routine) 09/07/2024 10:57 AM CDT Encounter for screening mammogram for breast cancer Breast cancer screening by mammogram from Last 3 Months or Most Recently Relevant to Health Maintenance Results * (ABNORMAL) Protime-INR (05/06/2025) INR 1.90(A) 0.90 - 1.10 EXTERNAL LAB Blood Historical Provider MD LAB BLOOD ORDERABLES Nhung l Result EXTERNAL LAB * (ABNORMAL) Protime-INR (04/22/2025) INR 2.50(A) 0.90 - 1.10 EXTERNAL LAB Blood 04/22/2025 Historical Provider MD LAB BLOOD ORDERABLES Nhung l Result EXTERNAL LAB * (ABNORMAL) Protime-INR (04/08/2025) INR 1.70(A) 0.90 - 1.10 EXTERNAL LAB Blood 04/08/2025 Historical Provider MD LAB BLOOD ORDERABLES Nhung l Result EXTERNAL LAB * (ABNORMAL) Protime-INR (03/21/2025) INR 1.90(A) 0.90 - 1.10 EXTERNAL LAB Blood Result [facility] Provider MD LAB BLOOD ORDERABLES Nhung l Result Performing Organization Address [facility]/ZIP Co de Phone Number EXTERNAL LAB * (ABNORMAL) Protime-INR (03/07/2025) INR 2.00(A) 0.90 - 1.10 EXTERNAL LAB Blood Result [facility] Provider MD LAB BLOOD ORDERABLES Nhung l Result Performing Organization Address [facility]/ZIP Co de Phone Number EXTERNAL LAB * SCAN - LABS (02/21/2025) Provider Scanning Final Result * (ABNORMAL) Protime-INR (02/21/2025) INR 1.80(A) 0.90 - 1.10 EXTERNAL LAB Blood Result [facility] Provider MD LAB BLOOD ORDERABLES Nhung l Result Performing Organization Address [facility]/ZIP Co de Phone Number EXTERNAL LAB * [...] age 40, based on guidelines of the [employer] (ACR Practice Parameter for the Performance of Screening and Diagnostic Mammography) and [employer]. For women [...] Recently Relevant to Health Maintenance Insurance MEDICARE [facility] MEDICARE SUPPLEMENT MEDICARE [facility] MEDICARE SUPPLEMENT Care Teams Marketing Communications Coordinator Relationship Specialty Start Date End Date Cathie Hickey MD [address] [facility] [address] [place] [address] PCP - General Family Practice 08/29/22 Aden Rae MD [address] [place] [address] Medical Oncologist/Level Vial Marker Medical Oncology 12/26/17 Yunior León MD [address] [place] [address] Referring Physician Radiation Oncology 12/26/17 Dariana Marlow MD [address] [place] [address] Surgeon Surgical Oncology 12/26/17 JimenaRubina domínguez MD [address] [place] [address] Consulting Physician Cardiology 12/26/17 Hector Lao MD [address] [place] [address] Referring Physician Family Medicine 12/26/17 David Boone MD [address] [address] Consulting Physician Urology 12/26/17 Stacie Lopez NP [address] [place] [address] Nurse Practitioner Medical Oncology 09/07/24 ZITA MONROE [address] [place] [address] Referring Physician Family Practice 10/23/18
--- OUTSIDE RECORDS SUMMARY | 2025-05-16 15:49 | XMS_ITS | Encounter Summary ---
Author Organization [facility] Healthcare Address [address] [place] [address] Care Team Providers Care Community Health Coordinator Name Role Phone Aden Rae MD Unavailable [phone] Yunior León MD Unavailable [phone] Dariana Marlow MD Unavailable [phone] Rubina Daugherty MD Unavailable [phone] Hector Lao MD Unavailable [phone] David Boone MD Unavailable [phone] Cathie Hickey MD Primary Care Provider Stacie Lopez NP Unavailable [phone] Encounter Details Date Type Department Care Team (Late st Contact Info) Description 10/19/2024 Orders Only [facility] [place] Information Management [address] [place] [address] Scanning, Provider Social History Tobacco Use [...] on file 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 Gender Identity Not on file Sexual [...] on filedocumented in this encounter Care Teams Community Health Coordinator Relationship Specialty Start Date End Date Cathie Hickey MD [address] [facility] 2 [place] [address] PCP - General Family Practice 08/29/22 Aden Rae MD [address] [place] [address] Medical Oncologist/Director Of Community Life Medical Oncology 12/26/17 Yunior León MD [address] [place] [address] Referring Physician Radiation Oncology 12/26/17 Dariana Marlow MD [address] [place] [address] Surgeon Surgical Oncology 12/26/17 Rubina Daugherty MD [address] [place] [address] Consulting Physician Cardiology 12/26/17 Hector Lao MD [address] [place] [address] Referring Physician Family Medicine 12/26/17 David Boone MD [address] [place] [address] Consulting Physician Urology 12/26/17 Stacie Lopez NP [address] [place] [address] Nurse Practitioner Medical Oncology 09/07/24 ZITA MONROE [address] [place] [address] Referring Physician Family Practice 10/23/18 documented as of this encounter
--- OUTSIDE RECORDS SUMMARY | 2025-05-16 15:49 | XMS_ITS | Encounter Summary ---
Author Organization [facility] Healthcare Address [address] [place] [address] Care Team Providers Care Cover Inspector Name Role Phone Aden Rae MD Unavailable [phone] Yunior León MD Unavailable [phone] Dariana Marlow MD Unavailable [phone] Rubina Daugherty MD Unavailable [phone] Hector Lao MD Unavailable [phone] David Boone MD Unavailable [phone] Cathie Hickey MD Primary Care Provider Stacie Lopez NP Unavailable [phone] Encounter Details Date Type Department Care Team (Late st Contact Info) Description 06/07/2024 Orders Only [facility] Health Information Management [address] [place] [address] Scanning, Provider Social History Tobacco Use [...] on file 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 Gender Identity Not on file Sexual Orientation [...] on filedocumented in this encounter Care Teams Cover Inspector Relationship Specialty Start Date End Date Cathie Hickey MD [address] [facility] [address] [place], [place] [id number] PCP - General Family Practice 08/29/22 Aden Rae MD [address] [place] [address] Medical Oncologist/Detective Precinct Medical Oncology 12/26/17 Yunior León MD [address] [place] [address] Referring Physician Radiation Oncology 12/26/17 Dariana Marlow MD [address] [place] [address] Surgeon Surgical Oncology 12/26/17 Rubina Daugherty MD [address] [place] [address] Consulting Physician Cardiology 12/26/17 H[place] [address] Referring Physician Family Medicine 12/26/17 David Boone MD [address] [place] [address] Consulting Physician Urology 12/26/17 Stacie Lopez NP [address] [place] [address] Nurse Practitioner Medical Oncology 09/07/24 ZITA MONROE [address] [place] [address] Referring Physician Family Practice 10/23/18 documented as of this encounter
--- OUTSIDE RECORDS SUMMARY | 2025-05-16 15:49 | XMS_ITS | Encounter Summary ---
Author Organization [facility] Healthcare Address [address] [place] [address] Care Team Providers Care Rickshaw Driver Name Role Phone Aden Rae MD Unavailable [phone] Yunior León MD Unavailable [phone] Dariana Marlow MD Unavailable [phone] Rubina Daugherty MD Unavailable +[phone] Hector Lao MD Unavailable [phone] David Boone MD Unavailable [phone] Cathie Hickey MD Primary Care Provider Stacie Lopez NP Unavailable [phone] Encounter Details Date Type Department Care Team (Late st Contact Info) Description 11/22/2024 Orders Only [facility] [place] Health Information Management [address] [place] [address] Scanning, Provider Social History Tobacco Use [...] on file 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 Gender Identity Not on file Sexual Orientation [...] on filedocumented in this encounter Care Teams Rickshaw Driver Relationship Specialty Start Date End Date Cathie Hickey MD [address] [facility] 2 [place] [address] PCP - General Family Practice 08/29/22 Aden Rae MD [address] [place] [address] Medical Oncologist/Bonus Clerk Medical Oncology 12/26/17 Yunior León MD [address] [place] [address] Referring Physician Radiation Oncology 12/26/17 Dariana Marlow MD [address] [place] [address] Surgeon Surgical Oncology 12/26/17 Rubina Daugherty MD [address] [place] [address] Consulting Physician Cardiology 12/26/17 Hector Lao MD [address] [place] [address] Referring Physician Family Medicine 12/26/17 David Boone MD [address] [place] [address] Consulting Physician Urology 12/26/17 Stacie Lopez NP [address] [place] [address] Nurse Practitioner Medical Oncology 09/07/24 [address]E [address] [place] [address] Referring Physician Family Practice 10/23/18 documented as of this encounter
--- OUTSIDE RECORDS SUMMARY | 2025-05-16 15:49 | XMS_ITS | Encounter Summary ---
Author Organization [facility] Healthcare Address [address] [place] [address] Care Team Providers Care Certified Travel Counselor Name Role Phone Aden Rae MD Unavailable [phone] Yunior León MD Unavailable [phone] Dariana Marlow MD Unavailable [phone] Rubina Daugherty MD Unavailable [phone] Hector Lao MD Unavailable [phone] David Boone MD Unavailable [phone] Cathie Hickey MD Primary Care Provider Stacie Lopez NP Unavailable [phone] Encounter Details Date Type Department Care Team (Late st Contact Info) Description 04/27/2024 Orders Only [facility] [place] Health Information Management [address] [place] [address] Scanning, Provider Social History Tobacco Use [...] on file 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 Gender Identity Not on file Sexual Orientation [...] on filedocumented in this encounter Care Teams Certified Travel Counselor Relationship Specialty Start Date End Date Cathie Hickey MD [address] [facility] [place] [address] [place], [place] [phone] PCP - General Family Practice 08/29/22 Aden Rae MD [address] [place] [address] Medical Oncologist/Internet Programmer Medical Oncology 12/26/17 Yunior León MD [address] [place] [address] Referring Physician Radiation Oncology 12/26/17 Dariana Marlow MD [address] [place] [address] Surgeon Surgical Oncology 12/26/17 Rubina Daugherty MD [address] [place] [address] Consulting Physician Cardiology 12/26/17 Hector [place] [address] Referring Physician Family Medicine 12/26/17 David Boone MD [address] [place] [address] Consulting Physician Urology 12/26/17 Stacie Lopez NP [address] [place] [address] Nurse Practitioner Medical Oncology 09/07/24 ZITA MONROE [address] [place] [address] Referring Physician Family Practice 10/23/18 documented as of this encounter
--- OUTSIDE RECORDS SUMMARY | 2025-05-16 15:49 | XMS_ITS | Encounter Summary ---
Author Organization [facility] Healthcare Address [address] [place] [address] Care Team Providers Care Paid Search Analyst Name Role Phone Aden Rae MD Unavailable [phone] Yunior León MD Unavailable [phone] Dariana Marlow MD Unavailable [phone] Rubina Daugherty MD Unavailable +[phone] Hector Lao MD Unavailable [phone] David Boone MD Unavailable [phone] Cathie Hickey MD Primary Care Provider Stacie Lopez NP Unavailable [phone] Encounter Details Date Type Department Care Team (Late st Contact Info) Description 05/11/2024 Orders Only [facility] [place] Health Information Management [address] [place] [address] Scanning, Provider Social History Tobacco Use [...] on file 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 Gender Identity Not on file Sexual Orientation [...] on filedocumented in this encounter Care Teams Paid Search Analyst Relationship Specialty Start Date End Date Cathie Hickey MD [address] [facility] [address] [place], [place] [id number] PCP - General Family Practice 08/29/22 Aden Rae MD [address] [place] [address] Medical Oncologist/Food Service Hotel Runner Medical Oncology 12/26/17 Yunior León MD [address] [place] [address] Referring Physician Radiation Oncology 12/26/17 Dariana Marlow MD [address] [place] [address] Surgeon Surgical Oncology 12/26/17 Rubina Daugherty MD [address] [place] [address] Consulting Physician Cardiology 12/26/17 Hector [place] [address] Referring Physician Family Medicine 12/26/17 David Boone MD [address] [place] [address] Consulting Physician Urology 12/26/17 Stacie Lopez NP [address] [place] [address] Nurse Practitioner Medical Oncology 09/07/24 IZTA MONROE [address] [place] [address] Referring Physician Family Practice 10/23/18 documented as of this encounter
--- OUTSIDE RECORDS SUMMARY | 2025-05-16 15:49 | XMS_ITS | Encounter Summary ---
Author Organization [facility] Healthcare Address [address] [place] [address] Care Team Providers Care Intensive Care Unit Nurse Name Role Phone Aden Rae MD Unavailable [phone] Yunior León MD Unavailable [phone] Dariana Marlow MD Unavailable [phone] Rubina Daugherty MD Unavailable [phone] Hector Lao MD Unavailable [phone] David Boone MD Unavailable [phone] Cathie Hickey MD Primary Care Provider Stacie Lopez NP Unavailable [phone] Encounter Details Date Type Department Care Team (Late st Contact Info) Description 11/02/2024 Orders Only [facility] Health Information Management [address] [place] [address] Scanning, Provider Social History Tobacco Use [...] 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 Gender Identity Not on file Sexual Orientation [...] on filedocumented in this encounter Care Teams Intensive Care Unit Nurse Relationship Specialty Start Date End Date Cathie Hickey MD [address] [facility] 2 [place] [address] PCP - General Family Practice 08/29/22 Aden Rae MD [address] [place] [address] Medical Oncologist/Beam Dyer Operator Medical Oncology 12/26/17 Yunior León MD [address] [place] [address] Referring Physician Radiation Oncology 12/26/17 Dariana Marlow MD [address] [place] [address] Surgeon Surgical Oncology 12/26/17 Rubina Daugherty MD [address] [place] [address] Consulting Physician Cardiology 12/26/17 Hector Lao MD [address] [place] [address] Referring Physician Family Medicine 12/26/17 David Boone MD [address] [place] [address] Consulting Physician Urology 12/26/17 Stacie Lopez NP [address] [place] [address] Nurse Practitioner Medical Oncology 09/07/24 ZITA MONROE [address] [place] [address] Referring Physician Family Practice 10/23/18 documented as of this encounter
== END 2025-05-16 15:08 | disposition home or self-care (01) ==
PROVIDERS: PCP Family Medicine; Visit Provider Nurse Practitioner
DX: N20.0 Calculus of kidney (principal)
CPT/HCPCS: 74018; 76770

== ENCOUNTER 2025-06-14 08:07 | Outpatient (CLI) | payer MEDICARE, SELFPAY ==
--- OUTSIDE RECORDS SUMMARY | 2024-02-20 03:40 | XMS_ITS ---
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 02/20/2024 Onychogryphosis (ICD-10 - L60.2) 02/20/2024 Nail dystrophy (ICD-10 - L60.3) 02/20/2024 Tinea pedis of both feet (ICD-10 - B35.3) Plan Of Treatment Treatment Notes Assessment Notes Idiopathic progressive neuropathy Consid ering the associated comorbidities and physical exam findings today, this patient is at substantial risk of developing serious foot complications in the absence of regular and professional palliative foot care. Next Appt Details Follow Up: 9-10 weeks or con tact office PRN with any concerns. , Reason: Provider Name:Jaclyn Alcantara, 08/03/2025 09:30:00 AM, [address], [place], [address], Procedure Notes * Category Sub-Category Detail Notes PALLIATIVE FOOT CARE: Callus paring: (71188) Le ss than five calluses as noted above reduced with a sterile scalpel blade Nail debride (30159): Debridement of fiv e or less mycotic and/or hypertrophic nails, utilizing manual and electric debridement the affected nails were reduced the nails in length and thickness with curettage of debris from nail margins performed as needed. Nail thickness reduced by:, 10% Dystrophic nail trim (G0127) All dystrop hic nails reduced in length and thickness with curettage of debris from nail margins as needed History and Physical Notes * HPI (History of Present Illness) Category Sub-Category Detail Notes Category Not es Primary reason for visit: 73 y/o female RTO for high risk foot care. Pt reports no acute issues with nails or calluses today. Pt also RTO for f/u of Tinea Pedis. At last visit rx of Ketoconozole and short dose Terbinafine were sent to pharmacy. Today pt reports... MA assisting with visit: HPI/Rooming: ..... Examination Category Sub-Category Detail Notes Category Not es General Examination Mental status: Cooperative, Oriented to person, place and time, Mood and affect: normal, Judgement and intellect: normal with appropriate response to questions Shoes today: XXXXXX Constitutional / Appearance: No acute di stress , Well nourished, Appropriate personal hygiene Lower Extremity VASCULAR: Venous insufficiency e maki: Bilateral:, mild, non-pitting Pulses: DP pulse palpable b/ l, PT pulse nonpalpable b/l Temperature gradient: decreased from pro ximal to distal, bilateral Pedal hair: sparse / absent, lexus ateral Capillary refill at distal toes less alisha n 3 seconds Lower Extremity NEURO: Monofilament test (10 gram pressure) Exam of 06/24/2023: - - revealed intact sensation to, multiple toes, bilateral Vibration perception: Exam of 06/24/2023 : - - noted significantly diminished / absent per evaluation with 128Hz tuning fork applied to distal hallux compared to ipsilateral medial malleolus, @ bilateral feet General sensation appears diminished, bi lateral Muscle tone diminished, bilatera l Tarsal tunnel evaluation: Unremarkable w ith no pain or paresthesias noted b/l. Lower Extremity MSK: Muscle strength: 5/5 , all 4 quad rants tested, bilateral Amputation noted: Right foot:, amputat ion of entire, 2nd digit Left lower extremity inspect ion and palpation: No palpable masses or nodules noted. Right lower extremity inspec tion and palpation: No palpable masses or nodules noted. Gait Gait unremarkable wi th normal posture, propulsion and balance Lower Extremity DERM: Skin: relatively dry, atrophic and with decreased turgor noted., bilateral Nails: Nail plates of:, TA & T5, appear, relatively thickened, dystrophic, discolored, Remaining nails appear elongated and dystrophic with abnormal shape, periungual debris, subungual hyperkeratosis and/or partial onycholysis. Hyperkeratotic lesions LEFT foot: sub 2n d MTH Hyperkeratotic lesions RIGHT foot: sub 2 nd MTH, distal 3rd toe Evidence of tinea pedis noted: Bilateral feet exhibit, dry, scaling skin with diffuse erythema noted to plantar foot in moccassin distribution Progress Notes * Mayte HAWLEY HDOB: [birth year] (74 yo F)Acc No.[id number]:02/20/2024 Progress Note Patient: Mayte Guardado Provider: Mattie Johnson DPM :1950 A ge:73 Y S ex:Female Date:02/20/2024 Address:[address] [place] [address], [facility] [id number] Pcp:Cathie Hickey Subjective: * Chief Complaints: * H igh Risk Foot care * HPI: P myron reason for visit:: 73 y/o female RTO for high risk foot care. Pt reports no acute issues with nails or calluses today. Pt also RTO for f/u of Tinea Pedis. At last visit rx of Ketoconozole and short dose Terbinafine were sent to pharmacy. Today pt reports... M A assisting with visit:: HPI/Rooming: . ..... Objective: * Examination: G eneral Examination: Constitutional / Appearance: N o acute distress , Well nourished, Appropriate personal hygiene. Mental status: C ooperative, Oriented to person, place and time, Mood and affect: normal, Judgement and intellect: normal with appropriate response to questions. Shoes today: X XXXXX. L ower Extremity VASCULAR: : Pulses: D P pulse palpable b/l, PT pulse nonpalpable b/l.? Temperature gradient: d ecreased from proximal to distal, bilateral. Pedal hair: s parse / absent, bilateral. Venous insufficiency edema: B ilateral:, mild, non-pitting.? Capillary refill at distal toes l ess than 3 seconds. ? L ower Extremity DERM: : Skin: r elatively dry, atrophic and with decreased turgor noted., bilateral. Nails: N ail plates of:, TA & T5, appear, relatively thickened, dystrophic, discolored, Remaining nails appear elongated and dystrophic with abnormal shape, periungual debris, subungual hyperkeratosis and/or partial onycholysis.. Hyperkeratotic lesions LEFT foot: s ub 2nd MTH. Hyperkeratotic lesions RIGHT foot: s ub 2nd MTH, distal 3rd toe. Evidence of tinea pedis noted: B ilateral feet exhibit, dry, scaling skin with diffuse erythema noted to plantar foot in moccassin distribution. ? L ower Extremity MSK: : Gait Gait unremarkable with normal posture, propulsion and balance. Muscle strength: 5 /5 , all 4 quadrants tested, bilateral.? Left lower extremity inspection and palpation: N o palpable masses or nodules noted.. Right lower extremity inspection and palpation: N o palpable masses or nodules noted. . Amputation noted: R ight foot:, amputation of entire, 2nd digit. L ower Extremity NEURO: : General sensation appears d iminished, bilateral. Muscle tone d iminished, bilateral. Monofilament test (10 gram pressure) E xam of 06/24/2023:?- - revealed intact sensation to, multiple toes, bilateral. Vibration perception: E xam of 06/24/2023: - - noted significantly diminished / absent per evaluation with 128Hz tuning fork applied to distal hallux compared to ipsilateral medial malleolus, @ bilateral feet. Tarsal tunnel evaluation: U nremarkable with no pain or paresthesias noted b/l.. Assessment: * Assessment: 1. I diopathic progressive neuropathy - G60.3 (Primary) 2 . C allus of foot - L84 3 . O nychogryphosis - L60.2 4 . N ail dystrophy - L60.3 5 . T inea pedis of both feet - B35.3 Plan: * Treatment: * Procedures: P ALLIATIVE FOOT CARE:: Callus paring: ( [id number]) Less than five calluses as noted above reduced with a sterile scalpel blade. Nail debride (24457): D ebridement of five or less mycotic and/or hypertrophic nails, utilizing manual and electric debridement the affected nails were reduced the nails in length and thickness with curettage of debris from nail margins performed as needed. Nail thickness reduced by:, 10%. Dystrophic nail trim (G0127) A ll dystrophic nails reduced in length and thickness with curettage of debris from nail margins as needed. * Procedure Codes: 1 1056 TRIM SKIN LESIONS, 2 TO 4, Modifiers: Q7 44795 DEBRIDE NAIL, 1-5, Modifiers: 59 , [id number] TRIMMING DYSTROPHIC NAILS ANY #, Modifiers: 59 , Q7 * Preventive Medicine: Counseling: C are goal follow-up plan: Above Normal BMI Follow-up L ifestyle education regarding diet Screenings: F ALL RISK SCREENING Fall Risk Assessment: N o falls in the past year * Follow Up: 9 -10 weeks or contact office PRN with any concerns. Billing Information: * Procedure Codes: 21842 TRIM SKIN LESIONS, 2 TO 4. Modifiers: Q7 99366 DEBRIDE NAIL, 1-5. Modifiers: 59, Q7 G0127 TRIMMING DYSTROPHIC NAILS ANY #. Modifiers: 59, Q7 * Electronic signature of Trevor Johnson DPM on 06/14/2025 at 08:14 AM DYE WEIGHER Sign off status: Pending * Provider: Mattie Johnson DPM Date: 0 02/20/2024 Generated for Tri orosco/Izzy/Harrisonitting on: 1 08:14 AM DYE WEIGHER
--- OUTSIDE RECORDS SUMMARY | 2024-06-23 04:00 | XMS_ITS ---
Author Organization 1 OF Naresh huang [facility] Address [address] [address] Care Team Providers Care Statistical Programmer Analyst Name Role Phone RupertoCathie Primary Care Provider Un available Jaclyn Alcantara Unavailable [phone] Trevor Johnson Unavailable [phone] REASON FOR VISIT High Risk Foot care Encounters Encounter Location Date Provider Diagnosis 1 OF Naresh Nino [facility] [address] [facility] [address] [place] [address] 06/23/2024 Trevor Johnson Callus of foot L84 ; 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 06/23/2024 Onychogryphosis (ICD-10 - L60.2) 06/23/2024 Nail dystrophy (ICD-10 - L60.3) 06/23/2024 Tinea pedis of both feet (ICD-10 - [...] AM, [address], [place], [address], Procedure Notes * Category Sub-Category Detail Notes PALLIATIVE FOOT CARE: Callus paring: (85162) Le ss than five calluses as noted above reduced with a sterile scalpel blade Nail debride (23782): Debridement of fiv e or less mycotic [...] Pt reports no acute issues with nails and calluses today. MA assisting with visit: HPI/Rooming: ....., Examination Category Sub-Category Detail Notes Category Not es General Examination Mental status: Cooperative, Oriented to person, place and time, Mood and affect: normal, Judgement and intellect: normal with appropriate response to questions Shoes today: tennis shoes Constitutional / Appearance: No acute di stress [...] 3rd toe Evidence of tinea pedis noted: Compared to prior visit tinea appears improved with decreased erythema and scaling Progress Notes * Mayte HAWLEY HDOB: [birth year] (74 yo F)Acc No.[id number]:06/23/2024 Progress Note Patient: Mayte Guardado Provider: Mattie Johnson DPM :1950 A ge:73 Y S ex:Female Date:06/23/2024 Address:[address] [place], [place] [id number] Pcp:Cathie Hickey Subjective: * Chief Complaints: * H igh Risk Foot care * HPI: M A assisting with visit:: HPI/Rooming: . ...., . P [facility] reason for visit:: 73 y/o female RTO for high risk foot care. Pt reports no acute issues with nails and calluses today. Objective: * Examination: G eneral Examination: Constitutional / Appearance: N o acute distress , Well nourished, Appropriate personal hygiene. Mental status: C ooperative, Oriented to person, place and time, Mood and affect: normal, Judgement and intellect: normal with appropriate response to questions. Shoes today: t gibson shoes. L ower Extremity VASCULAR: : Pulses: D [...] 3rd toe. Evidence of tinea pedis noted: C ompared to prior visit tinea appears improved with decreased erythema and scaling. L ower Extremity MSK: : Gait Gait [...] P ALLIATIVE FOOT CARE:: Callus paring: ( 22750) Less than five calluses as noted above reduced with a sterile scalpel blade. Nail debride (53556): D ebridement of five or less mycotic [...] SKIN LESIONS, 2 TO 4, Modifiers: Q7 29225 DEBRIDE NAIL, 1-5, Modifiers: 59 , [id number] TRIMMING DYSTROPHIC NAILS ANY #, Modifiers: 59 , Q7 * Preventive Medicine: Counseling: C are goal follow-up plan: Above Normal BMI Follow-up L ifestyle education regarding diet Screenings: F ALL RISK SCREENING Fall Risk Assessment: N o falls in the past year * Follow Up: 9 -10 weeks or contact office PRN with any concerns. Billing Information: * Procedure Codes: 51022 TRIM SKIN LESIONS, 2 TO 4. Modifiers: Q7 99342 DEBRIDE NAIL, 1-5. Modifiers: 59, Q7 G0127 TRIMMING DYSTROPHIC NAILS ANY #. Modifiers: 59, Q7 * Electronic signature of Trevor Johnson DPM on 06/14/2025 at 08:13 AM FLATWORK TIER Sign off status: Pending * Provider: Mattie Johnson DPM Date: 0 06/23/2024 Generated for Tri orosco/Izzy/Ana on: 08:13 AM FLATWORK TIER
--- OUTSIDE RECORDS SUMMARY | 2025-06-01 05:40 | XMS_ITS ---
Author Organization 1 OF Naresh huang [facility] Address [address] [facility] [facility] [place] [address] Care Team Providers Care Market Asset Protection Manager Name Role Phone Rufina Hickeyilirbelem Primary Care Provider Un available Jaclyn Alcantara Unavailable [phone] Allergies Allergen (clinical drug ingredient) Drug/Non Drug Allergy documented on EMR Reaction Allergy Type Onset Date Status Anti-Inflammatory Enzyme Unknown Drug Allergy Active Adhesive Unknown Allergy Active REASON FOR VISIT High Risk Foot care Medications Medication SIG (Take, Route, Frequency, Duration) Notes Start Date End Date Status oxyBUTYnin Chloride ER 025 Not-Taking/PRN Atorvastatin Calcium 20 MG Tablet 1 tablet Orally Once a day Active Irbesartan 150 MG Tablet 1 tablet Orally Once a day Active Warfarin Sodium 2.5 MG Tablet 1 tablet Orally Once a day Active Omeprazole 40 MG Capsule Delayed Release 1 capsule 30 minutes before morning meal Orally Once a day Active Centrum Silver 50+Women - Tablet as directed Orally Acti ve Vitamin B6 100 MG Tablet 1 tablet Orally Once a day Active Gabapentin 100 MG Capsule 1 capsule Orally BID Active Vitamin D3 10 MCG (400 UNIT) Capsule 2 capsules Orally Once a day Active Urea 20 % Cream 1 application to affected area as needed Topical Once a day; Duration: 30 days 06/01/2025 Active Metoprolol Succinate Active Gemfibrozil Active Social History Tobacco Use: Social History Observation Description Date Details (start date - stop date) Never Smoker NA - NA Social History Tobacco Use: Social Info Question Answer Notes Tobacco Control (Standard) Tobacco use: Nonsmoker Vital Signs Height 70 in 06/01/2025 Weight 190 lbs 06/01/2025 BMI 27.26 kg/m2 06/01/2025 Encounters Encounter Location Date Provider Diagnosis 1 OF Naresh Nino [facility] [address] [place] [address] 06/01/2025 Jaclyn Alcantara Callus of foot L84 ; 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 06/01/2025 Onychogryphosis (ICD-10 - L60.2) 06/01/2025 Nail dystrophy (ICD-10 - L60.3) 06/01/2025 Nerve pain (ICD-10 - M79.2) 06/01/2025 Xerosis of skin (ICD-10 - L85.3) Plan Of Treatment Medication Medication Name Sig Start Date Stop Date Notes Urea 20 % Cream 1 application to aff ected area as needed Topical Once a day; Duration: 30 days 06/01/2025 Treatment Notes Assessment Notes Idiopathic progressive neuropathy Consid ering the associated comorbidities and physical exam findings today, this patient is at substantial risk of developing serious foot complications in the absence of regular and professional palliative foot care. Next Appt Details Follow Up: 9-10 weeks or con tact office PRN with any concerns. , Reason: Provider Name:Jaclyn Alcantara, 08/03/2025 09:30:00 AM, [address], [place], [address], Procedure Notes * Category Sub-Category Detail Notes PALLIATIVE FOOT CARE: Callus paring: (94787) Le ss than five calluses as noted above reduced with a sterile scalpel blade Nail debride (69523): Debridement of fiv e or less mycotic [...] Category Not es Primary reason for visit: At Risk Foot Care: 74 y/o female RTO for at ris k foot care. Today patient reports no acute issues with the nails or calluses. At last visit, pt was advised to buy OTC lidocaine cream/pain cream for nerve pain. Pt states that she was able to get the cream and it has not been helpful in alleviating pain MA assisting with visit: HPI/Rooming: Dayan Chart Prep Cecilia Examination Category Sub-Category Detail Notes Category Not es General Examination Mental status: Cooperative, Oriented to person, place and time, Mood and affect: normal, Judgement and intellect: normal with appropriate response to questions Shoes today: Tennis Shoes Constitutional / Appearance: No acute di stress , Well nourished, Appropriate personal hygiene Lower Extremity VASCULAR: Venous insufficiency e maki: Bilateral:, mild, lower leg Pulses: DP pulse diminished b/l, PT pulse nonpalpable b/l Temperature gradient: decreased from pro ximal to distal, bilateral Pedal hair: absent, bilateral Capillary refill at distal toes less alisha n 3 seconds, bilateral Lower Extremity NEURO: Monofilament test (10 gram pressure) Exam of 09/01/2024: revealed intact sensation to, multiple toes, bilateral Vibration perception: Exam of 09/01/2024 : noted significantly diminished / absent per evaluation with 128Hz tuning fork applied to distal hallux compared to ipsilateral medial malleolus, @ bilateral feet General sensation appears diminished, bi lateral Muscle tone diminished, bilatera l Lower Extremity MSK: Amputation noted: Right génesis t:, amputation of entire, 2nd digit Left lower extremity inspect ion and palpation: No palpable masses or nodules noted. Right lower extremity inspec tion and palpation: No palpable masses or nodules noted. Gait Gait unremarkable wi th normal posture, propulsion and balance Lower Extremity DERM: Skin: relatively dry, no open sores, no suspicious lesions, without interdigital maceration, bilateral Nails: Nail plates of: TA & T5 appear elongated, relatively thickened, dystrophic, discolored. Remaining nails appear elongated and dystrophic with abnormal shape, periungual debris, subungual hyperkeratosis. Hyperkeratotic lesions LEFT foot: sub 2n d MTH Hyperkeratotic lesions RIGHT foot: sub 2 nd MTH, distal 3rd toe Progress Notes * Mayte HAWLEY HDOB: [birth year] (74 yo F)Acc No.[id number]:06/01/2025 Progress Note Patient: Mayte Guardado Provider: Hitesh Alcantara DPM :1950 A ge:74 Y S ex:Female Date:06/01/2025 Address:[address] [place] [address], [facility] Pcp:Cathie Hickey Subjective: * Chief Complaints: * H igh Risk Foot care * HPI: M A assisting with visit:: Chart Prep Elisa santizo. HPI/Rooming: [place] reason for visit:: At Risk Foot Care: [age] y/o female RTO for at risk foot care. Today patient reports no acute issues with the nails or calluses. At last visit, pt was advised to buy OTC lidocaine cream/pain cream for nerve pain. Pt states that she was able to get the cream and it has not been helpful in alleviating pain. * Medical History: Unspecified atrial fibrillation Breast Cancer High Cholesterol High Blood Pressure Kidney stones GERD/Reflux Peripheral neuropathy Medical History Verified * Surgical History: pin implant for hammer toe subsequent toe amputation 2019 Surgical History verified. * Hospitalization/Major Diagno stic Procedure: No Hospitalization Documented. Hospitalization Verified. * Family History: F amily History Verified.. Blood/Lung cancer. * Social History: T obacco Use: T obacco Control (Standard) T obacco use: N onsmoker S ocial History Verified. * Medications: T akingGemfibrozil Metoprolol Succinate Gabapentin 100 MG Capsule 1 capsule Orally BID Vitamin B6 100 MG Tablet 1 tablet Orally Once a day Centrum Silver 50+Women - Tablet as directed Orally Vitamin D3 10 MCG (400 UNIT) Capsule 2 capsules Orally Once a day Omeprazole 40 MG Capsule Delayed Release 1 capsule 30 minutes before morning meal Orally Once a day Warfarin Sodium 2.5 MG Tablet 1 tablet Orally Once a day Irbesartan 150 MG Tablet 1 tablet Orally Once a day Atorvastatin Calcium 20 MG Tablet 1 tablet Orally Once a day Taking Gemfibrozil Taking Metoprolol Succinate Taking Gabapentin 100 MG Capsule 1 capsule Orally BID Taking Vitamin B6 100 MG Tablet 1 tablet Orally Once a day Taking Centrum Silver 50+Women - Tablet as directed Orally Taking Vitamin D3 10 MCG (400 UNIT) Capsule 2 capsules Orally Once a day Taking Omeprazole 40 MG Capsule Delayed Release 1 capsule 30 minutes before morning meal Orally Once a day Taking Warfarin Sodium 2.5 MG Tablet 1 tablet Orally Once a day Taking Irbesartan 150 MG Tablet 1 tablet Orally Once a day Taking Atorvastatin Calcium 20 MG Tablet 1 tablet Orally Once a day Not-Taking/PRNoxyBUTYnin Chloride ER , stop date 05/27/2025Medication List reviewed and reconciled with the patientNot-Taking/PRN oxyBUTYnin Chloride ER , stop date 05/27/2025Medication List reviewed and reconciled with the patient * Allergies: A dhesiveAnti-Inflammatory EnzymeyesAllergies Verified. Objective: * Vitals: W t:190lbs, Wt-k.18 kg, Ht: 70 in, BMI:27.26Index. * Examination: G eneral Examination: Constitutional / Appearance: N o acute distress , Well nourished, Appropriate personal hygiene. Mental status: C ooperative, Oriented to person, place and time, Mood and affect: normal, Judgement and intellect: normal with appropriate response to questions. Shoes today: T gibson Shoes. L ower Extremity VASCULAR: : Pulses: D P pulse diminished b/l, PT pulse nonpalpable b/l.? Temperature gradient: d ecreased from proximal to distal, bilateral. Pedal hair: a bsent, bilateral. Venous insufficiency edema: B ilateral:, mild, lower leg.? Capillary refill at distal toes l ess than 3 seconds, bilateral. L ower Extremity DERM: : Skin: r elatively dry, no open sores, no suspicious lesions, without interdigital maceration, b ilateral. Nails: N ail plates of: T A & T5 a ppear elongated, relatively thickened, dystrophic, discolored. R emaining nails appear elongated and dystrophic with abnormal shape, periungual debris, subungual hyperkeratosis.. Hyperkeratotic lesions LEFT foot: s ub 2nd MTH. Hyperkeratotic lesions RIGHT foot: s ub 2nd MTH, distal 3rd toe. L ower Extremity MSK: : Gait Gait unremarkable with normal posture, propulsion and balance. Left lower extremity inspection and palpation: N o palpable masses or nodules noted.. Right lower extremity inspection and palpation: N o palpable masses or nodules noted. . Amputation noted: R ight foot:, amputation of entire, 2nd digit. L ower Extremity NEURO: : General sensation appears d iminished, bilateral. Muscle tone d iminished, bilateral. Monofilament test (10 gram pressure) E xam of 09/01/2024:?revealed intact sensation to, multiple toes, bilateral. Vibration perception: E xam of 09/01/2024: n oted significantly diminished / absent per evaluation with 128Hz tuning fork applied to distal hallux compared to ipsilateral medial malleolus, @ bilateral feet. Assessment: * Assessment: 1. I diopathic progressive neuropathy - G60.3 (Primary) 2 . C allus of foot - L84 3 . O nychogryphosis - L60.2 4 . N ail dystrophy - L60.3 5 . N erve pain - M79.2 6 . X erosis of skin - L85.3? Plan: * Treatment: 2. X erosis of skin Start Urea Cream, 20 %, 1 application to affected area as needed, Topical, Once a day, 30 days, 85 Gram, Refills 3. * Procedures: P ALLIATIVE FOOT CARE:: Callus paring: ( 84374) Less than five calluses as noted above reduced with a sterile scalpel blade. Nail debride (67035): D ebridement of five or less mycotic [...] SKIN LESIONS, 2 TO 4, Modifiers: Q7 29899 DEBRIDE NAIL, 1-5, Modifiers: Q7 , 03J1999 TRIMMING DYSTROPHIC NAILS ANY #, Modifiers: Q7 , 59 * Preventive Medicine: Counseling: C are goal follow-up plan: BMI counseling provided to patient:?Lifestyle education Screenings: F ALL RISK SCREENING Fall Risk Assessment: N o falls in the past year Plan of Care: D ocumented * Follow Up: 9 -10 weeks or contact office PRN with any concerns. Billing Information: * Procedure Codes: 88516 TRIM SKIN LESIONS, 2 TO 4. Modifiers: Q7 85231 DEBRIDE NAIL, 1-5. Modifiers: Q7, 59 G0127 TRIMMING DYSTROPHIC NAILS ANY #. Modifiers: Q7, 59 * Electronic signature of Sil Alcantara DPM on 06/14/2025 at 08:13 AM INVERTER AND CLIPPER Sign off status: Pending * Provider: Hitesh Alcantara DPM Date: 08/02/2024 Generated for Tri orosco/Izzy/Ana on: 08:13 AM [employer]
--- OUTSIDE RECORDS SUMMARY | 2025-06-14 08:13 | XMS_ITS | Clinical Summary ---
Author Organization [facility] Address [address] [facility] [place] [address] Phone Care Team Providers Care Employment Case Manager Name Role Phone Hitesh Kwan MD Primary Care Provider [phone] Allergies Active Allergy Reactions Criticality Noted Date [...] complete this topic Human Papillomavirus (HPV) Immunization (No Doses Required) Completed Meningococcal Immunization (ACWY) Aged Out No longer eligible based on patient's age to complete this topic Rotavirus Immunization Aged Out No lo nger eligible based on patient's age to complete this topic Insurance MEDICARE [facility] Care Teams Employment Case Manager Relationship Specialty Start Date End Date Hitesh Kwan MD [address] [place] [address] PCP - General Ophthalmology 05/23/20
--- OUTSIDE RECORDS SUMMARY | 2025-06-14 08:13 | XMS_ITS | Encounter Summary ---
Author Organization [facility] Address [address] [place] [address] Phone Care Team Providers Care Extended Day Teacher Name Role Phone Hitesh Kwan MD Primary Care Provider [phone] Reason for Visit * Reason Comments Medication Refill Encounter Details Date Type Department Care Team (Late st Contact Info) Description 11/26/2020 Refill [facility] - Neurology [facility] [address] [place] [phone] Brian Valles MD [address] [place] [phone] Medication Refill Social History Tobacco Use Types [...] tremor documented in this encounter Care Teams Extended Day Teacher Relationship Specialty Start Date End Date Hitesh Kwan MD [address] [place] [address] PCP - General Ophthalmology 05/23/20 documented as of this encounter
--- OUTSIDE RECORDS SUMMARY | 2025-06-14 08:13 | XMS_ITS | Clinical Summary ---
Author Organization [facility] Address [address] [facility] [address] [place] [address] Care Team Providers Care Corsage Maker Name Role Phone Unavailable Primary Care Provider Unavailabl e Immunizations Immunization Administration Dates Next Due Fluzone Trivalent High Dose (65+ years) 03/09/20 25 Pfizer Cominarty Covid-19 Prefilled Syringe (12+ yrs) 03/09/2025 Social History Tobacco Use Types Packs/Day Years Used Date Smoking Tobacco: Never Assessed Comments Unknown Sex and Gender Information Value Date Recorded Sex Assigned at Not on file Legal Sex Female 10:51 AM EST Gender Identity Not on file Sexual Orientation Not on file Plan of Treatment Health Maintenance Due Date Last Done Comments Colorectal Cancer: COLONOSCO PY Screening every 10 yrs (or Modifier) 1950 Depression: Screening Annual ly using PHQ-2/9 in Adults 18 yrs or above (or HM Modifier)([facility]) 1968 Hepatitis C Virus Infection in Adolescents and Adults: Screening (or Modifier) ([facility]) [address] [facility] Screening Reminder: Nusrat joe for all adults ([facility]) 1968 Tobacco Smoking Cessation: i n Adults excluding Women: Behavioral and Pharmacotherapy Interventions ([facility]) 1968 DTaP/Tdap/Td Vaccines ([facility]) (1 - Tdap) 1969 Colorectal Cancer Screening 45 -75 Yrs (or HM Modifier) 09/01/1995 Colorectal Cancer: FLEXIBLE SIGMOIDOSCOPY Screening every 5 yrs 09/01/1995 Colorectal Cancer: Fecal Imm unochemical Test (FIT) Annually [facility] 09/01/1995 Colorectal Cancer: High-sens itivity gFOBT Screening Annually [facility] 09/01/1995 Colorectal Cancer: Stool Col oguard Screening every 3 yrs 09/01/1995 Colorectal Cancer:CT Colonog sreedhar Screening every 5 yrs 09/01/1995 Breast Cancer: Screening Nusrat ually age 50-74 yrs (or HM Modifier)([facility]) 2000 Pneumococcal Vaccination Scr eening: Patients 50+ yrs of age ([facility]) (1 of 1 - PCV) 2000 Zoster/Shingles Vaccine Seri es Screening: Adults aged 18+ yrs (or HM Modifiers)([facility] ) (1 of 2) 2000 Osteoporosis Screening to Pr event Fractures: Women aged 65 years+ ([facility]) 09/01/2015 RSV Vaccines (1 - 1-dose 75+ series) 2025 COVID-19 Vaccine Screening: Initial Series and Booster Status ([facility]) ( - 2024- season) 2025 03/09/2025 Flu Vaccination: Ages 65+: Y early High Dose Recommended (or Modifier)([facility]) Completed 03/09/2025 Medical Devices Not on file Insurance MEDICARE
--- OUTSIDE RECORDS SUMMARY | 2025-06-14 08:14 | XMS_ITS | Encounter Summary ---
Author Organization [facility] Address [facility] [place] [address] Care Team Providers Care Roller Name Role Phone Maureen Saleem MD Primary Care Provider [phone] Cathie Hickey MD Primary Care Provider Encounter Details Date Type Department Care Team (Late st Contact Info) Description 07/29/2016 [facility] [address] [place] [address] , Generic ConversionMD Social History Tobacco Use Types Packs/Day Years Used Date Smoking Tobacco: Never Assessed Comments Unknown Sex and Gender Information Value Date Recorded Sex Assigned at Female 07/09/2018 3:10 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
--- OUTSIDE RECORDS SUMMARY | 2025-06-14 08:14 | XMS_ITS | Encounter Summary ---
Author Organization [facility] Address [address] [place] [address] Care Team Providers Care Blade Aligner Name Role Phone Aden Rae MD Unavailable [phone] Yunior León MD Unavailable [phone] Dariana Marlow MD Unavailable [phone] Rubina Daugherty MD Unavailable [phone] Hector Lao MD Unavailable [phone] David Boone MD Unavailable [phone] Cathie Hickey MD Primary Care Provider Stacie Lopez NP Unavailable [phone] Encounter Details Date Type Department Care Team (Late st Contact Info) Description 09/28/2024 Orders Only [facility] Health Information Management [address] [place] [address] Scanning, Provider Social History Tobacco Use [...] on file 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 Gender Identity Not on file Sexual [...] on filedocumented in this encounter Care Teams Blade Aligner Relationship Specialty Start Date End Date Cathie Hickey MD [address] [facility] [address] [place] [address] PCP - General Family Practice 08/29/22 Aden Rae MD [address] [place] [id number] Medical Oncologist/Dinkey Motor Operator Medical Oncology 12/26/17 Yunior León MD [address] [place] [address] Referring Physician Radiation Oncology 12/26/17 Dariana Marlow MD [address] [place] [address] Surgeon Surgical Oncology 12/26/17 Rubina Daugherty MD [address] [place] [address] Consulting Physician Cardiology 12/26/17 Hector Lao MD [address] [place] [address] Referring Physician Family Medicine 12/26/17 David Boone MD [address] [address] Consulting Physician Urology 12/26/17 Stacie Lopez NP [address] [place] [address] Nurse Practitioner Medical Oncology 09/07/24 ZITA MONROE [address] [place] [address] Referring Physician Family Practice 10/23/18 documented as of this encounter
--- OUTSIDE RECORDS SUMMARY | 2025-06-14 08:14 | XMS_ITS | Encounter Summary ---
Author Organization [facility] Healthcare Address [address] [place] [address] Care Team Providers Care Coal Loader Name Role Phone Aden Rae MD Unavailable [phone] Yunior León MD Unavailable [phone] Dariana Marlow MD Unavailable [phone] Rubina Daugherty MD Unavailable [phone] Hector Lao MD Unavailable [phone] David Boone MD Unavailable [phone] Cathie Hickey MD Primary Care Provider Stacie Lopez NP Unavailable [phone] Encounter Details Date Type Department Care Team (Late st Contact Info) Description 07/06/2024 Orders Only [facility] Health Information Management [address] [place] [address] Scanning, Provider Social History Tobacco Use [...] on file 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 Gender Identity Not on file Sexual [...] on filedocumented in this encounter Care Teams Coal Loader Relationship Specialty Start Date End Date Cathie Hickey MD [address] [facility] [address] [place], [place] [id number] PCP - General Family Practice 08/29/22 Aden Rae MD [address] [place], [place] [id number] Medical Oncologist/Sheet Metal Worker Supervisor Medical Oncology 12/26/17 Yunior León MD [address] [place] [address] Referring Physician Radiation Oncology 12/26/17 Dariana Marlow MD [address] [place] [address] Surgeon Surgical Oncology 12/26/17 Rubina Daugherty MD [address] [place] [address] Consulting Physician Cardiology 12/26/17 Hector Lao [place] [address] Referring Physician Family Medicine 12/26/17 David Boone MD [address] [address] Consulting Physician Urology 12/26/17 Stacie Lopez NP [address] [place] [address] Nurse Practitioner Medical Oncology 09/07/24 ZITA MONROE [address] [place] [id number] Referring Physician Family Practice 10/23/18 documented as of this encounter
--- OUTSIDE RECORDS SUMMARY | 2025-06-14 08:14 | XMS_ITS | Encounter Summary ---
Author Organization [facility] Healthcare Address [address] [place] [address] Care Team Providers Care Regional Operations Manager Name Role Phone Aden Rae MD Unavailable +[phone] Yunior León MD Unavailable +[phone] Dariana Marlow MD Unavailable +[phone] Rubina Daugherty MD Unavailable +[phone] Hector Lao MD Unavailable +[phone] David Boone MD Unavailable +[phone] Cathie Hickey MD Primary Care Provider Stacie Lopez NP Unavailable +[phone] Encounter Details Date Type Department Care Team (Late st Contact Info) Description 2024 Orders Only [facility] Health Information Management [address] [place] [address] Scanning, Provider Social History Tobacco Use [...] on file 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 Gender Identity Not on file Sexual [...] on filedocumented in this encounter Care Teams Regional Operations Manager Relationship Specialty Start Date End Date Cathie Hickey MD [address] [facility] [address] 2 [place] [address] PCP - General Family Practice 08/29/22 Aden Rae MD [address] [place], [place] [address] Medical Oncologist/Ditch Repairer Medical Oncology 12/26/17 Yunior León MD [address] [place] [address] Referring Physician Radiation Oncology 12/26/17 Dariana Marlow MD [address] [place], [place] [address] Surgeon Surgical Oncology 12/26/17 Rubina Daugherty MD [address] [place] [address] Consulting Physician Cardiology 12/26/17 Hector [place] [address] Referring Physician Family Medicine 12/26/17 David Boone MD [address] [address] Consulting Physician Urology 12/26/17 Stacie Lopez NP [address] [place] [address] Nurse Practitioner Medical Oncology 09/07/24 ZITA MONROE [address] [place] [address] Referring Physician Family Practice 10/23/18 documented as of this encounter
--- OUTSIDE RECORDS SUMMARY | 2025-06-14 08:14 | XMS_ITS | Encounter Summary ---
Author Organization [facility] Healthcare Address [address] [place] [address] Care Team Providers Care Cigarette Tester Name Role Phone Aden Rae MD Unavailable +[phone] Yunior León MD Unavailable +[phone] Dariana Marlow MD Unavailable +[phone] Rubina Daugherty MD Unavailable +[phone] Hector Lao MD Unavailable +[phone] David Boone MD Unavailable +[phone] Cathie Hickey MD Primary Care Provider Stacie Lopez NP Unavailable [phone] Encounter Details Date Type Department Care Team (Late st Contact Info) Description 08/03/2024 Orders Only [facility] Health Information Management [address] [place] [address] Scanning, Provider Social History Tobacco Use [...] on file 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 Gender Identity Not on file Sexual Orientation [...] on filedocumented in this encounter Care Teams Cigarette Tester Relationship Specialty Start Date End Date Cathie Hickey MD [address] [facility] [address] [place] [address] PCP - General Family Practice 08/29/22 Aden Rae MD [address] [place], [place] [address] Medical Oncologist/Electronic Device Repairer Medical Oncology 12/26/17 Yunior León MD [address] [place] [address] Referring Physician Radiation Oncology 12/26/17 Dariana Marlow MD [address] [place], [place] [address] Surgeon Surgical Oncology 12/26/17 Rubina Daugherty MD [address] [place] [address] Consulting Physician Cardiology 12/26/17 Hector Lao [place] [address] Referring Physician Family Medicine 12/26/17 David Boone MD [address] [address] Consulting Physician Urology 12/26/17 Stacie Lopez NP [address] [place] [address] Nurse Practitioner Medical Oncology 09/07/24 ZITA MONROE [address] [place] [address] Referring Physician Family Practice 10/23/18 documented as of this encounter
--- OUTSIDE RECORDS SUMMARY | 2025-06-14 08:14 | XMS_ITS | Encounter Summary ---
Author Organization [facility] Healthcare Address [address] [place] [address] Care Team Providers Care Systems Engineer Name Role Phone Aden Rae MD Unavailable +[phone] Yunior León MD Unavailable +[phone] Dariana Marlow MD Unavailable +[phone] Rubina Daugherty MD Unavailable +[phone] Hector Lao MD Unavailable +[phone] David Boone MD Unavailable +[phone] Cathie Hickey MD Primary Care Provider Stacie Lopez NP Unavailable [phone] Encounter Details Date Type Department Care Team (Late st Contact Info) Description 10/19/2024 Orders Only [facility] [place] Health Information Management [address] [place] [address] Scanning, Provider Social History Tobacco Use [...] on file 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 [place] 2 [place] [address] PCP - General Family Practice 08/29/22 Aden Rae MD [address] [place] [id number] Medical Oncologist/Clay Miller Medical Oncology 12/26/17 Yunior León MD [address] [place] [address] Referring Physician Radiation Oncology 12/26/17 Dariana Marlow MD [address] [place] [address] Surgeon Surgical Oncology 12/26/17 Rubina Daugherty MD [address] [place] [address] Consulting Physician Cardiology 12/26/17 Hector Lao MD [address] [place] [address] Referring Physician Family Medicine 12/26/17 David Boone MD [address] [address] Consulting Physician Urology 12/26/17 Stacie Lopez NP [address] [place] [address] Nurse Practitioner Medical Oncology 09/07/24 ZITA MONROE [address] [place] [address] Referring Physician Family Practice 10/23/18 documented as of this encounter
--- OUTSIDE RECORDS SUMMARY | 2025-06-14 08:14 | XMS_ITS | Clinical Summary ---
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
--- OUTSIDE RECORDS SUMMARY | 2025-06-14 08:14 | XMS_ITS | Encounter Summary ---
Author Organization [facility] Healthcare Address [address] [place] [address] Care Team Providers Care Physician Relations Specialist Name Role Phone Aden Rae MD Unavailable +[phone] Yunior León MD Unavailable +[phone] Dariana Marlow MD Unavailable [phone] Rubina Daugherty MD Unavailable +[phone] Hector Lao MD Unavailable [phone] David Boone MD Unavailable +[phone] Cathie Hickey MD Primary Care Provider Stacie Lopez NP Unavailable [phone] Encounter Details Date Type Department Care Team (Late st Contact Info) Description 10/12/[address] 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 Gender Identity Not on file Sexual [...] filedocumented in this encounter Care Teams Physician Relations Specialist Relationship Specialty Start Date End Date Cathie Hickey MD [address] [facility] [address] 2 [place] [address] PCP - General Family Practice 08/29/22 Aden Rae MD [address] [place] [id number] Medical Oncologist/Credit Interviewer Medical Oncology 12/26/17 Yunior León MD [address] [place] [address] Referring Physician Radiation Oncology 12/26/17 Dariana Marlow MD [address] [place] [address] Surgeon Surgical Oncology 12/26/17 Rubina Daugherty MD [address] [place] [address] Consulting Physician Cardiology 12/26/17 Hector Lao MD [address] [place] [address] Referring Physician Family Medicine 12/26/17 David Boone MD [address] [address] Consulting Physician Urology 12/26/17 Stacie Lopez NP [address] [place] [address] Nurse Practitioner Medical Oncology 09/07/24 ZITA MONROE [address] [place] [address] Referring Physician Family Practice 10/23/18 documented as of this encounter
--- OUTSIDE RECORDS SUMMARY | 2025-06-14 08:14 | XMS_ITS | Encounter Summary ---
Author Organization [facility] Healthcare Address [address] [place] [address] Care Team Providers Care Drag Down Name Role Phone Aden Rae MD Unavailable +[phone] Yunior León MD Unavailable +[phone] Dariana Marlow MD Unavailable +[phone] Rubina Daugherty MD Unavailable +[phone] Hector Lao MD Unavailable +[phone] David Boone MD Unavailable [phone] Cathie Hickey MD Primary Care Provider Stacie Lopez NP Unavailable [phone] Encounter Details Date Type Department Care Team (Late st Contact Info) Description 08/24/2024 Orders Only [facility] [place] [place] Health Information Management [address] [place] [address] Scanning, Provider Social History Tobacco Use [...] on file 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 Gender Identity Not on file Sexual Orientation [...] on filedocumented in this encounter Care Teams Drag Down Relationship Specialty Start Date End Date Cathie Hickey MD [address] [facility] [place] 2 [place] [address] PCP - General Family Practice 08/29/22 Aden Rae MD [address] [place], [place] [address] Medical Oncologist/Tennis Coach Medical Oncology 12/26/17 Yunior León MD [address] [place] [address] Referring Physician Radiation Oncology 12/26/17 Dariana Marlow MD [address] [place], [place] [address] Surgeon Surgical Oncology 12/26/17 Rubina Daugherty MD [address] [place] [address] Consulting Physician Cardiology 12/26/17 Hector Lao [place] [address] Referring Physician Family Medicine 12/26/17 David Boone MD [address] [address] Consulting Physician Urology 12/26/17 Stacie Lopez NP [address] [place] [address] Nurse Practitioner Medical Oncology 09/07/24 ZITA MONROE [address] [place] [address] Referring Physician Family Practice 10/23/18 documented as of this encounter
--- OUTSIDE RECORDS SUMMARY | 2025-06-14 08:14 | XMS_ITS | Encounter Summary ---
Author Organization [facility] Healthcare Address [address] [place] [address] Care Team Providers Care Modular Set Crew Member Name Role Phone Aden Rae MD Unavailable [phone] Yunior León MD Unavailable +[phone] Dariana Marlow MD Unavailable +[phone] Rubina Daugherty MD Unavailable +[phone] Hector Lao MD Unavailable +[phone] David Boone MD Unavailable +[phone] Cathie Hickey MD Primary Care Provider Stacie Lopez NP Unavailable [phone] Encounter Details Date Type Department Care Team (Late st Contact Info) Description 05/25/2024 Orders Only [facility] Health Information Management [address] [place] [address] Scanning, Provider Social History Tobacco Use [...] on file 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 Gender Identity Not on file Sexual Orientation [...] on filedocumented in this encounter Care Teams Modular Set Crew Member Relationship Specialty Start Date End Date Cathie Hickey MD [address] [facility] [address] 2 [place], [place] [address] PCP - General Family Practice 08/29/22 Aden Rae MD [address] [place], [place] [address] Medical Oncologist/Estimation Manager Medical Oncology 12/26/17 Yunior León MD [address] [place] [address] Referring Physician Radiation Oncology 12/26/17 Dariana Marlow MD [address] [place] [address] Surgeon Surgical Oncology 12/26/17 Rubina Daugherty MD [address] [place] [address] Consulting Physician Cardiology 12/26/17 Hector Lao MD [place] [address] Referring Physician Family Medicine 12/26/17 David Boone MD [address] [address] Consulting Physician Urology 12/26/17 Stacie Lopez NP [address] [place] [address] Nurse Practitioner Medical Oncology 09/07/24 [address]ITA [address]E [address] [place] [phone] Referring Physician Family Practice 10/23/18 documented as of this encounter
--- OUTSIDE RECORDS SUMMARY | 2025-06-14 08:14 | XMS_ITS | Clinical Summary ---
Author Organization [facility] Address [address] [place] [address] Care Team Providers Care Donor Center Technician Name Role Phone Hector Lao MD Primary Care Provider [phone] Source Comments [facility],non-owned Affiliates and Associated Physician Practices is amultiple site organization consisting of ambulatory clinics and hospital sitesin [place], [place], [place] and [place]. This disclosure is being madepursuant to the Care Everywhere program and may not contain all information available regarding this patient. 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 Gender Identity Not on file Sexual Orientation [...] age to complete this topic Insurance MEDICARE [facility] MEDICARE SELF PAY NO INSURANCE Member Subscriber Plan / Payer (Ef fective for All Dates) Name:Leatha Hawley Member ID:Not on file Relation to Subscriber:Not on file Name:LEATHA HAWLEY Subscriber ID:Not on file (Home) Address: [address] [place] [address] Payer ID:Not on file Group ID:Not on file Type:Self Pay Address: [place], [place] MEDICARE [employer] MEDICARE MEDICARE Care Teams Donor Center Technician Relationship Specialty Start Date End Date Hector Lao MD [address] [place] [address] PCP - General 09/25/17
--- OUTSIDE RECORDS SUMMARY | 2025-06-14 08:14 | XMS_ITS | Encounter Summary ---
Author Organization [facility] Healthcare Address [address] [place] [address] Care Team Providers Care Gamma Operator Name Role Phone Aden Rae MD Unavailable [phone] Yunior León MD Unavailable [phone] Dariana Marlow MD Unavailable +[phone] Rubina Daugherty MD Unavailable +[phone] Hector Lao MD Unavailable [phone] David Boone MD Unavailable +[phone] Zita Myles MD Primary Care Provider + [phone] Cathie Hickey MD Primary Care Provider Cathie Hickey MD Primary Care Provider Stacie Lopez NP Unavailable [phone] Encounter Details Date Type Department Care Team (Late st Contact Info) Description 04/30/2018 Orders Only [facility] Health Information Management [address] [place] [address] Scanning, Provider Social History Tobacco Use Types Packs/Day Years Used Date Smoking Tobacco: Never Smokeless Tobacco: Never Alcohol Use Standard Drinks/Week Comments No 0 (1 standard drink = 0.6 oz pur e alcohol) Comments No Sex and Gender Information Value Date Recorded Sex Assigned at Not on file 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 2 [place], [place] [address] PCP - General Family Practice 08/29/22 Aden Rae MD [address] [place] [address] Medical Oncologist/Machine Shop Worker Medical Oncology 12/26/17 Yunior León MD [address] [place] [address] Referring Physician Radiation Oncology 12/26/17 Dariana Marlow MD [address] [place] [address] Surgeon Surgical Oncology 12/26/17 Rubina Daugherty MD [address] [place] [address] Consulting Physician Cardiology 12/26/17 Hector Lao MD [address] [place] [address] Referring Physician Family Medicine 12/26/17 David Boone MD [address] [facility] [address] [place] [address] Consulting Physician Urology 12/26/17 Stacie Lopez NP [address] [place] [address] Nurse Practitioner Medical Oncology 09/07/24 ZITA [address]E [address] [place] [address] Referring Physician Family Practice 10/23/18 documented as of this encounter
--- OUTSIDE RECORDS SUMMARY | 2025-06-14 08:14 | XMS_ITS | Encounter Summary ---
Author Organization [facility] Healthcare Address [address] [place] [address] Care Team Providers Care Black And White Printer Operator Name Role Phone Aden Rae MD Unavailable +[phone] Yunior León MD Unavailable +[phone] Dariana Marlow MD Unavailable +[phone] Rubina Daugherty MD Unavailable +[phone] Hector Lao MD Unavailable +[phone] David Boone MD Unavailable [phone] Cathie Hickey MD Primary Care Provider Stacie Lopez NP Unavailable [phone] Encounter Details Date Type Department Care Team (Late st Contact Info) Description 06/07/2024 Orders Only [facility] Health Information Management [address] [place] [address] Scanning, Provider Social History Tobacco Use [...] on file 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 Gender Identity Not on file Sexual Orientation [...] on filedocumented in this encounter Care Teams Black And White Printer Operator Relationship Specialty Start Date End Date Cathie Hickey MD [address] [facility] [address] 2 [place], [place] [address] PCP - General Family Practice 08/29/22 Aden Rae MD [address] [place], [place] [address] Medical Oncologist/Screen Repairer Crusher Medical Oncology 12/26/17 Yunior León MD [address] [place] [address] Referring Physician Radiation Oncology 12/26/17 Dariana Marlow MD [address] [place] [address] Surgeon Surgical Oncology 12/26/17 Rubina Daugherty MD [address] [place] [address] Consulting Physician Cardiology 12/26/17 Hector Lao [place] [address] Referring Physician Family Medicine 12/26/17 David Boone MD [address] [address] Consulting Physician Urology 12/26/17 Stacie Lopez NP [address] [place] [address] Nurse Practitioner Medical Oncology 09/07/24 ZITA [address]ROE [address] [place] [phone] Referring Physician Family Practice 10/23/18 documented as of this encounter
--- OUTSIDE RECORDS SUMMARY | 2025-06-14 08:14 | XMS_ITS | Encounter Summary ---
Author Organization [facility] Healthcare Address [address] [place] [address] Care Team Providers Care Director Maternal Child Name Role Phone Aden Rae MD Unavailable +[phone] Yunior León MD Unavailable +[phone] Dariana Marlow MD Unavailable +[phone] Rubina Daugherty MD Unavailable +[phone] Hector Lao MD Unavailable +[phone] David Boone MD Unavailable [phone] Cathie Hickey MD Primary Care Provider Stacie Lopez NP Unavailable [phone] Encounter Details Date Type Department Care Team (Late st Contact Info) Description 09/14/2024 Orders Only [facility] Health Information Management [address] [place] [address] Scanning, Provider Social History Tobacco Use [...] on file 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 Gender Identity Not on file Sexual Orientation [...] filedocumented in this encounter Care Teams Director Maternal Child Relationship Specialty Start Date End Date Cathie Hickey MD 3417 [facility] [address] 2 [place] [address] PCP - General Family Practice 08/29/22 Aden Rae MD [address] [place] [id number] Medical Oncologist/Fur Trimming Machine Operator Medical Oncology 12/26/17 Yunior León MD [address] [place] [address] Referring Physician Radiation Oncology 12/26/17 Dariana Marlow MD [address] [place] [address] Surgeon Surgical Oncology 12/26/17 Rubina Daugherty MD [address] [place] [address] Consulting Physician Cardiology 12/26/17 Hector Lao MD [address] [place] [address] Referring Physician Family Medicine 12/26/17 David Boone MD [address] [address] Consulting Physician Urology 12/26/17 Stacie Lopez NP [address] [place] [address] Nurse Practitioner Medical Oncology 09/07/24 ZITA MONROE [address] [place] [address] Referring Physician Family Practice 10/23/18 documented as of this encounter
--- OUTSIDE RECORDS SUMMARY | 2025-06-14 08:14 | XMS_ITS | Encounter Summary ---
Author Organization [facility] Healthcare Address [address] [place] [address] Care Team Providers Care Sales Account Representative Name Role Phone Aden Rae MD Unavailable +[phone] Yunior León MD Unavailable +[phone] Dariana Marlow MD Unavailable [phone] Rubina Daugherty MD Unavailable +[phone] Hector Lao MD Unavailable +[phone] David Boone MD Unavailable [phone] Cathie Hickey MD Primary Care Provider Stacie Lopez NP Unavailable [phone] Encounter Details Date Type Department Care Team (Late st Contact Info) Description 11/22/2024 Orders Only [facility] [place] Information Management [address] [place] [address] Scanning, Provider Social History Tobacco Use [...] on file 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 Gender Identity Not on file Sexual [...] on filedocumented in this encounter Care Teams Sales Account Representative Relationship Specialty Start Date End Date Cathie Hickey MD [address] [facility] [address] [place] [address] PCP - General Family Practice 08/29/22 Aden Rae MD [address] [place] [id number] Medical Oncologist/Round Cutter Operator Medical Oncology 12/26/17 Yunior León MD [address] [place] [address] Referring Physician Radiation Oncology 12/26/17 Dariana Marlow MD [address] [place] [address] Surgeon Surgical Oncology 12/26/17 Rubina Daugherty MD [address] [place] [address] Consulting Physician Cardiology 12/26/17 Hector Lao MD [address] [place] [address] Referring Physician Family Medicine 12/26/17 David Boone MD [address] [address] Consulting Physician Urology 12/26/17 Stacie Lopez NP [address] [place] [address] Nurse Practitioner Medical Oncology 09/07/24 [address] [place] [address] Referring Physician Family Practice 10/23/18 documented as of this encounter
--- OUTSIDE RECORDS SUMMARY | 2025-06-14 08:14 | XMS_ITS ---
Author Organization [facility] [address] Address [address] [place] [address] Care Team Providers Care Engineering Secretary Name Role Phone Aden Rae MD Unavailable +[phone] Yunior León MD Unavailable [phone] Dariana Marlow MD Unavailable +[phone] Rubina Daugherty MD Unavailable [phone] Hector Lao MD Unavailable [phone] David Boone MD Unavailable [phone] Cathie Hickey MD Primary Care Provider Stacie Lopez NP Unavailable [phone] Active Problems Problem Noted Date Diagnosed Date [...] from 11/24/2017:Stage IA(pT1c, pN0, cM0, G1, ER+, SD+, HER2-, Oncotype DX score: 7) - Signed [...] in female, estrogen receptor positive 10/20/2018 01/26/2020 care home (current) use of a romatase inhibitors 10/20/2018 09/03/2023 Menopausal symptom 01/02/2018 8 Positive CHANDRA (antinuclear antibody) 12/26/2017 09/07/2024 TILLMAN (dyspnea on exertion) 11/25/2017 Malignant neoplasm of left 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, estrogen receptor positive 11/24/2017 12/30/2017 Bradycardia 11/20/2015 09/07/2024 Overview (09/19/2016): Bradycardia Lumbago 02/14/2010 09/07/2024 Essential hypertension 02/07/201006/23
--- OUTSIDE RECORDS SUMMARY | 2025-06-14 08:14 | XMS_ITS | Encounter Summary ---
Author Organization [facility] Healthcare Address [address] [place] [address] Care Team Providers Care Splunk Architect Name Role Phone Aden Rae MD Unavailable [phone] Yunior León MD Unavailable [phone] Dariana Marlow MD Unavailable [phone] Rubina Daugherty MD Unavailable [phone] Hector Lao MD Unavailable [phone] David Boone MD Unavailable [phone] Cathie Hickey MD Primary Care Provider Stacie Lopez NP Unavailable [phone] Encounter Details Date Type Department Care Team (Late st Contact Info) Description 07/20/2024 Orders Only [facility] [place] Health Information Management [address] [place] [address] Scanning, Provider Social History Tobacco Use [...] on file 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 Gender Identity Not on file Sexual [...] on filedocumented in this encounter Care Teams Splunk Architect Relationship Specialty Start Date End Date Cathie Hickey MD [address] [facility] [address] [place] [address] PCP - General Family Practice 08/29/22 Aden Rae MD [address] [place], [place] [id number] Medical Oncologist/Pelota Maker Medical Oncology 12/26/17 Yunior León MD [address] [place] [address] Referring Physician Radiation Oncology 12/26/17 Dariana Marlow MD [address] [place], [place] [address] Surgeon Surgical Oncology 12/26/17 Rubina Daugherty MD [address] [place] [address] Consulting Physician Cardiology 12/26/17 Hector Lao [place] [address] Referring Physician Family Medicine 12/26/17 David Boone MD [address] [address] Consulting Physician Urology 12/26/17 Stacie Lopez NP [address] [place] [address] Nurse Practitioner Medical Oncology 09/07/24 ZITA MONROE [address] [place] [address] Referring Physician Family Practice 10/23/18 documented as of this encounter
--- OUTSIDE RECORDS SUMMARY | 2025-06-14 08:14 | XMS_ITS | Patient Health Record ---
Author Organization 1 OF Naresh huang [facility] Address [address] [facility] [address] [place] [address] Care Team Providers Care Erp Specialist Name Role Phone Cathie Hickey Primary Care Provider Un available Jaclyn Alcantara Unavailable [phone] ElizabethTrevor butcher Unavailable [phone] Allergies Allergen (clinical drug ingredient) Drug/Non Drug Allergy documented on EMR Reaction Allergy Type Onset Date Status Anti-Inflammatory Enzyme Unknown Drug Allergy Active Adhesive Unknown Allergy Active Reason For Referral No Information Medications Medication SIG (Take, Route, Frequency, Duration) Notes Start Date End Date Status Centrum Silver 50+Women - Tablet as directed Orally Active Vitamin B6 100 MG Tablet 1 tablet Orally Once a day Active Gabapentin 100 MG Capsule 1 capsule Orally BID Active Metoprolol Succinate Active Gemfibrozil Active Atorvastatin Calcium 20 MG Tablet 1 tablet Orally Once a day Active Irbesartan 150 MG Tablet 1 tablet Orally Once a day Active Warfarin Sodium 2.5 MG Tablet 1 tablet Orally Once a day Active Omeprazole 40 MG Capsule Delayed Release 1 capsule 30 minutes before morning meal Orally Once a day Active Vitamin D3 10 MCG (400 UNIT) Capsule 2 capsules Orally Once a day Active Urea 20 % Cream 1 application to aff ected area as needed Topical Once a day; Duration: 30 days 06/01/2025 Active Social History Tobacco Use: Social History [...] Status Risk Notes 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) Idiopathic neuropathy (G60.9) Active confirmed Vital Signs Height 70 in 06/01/2025 Weight 190 lbs 06/01/2025 BMI 27.26 kg/m2 06/01/2025 Encounters Encounter Location Date Provider Diagnosis 1 OF Naresh Paul [place] [address] [place] [address] 06/01/2025 Jaclyn Alcantara Callus of foot L84 ; Idiopathic progressive neuropathy G60.3 ; Onychogryphosis L60.2 ; Nail dystrophy L60.3 ; Nerve pain M79.2 and Xerosis of skin L85.3 1 OF Naresh Paul [place] [address] [place] [address] 06/30/2024 Trevor Elizabeth Callus of foot L84 ; Idiopathic progressive neuropathy G60.3 ; Onychogryphosis L60.2 ; Nail dystrophy L60.3 and Tinea pedis of both feet B35.3 1 OF Naresh Paul [place] [address] [address] 09/01/2024 Trevor Elizabeth Callus of foot L84 ; Idiopathic progressive neuropathy G60.3 ; Onychogryphosis L60.2 ; Nail dystrophy L60.3 and Tinea pedis of both feet B35.3 1 OF Humberto [place] [address] [place] [address] 11/03/2024 Trevor Elizabeth Callus of foot L84 ; Idiopathic progressive neuropathy G60.3 ; Onychogryphosis L60.2 ; Nail dystrophy L60.3 and Tinea pedis of both feet B35.3 1 OF Naresh Paul [place] [address] [place] [address] 01/12/2025 Jaclyn Alcantara Callus of foot L84 ; Idiopathic progressive neuropathy G60.3 ; Onychogryphosis L60.2 ; Nail dystrophy L60.3 and Nerve pain M79.2 1 OF aNresh Paul [facility] [address] [place] [address] 03/23/2025 Jaclyn Alcantara Callus of foot L84 ; Idiopathic progressive neuropathy G60.3 ; Onychogryphosis L60.2 ; Nail dystrophy L60.3 and Nerve pain M79.2 1 OF Naresh Paul [facility] [address] [place] [address] 09/01/2024 Trevor Johnson Assessments Encounter Date Diagnosis (ICD Code) Assessment Notes Treatment Notes Treatment Clinical Notes Section Notes 06/30/2024 Callus of foot (ICD-10 - L84) 09/01/2024 Callus of foot (ICD-10 - L84) 11/03/2024 Callus of foot (ICD-10 - L84) 01/12/2025 Callus of foot (ICD-10 - L84) 03/23/2025 Callus of foot (ICD-10 - L84) 06/01/2025 Callus of foot (ICD-10 - L84) 06/01/2025 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 06/01/2025 Onychogryphosis (ICD-10 - L60.2) 03/23/2025 Idiopathic progressive neuropathy (ICD-10 - G60.3) [...] regular and professional palliative foot care. 06/30/2024 Onychogryphosis (ICD-10 - L60.2) 09/01/2024 Onychogryphosis (ICD-10 - L60.2) 11/03/2024 Onychogryphosis (ICD-10 - L60.2) 01/12/2025 Nail dystrophy (ICD-10 - L60.3) 03/23/2025 Onychogryphosis (ICD-10 - L60.2) 06/01/2025 Nail dystrophy (ICD-10 - L60.3) 06/01/2025 Nerve pain (ICD-10 - M79.2) 03/23/2025 Nail dystrophy (ICD-10 - L60.3) 01/12/2025 [...] L60.3) 06/30/2024 Nail dystrophy (ICD-10 - L60.3) 06/30/2024 Tinea pedis of both feet (ICD-10 - B35.3) 09/01/2024 Tinea pedis of both feet (ICD-10 - B35.3) 11/03/2024 Tinea pedis of both feet (ICD-10 - B35.3) 06/01/2025 Xerosis of skin (ICD-10 - L85.3) 03/23/2025 Nerve pain (ICD-10 - M79.2) Evaluation today included a review of medical history, review of systems, discussion of exam findings, and review of diagnoses and treatment options. She was advised that she can try purchasing ysjp-csy-eknnlpa lidocaine ointment for her nerve pain. Plan Of Treatment Next Appt Details Provider Name:Jaclyn Alcantara, 08/03/2025 09:30:00 AM, [address], [place], [address], Insurance Providers Payer Name Payer Address Payer Phone Subscriber Number Group Number Insured Name Patient Relationship to Insured Coverage Start Date Coverage End Date Medicare [address] [facility] [place] [id number] ApurvaMayte henry Self - patient is the insured [facility] [address] [place] [phone] [id number] Mayte Hawley Self - patient is the insured Medical (General) History Medical History History ICD Code Unspecified atrial fibrillation I48.91 Breast Cancer High Cholesterol High Blood Pressure kidney stones GERD/Reflux Peripheral neuropathy Surgical History Surgery Date(Month/Year) pin implant for hammer toe subsequent toe amputation 2018
--- OUTSIDE RECORDS SUMMARY | 2025-06-14 08:14 | XMS_ITS | Clinical Summary ---
Author Organization [facility] [address] Address [address] [place] [address] Care Team Providers Care Drawing Supervisor Name Role Phone Aden Rae MD Unavailable [phone] Yunior León MD Unavailable [phone] Dariana Marlow MD Unavailable [phone] Rubina Daugherty MD Unavailable [phone] Hector Lao MD Unavailable [phone] David Boone MD Unavailable [phone] Cathie Hickey MD Primary Care Provider Stacie Lopez NP Unavailable [phone] Allergies Active Allergy Reactions Criticality Noted Date [...] (six) hours as needed for pain Active wwuhtmdg-ciyirns-ob on-lutein tablet Take by mouth Active solifenacin [...] from 11/24/2017:Stage IA(pT1c, pN0, cM0, G1, ER+, TN+, HER2-, Oncotype DX score: 7) - Signed [...] in female, estrogen receptor positive 10/20/2018 01/26/2020 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 a romatase inhibitors 10/20/2018 09/03/2023 Menopausal symptom 01/02/2018 8 Positive CHANDRA (antinuclear antibody) 12/26/2017 09/07/2024 TILLMAN (dyspnea on exertion) 11/25/2017 Malignant neoplasm of left 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, estrogen receptor positive 11/24/2017 12/30/2017 Bradycardia 11/20/2015 09/07/2024 Overview (09/19/2016): Bradycardia Lumbago 02/14/2010 09/07/2024 Essential hypertension 02/07/201006/23 Encounters Date Type Department Care Team Description 06/03/2025 Anticoagulation Visit [facility] [address] [place] [address] [place] [phone] Lily Godoy RN Chronic anticoagulation (Primary Dx); Atypical atrial flutter (HCC) 05/23/2025 Orders Only [place] [address] [place] [address] Rambo Romero MD 05/23/2025 Anticoagulation Visit [place] [address] [place] [phone] Ceci Barron RN Chronic anticoagulation (Primary Dx); Atypical atrial flutter (HCC) 05/06/2025 Anticoagulation Visit [place] [address] [place] [address] Racquel Eason RN Chronic anticoagulation (Primary Dx); Atypical atrial flutter (HCC) 04/22/2025 Anticoagulation Visit [place] [address] [place] [address] Lily Godoy RN Chronic anticoagulation (Primary Dx); Atypical atrial flutter (HCC) 04/08/2025 Anticoagulation Visit [place] [address] [place] [address] Lily Godoy RN Chronic anticoagulation (Primary Dx); Atypical atrial flutter (HCC) 03/23/2025 Telephone [place] [address] [place] [address] Amanda Perkins NP 03/22/2025 Anticoagulation Visit [address] [place] [address] Racquel Eason RN Chronic anticoagulation (Primary [...] on file 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 Gender Identity Not on file Sexual Orientation [...] (2 of 2) 04/06/2024 02/10/2024 Covid-19 Vaccine ( - 2024-2 6 season) 2025 03/16/2021, 09/06/2020, 08/09/2020 Influenza Vaccine (#1) 2025 02/10/2024, 2020 Breast Cancer Screening-Mammogram 09/07/2025 09/07/2024, 09/03/2023, 08/28/2022, Additional history exists DTaP/Tdap/Td Vaccine (2 - Td or Tdap) 11/26/2028 11/26/2018 Pneumococcal vaccine 65+ Completed 01/12/2019, 08/14 Procedures Procedure Name Priority Date/Time Associated Diagnosis Comments PROTIME-INR Routine 06/03/2025 PROTIME-INR Routine 05/23/2025 8:22 AM CASHIER RECEPTIONIST PROTIME-INR Routine 05/20/2025 PROTIME-INR Routine 05/06/2025 PROTIME-INR Routine 04/22/2025 PROTIME-INR Routine 04/08/2025 PROTIME-INR Routine 03/21/2025 SCREENING MAMMOGRAM BILATERAL W HOSEA Schedule Routine, Read Routine (OP Routine) 09/07/2024 10:57 AM CDT Encounter for screening mammogram for breast cancer Breast cancer screening by mammogram from Last 3 Months or Most Recently Relevant to Health Maintenance Results * (ABNORMAL) Protime-INR (06/03/2025) INR 3.40(A) 0.90 - 1.10 EXTERNAL LAB Blood 06/03/2025 Result [facility] Historical Provider MD LAB BLOOD ORDERABLES Nhung l Result EXTERNAL LAB * Protime-INR (05/23/2025 8:22 AM CASHIER RECEPTIONIST) Blood [facility] Provider MD LAB BLOOD ORDERABLES Nhung l Result * (ABNORMAL) Protime-INR (05/20/2025) INR 2.70(A) 0.90 - 1.10 EXTERNAL LAB Blood Historical Provider MD LAB BLOOD ORDERABLES Nhung l Result EXTERNAL LAB * (ABNORMAL) Protime-INR (05/06/2025) INR 1.90(A) 0.90 - 1.10 EXTERNAL LAB Blood Result [facility] Provider MD LAB BLOOD ORDERABLES Nhung l Result Performing Organization Address [facility]/ZIP Co de Phone Number EXTERNAL LAB * (ABNORMAL) Protime-INR (04/22/2025) INR 2.50(A) 0.90 - 1.10 EXTERNAL LAB Blood 04/22/2025 Result [facility] Provider MD LAB BLOOD ORDERABLES Nhung l Result Performing Organization Address [facility]/ZIP Co de Phone Number EXTERNAL LAB * (ABNORMAL) Protime-INR (04/08/2025) INR 1.70(A) 0.90 - 1.10 EXTERNAL LAB Blood 04/08/2025 Result [facility] Provider MD LAB BLOOD ORDERABLES Nhung l Result Performing Organization Address [facility] Co de Phone Number EXTERNAL LAB * (ABNORMAL) Protime-INR (03/21/2025) INR 1.90(A) 0.90 - 1.10 EXTERNAL LAB Blood Result [facility] Provider MD LAB BLOOD ORDERABLES Nhung l Result Performing Organization Address [facility] Co de Phone Number EXTERNAL LAB * [...] age 40, based on guidelines of the [employer] (ACR Practice Parameter for the Performance of Screening and Diagnostic Mammography) and [employer]. For women [...] Recently Relevant to Health Maintenance Insurance MEDICARE [facility] MEDICARE SUPPLEMENT MEDICARE [facility] MEDICARE SUPPLEMENT Care Teams Drawing Supervisor Relationship Specialty Start Date End Date Cathie Hickey MD [facility] [address] [place] [address] PCP - General Family Practice 08/29/22 Aden Rae MD [address] [place] [address] Medical Oncologist/Registered Nurse Cardiac Telemetry Medical Oncology 12/26/17 Yunior León MD [address] [place] [address] Referring Physician Radiation Oncology 12/26/17 Dariana Marlow MD [address] [place] [address] Surgeon Surgical Oncology 12/26/17 JimenaRubina domínguez MD [address] [place], [place] [address] Consulting Physician Cardiology 12/26/17 Hector Lao MD [address] [place] [address] Referring Physician Family Medicine 12/26/17 David Boone MD [address] [address] Consulting Physician Urology 12/26/17 Stacie Lopez NP [address] [place] [address] Nurse Practitioner Medical Oncology 09/07/24 ZITA MONROE [address] [place] [address] Referring Physician Family Practice 10/23/18
--- OUTSIDE RECORDS SUMMARY | 2025-06-14 08:14 | XMS_ITS | Encounter Summary ---
Author Organization [facility] Healthcare Address [address] [place] [address] Care Team Providers Care Plant General Manager Name Role Phone Aden Rae MD Unavailable [phone] Yunior León MD Unavailable [phone] Dariana Marlow MD Unavailable [phone] Rubina Daugherty MD Unavailable [phone] Hector Lao MD Unavailable [phone] David Boone MD Unavailable [phone] Cathie Hickey MD Primary Care Provider Stacie Lopez NP Unavailable [phone] Encounter Details Date Type Department Care Team (Late st Contact Info) Description 08/17/2024 Orders Only [facility] Health Information Management [address] [place] [address] Scanning, Provider Social History Tobacco Use [...] on file 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 [address] [place] [address] PCP - General Family Practice 08/29/22 Aden Rae MD [address] [place], [place] [address] Medical Oncologist/Accounts Payable Administrator Medical Oncology 12/26/17 Yunior León MD [address] [place] [address] Referring Physician Radiation Oncology 12/26/17 Dariana Marlow MD [address] [place], [place] [address] Surgeon Surgical Oncology 12/26/17 Rubina Daugherty MD [address] [place] [address] Consulting Physician Cardiology 12/26/17 Hector Lao [place] [address] Referring Physician Family Medicine 12/26/17 David Boone MD [address] [address] Consulting Physician Urology 12/26/17 Stacie Lopez NP [address] [place] [address] Nurse Practitioner Medical Oncology 09/07/24 ZITA MONROE [address] [place] [address] Referring Physician Family Practice 10/23/18 documented as of this encounter
--- OUTSIDE RECORDS SUMMARY | 2025-06-14 08:14 | XMS_ITS | Encounter Summary ---
Author Organization [facility] Healthcare Address [address] [place] [address] Care Team Providers Care Associate Entertainment Editor Name Role Phone Aden Rae MD Unavailable [phone] Yunior León MD Unavailable [phone] Dariana Marlow MD Unavailable [phone] Rubina Daugherty MD Unavailable [phone] Hector Lao MD Unavailable [phone] David Boone MD Unavailable [phone] Cathie Hickey MD Primary Care Provider Stacie Lopez NP Unavailable [phone] Encounter Details Date Type Department Care Team (Late st Contact Info) Description 06/22/2024 Orders Only [facility] [place] [address] [place] [address] Scanning, Provider Social History Tobacco Use [...] on file 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 Gender Identity Not on file Sexual [...] on filedocumented in this encounter Care Teams Associate Entertainment Editor Relationship Specialty Start Date End Date Cathie Hickey MD [address] [facility] [address] [place], [place] [address] PCP - General Family Practice 08/29/22 Aden Rae MD [address] [place], [place] [address] Medical Oncologist/Supervisor Tunnel [place]ading Medical Oncology 12/26/17 Yunior León MD [address] [place] [address] Referring Physician Radiation Oncology 12/26/17 Dariana Marlow MD [address] [place] [address] Surgeon Surgical Oncology 12/26/17 Rubina Daugherty MD [address] [place] [address] Consulting Physician Cardiology 12/26/17 Hector Lao [place] [address] Referring Physician Family Medicine 12/26/17 David Boone MD [address] [address] Consulting Physician Urology 12/26/17 Stacie Lopez NP [address] [place] [address] Nurse Practitioner Medical Oncology 09/07/24 ZITA MONROE [address] [place] [id number] Referring Physician Family Practice 10/23/18 documented as of this encounter
--- OUTSIDE RECORDS SUMMARY | 2025-06-14 08:14 | XMS_ITS | Encounter Summary ---
Author Organization [facility] Healthcare Address [address] [place] [address] Care Team Providers Care President And Chief Executive Officer Name Role Phone Aden Rae MD Unavailable [phone] Yunior León MD Unavailable [phone] Dariana Marlow MD Unavailable [phone] Rubina Daugherty MD Unavailable [phone] Hector Lao MD Unavailable [phone] David Boone MD Unavailable [phone] Cathie Hickey MD Primary Care Provider Stacie Lopez NP Unavailable [phone] Encounter Details Date Type Department Care Team (Late st Contact Info) Description 11/02/2024 Orders Only [facility] [place] Information Management [address] [place] [address] Scanning, Provider Social History Tobacco Use [...] on file 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 Gender Identity Not on file Sexual [...] on filedocumented in this encounter Care Teams President And Chief Executive Officer Relationship Specialty Start Date End Date Cathie Hickey MD [address] [facility] [address] [place] [address] PCP - General Family Practice 08/29/22 Aden Rae MD [address] [place] [id number] Medical Oncologist/Animator Medical Oncology 12/26/17 Yunior León MD [address] [place] [address] Referring Physician Radiation Oncology 12/26/17 Dariana Marlow MD [address] [place] [address] Surgeon Surgical Oncology 12/26/17 Rubina Daugherty MD [address] [place] [address] Consulting Physician Cardiology 12/26/17 Hector Lao MD [address] [place] [address] Referring Physician Family Medicine 12/26/17 David Boone MD [address] [address] Consulting Physician Urology 12/26/17 Stacie Lopez NP [address] [place] [address] Nurse Practitioner Medical Oncology 09/07/24 ZITA MONROE [address] [place] [address] Referring Physician Family Practice 10/23/18 documented as of this encounter
--- OUTSIDE RECORDS SUMMARY | 2025-06-14 08:15 | XMS_ITS | Encounter Summary ---
Author Organization [facility] Address [address] [facility] [address] [place] [address] Phone Care Team Providers Care Certified Master Safe Technician Name Role Phone Hector Lao MD Primary Care Provider + [phone] Zita Myles MD Primary Care Provider + [phone] Aden Rae MD Unavailable [phone] Yunior León MD Unavailable + [phone] Dariana Marlow MD Unavailable [phone] Rubina Daugherty MD Unavailable [phone] Hector Lao MD Unavailable + [phone] David Boone MD Unavailable + [phone] Hector Lao MD Primary Care Provider [phone] Zita Myles MD Primary Care Provider [phone] Cathie Hickey MD Primary Care Provider Cathie Hickey MD Primary Care Provider Stacie Lopez NP Unavailable [phone] Encounter Details Date Type Department Care Team [...] on file 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 Gender Identity Not on file Sexual [...] filedocumented in this encounter Care Teams Certified Master Safe Technician Relationship Specialty Start Date End Date Hector Lao MD [address] [place] [address] PCP - General 09/13/16 12/18/17 Zita Myles MD [address] [place] [address] PCP - General Family Practice 12/19/17 12/30/17 Hector Lao MD [address] [place] [address] PCP - General 12/31/17 01/14/18 Zita Myles MD [address] [place] [address] PCP - General Family Practice 01/15/18 02/14/21 Cathie Hickey MD [address] [place] [address] PCP - General Family Practice 02/15/21 08/28/22 Cathie Hickey MD [address] [facility] [address] [address] PCP - General Family Practice 08/29/22 Aden Rae MD [address] [place] [address] Medical Oncologist/Respite Worker Medical Oncology 12/26/17 Yunior León MD [address] [place] [address] Referring Physician Radiation Oncology 12/26/17 Dariana Marlow MD [address] [place] [address] Surgeon Surgical Oncology 12/26/17 Rubina Daugherty MD [address] [place] [address] Consulting Physician Cardiology 12/26/17 Hector Lao MD [address] [place] [address] Referring Physician Family Medicine 12/26/17 David Boone MD [address] [address] Consulting Physician Urology 12/26/17 Stacie Lopez NP [address] [place] [address] Nurse Practitioner Medical Oncology 09/07/24 ZITA MONROE [address] [place] [address] Referring Physician Family Practice 10/23/18 documented as of this encounter
[2025-06-14 18:29] LABS: Alanine Aminotransferase 24 U/L (6-35); Albumin Level 4.0 g/dL (3.5-5.1); Alkaline Phosphatase 81 U/L (38-126); Anion Gap 3 mmol/L (4-12); Aspartate Amino Transferase 33 U/L (14-36); Bilirubin,Total 0.5 mg/dL (0.2-1.3); Blood Urea Nitrogen 19 mg/dL (7-17); Calcium 9.4 mg/dL (8.4-10.2); Carbon Dioxide 27 mmol/L (22-30); Chloride 110 mmol/L (98-107); Cholesterol 146 mg/dL (0-200); Estimated Glomerular Filt Rate > 60; Glucose 100 mg/dL (65-110); HDL Direct 37 mg/dL; Potassium 4.5 mmol/L (3.4-5.0); Sodium 140 mmol/L (137-145); Total Protein 6.6 g/dL (6.3-8.2); Triglycerides 168 mg/dL (<150)
[2025-06-14 18:32] LABS: Hemoglobin A1C 5.4 % (<5.7)
[2025-06-14 18:45] LABS: Hematocrit 45.1 % (37.0-47.0); Hemoglobin 15.2 g/dL (12.0-15.0); Immature Granulocyte Percent A 0.2 % (0-0.5); Lymphocytes Absolute Auto 0.75 K/mm3 (0.9-3.2); Mean Corpuscular HGB Conc 33.7 g/dl (32-36); Mean Corpuscular Hemoglobin 30.5 pg (26-34); Mean Corpuscular Volume 90.4 fl (80-100); Nucleated Red Blood Cells Absolute Auto 0.000 K/mm3 (0.0-0.012); Nucleated Red Blood Cells Perc 0.0 % (0.0-0.2); Platelet Count Result 181 k/mm3 (150-375); Red Blood Count 4.99 M/mm3 (4.2-5.4); White Blood Count 4.5 K/mm3 (4.5-10.0)
[2025-06-14 19:00] LABS: Thyroid Stimulating Hormone Reflex 2.140 uIU/mL (0.465-4.68)
[2025-06-14 19:23] LABS: Vitamin B12 398.0 pg/mL (239-931)
[2025-06-15 07:09] LABS: Measles Antibodies, IgG >300.0 AU/mL (Immune >16.4); Rubella Antibodies, IgG 17.80 index (Immune >0.99)
== END 2025-06-14 08:08 | disposition home or self-care (01) ==
LOC: ANHGOSHLAB 08:08
PROVIDERS: PCP Family Medicine; Visit Provider Family Medicine
DX: I48.0 Paroxysmal atrial fibrillation (principal); Z78.9 Other specified health status; R73.9 Hyperglycemia, unspecified; I10 Essential (primary) hypertension; E53.8 Deficiency of other specified B group vitamins; E78.5 Hyperlipidemia, unspecified; E55.9 Vitamin D deficiency, unspecified; E78.2 Mixed hyperlipidemia
CPT/HCPCS: 36415; 80053; 80061; 82306; 82607; 83036; 84443; 85025; 86735; 86762; 86765